=== PATIENT | male | born 1985 | race Hispanic/Latino ===

== ENCOUNTER 2021-05-23 04:50 | Emergency (ER) | payer OTHER, SELFPAY ==
--- NOTE | ~2021-05-23 | XR_ITS ---
EXAMINATION: XR chest 1V portable EXAM DATE: 05/23/2021 05:56 INDICATION: Chest pain. TECHNIQUE: Portable AP frontal chest x-ray was obtained. Comparison is made to prior examination from 02/28/2016. FINDINGS: The lungs are clear. There are no pleural effusions. Cardiac silhouette is prominent but magnified on this AP technique. There is no pneumothorax suspected. The bones and soft tissues are unremarkable. IMPRESSION: Unremarkable chest x-ray exam. Reviewed, dictated and finalized at location A.
[2021-05-23 04:53] VITALS: BP 125/91; PULSE 66; RESP 12; TEMP 36.6; O2SAT 99
--- NOTE | 2021-05-23 04:53 | ECG_ITS ---
Measurements Intervals [place] Rate: 64 P: 6 MD: 166 QRS: 70 QRSD: 109 T: 7 QT: 400 QTc: 415 Interpretive Statements SINUS RHYTHM MINIMAL Q WAVES- INFERIOR LEADS BASELINE ARTIFACT- I, III, AVR, AVL BORDERLINE ECG Electronically Signed On 05-25-2021 15:24:58 CDT by Sanchez Burdick D.O.
[2021-05-23 05:12] LABS: Glucose Point of Care 130 mg/dl (65-105)
[2021-05-23 05:15] LABS: Basophils Percent Auto 0.5 % (0.2-1.2); Eosinophils Absolute Auto 0.2 K/mm3 (0-0.3); Eosinophils Percent Auto 3.4 % (0-4.4); Hematocrit 37.7 % (42.0-52.0); Hemoglobin 13.5 g/dL (14.0-18.0); Immature Granulocyte Absolute 0.01 K/mm3 (0.00-0.031); Immature Granulocyte Percent A 0.2 % (0-0.5); Lymphocytes Absolute Auto 1.43 K/mm3 (0.9-3.2); Lymphocytes Percent Auto 25.3 % (18.3-44.2); Mean Corpuscular HGB Conc 35.8 g/dl (32-36); Mean Corpuscular Hemoglobin 30.9 pg (26-34); Mean Corpuscular Volume 86.3 fl (80-100); Mean Platelet Volume 12.1 fl (7.4-10.4); Monocytes Absolute Auto 0.5 K/mm3 (0.1-0.6); Neutrophils Absolute Auto 3.5 K/mm3 (1.3-6.7); Neutrophils Percent Auto 62.6 % (45.5-73.1); Platelet Count Result 173 k/mm3 (150-375); Red Blood Count 4.37 M/mm3 (4.6-6.20); Red Cell Distribution Width 12.2 % (11.5-14.5); White Blood Count 5.7 K/mm3 (4.5-10.0)
[2021-05-23 05:29] LABS: Prothrombin Time 12.9 Seconds (11.1-14.7)
[2021-05-23 05:30] LABS: Partial Thromboplastin Time 26.7 SECONDS (22.3-36.8)
[2021-05-23 05:47] LABS: Anion Gap 3 mmol/L (8-16); Blood Urea Nitrogen 17 mg/dL (9-20); Calcium 8.7 mg/dL (8.4-10.2); Carbon Dioxide 25 mmol/L (22-30); Chloride 109 mmol/L (98-107); Estimated CRCL calculation 157 ml/min; Estimated Glomerular Filt Rate > 60; Glucose 121 mg/dL (65-110); Potassium 3.9 mmol/L (3.4-5.0); Sodium 137 mmol/L (137-145)
[2021-05-23 05:53] LABS: Troponin I < 0.012 ng/mL (0.000-0.034)
--- NOTE | 2021-05-23 06:55 | ED.CHESTPAIN ---
HPI - Chest Pain General Chief Complaint: Chest Pain <Yoav Doev MD - Last Filed: 05/23/21 07:03> Stated Complaint: chest pain <Yoav Dove MD - Last Filed: 05/23/21 07:03> Time Seen by Provider: 05/23/21 06:51 <Yoav Dove MD - Last Filed: 05/23/21 07:03> Source: patient <Yoav Dove MD - Last Filed: 05/23/21 07:03> Mode of arrival: EMS <Yoav Dove MD - Last Filed: 05/23/21 07:03> Limitations: no limitations <Yoav Dove MD - Last Filed: 05/23/21 07:03> History of Present Illness HPI narrative: Patient is a 35-year-old male complaining of chest pain, midsternal, tightness, was 9 out of 10 earlier now at 2/10, radiating to left arm started early this morning. Patient denies any shortness of breath, abdominal pain, nausea, vomiting, diaphoresis, fever or chills. Patient was given aspirin and nitro in the ambulance prior to arrival. <Yoav Dove MD - Last Filed: 05/23/21 07:03> Related Data Allergies/Adverse Reactions: Allergies Allergy/AdvReac Type Severity Reaction Status Date / Time No Known Allergies Allergy Unverified 02/28/16 09:39 <Yoav Dove MD - Last Filed: 05/23/21 07:03> Review of Systems Review of Systems: All systems reviewed & are unremarkable except as noted in HPI and below <Yoav Dove MD - Last Filed: 05/23/21 07:03> Constitutional: Constitutional: Denies body ache(s), Denies chills, Denies excessive sweating, Denies fatigue, Denies fever(s), Denies headache(s), Denies lethargy, Denies malaise, Denies weakness and Denies weight loss <Yoav Doev MD - Last Filed: 05/23/21 07:03> Eyes: Eyes: Denies blurry vision, Denies change in vision and Denies loss of vision <Yoav Dove MD - Last Filed: 05/23/21 07:03> ENT: Denies dizziness, Denies ear discharge, Denies headache(s), Denies lip swelling, Denies epistaxis, Denies nasal congestion, Denies neck pain, Denies throat swelling and Denies tongue swelling <Yoav Dove MD - Last Filed: 05/23/21 07:03> Cardiovascular: Cardiovascular: Denies diaphoresis, Denies rapid heart rate, Denies edema, Denies irregular heart rhythm, Denies lightheadedness, Denies palpitations, Denies dyspnea and Denies dyspnea on exertion <Yoav Dove MD - Last Filed: 05/23/21 07:03> Respiratory: Respiratory: Denies chest congestion, Denies cough, Denies hemoptysis, Denies dyspnea and Denies dyspnea on exertion <Yoav Dove MD - Last Filed: 05/23/21 07:03> Gastrointestinal: Gastrointestinal: Denies abdominal pain, Denies melena, Denies hematochezia, Denies diarrhea, Denies nausea, Denies vomiting and Denies hematemesis <Yoav Dove MD - Last Filed: 05/23/21 07:03> Musculoskeletal: Musculoskeletal: Denies abnormal gait, Denies deformity, Denies joint swelling, Denies limited range of motion, Denies neck pain and Denies numbness <Yoav Dove MD - Last Filed: 05/23/21 07:03> Neurologic: Denies Abnormal speech present, Denies abnormal gait, Denies confusion, Denies dizziness, Denies headache(s), Denies focal weakness, Denies loss of vision, Denies numbness, Denies Other visual disturbances, Denies Sensory deficit (Neuro) and Denies weakness <Yoav Dove MD - Last Filed: 05/23/21 07:03> Psychiatric: Psychiatric: Denies confusion, Denies depression, Denies auditory hallucinations, Denies homicidal ideation and Denies suicidal ideation <Yoav Dove MD - Last Filed: 05/23/21 07:03> Endocrine: Endocrine: Denies cold intolerance, Denies excessive sweating, Denies fatigue, Denies heat intolerance and Denies palpitations <Yoav Dove MD - Last Filed: 05/23/21 07:03> Hematologic/Lymphatic: Hematologic/Lymphatic: Denies easy bleeding and Denies easy bruising <Yoav Dove MD - Last Filed: 05/23/21 07:03> Allergic/Immunologic: Allergic/Immunologic: Denies lip swelling, Denies throat swelling and Denies tongue s
[2021-05-23 07:35] VITALS: BP 134/90; PULSE 50; RESP 18; O2SAT 98
[2021-05-23 08:23] LABS: Troponin I < 0.012 ng/mL (0.000-0.034)
[2021-05-23] MEDS: KETOROLAC 30 MG/ML VIAL (*BKC) IV PUSH (09:40)
[2021-05-23 10:12] VITALS: BP 109/66; PULSE 44; RESP 17; O2SAT 100
== END 2021-05-23 10:14 | disposition home or self-care (01) ==
PROVIDERS: Emergency Provider Emergency Medicine; PCP Internal Medicine Gastroenterology
DX: R07.89 Other chest pain (principal); F17.200 Nicotine dependence, unspecified, uncomplicated
CPT/HCPCS: 36415; 71045; 80048; 82948; 84484; 85025; 85610; 85730; 93005; 96374; 99284; J1885

== ENCOUNTER 2022-07-15 13:49 | Emergency (ER) | payer OTHER, SELFPAY ==
--- NOTE | ~2022-07-15 | XR_ITS ---
EXAMINATION: XR chest 2V Exam Date/Time: 07/15/2022 18:55 CDT HISTORY: CP, SOB, DIZZY, TYPE 1 DIABETIC Comparison: 05/23/2021 and 02/28/2016. RESULT: Lines, tubes, and devices: None. Lungs and pleura: No pneumothorax or focal consolidation. Diffuse reticular pattern, somewhat reticu lonodular mid and lower lungs, peribronchial cuffing, indistinct vascular margins. Cardiomediastinal silhouette: Stable. Other: No acute osseous or upper abdominal finding. IMPRESSION: Findings may represent bronchiolitis or vascular congestion/mild interstitial edema. Reviewed, dictated and finalized at location K. IMPRESSION: Findings may represent bronchiolitis or vascular congestion/mild interstitial e hiral.
--- NOTE | 2022-07-15 14:04 | ECG_ITS ---
Measurements Intervals [place] Rate: 70 P: 17 RI: 140 QRS: 85 QRSD: 107 T: 34 QT: 411 QTc: 443 Interpretive Statements SINUS RHYTHM DIFFUSE J-POINT ELEVATION, MOST LIKELY EARLY REPOLARIZATION ABNORMALITY NORMAL VARIANT, CONSIDER PERICARDITIS AND OR ACUTE MYOCARDIAL INJURY BORDERLINE ECG COMPARED TO ECG 05/23/2021 04:59:07 NO SIGNIFICANT CHANGES Electronically Signed On 07-15-2022 16:02:01 CDT by Dominik Issa M.D.
[2022-07-15 14:05] VITALS: BP 134/83; PULSE 71; RESP 36; TEMP 36.5; O2SAT 100
[2022-07-15 14:14] LABS: Glucose Point of Care 271 mg/dl (65-105)
[2022-07-15 14:30] LABS: Basophils Percent Auto 0.5 % (0.2-1.2); Eosinophils Percent Auto 0.5 % (0-4.4); Hematocrit 46.1 % (42.0-52.0); Hemoglobin 16.6 g/dL (14.0-18.0); Immature Granulocyte Absolute 0.03 K/mm3 (0.00-0.031); Immature Granulocyte Percent A 0.4 % (0-0.5); Lymphocytes Absolute Auto 2.86 K/mm3 (0.9-3.2); Lymphocytes Percent Auto 36.2 % (18.3-44.2); Mean Corpuscular Hemoglobin 31.1 pg (26-34); Mean Corpuscular Volume 86.3 fl (80-100); Mean Platelet Volume 11.5 fl (7.4-10.4); Monocytes Absolute Auto 0.5 K/mm3 (0.1-0.6); Monocytes Percent Auto 6.2 % (2.6-8.5); Neutrophils Absolute Auto 4.4 K/mm3 (1.3-6.7); Neutrophils Percent Auto 56.2 % (45.5-73.1); Platelet Count Result 306 k/mm3 (150-375); Red Blood Count 5.34 M/mm3 (4.6-6.20); Red Cell Distribution Width 12.5 % (11.5-14.5); White Blood Count 7.9 K/mm3 (4.5-10.0)
[2022-07-15 14:41] LABS: Alanine Aminotransferase 52 U/L (6-50); Albumin Level 4.9 g/dL (3.5-5.1); Alkaline Phosphatase 160 U/L (38-126); Anion Gap 14 mmol/L (8-16); Aspartate Amino Transferase 32 U/L (17-59); Bilirubin,Total 1.2 mg/dL (0.2-1.3); Blood Urea Nitrogen 13 mg/dL (9-20); Calcium 10.4 mg/dL (8.4-10.2); Carbon Dioxide 18 mmol/L (22-30); Chloride 101 mmol/L (98-107); Estimated CRCL calculation 114 ml/min; Estimated Glomerular Filt Rate > 60; Glucose 273 mg/dL (65-110); Potassium 3.7 mmol/L (3.4-5.0); Sodium 133 mmol/L (137-145)
[2022-07-15 15:40] VITALS: PULSE 64
[2022-07-15 16:59] VITALS: BP 109/70; PULSE 58; RESP 18; O2SAT 100
[2022-07-15] MEDS: HYDROmorphone HCL INJ (*CRX) 1 MG/ML SYR IV PUSH (17:57)
[2022-07-15] MEDS: SODIUM CHLORIDE 0.9% IV 1,000 ML 999 ML IV CONT ×2 (17:58→18:05)
[2022-07-15 18:11] LABS: Troponin I < 0.012 ng/mL (0.000-0.034)
[2022-07-15 18:15] LABS: Troponin I < 0.012 ng/mL (0.000-0.034)
[2022-07-15 18:34] LABS: Influenza A QL RT-PCR Negative (Negative); Influenza B QL RT-PCR Negative (Negative); SARS-CoV-2 RNA PCR Negative
[2022-07-15 18:39] LABS: D Dimer 0.31 ug/mL (<0.48)
[2022-07-15] MEDS: KETOROLAC 15 MG/ML VIAL (*BKC) IV PUSH (19:22)
--- NOTE | 2022-07-15 19:24 | ED.DIZZY ---
HPI - Dizziness General Chief Complaint: Dizziness Stated Complaint: Dizzy after Inhaling Cleaning Products Time Seen by Provider: 07/15/22 16:33 History of Present Illness HPI Narrative: 36-year-old male with history of type 1 diabetes presented to the emergency department for evaluation of increased generalized fatigue nausea dizziness. Patient reports he has had some sinus congestion and cough for approximately 1 week. Patient states worsening symptoms started when he was at work. Patient states he suspect he is dehydrated. Patient's blood sugars have been running elevated. Patient is unsure if he has any ketones. Patient last had an episode of DKA approximately 6 months ago. Patient reports he is having some chest tightness, patient had a negative cath at [facility] 1 year ago. Related Data Allergies Allergy/AdvReac Type Severity Reaction Status Date / Time No Known Allergies Allergy Unverified 02/28/16 09:39 Review of Systems Review of Systems: CONSTITUTIONAL: Generalized fatigue EYES: Denies visual changes, redness, or discharge. ENT: Denies rhinorrhea, congestion, sore throat, or otalgia. CARDIOVASCULAR: Chest tightness RESPIRATORY: Denies cough or dyspnea. GASTROINTESTINAL: Nausea, see HPI GENITOURINARY: Denies dysuria or hematuria. SKIN: Denies rash or itching. MUSCULOSKELETAL: Denies back pain, joint pain, or myalgia. NEUROLOGIC: Denies headache, numbness, or weakness. [facility] Family History Family History Mother Family history of rheumatoid arthritis Other Family history of mental disorder Family history of obesity Hypertension Social History Social History Smoking status: Current every day smoker Second hand tobacco smoke exposure: Yes Alcohol intake: current Exam Narrative: APPEARANCE: Tired appearing HEAD: normocephalic, atraumatic. EYES: PERRLA/EOMI, conjunctivae clear. NOSE: Normal no drainage THROAT: Pharynx clear, no exudate. NECK: Supple. No adenopathy, no masses. RESPIRATORY: Airway patent, respirations nonlabored. Clear to auscultation bilaterally, no rales, rhonchi, wheezing. CARDIOVASCULAR: Regular rate and rhythm without murmurs rubs or gallops. ABDOMINAL: Soft, nontender, nondistended, normal bowel sounds MUSCULOSKELETAL: Moves all extremities. Strength/ROM intact, No edema, No calf tenderness. NEURO: Alert. Cranial nerves II through XII intact. Grossly intact SKIN: Warm, dry. Normal Color Course Course Emergency Course: Patient reports he does feel improved with treatment. Patient is afebrile with no leukocytosis. Patient's D-dimer was not elevated. Patient's electrolytes are within normal limits. Patient does not have an anion gap. Patient's glucose is elevated at 273. Patient is being treated with 2 L of normal saline. Patient had negative serial troponins. Patient's influenza and COVID were both negative. Chest ray showed no acute cardiopulmonary normality. Patient is being treated for an atypical pneumonia Vital Signs Vital signs: Vital Signs Temperature 97.7 F 07/15/22 14:05 Pulse Rate 71 07/15/22 14:05 Respiratory Rate 36 H 07/15/22 14:05 Blood Pressure 134/83 07/15/22 14:05 Pulse Oximetry 100 07/15/22 14:05 Oxygen Delivery Room Air 07/15/22 14:05 Temperature 97.7 F 07/15/22 14:05 Pulse Rate 62 07/15/22 20:18 Respiratory Rate 13 07/15/22 20:18 Blood Pressure 129/75 07/15/22 20:18 Pulse Oximetry 99 07/15/22 20:18 Oxygen Delivery Room Air 07/15/22 14:05 MDM - Dizziness Lab Data Attestation: I reviewed the patient's lab results. Result diagrams: 07/15/22 14:20 07/15/22 14:20 Labs: Lab Results 07/15/22 07/15/22 07/15/22 Range/Units 14:10 14:19 14:20 WBC 7.9 (4.5-10.0) K/mm3 RBC 5.34 (4.6-6.20) M/mm3 Hgb 16.6 D (14.0-18.0) g/dL Hct 46.
[2022-07-15 19:25] VITALS: PULSE 63; RESP 16; O2SAT 99
[2022-07-15 20:18] VITALS: BP 129/75; PULSE 62; RESP 13; O2SAT 99
== END 2022-07-15 21:29 | disposition home or self-care (01) ==
PROVIDERS: Emergency Provider Emergency Medicine; PCP Internal Medicine Gastroenterology
DX: E86.0 Dehydration (principal); R05.9 Cough, unspecified; J02.9 Acute pharyngitis, unspecified; Z20.822 Contact with and (suspected) exposure to COVID-19; E10.9 Type 1 diabetes mellitus without complications; F17.200 Nicotine dependence, unspecified, uncomplicated
CPT/HCPCS: 36415; 71046; 80053; 82948; 84484; 85025; 85380; 87502; 93005; 96361; 96365; 96375; 99284; C9803; J0456; J1170; J1885; J7030; U0003; U0005

== ENCOUNTER 2023-05-08 22:52 | Observation (INO) | payer OTHER, MEDICAID, SELFPAY ==
--- NOTE | ~2023-05-08 | MR_ITS ---
EXAMINATION: MR cervical spine wo con DATE: 05/09/2023 16:28 INDICATION: Paresthesias. TECHNIQUE: Magnetic resonance imaging (MRI) of the cervical spine was performed without intravenous c ontrast. COMPARISON: None FINDINGS: There is 8 degrees levocurvature of cervicothoracic spine. Vertebral body heights and inter vertebral disc heights are normal. The spinal cord signal intensity is normal. The following disc lev els are specifically discussed: C2-C3: The disc does not extend beyond the endplate margin. There is no uncovertebral joint osteoarth ritis. There is mild bilateral facet joint osteoarthritis. There is no neural foraminal stenosis. The re is no central canal stenosis. C3-C4: The disc does not extend beyond the endplate margin. There is no uncovertebral joint osteoarth ritis. There is mild left facet joint osteoarthritis. There is no neural foraminal stenosis. There is no central canal stenosis. C4-C5: The disc does not extend beyond the endplate margin. There is mild left uncovertebral joint os teoarthritis. There is no facet joint osteoarthritis. There is no neural foraminal stenosis. There is no central canal stenosis. C5-C6: The disc does not extend beyond the endplate margin. There is mild bilateral uncovertebral bambi nt osteoarthritis. There is no facet joint osteoarthritis. There is no neural foraminal stenosis. The re is no central canal stenosis. C6-C7: The disc does not extend beyond the endplate margin. There is no uncovertebral joint osteoarth ritis. There is mild bilateral facet joint osteoarthritis. There is no neural foraminal stenosis. The re is no central canal stenosis. C7-T1: The disc does not extend beyond the endplate margin. There is no uncovertebral joint osteoarth ritis. There is mild bilateral facet joint osteoarthritis. There is no neural foraminal stenosis. The re is no central canal stenosis. IMPRESSION: 1. Mild polyarticular osteoarthritis. Reviewed, dictated and finalized at location A.
--- NOTE | ~2023-05-08 | CT_ITS ---
CT ANGIOGRAM NECK AND HEAD History: Left-sided numbness. Technique: Axial noncontrast imaging of the brain was performed. Serial spiral axial images through t he head and neck were then obtained during arterial phase IV injection of 180 cc of Omnipaque 350. 3- D postprocessing and MIP images were then reconstructed on the remote workstation. Dose reduction breezy hnique was used on this scan by utilizing automated exposure control and iterative reconstruction breezy hnique. The dose-length product (DLP) was 1947.55 mGy-cm. CTA neck findings: Bilateral vertebral arteries are patent. Bilateral common carotid, internal carot id, and external carotid arteries are patent. No large vessel occlusion. No stenosis or aneurysm. The proximal right internal carotid artery demonstrates 0% stenosis relative to the normal distal artery lumen diameter. The proximal left internal carotid artery demonstrates 0% stenosis relative to the n ormal distal artery lumen diameter. CTA head findings: Distal vertebral arteries, basilar artery, and posterior cerebral arteries are pat ent. Distal internal carotid arteries, middle cerebral arteries, and anterior cerebral arteries are p atent. No large vessel occlusion. No stenosis or aneurysm. Axial noncontrast imaging of brain is unremarkable. No mass lesion, intracranial hemorrhage or acute infarct seen. Ventricles and subarachnoid spaces are unremarkable. Preston-white differentiation is main tained. Paranasal sinuses and mastoid air cells are clear. Impression: No significant abnormality seen. Reviewed, dictated and finalized at location . Impression: No significant abnormality seen.
--- NOTE | ~2023-05-08 | XR_ITS ---
Clinical Indication: Chest pain PA and lateral views of the chest: Comparison: 07/15/2022 Findings: The lungs are clear, without evidence of focal consolidation or pleural effusion. Cardiome diastinal silhouette is within normal limits. Bones and soft tissues are unremarkable. Impression: Normal chest. Reviewed, dictated and finalized at location . Impression: Normal chest.
--- NOTE | ~2023-05-08 | CT_ITS ---
Clinical Indication: Chest pain CT Scan of the Chest with Contrast: Technique: Contiguous sections were acquired throughout the chest after intravenous administration of 180 cc of Omnipaque 350. Dose reduction technique was used on this scan by utilizing automated expos ure control and iterative reconstruction technique. The dose-length product (DLP) was 1023.62 mGy-cm. Findings: There is no evidence of any significant mediastinal, hilar or axillary lymphadenopathy. There is no evidence of aortic dissection or aneurysm. There is no evidence of pleural or pericardial effusion. The lungs are clear. No pulmonary nodules or infiltrates are noted. Images through the upper abdomen reveal no abnormalities. Impression: No evidence of aortic aneurysm or dissection. Clear lungs. Reviewed, dictated and finalized at location . Impression: No evidence of aortic aneurysm or dissection. Clear lungs.
--- NOTE | ~2023-05-08 | MR_ITS ---
EXAMINATION: MR shoulder LT wo con DATE: 05/09/2023 16:38 INDICATION: Left shoulder and chest wall pain. TECHNIQUE: Magnetic resonance imaging (MRI) of the left shoulder was performed without intravenous co ntrast. Sequences included axial PD-weighted FS FSE, coronal oblique PD-weighted FS FSE, coronal obli que T2-weighted FS FSE, sagittal PD-weighted FS FSE, and sagittal T1-weighted SE. COMPARISON: CTA chest dated 05/08/2023 FINDINGS: Coracoacromial arch: The acromion undersurface is minimally curved in morphology (type I-II). The coracoacromial ligament is normal. Minimal acromioclavicular osteoarthritis. Rotator cuff: The supraspinatus, infraspinatus and teres minor tendons are normal. Mild subscapularis tendinopathy without tear. Normal rotator cuff muscle bulk and signal. Biceps tendon, glenoid labrum and glenohumeral cartilage: Long head of the biceps tendon is normal. Glenoid labrum is normal. Glenohumeral cartilage is normal. Fluid: Physiologic amount of fluid in the glenohumeral joint and biceps tendon sheath. No loose osteochondr al bodies. Small amount of fluid in the subacromial/subdeltoid bursa consistent with mild bursitis. Bones: Normal marrow signal with no edema, fracture or abnormal marrow replacing process. IMPRESSION: 1. Mild subscapularis tendinopathy without tear. 2. Mild subacromial/subdeltoid bursitis. Reviewed, dictated and finalized at location L.
--- NOTE | ~2023-05-08 | NM_ITS ---
EXAMINATION: NM lalito stress w perfusion DATE: 05/09/2023 14:49 INDICATION: Chest pain. TECHNIQUE: Rest images were obtained following intravenous administration of 10 mCi Tc99m tetrofosmin (Myoview). The patient was infused intravenously with Lexiscan (regadenoson). Then, 32.7 mCi Tc99m t etrofosmin (Myoview) was administered intravenously, and stress images were obtained. Data was recons tructed into short axis and horizontal and vertical long axis SPECT images. Gated SPECT images were a lso obtained. COMPARISON: None. FINDINGS: There is no definite reversible or fixed perfusion abnormality to suggest ischemia or infar ction. There is no segmental wall motion abnormality. Left ventricular ejection fraction measures 6 9%. IMPRESSION: 1. No definite ischemia or infarct. 2. Normal left ventricular ejection fraction measuring 69%. Reviewed, dictated and finalized at location A.
--- NOTE | 2023-05-08 22:54 | ECG_ITS ---
Measurements Intervals [place] Rate: 68 P: 58 ID: 160 QRS: 74 QRSD: 111 T: 13 QT: 376 QTc: 400 Interpretive Statements SINUS RHYTHM MODERATE INTRAVENTRICULAR CONDUCTION DELAY [110+ ms QRS DURATION] ABNORMAL ECG COMPARED TO ECG 07/15/2022 14:14:23 INTRAVENTRICULAR CONDUCTION DELAY NOW PRESENT Electronically Signed On 05-09-2023 13:05:22 CDT by Manolo Holguin M.D.
[2023-05-08 22:56] VITALS: BP 122/77; PULSE 75; RESP 12; TEMP 36.4; O2SAT 95
[2023-05-08 23:01] VITALS: PULSE 67
[2023-05-08 23:02] VITALS: O2SAT 99
--- NOTE | 2023-05-08 23:04 | PC.NURSE ---
Patient states that he is having numbness in on his right side (hand, arm, and knee).
[2023-05-08 23:07] LABS: Basophils Absolute Auto 0.1 K/mm3 (0.0-0.1); Eosinophils Absolute Auto 0.2 K/mm3 (0-0.3); Eosinophils Percent Auto 2.9 % (0-4.4); Hematocrit 41.6 % (42.0-52.0); Hemoglobin 14.8 g/dL (14.0-18.0); Immature Granulocyte Absolute 0.02 K/mm3 (0.00-0.031); Immature Granulocyte Percent A 0.3 % (0-0.5); Lymphocytes Absolute Auto 2.52 K/mm3 (0.9-3.2); Lymphocytes Percent Auto 37.1 % (18.3-44.2); Mean Corpuscular HGB Conc 35.6 g/dl (32-36); Mean Corpuscular Hemoglobin 31.2 pg (26-34); Mean Corpuscular Volume 87.8 fl (80-100); Monocytes Absolute Auto 0.5 K/mm3 (0.1-0.6); Monocytes Percent Auto 7.2 % (2.6-8.5); Neutrophils Absolute Auto 3.5 K/mm3 (1.3-6.7); Neutrophils Percent Auto 51.5 % (45.5-73.1); Platelet Count Result 251 k/mm3 (150-375); Red Blood Count 4.74 M/mm3 (4.6-6.20); White Blood Count 6.8 K/mm3 (4.5-10.0)
--- NOTE | 2023-05-08 23:15 | ED.CHESTPAIN ---
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 Reports family history of heart attack and stroke. Related Data Allergies Allergy/AdvReac Type Severity Reaction Status Date / Time No Known Allergies Allergy Unverified 02/28/16 09:39 Review of Systems Review of Systems: CONST: No fever. HEENT: Left face numbness C/V: No chest pain RESP: No cough GI: No abdominal pain : No dysuria. M/S: Left arm pain SKIN: No rash. NEURO: Numbness to left side PSYCH: [No depression] [facility] Family History Family History Mother Family history of rheumatoid arthritis Other Family history of mental disorder Family history of obesity Hypertension Social History Social History Smoking status: Current every day smoker Second hand tobacco smoke exposure: Yes Alcohol intake: current Exam Narrative: EXAMINATION OF ORGAN SYSTEMS/BODY AREAS: Constitutional: Vital signs per nursing GENERAL: Appears anxious and uncomfortable HEAD: Normal with no signs of head trauma. EYES: EOMI, conjunctiva normal, PERRL ENT: Hearing grossly intact; no obvious facial droop LUNGS: Respirations slightly shallow and fast. HEART: [Regular rate and rhythm] ABD: [Soft], [nontender to palpation] EXT: Normal range of motion; normal radial and DP pulses SKIN: [No rashes or lesions.] NEURO: [Alert and oriented x 3. No motor deficits but endorses decreased sensation to the entire left side from face down to foot.] PSYCH: Anxious affect Course Vital Signs Vital signs: Vital Signs Temperature 97.6 F 05/08/23 22:56 Pulse Rate 75 08/09/23 22:56 Respiratory Rate 12 05/08/23 22:56 Blood Pressure 122/77 05/08/23 22:56 Pulse Oximetry 95 05/08/23 22:56 Oxygen Delivery Room Air 05/08/23 22:56 Temperature 97.6 F 05/08/23 22:56 Pulse Rate 68 05/09/23 00:16 Respiratory Rate 21 H 05/09/23 00:16 Blood Pressure 112/60 05/09/23 00:16 Pulse Oximetry 98 05/09/23 00:16 Oxygen Delivery Room Air 05/08/23 23:02 MDM - Chest Pain MDM Narrative Medical decision making narrative: ED COURSE AND MEDICAL DECISION MAKIN-year-old male presenting with chest pain radiating to the left arm with paresthesias. EKG done in triage negative for acute ischemic changes. Cardiac workup is initiated. EKG: Performed in triage and interpreted by me. Normal sinus rhythm. Rate 68. Normal axis. MN normal. QRS duration 111. QTc normal. No pathologic Q waves. No ST segment elevation or depression to suggest acute ischemia. No RV strain pattern. HEART score is 4 with no acute ischemic changes on EKG and negative troponin making ACS unlikely. Wells low risk with negative PERC making PE unlikely. CXR negative for mediastinal widening. No abdominal pain or signs of sepsis that would be concerning for esophageal perforation or mediastinitis. No cardiomegaly or JVD to suggest pericardial effusion/tamponade. I have extremely low CVA in the vague symptoms and distribution and unlikeliness of any sort of stroke that would cause diminished sensation from the head down to toe, CTA of the head and neck obtained here confirms no obvious acute abnormality, I discussed this with our neurologist on-call who agrees and recommends possibly outp
[2023-05-08 23:17] LABS: Prothrombin Time 13.6 Seconds (11.1-14.7)
[2023-05-08 23:18] LABS: Partial Thromboplastin Time 27.9 SECONDS (22.3-36.8)
[2023-05-08 23:19] LABS: Alanine Aminotransferase 33 U/L (6-50); Albumin Level 4.4 g/dL (3.5-5.1); Alkaline Phosphatase 79 U/L (38-126); Anion Gap 6 mmol/L (8-16); Aspartate Amino Transferase 34 U/L (17-59); Bilirubin,Total 0.6 mg/dL (0.2-1.3); Blood Urea Nitrogen 15 mg/dL (9-20); Calcium 9.5 mg/dL (8.4-10.2); Carbon Dioxide 23 mmol/L (22-30); Chloride 104 mmol/L (98-107); Estimated CRCL calculation 113 ml/min; Estimated Glomerular Filt Rate > 60; Glucose 149 mg/dL (65-110); Lipase 29 U/L (23-300); Potassium 3.8 mmol/L (3.4-5.0); Sodium 133 mmol/L (137-145)
[2023-05-08 23:31] LABS: Troponin I < 0.012 ng/mL (0.000-0.034)
[2023-05-09] VITALS (17 sets, daily range): BP systolic 100–136; BP diastolic 44–82; PULSE 47–72; RESP 16–21; TEMP 35.9–36.4; O2SAT 96–100; BMI 36.3
--- NOTE | 2023-05-09 | ECHO_ITS ---
Patient Info Name: Pranav Fay Age: 37 years : 1985 Gender: Male Ht: 68 in Wt: 230 lbs BSA: 2.28 m2 HR: 56 bpm BP: 118 / 68 mmHg Heart Rhythm: Sinus Rhythm, Bradycardia Technical Quality: Fair Exam Date: 05/09/2023 1:15 PM Exam Location: [facility] Patient Status: Inpatient Admit Date: 05/09/2023 Staff Ordering Physician: Breezy Headley MD Escalator Service Mechanic: Daryn Cash RDCS Attending Provider: Breezy Headley MD Referring Physician: Fang HERRERA; Exam Type: CA echo doppler color flow Study Info Indications - Chest pain Complete two-dimensional, color flow and Doppler transthoracic echocardiogram is performed with contrast to opacify the left ventricle and to improve the deliniation of the left ventricle endocardial borders. Summary 1. Left ventricular chamber dimension is normal. 2. Left ventricular systolic function is normal, estimated at >70%. 3. There is mildly increased left ventricular wall thickness. 4. Right ventricular systolic function is normal. 5. No significant valvular disease. Left Ventricle Left ventricular chamber dimension is normal. Left ventricular systolic function is normal, estimated at >70%. There is mildly increased left ventricular wall thickness. The left ventricular diastolic function is normal. Right Ventricle Right ventricular chamber dimension is normal. Right ventricular systolic function is normal. Left Atria Left atrial chamber dimension is normal. Right Atria Right atrial chamber dimension is normal. Atrial Septum Intact interatrial septum visualized by color flow imaging. Aortic Valve The aortic valve is not well visualized. There is no aortic valve stenosis. There is no aortic valve regurgitation. Pulmonic Valve The pulmonic valve is not well visualized. Mitral Valve The mitral valve has thickened leaflets. There is trace mitral valve regurgitation. Tricuspid Valve There is trace tricuspid valve regurgitation. Pericardium/Pleural There is no pericardial effusion. Inferior Vena Cava Normal inferior vena cava with <50% collapse upon inspiration consistent with elevated right atrial pressure, 8 mmHg. Aorta The aortic root size at the sinus of Valsalva is normal. Left Ventricular Outflow Tract Name Value Normal LVOT 2D LVOT Diameter 2.0 cm LVOT Doppler LVOT Peak Gradient 5 mmHg LVOT Mean Gradient 3 mmHg LVOT VTI 29 cm LVOT VTI/AV VTI Ratio 1.2 LVOT Stroke Volume 88 ml LVOT CO 4.2 l/min LVOT CI 1.8 l/min/m2 Pulmonic Valve Name Value Normal RVOT Doppler RVOT Peak Gradient 2 mmHg PV Doppler PV Peak Gradient 3 mmHg Mitral Valv
[2023-05-09] MEDS: MORPHINE SULFATE (*CRX) 2 MG/ML INJ IV PUSH (00:33)
[2023-05-09] MEDS: LORazepam INJ (*CRX) 2 MG/ML VIAL 0.5 MG IV PUSH (00:33)
--- NOTE | 2023-05-09 00:43 | EST_ITS ---
Patient Info Name: Pranav Fay Age: 37 years : 1985 Gender: Male Ht: 68 in Wt: 230 lbs BSA: 2.28 m2 HR: 47 bpm BP: 107 / 71 mmHg Heart Rhythm: Sinus Rhythm Exam Date: 05/09/2023 11:35 AM Exam Location: [facility] Stress Patient Status: Inpatient Admit Date: 05/09/2023 Staff Ordering Physician: Breezy Headley MD Attending Provider: Breezy Headley MD Exercise Technologist: Maria Esther Cota CT Nurse: Charlotte Rowe APN Exam Type: CA stress lalito w NM Study Info Indications R07.89 - Other chest pain A regadenoson stress test was performed. Summary 1. Please correlate with nuclear medicine images, reported separately. 2. No abnormal ST-T wave changes with lexiscan. 3. Test was supervised and interpretation performed by Manolo Holguin MD. Protocol: Lexiscan Stress ECG Details Stage: REST Duration (min): 2 min : 25 sec HR (bpm): 47 SBP (mmHg): --- DBP (mmHg): --- Stage: REST Duration (min): 8 min : 16 sec HR (bpm): 48 SBP (mmHg): --- DBP (mmHg): --- Stage: STAGE 1 Duration (min): 1 min : 0 sec HR (bpm): 62 SBP (mmHg): --- DBP (mmHg): --- Stage: RECOVERY Duration (min): 1 min : 0 sec HR (bpm): 83 SBP (mmHg): 104 DBP (mmHg): 45 Stage: RECOVERY Duration (min): 2 min : 0 sec HR (bpm): 70 SBP (mmHg): 104 DBP (mmHg): 45 Stage: RECOVERY Duration (min): 3 min : 0 sec HR (bpm): 61 SBP (mmHg): 109 DBP (mmHg): 51 Stage: RECOVERY Duration (min): 3 min : 12 sec HR (bpm): 66 SBP (mmHg): 109 DBP (mmHg): 51 Rest HR: 48 bpm Peak HR: 83 bpm Peak Sys BP: 109 mmHg Max Pred HR: 181 bpm % Max Pred HR: 46 % Target HR: 154 bpm Max RPP: 9,047 bpm*mmHg BP Response: Normal blood pressure response Termination Reason: Completed protocol Cardiac Symptoms: Shortness of breath, Chest pain Total Time: 1 min : 0 sec Peak Cohen BP: 51 mmHg Total Dose: 0.4 mg Resting ECG Sinus bradycardia. New rule out inferior AR, right axis deviation. Stress ECG No abnormal ST/T wave changes with exercise. Arrhythmias None. Report Signatures Amended by Manolo Holguin on 05/09/2023 12:59
[2023-05-09] MEDS: ASPIRIN 81 MG CHEWABLE TABLET 324 MG PO (00:47)
--- NOTE | 2023-05-09 01:50 | ADMGEN ---
This patient, Pranav Fay, was admitted to IMU Room 210-01. Patient/family oriented to hospital policies and general routines including ID bracelet, bed and alarms, visiting hours, pain management, procedures, bathroom and other care routines, personal items, smoking policy, room service/diet, and visiting hours. Information on how to activate the Rapid Response Team has been discussed. Patient/Family are encouraged to report perceived risks to care and to ask questions if they do not understand what they are told or what they should do.
[2023-05-09 01:58] LABS: Amphetamine Screen Urine Negative (Negative); Barbiturate Screen Urine Negative (Negative); Benzodiazepines Screen Urine Negative (Negative); Cannabinoid Screen Urine Positive (Negative); Cocaine Screen Urine Negative (Negative); Methadone Screen Urine Negative (Negative); Opiate Screen Urine Positive (Negative); Phencyclidine Screen Urine Negative (Negative)
[2023-05-09 02:08] LABS: Appearance Urine Clear (Clear); Bilirubin Urine Negative (Negative); Blood Urine Negative (Negative); Color Urine Yellow (Yellow); Glucose Urine UA Negative (Negative); Ketones Urine Negative (Negative); Leukocyte Esterase Ur Negative LEU/UL (Negative); Nitrate Urine Negative (Negative); Protein Urine Trace mg/dL (Negative)
[2023-05-09 02:09] LABS: RBC Urine 0-2 /hpf (0-2); Specific Grav Ur >= 1.099 (1.001-1.035); WBC Urine 0-3 /hpf
[2023-05-09 02:10] LABS: Bacteria Urine None seen /hpf
[2023-05-09 02:12] LABS: Troponin I < 0.012 ng/mL (0.000-0.034)
[2023-05-09 02:24] LABS: Add Urine Microscopic? YES
[2023-05-09 05:12] LABS: Troponin I < 0.012 ng/mL (0.000-0.034)
--- NOTE | 2023-05-09 08:22 | PM.IMHP ---
H&P: HPI History of Present Illness Date/Time: 05/09/23 08:22 Chief Complaint: Chest pain Narrative: 37-year-old male with history of type 1 diabetes presents here stating that he is having severe pain in his left chest radiating to his arm, that started when he was working on his for cleft. Was intermittently but later became persistent. Was radiating into the left arm his left side of the neck was also sore the same time. 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 Reports family history of heart attack and stroke. He did have a cardiac workup for similar symptom in the past which includes cardiac catheterization which was negative as he was told by his channel director a year and half ago. Did this at [place] Review of Systems Review of Systems: - CONSTITUTIONAL: Denies weight loss, fever and chills. - HEENT: Denies changes in vision and hearing - RESPIRATORY: Denies SOB and cough. - CV: Denies palpitations and reports CP. - GI: Denies abdominal pain, nausea, vomiting and diarrhea. - : Denies dysuria and urinary frequency. - MSK: Denies myalgia and joint pain. - SKIN: Denies rash and pruritus. - NEUROLOGICAL: Denies headache and syncope. - PSYCHIATRIC: Denies recent changes in mood. Denies anxiety and depression. [facility] Family History Family History Mother Family history of rheumatoid arthritis Other Family history of mental disorder Family history of obesity Hypertension Social History Social History Years smoked: 20 Smoking status: Current every day smoker Tobacco type: cigars Second hand tobacco smoke exposure: Yes Alcohol intake: never Substance use: current Substance use type: marijuana Lack of Transportation: No Lack of Food: Never True Current Housing: I Have Housing Concerned About Future Housing: No Difficulty Paying Gas/Electric Bills: No Difficulty Paying for Meds: No Currently Unemployed: No Education: Decline to Answer Difficulty w/ Childcare or Family Care: No Spiritual care concerns: No Meds Home Medications and Allergies Home Medications Medication Instructions Recorded Confirmed Type ibuprofen 800 mg tablet 800 mg PO TID 05/09/23 05/09/23 History insulin glargine 100 unit/mL (3 35 unit subcut BID 05/09/23 05/09/23 History mL) subcutaneous pen (Lantus Solostar U-100 Insulin) insulin lispro 100 unit/mL 15 unit subcut TID 05/09/23 05/09/23 History subcutaneous pen (Humalog KwikPen (U-100) Insulin) loperamide 2 mg capsule 2 mg PO Q4H 05/09/23 05/09/23 History Allergies Allergy/AdvReac Type Severity Reaction Status Date / Time No Known Allergies Allergy Unverified 02/28/16 09:39 Vital Signs Vital Signs - 24 hr 05/08/23 22:56 05/08/23 23:01 05/08/23 23:02 Temperature 97.6 F Pulse Rate 75 67 Respiratory Rate 12 Blood Pressure 122/77 Pulse Oximetry 95 99 Oxygen Delivery Room Air Room Air 05/09/23 00:16 05/09/23 01:35 05/09/23 01:59 Temperature 96.7 F L Pulse Rate 68 62 72 Respiratory Rate 21 H 18 20 Blood Pressure 112/60 100/55 L 120/81 Pulse Oximetry 98 97 98 Oxygen Delivery 05/09/23 02:00 05/09/23 04:00 05/09/23 03:00 Temperature Pulse Rate 53 L 64 64 Respiratory Rate 20 Blood Pressure Pulse Oximetry 98 Oxygen Delivery Room Air 05/09/23 04:00 05/09/23 06:00 05/09/23 02:04 Temperature 97.4 F L 96.7 F L Pulse Rate 56 L 56 L 72 Respiratory Rate 16 20 Blood Pressure 118/68 120/81 Pulse Oximetry 99 98 Oxygen Delivery Exam Narrative:
[2023-05-09] MEDS: IBUPROFEN 400 MG TABLET 800 MG PO ×2 (09:19→17:06)
[2023-05-09] MEDS: ASPIRIN 81 MG ENTERIC TABLET PO (09:19)
[2023-05-09] MEDS: INSULIN GLARGINE (*BKC) 100 UNITS/ML 35 UNITS SUB-Q ×2 (10:23→17:08)
--- NOTE | 2023-05-09 10:45 | PC.NURSE ---
Pt to nuclear medicine for Lexiscan via wheelchair
--- NOTE | 2023-05-09 12:54 | PC.NURSE ---
Pt returned from nuclear medicine via wheelchair, with no issues noted
[2023-05-09 13:24] LABS: Glucose Point of Care 223 mg/dl (65-105)
--- NOTE | 2023-05-09 15:34 | PC.NURSE ---
Pt to MRI via w/c.
--- NOTE | 2023-05-09 16:42 | PC.NURSE ---
Pt returned from MRI
[2023-05-09] MEDS: INSULIN ASPART (*BKC) 100 UNITS/ML 15 UNITS SUB-Q (17:08)
[2023-05-09] MEDS: LOPERAMIDE HCL 2 MG CAPSULE PO (17:09)
[2023-05-09 18:59] LABS: Glucose Point of Care 163 mg/dl (65-105)
[2023-05-09 20:14] LABS: Glucose Point of Care 241 mg/dl (65-105)
[2023-05-09] MEDS: ACETAMINOPHEN 500 MG TABLET 1000 MG PO (22:30)
[2023-05-10] VITALS: PULSE 44
[2023-05-10 04:00] VITALS: PULSE 42
[2023-05-10 04:47] LABS: Basophils Percent Auto 0.9 % (0.2-1.2); Eosinophils Absolute Auto 0.2 K/mm3 (0-0.3); Eosinophils Percent Auto 4.3 % (0-4.4); Hematocrit 39.7 % (42.0-52.0); Hemoglobin 13.9 g/dL (14.0-18.0); Immature Granulocyte Absolute 0.01 K/mm3 (0.00-0.031); Immature Granulocyte Percent A 0.2 % (0-0.5); Lymphocytes Absolute Auto 1.85 K/mm3 (0.9-3.2); Lymphocytes Percent Auto 42.1 % (18.3-44.2); Mean Corpuscular Hemoglobin 30.9 pg (26-34); Mean Corpuscular Volume 88.2 fl (80-100); Mean Platelet Volume 11.6 fl (7.4-10.4); Monocytes Absolute Auto 0.3 K/mm3 (0.1-0.6); Monocytes Percent Auto 6.8 % (2.6-8.5); Neutrophils Percent Auto 45.7 % (45.5-73.1); Platelet Count Result 211 k/mm3 (150-375); Red Cell Distribution Width 12.9 % (11.5-14.5); White Blood Count 4.4 K/mm3 (4.5-10.0)
[2023-05-10 04:58] LABS: Alanine Aminotransferase 71 U/L (6-50); Albumin Level 3.6 g/dL (3.5-5.1); Alkaline Phosphatase 88 U/L (38-126); Anion Gap 0 mmol/L (8-16); Aspartate Amino Transferase 53 U/L (17-59); Bilirubin,Total 0.5 mg/dL (0.2-1.3); Blood Urea Nitrogen 11 mg/dL (9-20); Calcium 8.8 mg/dL (8.4-10.2); Carbon Dioxide 27 mmol/L (22-30); Chloride 107 mmol/L (98-107); Estimated CRCL calculation 125 ml/min; Estimated Glomerular Filt Rate > 60; Glucose 180 mg/dL (65-110); Magnesium 2.2 mg/dL (1.6-2.3); Potassium 4.4 mmol/L (3.4-5.0); Sodium 134 mmol/L (137-145)
[2023-05-10 08:00] VITALS: BP 115/68; PULSE 58; RESP 16; TEMP 36.3; O2SAT 99
[2023-05-10] MEDS: INSULIN ASPART (*BKC) 100 UNITS/ML 15 UNITS SUB-Q ×2 (08:04→11:35)
[2023-05-10] MEDS: INSULIN GLARGINE (*BKC) 100 UNITS/ML 35 UNITS SUB-Q (08:05)
[2023-05-10] MEDS: IBUPROFEN 400 MG TABLET 800 MG PO (08:06)
[2023-05-10] MEDS: ENOXAPARIN 40 MG/0.4 ML SYRINGE SUB-Q (08:06)
[2023-05-10] MEDS: ASPIRIN 81 MG ENTERIC TABLET PO (08:06)
[2023-05-10] MEDS: LOPERAMIDE HCL 2 MG CAPSULE PO (08:11)
[2023-05-10 08:16] VITALS: PULSE 68; O2SAT 100
[2023-05-10 08:49] LABS: Glucose Point of Care 227 mg/dl (65-105)
[2023-05-10 11:46] LABS: Glucose Point of Care 260 mg/dl (65-105)
[2023-05-10] MEDS: INSULIN ASPART (*BKC) 100 UNITS/ML SUB-Q (11:48)
[2023-05-10 12:00] VITALS: PULSE 59
[2023-05-10 12:05] VITALS: BP 114/73; PULSE 57; RESP 16; TEMP 36.9; O2SAT 99
--- NOTE | 2023-05-10 13:22 | PM.DS ---
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 Previous cardiac workup has been negative.? Stress test done which came back negative..? Ibuprofen p.r.n..? Already on aspirin 81 mg daily.? Cardiac catheterization was done a year and a half ago which was clean reported by the patient. Type 1 diabetes on insulin glargine and NovoLog.? Will resume this Left arm paresthesia this most likely related to his cervical or shoulder impingement.? MRI cervical spine with some spondylosis however shoulder MRI with subacromial bursitis likely reason for his pain. 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 Oropharynx clear. Moist mucous membranes. Conjunctivae appear well perfused. CHEST: Chest wall is tender to touch on left upper chest left cervical paraspinal area tenderness. Tender and mildly restricted range of motion on left shoulder HEART: Regular rate and rhythm without murmur, rubs, or gallops LUNGS: Clear to auscultation bilaterally. no respiratory distress ABDOMEN: Soft, positive bowel sounds, non-tender, no organomegaly. SKIN: No rash, no excessive bruising, petechiae, or purpura. NEUROLOGIC: Cranial nerves II-XII intact, alert and oriented x 3, no gross motor deficits EXTREMITIES: no edema, cyanosis or clubbing DS: Data Data Completed and Pending Completed studies during hospitalization: Exam Type: ? ? CA echo doppler color flow Study Info Indications ?? ? - Chest pain Complete two-dimensional, color flow and Doppler transthoracic echocardiogram is performed with contrast to opacify the left ventricle and to improve the deliniation of the left ventricle endocardial borders. Account #: ? ? [id number] Summary ? 1. Left ventricular chamber dimension is normal. ? 2. Left ventricular systolic function is normal, estimated at >70%. ? 3. There is mildly increased left ventricular wall thickness. ? 4. Right ventricular systolic function is normal. ? 5. No significant valvular disease. Left Ventricle ? Left ventricular chamber dimension is normal. ? Left ventricular systolic function is normal, estimated at >70%. ? There is mildly increased left ventricular wall thickness. ? The left ventricular diastolic function is normal. Right Ventricle ? Right ventricular chamber dimension is normal. ? Right ventricular systolic function is normal. Left Atria ? Left atrial chamber dimension is normal. Right Atria ? Right atrial chamber dimension is normal. Atrial Septum ? Intact interatrial septum visualized by color flow imaging. Aortic Valve ? The aortic valve is not well visualized. ? There is no aortic valve stenosis. ? There is no aortic valve regurgitation. Pulmonic Valve ? The pulmonic valve is not well visualized. Mitral Valve ? The mitral valve has thickened leaflets. ? There is trace mitral valve regurgitation. Tricuspid Valve ? There is trace tricuspid valve regurgitation. Pericardium/Pleural ? There is no pericardial effusion. Inferior Vena Cava ? Normal inferior vena cava with <50% collapse upon inspirat
== END 2023-05-10 14:18 | disposition home or self-care (01) ==
LOC: ANHED 05-09 00:57 → ANHIMU 05-09 01:50
PROVIDERS: Internal Medicine; Admitting Provider Internal Medicine; Emergency Provider Emergency Medicine; PCP Internal Medicine Gastroenterology; Visit Provider Internal Medicine
DX: R07.9 Chest pain, unspecified (principal); R11.0 Nausea; R20.0 Anesthesia of skin; Z82.49 Family history of ischemic heart disease and other diseases of the circulatory system; E10.9 Type 1 diabetes mellitus without complications; M47.812 Spondylosis without myelopathy or radiculopathy, cervical region; F12.90 Cannabis use, unspecified, uncomplicated; F17.290 Nicotine dependence, other tobacco product, uncomplicated; Z79.4 Long term (current) use of insulin
CPT/HCPCS: 36415; 70496; 70498; 71046; 71275; 72141; 73221; 78452; 80053; 80307; 81001; 82948; 83690; 83735; 84484; 85025; 85610; 85730; 93005; 93017; 93306; 96372; 96374; 96375; 99285; A9270; A9502; G0378; J1650; J1815; J2060; J2270; J2785; Q9967

== ENCOUNTER 2023-08-06 09:48 | Observation (INO) | payer MEDICAID, SELFPAY ==
[2023-08-06] VITALS (14 sets, daily range): BP systolic 109–131; BP diastolic 65–79; PULSE 59–66; RESP 11–20; TEMP 36.3–36.5; O2SAT 98–100; BMI 31.4
--- NOTE | ~2023-08-06 | XR_ITS ---
EXAMINATION: XR chest 2V Exam Date/Time: 08/06/2023 18:05 MINIATURE SET DESIGNER HISTORY: COUGH CHEST TIGHTNESS Comparison: 05/08/23. RESULT: Lines, tubes, and devices: Cholecystectomy clips. Lungs and pleura: Diffuse mild reticulonodular opacities and mild cuffing. Cardiomediastinal silhouette: Stable. Other: No acute osseous or upper abdominal finding. IMPRESSION: Pulmonary opacities may represent respiratory bronchiolitis and/or mild interstitial edema. Reviewed, dictated and finalized at location K. ATURE SET DESIGNER IMPRESSION: Pulmonary opacities may represent respiratory bronchiolitis and/or mild interst itial edema.
[2023-08-06 09:53] LABS: Glucose Point of Care 261 mg/dl (65-105)
--- NOTE | 2023-08-06 10:19 | ED.RECABL ---
HPI - Recheck/Abnormal Lab/Rx General Chief Complaint: Recheck/Abnormal Lab/Rx Stated Complaint: High blood sugar Time Seen by Provider: 08/06/23 10:05 History of Present Illness HPI narrative: Pt is Type I diabetic and his blood sugar was 350 at home. Pt has not missed doses. Pt has viral URI symptoms and concerned he may be in DKA. Pt feels very dry and lightheaded when getting up and dizzy. Pt concerned he may be in DKA. Related Data Home Medications Medication Instructions Recorded Confirmed ibuprofen 800 mg tablet 800 mg PO TID PRN Pain 05/09/23 08/06/23 insulin glargine 100 unit/mL (3 35 unit subcut BID 05/09/23 08/06/23 mL) subcutaneous pen (Lantus Solostar U-100 Insulin) insulin lispro 100 unit/mL 15 unit subcut TID 05/09/23 08/06/23 subcutaneous pen (Humalog KwikPen (U-100) Insulin) loperamide 2 mg capsule 2 mg PO Q4HWA 05/09/23 08/06/23 Allergies Allergy/AdvReac Type Severity Reaction Status Date / Time No Known Allergies Allergy Verified 08/06/23 10:27 Review of Systems Review of Systems: All systems reviewed & are unremarkable except as noted in HPI and below PMFSH Family History Family History Mother Family history of rheumatoid arthritis Other Family history of mental disorder Family history of obesity Hypertension Social History Social History Years smoked: 20 Smoking status: Current every day smoker Tobacco type: cigars Second hand tobacco smoke exposure: Yes Alcohol intake: never Substance use: current Substance use type: marijuana Other substance usage details: drinks alcohol once a month and uses marijuana ocasionally. Last use: 08/02/23 Lack of Transportation: No Lack of Food: Never True Current Housing: I Have Housing Concerned About Future Housing: No Difficulty Paying Gas/Electric Bills: No Difficulty Paying for Meds: No Currently Unemployed: No Education: High School Diploma/GED Difficulty w/ Childcare or Family Care: No Spiritual care concerns: No Exam Const: General: no acute distress Nutritional Appearance: well nourished Orientation/consciousness: patient oriented x3 Limitations: no limitations HENMT: Mouth: Yes dry mucous membranes Neck: Neck: normal visual inspection Chest: Chest palpation & inspection: normal inspection of the chest Resp: Effort & Inspection: normal respiratory effort Auscultation: clear to auscultation bilaterally Cardio: Rate: regular rate Rhythm: regular rhythm GI: GI Palp: Yes Soft to palpation Auscultation: normal bowel sounds Skin: General skin exam: normal color Rashes: no rashes Neuro: General: patient oriented x3, moves all extremities and no meningeal signs Extrem: General: normal to inspection and no clubbing, cyanosis or edema Psych: Mental Status: mental status grossly normal Affect: normal affect Attitude: cooperative Course Vital Signs Vital signs: Vital Signs Temperature 97.7 F 08/06/23 09:50 Pulse Rate 66 08/06/23 09:50 Respiratory Rate 20 08/06/23 09:50 Blood Pressure 131/75 08/06/23 09:50 Pulse Oximetry 100 08/06/23 09:50 Oxygen Delivery Room Air 08/06/23 09:50 Temperature 97.3 F L 08/06/23 16:45 Pulse Rate 59 L 08/06/23 16:45 Respiratory Rate 16 08/06/23 16:45 Blood Pressure 127/75 08/06/23 16:45 Pulse Oximetry 100 08/06/23 16:45 Oxygen Delivery Room Air 08/06/23 17:49 MDM - Recheck/Abnormal Lab/Rx MDM Narrative Medical decision making narrative: given pt long history of DM, DKA certainly possible with URI as trigger. Will give IVF and Insulin and check labs and cxr. repeat accucheck 171. called Dr Wilson and said hold drip and give another liter of fluid (3 L total) and can give his long acting insulin and should be fine. discussed with DEE greene asked for repeat bmp to check gap.
--- NOTE | 2023-08-06 10:24 | ECG_ITS ---
Measurements Intervals [place] Rate: 59 P: 52 AK: 159 QRS: 71 QRSD: 108 T: 26 QT: 432 QTc: 431 Interpretive Statements SINUS BRADYCARDIA BORDERLINE ECG COMPARED TO ECG 05/08/2023 23:00:34 SINUS BRADYCARDIA NOW PRESENT Electronically Signed On 08-06-2023 10:50:17 CAN HANDLER by Sanchez Burdick D.O.
[2023-08-06 10:42] LABS: Basophils Absolute Auto 0.1 K/mm3 (0.0-0.1); Basophils Percent Auto 0.7 % (0.2-1.2); Eosinophils Percent Auto 0.4 % (0-4.4); Hematocrit 45.8 % (42.0-52.0); Hemoglobin 15.6 g/dL (14.0-18.0); Immature Granulocyte Absolute 0.05 K/mm3 (0.00-0.031); Immature Granulocyte Percent A 0.7 % (0-0.5); Lymphocytes Absolute Auto 1.45 K/mm3 (0.9-3.2); Lymphocytes Percent Auto 19.3 % (18.3-44.2); Mean Corpuscular HGB Conc 34.1 g/dl (32-36); Mean Corpuscular Hemoglobin 31.8 pg (26-34); Mean Corpuscular Volume 93.3 fl (80-100); Mean Platelet Volume 11.9 fl (7.4-10.4); Monocytes Absolute Auto 0.3 K/mm3 (0.1-0.6); Monocytes Percent Auto 3.6 % (2.6-8.5); Neutrophils Absolute Auto 5.7 K/mm3 (1.3-6.7); Neutrophils Percent Auto 75.3 % (45.5-73.1); Platelet Count Result 224 k/mm3 (150-375); Red Blood Count 4.91 M/mm3 (4.6-6.20); Red Cell Distribution Width 12.8 % (11.5-14.5); White Blood Count 7.5 K/mm3 (4.5-10.0)
[2023-08-06 10:49] LABS: Alanine Aminotransferase 92 U/L (6-50); Albumin Level 4.6 g/dL (3.5-5.1); Alkaline Phosphatase 135 U/L (38-126); Anion Gap 21 mmol/L (8-16); Aspartate Amino Transferase 72 U/L (17-59); Bilirubin,Total 1.1 mg/dL (0.2-1.3); Blood Urea Nitrogen 11 mg/dL (9-20); Calcium 8.9 mg/dL (8.4-10.2); Carbon Dioxide 10 mmol/L (22-30); Chloride 105 mmol/L (98-107); Estimated CRCL calculation 119 ml/min; Estimated Glomerular Filt Rate > 60; Glucose 275 mg/dL (65-110); Potassium 4.5 mmol/L (3.4-5.0); Sodium 136 mmol/L (137-145)
[2023-08-06 10:59] LABS: Troponin I < 0.012 ng/mL (0.000-0.034)
[2023-08-06] MEDS: INSULIN HUMAN REGULAR (*BKC) 100 UNITS/ML 14 UNITS IV PUSH (11:14)
[2023-08-06] MEDS: ONDANSETRON INJ 4 MG/2 ML VIAL IV PUSH (11:16)
[2023-08-06] MEDS: INSULIN HUMAN REGULAR (*BKC) 100 UNITS in SODIUM CHLORIDE 0.9% IV 99 ML 9.5 UNITS IV CONT (11:17)
[2023-08-06 11:18] LABS: Influenza A QL RT-PCR Negative (Negative); Influenza B QL RT-PCR Negative (Negative); SARS-CoV-2 RNA PCR Negative (Negative)
[2023-08-06] MEDS: SODIUM CHLORIDE 0.9% IV 2,000 ML 999 ML IV CONT (11:20)
[2023-08-06 11:53] LABS: Beta-Hydroxybutyrate/Acetoacetate 7.06 mmol/L (0.02-0.27)
[2023-08-06 12:31] LABS: Glucose Point of Care 171 mg/dl (65-105)
--- NOTE | 2023-08-06 12:31 | PC.NURSE ---
Per VORB by EDP , insulin drip paused at this time
[2023-08-06 12:43] LABS: Appearance Urine Clear (Clear); Bilirubin Urine Negative (Negative); Blood Urine Negative (Negative); Color Urine Yellow (Yellow); Glucose Urine UA 3+ mg/dL (Negative); Ketones Urine 4+ mg/dL (Negative); Leukocyte Esterase Ur Negative LEU/UL (Negative); Nitrate Urine Negative (Negative); Protein Urine Negative (Negative); Specific Grav Ur 1.026 (1.001-1.035); Urobilinogen Urine 0.2 mg/dL (<2.0); pH Urine 5.5 (5.0-9.0)
[2023-08-06 12:46] LABS: Add Urine Microscopic? NO
[2023-08-06 13:08] LABS: Glucose Point of Care 154 mg/dl (65-105)
[2023-08-06] MEDS: SODIUM CHLORIDE 0.9% IV 1,000 ML 999 ML IV CONT (13:22)
[2023-08-06 14:22] LABS: Anion Gap 9 mmol/L (8-16); Blood Urea Nitrogen 10 mg/dL (9-20); Calcium 7.8 mg/dL (8.4-10.2); Carbon Dioxide 16 mmol/L (22-30); Chloride 112 mmol/L (98-107); Estimated CRCL calculation 135 ml/min; Estimated Glomerular Filt Rate > 60; Glucose 121 mg/dL (65-110); Potassium 4.1 mmol/L (3.4-5.0); Sodium 137 mmol/L (137-145)
[2023-08-06 14:31] LABS: Glucose Point of Care 114 mg/dl (65-105)
[2023-08-06] MEDS: SODIUM CHLORIDE 0.9% IV 1,000 ML 125 ML IV CONT (15:29)
--- NOTE | 2023-08-06 15:39 | PM.IMHP ---
H&P: HPI History of Present Illness Date/Time: 08/06/23 15:39 Chief Complaint: Hyperglycemia Narrative: 37 y/o M presents here with viral URI s/s, hyperglycemia, and polydipsia/polyuria with PMH of DM1, pancreatitis, and chronic diarrhea. Patient reports that he began to feel unwell on Saturday, more tired. Then on Saturday he developed chest tightness with inspiration, hyperglycemia w/polydipsia/polyuria, chills, body aches, sore throat (mild), congestion/rhinorrhea, and a dry cough. One other sick family member, youngest child, who had similar symptoms that began last /Saturday. Reports adequate p.o. intake. No current N/V, Has chronic diarrhea since he was 1st diagnosed with pancreatitis and takes Imodium daily for symptom management. No recent changes in diabetes medications or recent steroid use. DM1 is followed by endocrinology, robby CELAYA. However provider just left practice and patient is currently awaiting appointment with Dequan CELAYA who is managing medications in interim. patient does not currently have insulin pump or glucose monitoring device, states he is interested. no other complaints verbalized. Review of Systems Review of Systems: All systems reviewed & are unremarkable except as noted in HPI and below PMFSH Past Medical History Medical History (Updated 08/06/23 @ 23:53 by Corrina Diaz APRN) Chronic diarrhea Pancreatitis Type 1 diabetes mellitus on insulin therapy Surgical History Surgical History (Updated 08/06/23 @ 23:53 by Corrina Diaz APRN) History of appendectomy History of cholecystectomy History of skin graft LLE (graft to de la cruz from thigh) Family History Family History Mother Family history of rheumatoid arthritis Other Family history of mental disorder Family history of obesity Hypertension Social History Social History (Updated 08/06/23 @ 23:54 by Corrina Diaz APRN) Social History: currently lives at home with his and 5 children (step and bio). surrogate decision maker: Lizett Osuna, spouse. code status: full code. Years smoked: 20 Smoking status: Current every day smoker Tobacco type: cigars Second hand tobacco smoke exposure: Yes Alcohol intake: never Substance use: current Substance use type: marijuana Other substance usage details: drinks alcohol once a month and uses marijuana ocasionally. Last use: 08/02/23 Lack of Transportation: No Lack of Food: Never True Current Housing: I Have Housing Concerned About Future Housing: No Difficulty Paying Gas/Electric Bills: No Difficulty Paying for Meds: No Currently Unemployed: No Education: High School Diploma/GED Difficulty w/ Childcare or Family Care: No Spiritual care concerns: No Meds Home Medications and Allergies Home Medications Medication Instructions Recorded Confirmed Type ibuprofen 800 mg tablet 800 mg PO TID PRN Pain 05/09/23 08/06/23 History insulin glargine 100 unit/mL (3 35 unit subcut BID 05/09/23 08/06/23 History mL) subcutaneous pen (Lantus Solostar U-100 Insulin) insulin lispro 100 unit/mL 15 unit subcut TID 05/09/23 08/06/23 History subcutaneous pen (Humalog KwikPen (U-100) Insulin) loperamide 2 mg capsule 2 mg PO Q4HWA 05/09/23 08/06/23 History Allergies Allergy/AdvReac Type Severity Reaction Status Date / Time No Known Allergies Allergy Verified 08/06/23 10:27 Vital Signs Vital Signs - 24 hr 08/06/23 09:50 08/06/23 10:12 08/06/23 11:24 Temperature 97.7 F Pulse Rate 66 61 Respiratory Rate 20 13 17 Blood Pressure 131/75 120/75 Pulse Oximetry 100 98 Oxygen Delivery Room Air 08/06/23 11:26 08/06/23 13:22 08/06/23 14:31 Temperature Pulse Rate 60 62 66 Respiratory Rate 15 11 L 14 Blood Pressure 127/78 109/67 119/70 Pulse Oximetry 100 100 100 Oxygen Delivery 08/06/23 15:32 Temperature Pulse Rate 62 Respiratory Ra
[2023-08-06 16:17] LABS: Glucose Point of Care 87 mg/dl (65-105)
--- NOTE | 2023-08-06 16:18 | PC.NURSE ---
pt insulin drip discontinued per VORB by EDP
--- NOTE | 2023-08-06 16:45 | ADMGEN ---
This patient, Pranav Fay, was admitted to IMU Room 209-01. Patient/family oriented to hospital policies and general routines including ID bracelet, bed and alarms, visiting hours, pain management, procedures, bathroom and other care routines, personal items, smoking policy, room service/diet, and visiting hours. Information on how to activate the Rapid Response Team has been discussed. Patient/Family are encouraged to report perceived risks to care and to ask questions if they do not understand what they are told or what they should do.
[2023-08-06] MEDS: INSULIN ASPART (*BKC) 100 UNITS/ML SUB-Q (17:18)
[2023-08-06 17:19] LABS: Glucose Point of Care 95 mg/dl (65-105)
[2023-08-06 18:09] LABS: Hemoglobin A1C 9.2 % (<5.7)
[2023-08-06 20:41] LABS: Glucose Point of Care 150 mg/dl (65-105)
[2023-08-06] MEDS: LOPERAMIDE HCL 2 MG CAPSULE PO (21:08)
[2023-08-06] MEDS: ACETAMINOPHEN 325 MG TABLET 650 MG PO (21:08)
[2023-08-06] MEDS: INSULIN GLARGINE (*BKC) 100 UNITS/ML 30 UNITS SUB-Q (21:09)
[2023-08-07] VITALS (16 sets, daily range): BP systolic 116–131; BP diastolic 60–82; PULSE 53–96; RESP 14–20; TEMP 35.7–36.7; O2SAT 96–100; BMI 32.2
[2023-08-07] MEDS: SODIUM CHLORIDE 0.9% IV 1,000 ML 125 ML IV CONT ×4 (00:22→20:36)
[2023-08-07] MEDS: LOPERAMIDE HCL 2 MG CAPSULE PO ×5 (04:01→20:34)
[2023-08-07 04:45] LABS: Basophils Percent Auto 0.7 % (0.2-1.2); Eosinophils Absolute Auto 0.2 K/mm3 (0-0.3); Eosinophils Percent Auto 3.5 % (0-4.4); Hematocrit 37.8 % (42.0-52.0); Hemoglobin 13.1 g/dL (14.0-18.0); Immature Granulocyte Absolute 0.01 K/mm3 (0.00-0.031); Immature Granulocyte Percent A 0.2 % (0-0.5); Lymphocytes Absolute Auto 1.44 K/mm3 (0.9-3.2); Lymphocytes Percent Auto 26.3 % (18.3-44.2); Mean Corpuscular HGB Conc 34.7 g/dl (32-36); Mean Corpuscular Hemoglobin 31.6 pg (26-34); Mean Corpuscular Volume 91.3 fl (80-100); Mean Platelet Volume 11.8 fl (7.4-10.4); Monocytes Absolute Auto 0.5 K/mm3 (0.1-0.6); Monocytes Percent Auto 8.2 % (2.6-8.5); Neutrophils Absolute Auto 3.3 K/mm3 (1.3-6.7); Neutrophils Percent Auto 61.1 % (45.5-73.1); Platelet Count Result 167 k/mm3 (150-375); Red Blood Count 4.14 M/mm3 (4.6-6.20); Red Cell Distribution Width 12.7 % (11.5-14.5); White Blood Count 5.5 K/mm3 (4.5-10.0)
[2023-08-07 05:07] LABS: Alanine Aminotransferase 97 U/L (6-50); Albumin Level 3.2 g/dL (3.5-5.1); Alkaline Phosphatase 96 U/L (38-126); Anion Gap 7 mmol/L (8-16); Aspartate Amino Transferase 86 U/L (17-59); Bilirubin,Total 0.6 mg/dL (0.2-1.3); Blood Urea Nitrogen 7 mg/dL (9-20); Calcium 8.2 mg/dL (8.4-10.2); Carbon Dioxide 19 mmol/L (22-30); Chloride 110 mmol/L (98-107); Estimated CRCL calculation 158 ml/min; Estimated Glomerular Filt Rate > 60; Glucose 119 mg/dL (65-110); Potassium 3.7 mmol/L (3.4-5.0); Sodium 136 mmol/L (137-145)
[2023-08-07 08:20] LABS: Glucose Point of Care 146 mg/dl (65-105)
[2023-08-07] MEDS: INSULIN ASPART (*BKC) 100 UNITS/ML SUB-Q ×5 (08:28→20:37)
[2023-08-07] MEDS: INSULIN GLARGINE (*BKC) 100 UNITS/ML 35 UNITS SUB-Q ×2 (08:28→18:45)
[2023-08-07 11:50] LABS: Glucose Point of Care 219 mg/dl (65-105)
--- NOTE | 2023-08-07 14:49 | PCCCNOTE ---
On 08/07/23, the student, [Fredi Mcclendon ], provided care and completed [facility] documentation on this patient. I have reviewed the student's documentation and agree with the findings.
--- NOTE | 2023-08-07 15:28 | PM.IMPN ---
Progress Note: A&P Assessment and Plan (1) DKA (diabetic ketoacidosis): Qualifiers: Diabetes mellitus complication detail: without coma Diabetes mellitus type: type 1 Qualified Code(s): E10.10 - Type 1 diabetes mellitus with ketoacidosis without coma Code(s): E11.10 - Type 2 diabetes mellitus with ketoacidosis without coma Status: Acute Assessment and Plan: Normal WBC, initial glucose 261, mild elevation in LFTs, beta- hydroxy 7.06, UA showing glucose and ketones, gap of 21 and bicarb 10. hypoglycemia protocol Lantus 35 U BID, NovoLog 5 U t.i.d. with meals, correct regimen ordered - moderate dose TIDWM and HS Hemoglobin A1C 9.2 monitor daily labs: cbc, chemistries, LFTs (2) Viral upper respiratory infection: Code(s): J06.9 - Acute upper respiratory infection, unspecified Status: Acute Assessment and Plan: supportive measures: TYL prn, zofran prn, tessalon perles prn viral PCR negative for flu, COVID, RSV (3) Chronic diarrhea: Code(s): K52.9 - Noninfective gastroenteritis and colitis, unspecified Status: Acute Assessment and Plan: Imodium resumed Monitor I&Os Subjective Date/time seen: 08/07/23 15:28 Interval history: Patient doing well. He states that he is still having some coughing and difficulty taking deep breaths. Plan to order breathing treatments for him to do this. Would like to keep close eye on carbon dioxide. Suspect that if this is improved he will likely go home tomorrow. Exam Narrative: GENERAL: Comfortable, no acute distress HENMT: moist mucous membranes EYES: EOM intact b/l NECK: no lymphadenopathy RESPIRATORY: clear to auscultation CARDIO: RRR GI: soft, nontender, bowel sounds present SKIN: no rashes EXTREMITIES: no edema, redness or tenderness Objective Data Vital Signs Vital Signs: Vital Signs - 24 hr 08/06/23 15:32 08/06/23 16:09 08/06/23 16:45 Temperature 97.3 F L Pulse Rate 62 66 59 L Respiratory Rate 16 15 16 Blood Pressure 121/79 115/65 127/75 Pulse Oximetry 99 100 100 Oxygen Delivery 08/06/23 17:49 08/06/23 18:00 08/06/23 19:56 Temperature 97.3 F L Pulse Rate 62 64 Respiratory Rate 16 Blood Pressure 124/66 Pulse Oximetry 100 Oxygen Delivery Room Air 08/06/23 20:45 08/06/23 20:00 08/06/23 22:00 Temperature Pulse Rate 61 63 Respiratory Rate Blood Pressure Pulse Oximetry 98 Oxygen Delivery Room Air 08/07/23 00:23 08/07/23 00:00 08/07/23 03:56 Temperature 97.9 F 97.7 F Pulse Rate 56 L 66 62 Respiratory Rate 16 16 Blood Pressure 130/76 119/81 Pulse Oximetry 96 99 Oxygen Delivery 08/07/23 02:00 08/07/23 04:00 08/07/23 05:43 Temperature Pulse Rate 53 L 58 L 96 Respiratory Rate Blood Pressure Pulse Oximetry Oxygen Delivery 08/07/23 07:43 08/07/23 08:00 08/07/23 11:31 Temperature 96.2 F L 96.3 F L Pulse Rate 62 56 L Respiratory Rate 20 18 Blood Pressure 117/75 127/80 Pulse Oximetry 99 100 Oxygen Delivery Room Air 08/07/23 08:00 08/07/23 10:00 08/07/23 12:00 Temperature Pulse Rate 70 66 55 L Respiratory Rate Blood Pressure Pulse Oximetry Oxygen Delivery Intake/Output Intake/Output: Intake & Output 08/04/23 08/05/23 08/06/23 08/07/23 23:59 23:59 23:59 23:59 Intake Total 4839.3 3500 Output Total 100 800 Balance 4739.3 2700 Meds/Results Medications: Active Medications Generic Name Dose Route Start Last Admin Trade Name Jaimeq PRN Reason Stop Dose Admin Acetaminophen 650 mg 08/06/23 15:39 08/06/23 21:08 Acetaminophen 325 Mg Tablet PO 650 mg Q4H PRN Administration Mild Pain (1-3) or Fever Benzonatate 100 mg 08/07/23 00:01 Benzonatate 100 Mg Capsule PO TID PRN Cough Dextrose 12.5 gm 08/06/23 10:14 Dextrose 50% 25 Gm/50 Ml Syringe IV PUSH PRN PRN Hypoglycemia Protocol Enox
[2023-08-07 17:18] LABS: Glucose Point of Care 190 mg/dl (65-105)
--- NOTE | 2023-08-07 18:14 | PC.NURSE ---
This patient, Pranav Fay, was received from IMU on 08/07/23 at 1500. Report received from ZHANG Mcqueen. Patient/family oriented to unit policies and routines
[2023-08-07 19:52] LABS: Glucose Point of Care 228 mg/dl (65-105)
[2023-08-07] MEDS: ACETAMINOPHEN 325 MG TABLET 650 MG PO (20:34)
[2023-08-07] MEDS: ALBUTEROL SULFATE NEB 2.5 MG/3 ML INH INHALATION (21:10)
[2023-08-08 02:54] VITALS: PULSE 62; RESP 18
[2023-08-08] MEDS: ALBUTEROL SULFATE NEB 2.5 MG/3 ML INH INHALATION ×2 (02:54→08:15)
[2023-08-08 03:04] VITALS: PULSE 64; RESP 18
[2023-08-08 05:08] LABS: Basophils Percent Auto 0.8 % (0.2-1.2); Eosinophils Absolute Auto 0.1 K/mm3 (0-0.3); Eosinophils Percent Auto 1.5 % (0-4.4); Hemoglobin 12.5 g/dL (14.0-18.0); Immature Granulocyte Absolute 0.01 K/mm3 (0.00-0.031); Immature Granulocyte Percent A 0.2 % (0-0.5); Lymphocytes Absolute Auto 1.36 K/mm3 (0.9-3.2); Lymphocytes Percent Auto 25.6 % (18.3-44.2); Mean Corpuscular HGB Conc 35.7 g/dl (32-36); Mean Corpuscular Hemoglobin 31.6 pg (26-34); Mean Corpuscular Volume 88.4 fl (80-100); Mean Platelet Volume 11.8 fl (7.4-10.4); Monocytes Absolute Auto 0.6 K/mm3 (0.1-0.6); Monocytes Percent Auto 11.1 % (2.6-8.5); Neutrophils Absolute Auto 3.2 K/mm3 (1.3-6.7); Neutrophils Percent Auto 60.8 % (45.5-73.1); Platelet Count Result 155 k/mm3 (150-375); Red Blood Count 3.96 M/mm3 (4.6-6.20); Red Cell Distribution Width 12.1 % (11.5-14.5); White Blood Count 5.3 K/mm3 (4.5-10.0)
[2023-08-08 05:15] LABS: Alanine Aminotransferase 66 U/L (6-50); Albumin Level 3.2 g/dL (3.5-5.1); Alkaline Phosphatase 87 U/L (38-126); Anion Gap 6 mmol/L (8-16); Aspartate Amino Transferase 42 U/L (17-59); Bilirubin,Total 0.5 mg/dL (0.2-1.3); Blood Urea Nitrogen 3 mg/dL (9-20); Calcium 8.4 mg/dL (8.4-10.2); Carbon Dioxide 24 mmol/L (22-30); Chloride 110 mmol/L (98-107); Estimated CRCL calculation 156 ml/min; Estimated Glomerular Filt Rate > 60; Glucose 61 mg/dL (65-110); Potassium 3.1 mmol/L (3.4-5.0); Sodium 140 mmol/L (137-145)
[2023-08-08] MEDS: LOPERAMIDE HCL 2 MG CAPSULE PO ×3 (05:17→12:19)
[2023-08-08 07:03] VITALS: BP 130/81; PULSE 60; RESP 16; TEMP 36.4; O2SAT 100
[2023-08-08 08:15] VITALS: PULSE 68; RESP 18
[2023-08-08 08:17] VITALS: O2SAT 98
[2023-08-08 08:45] LABS: Glucose Point of Care 103 mg/dl (65-105)
[2023-08-08] MEDS: POTASSIUM CHLORIDE 20 MEQ ER TABLET 60 MEQ PO (09:02)
[2023-08-08] MEDS: INSULIN ASPART (*BKC) 100 UNITS/ML SUB-Q ×3 (09:03→12:32)
[2023-08-08] MEDS: INSULIN GLARGINE (*BKC) 100 UNITS/ML 35 UNITS SUB-Q (09:04)
--- NOTE | 2023-08-08 12:01 | PM.DS ---
DS: Admitting Diagnosis Discharge Date 08/08/23 Admitting Diagnosis DKA DS: Discharge Diagnosis Discharge Diagnosis (1) DKA (diabetic ketoacidosis): Qualifiers: Diabetes mellitus complication detail: without coma Diabetes mellitus type: type 1 Qualified Code(s): E10.10 - Type 1 diabetes mellitus with ketoacidosis without coma Code(s): E11.10 - Type 2 diabetes mellitus with ketoacidosis without coma Status: Acute (2) Viral upper respiratory infection: Code(s): J06.9 - Acute upper respiratory infection, unspecified Status: Acute (3) Chronic diarrhea: Code(s): K52.9 - Noninfective gastroenteritis and colitis, unspecified Status: Acute DS: Summary Hospital Course Hospital Course: This is a 37-year-old male with past medical history of type 1 diabetes, pancreatitis and chronic diarrhea the presented to the ED on 08/06/2023 due to hyperglycemia, polydipsia, polyuria, upper respiratory symptoms such as cough and congestion. Patient had been around his son that had experience similar symptoms as him. He started feeling worse and had increased fatigue and malaise. He checks his blood sugars and they were in the 500s. Patient had dose himself with insulin. Next day patient's sugars were in the 400s and he decided to come to the ED due to his sugars and overall symptom management. He is not followed by an life teacher but his PCP manages his diabetes. He was found to have an elevated anion gap of 21, beta hydroxy 7.06, UA showing glucose and ketones and a bicarb of 10. He was started on insulin drip and then transitioned to long-acting insulin gtt. IV fluids were given. Patient's hemoglobin A1c was 9.2. Flu, COVID and RSV came back negative. Treated conservatively for viral syndrome. Patient's anion gap closed with treatment and and bicarb improved. Advised to follow-up with life teacher regarding uncontrolled blood sugars. Labs and vital signs are stable and he is medically cleared discharge at this time. Time Spent with Patient Time attestation: Total time spent providing and/or coordinating discharge services: Exam Narrative: GENERAL: Comfortable, no acute distress HENMT: moist mucous membranes EYES: EOM intact b/l NECK: no lymphadenopathy RESPIRATORY: clear to auscultation CARDIO: RRR GI: soft, nontender, bowel sounds present SKIN: no rashes EXTREMITIES: no edema, redness or tenderness DS: Data Data Completed and Pending Labs on day of discharge: Labs from last 24 hours 08/08/23 08/08/23 08/07/23 08:42 04:40 19:44 WBC 5.3 RBC 3.96 L Hgb 12.5 L Hct 35.0 L MCV 88.4 MCH 31.6 MCHC 35.7 RDW 12.1 Plt Count 155 MPV 11.8 H Immature Gran % (Auto) 0.2 Neut % (Auto) 60.8 Lymph % (Auto) 25.6 Mellette % (Auto) 11.1 H Eos % (Auto) 1.5 Baso % (Auto) 0.8 Lymph # (Auto) 1.36 Mellette # (Auto) 0.6 Eos # (Auto) 0.1 Baso # (Auto) 0.0 Abs Immat Gran (auto) 0.01 Absolute Neuts (auto) 3.2 Absolute Nucleated RBC 0.0 Nucleated RBC % 0.0 Sodium 140 Potassium 3.1 L Chloride 110 H Carbon Dioxide 24 Anion Gap 6 L BUN 3 L Creatinine 0.60 L Estim Creat Clear Calc 156 Estimated GFR > 60 Glucose 61 L POC Capillary Glucose 103 228 H Calcium 8.4 Total Bilirubin 0.5 AST 42 ALT 66 H Alkaline Phosphatase 87 Total Protein 6.0 L Albumin 3.2 L 08/07/23 17:10 WBC RBC Hgb Hct MCV MCH MCHC RDW Plt Count MPV Immature Gran % (Auto) Neut % (Auto) Lymph % (Auto) Mellette % (Auto) Eos % (Auto) Baso % (Auto) Lymph # (Auto) Mellette # (Auto) Eos # (Auto) Baso # (Auto) Abs Immat Gran (auto) Absolute Neuts (auto) Absolute Nucleated RBC Nucleated RBC % Sodium Potassium Chloride Carbon Dioxide Anion Gap BUN Creatinine Estim Creat Clear Calc Estimated GFR Glucose POC Capillary Glucose 190 H Calcium
[2023-08-08 12:28] LABS: Glucose Point of Care 213 mg/dl (65-105)
--- NOTE | 2023-08-08 13:00 | PC.NURSE ---
On 08/08/23, the student, [Juan Hermosillo], provided care and completed [facility] documentation on this patient. I have reviewed the student's documentation and agree with the findings.
== END 2023-08-08 13:55 | disposition home or self-care (01) ==
LOC: ANHED 15:17 → ANHIMU 16:20 → ANH2MED 08-07 14:53
PROVIDERS: Internal Medicine Critical Care Medicine; Student in an Organized Health Care Education/Training Program; Admitting Provider Student in an Organized Health Care Education/Training Program; Emergency Provider Emergency Medicine; PCP Internal Medicine; Visit Provider Student in an Organized Health Care Education/Training Program
DX: E10.10 Type 1 diabetes mellitus with ketoacidosis without coma (principal); J06.9 Acute upper respiratory infection, unspecified; K52.9 Noninfective gastroenteritis and colitis, unspecified; Z23 Encounter for immunization; R42 Dizziness and giddiness; R00.1 Bradycardia, unspecified; K85.90 Acute pancreatitis without necrosis or infection, unspecified; Z20.822 Contact with and (suspected) exposure to COVID-19; R91.8 Other nonspecific abnormal finding of lung field; Z79.1 Long term (current) use of non-steroidal anti-inflammatories (NSAID); Z79.4 Long term (current) use of insulin; Z79.899 Other long term (current) drug therapy; F17.290 Nicotine dependence, other tobacco product, uncomplicated; F12.90 Cannabis use, unspecified, uncomplicated
CPT/HCPCS: 36415; 71046; 80048; 80053; 81003; 82010; 82948; 83036; 84484; 85025; 87636; 90471; 90686; 93005; 94640; 96360; 96361; 96365; 96366; 96375; 99285; A9270; G0008; G0378; G0379; J1650; J1815; J2405; J7030

== ENCOUNTER 2023-09-16 08:26 | Inpatient (IN) | payer MEDICAID, SELFPAY ==
[2023-09-16] VITALS (19 sets, daily range): BP systolic 100–138; BP diastolic 48–77; PULSE 88–159; RESP 15–24; TEMP 36.7–37.3; O2SAT 95–100; BMI 30.2
--- NOTE | ~2023-09-16 | XR_ITS ---
EXAMINATION: XR chest 2V DATE: 09/16/2023 10:45 INDICATION: Vomiting TECHNIQUE: Frontal and lateral views of the chest are obtained COMPARISON: 08/06/2023 FINDINGS: There are minimal airspace opacities of the lung bases. No pleural effusion or pneumothorax . The cardiomediastinal silhouette is normal. There is mild thoracic spondylosis. IMPRESSION: 1. Minimal airspace opacities of the lung bases, consistent with atelectasis versus pneumonia. Reviewed, dictated and finalized at location B. ON EXPERT IMPRESSION: 1. Minimal airspace opacities of the lung bases, consistent with atelectasis ve rsus pneumonia.
[2023-09-16 08:33] LABS: Glucose Point of Care > 500 mg/dl (65-105)
[2023-09-16] MEDS: SODIUM CHLORIDE 0.9% IV 1,000 ML 999 ML IV CONT ×2 (09:03)
[2023-09-16] MEDS: ONDANSETRON INJ 4 MG/2 ML VIAL IV PUSH (09:03)
[2023-09-16 09:19] LABS: Basophils Absolute Auto 0.1 K/mm3 (0.0-0.1); Basophils Percent Auto 0.5 % (0.2-1.2); Eosinophils Percent Auto 0.1 % (0-4.4); Hematocrit 48.9 % (42.0-52.0); Immature Granulocyte Absolute 0.18 K/mm3 (0.00-0.031); Immature Granulocyte Percent A 0.6 % (0-0.5); Lymphocytes Absolute Auto 3.26 K/mm3 (0.9-3.2); Lymphocytes Percent Auto 11.7 % (18.3-44.2); Mean Corpuscular HGB Conc 34.8 g/dl (32-36); Mean Corpuscular Hemoglobin 31.9 pg (26-34); Mean Corpuscular Volume 91.7 fl (80-100); Mean Platelet Volume 12.2 fl (7.4-10.4); Monocytes Absolute Auto 1.8 K/mm3 (0.1-0.6); Monocytes Percent Auto 6.5 % (2.6-8.5); Neutrophils Absolute Auto 22.6 K/mm3 (1.3-6.7); Neutrophils Percent Auto 80.6 % (45.5-73.1); Platelet Count Result 387 k/mm3 (150-375); Red Blood Count 5.33 M/mm3 (4.6-6.20); Red Cell Distribution Width 12.6 % (11.5-14.5)
--- NOTE | 2023-09-16 09:25 | ED.GENADULT ---
HPI - General Adult General Chief complaint: Recheck/Abnormal Lab/Rx Stated complaint: possible DKA Time Seen by Provider: 09/16/23 08:46 History of Present Illness HPI narrative: patient is a 38-year-old male who presents ER with concerns for DKA. Reports he has been vomiting the last 2 days and is feeling dry. He reports that he has been out of his Lantus and has been unable to get a refill due to issues with his work insurance and the need to work with his Medicaid. No chest pain or chest pressure. No productive cough. No diarrhea. No known sick contacts. Blood sugar reading greater than 500 upon arrival here. Related Data Home Medications Medication Instructions Recorded Confirmed ibuprofen 800 mg tablet 800 mg PO TID PRN Pain 05/09/23 09/16/23 insulin glargine 100 unit/mL (3 35 unit subcut BID 05/09/23 09/16/23 mL) subcutaneous pen (Lantus Solostar U-100 Insulin) insulin lispro 100 unit/mL 15 unit subcut TID 05/09/23 09/16/23 subcutaneous pen (Humalog KwikPen (U-100) Insulin) loperamide 2 mg capsule 2 mg PO Q4HWA 05/09/23 08/06/23 Allergies Allergy/AdvReac Type Severity Reaction Status Date / Time No Known Allergies Allergy Verified 09/16/23 08:32 Review of Systems Review of Systems: All systems reviewed & are unremarkable except as noted in HPI and below Constitutional: Constitutional: Reports chills, Reports fatigue, Denies fever(s) and Reports weakness ENT: Reports system reviewed and no additional complaints, except as documented Cardiovascular: Cardiovascular: Reports no additional cardiovascular complaints Respiratory: Respiratory: Reports no additional respiratory complaints Gastrointestinal: Gastrointestinal: Denies abdominal pain, Denies diarrhea, Reports nausea and Reports vomiting Genitourinary: Genitourinary: Reports no additional male genitourinary complaints Musculoskeletal: Musculoskeletal: Reports no additional musculoskeletal complaints PMFSH Past Medical History Medical History Chronic diarrhea Pancreatitis Type 1 diabetes mellitus on insulin therapy Surgical History Surgical History History of appendectomy History of cholecystectomy History of skin graft LLE (graft to de la cruz from thigh) Family History Family History Mother Family history of rheumatoid arthritis Other Family history of mental disorder Family history of obesity Hypertension Social History Social History (Updated 09/16/23 @ 14:47 by Corrina Diaz APRN) Social History: currently lives at home with his and 5 children (step and bio). surrogate decision maker: Lizett Osuna, spouse. code status: full code. Smoking packs per day: 0.5 Smoking cigarettes per day: 10.0 Years smoked: 10 Smoking pack-years: 5.00 Smoking status: Current every day smoker Tobacco type: cigars Second hand tobacco smoke exposure: Yes Additional smoking assessment comments: states he only smoked cigars - approx. 2-3d per week intermit. for 20 yrs Alcohol intake: current Drinks per week: 1 Substance use: current Substance use type: marijuana Other substance usage details: Uses for pain of left leg Last use: 08/02/23 Do You Feel Safe in your Home?: Yes Lack of Transportation: YES Lack of Food: Never True Current Housing: I Have Housing Concerned About Future Housing: No Difficulty Paying Gas/Electric Bills: No Difficulty Paying for Meds: No Currently Unemployed: No Education: High School Diploma/GED Difficulty w/ Childcare or Family Care: No Spiritual care concerns: No Exam Narrative: GENERAL: Chronically ill-appearing, well-nourished, and in no acute distress. HEAD: Normocephalic, atraumatic. ENT: Dry mucous membranes. NECK: Supple. CHEST: Clear to auscultation. No respiratory distre
[2023-09-16 09:28] LABS: Alanine Aminotransferase 69 U/L (6-50); Albumin Level 5.3 g/dL (3.5-5.1); Alkaline Phosphatase 179 U/L (38-126); Anion Gap 28 mmol/L (8-16); Aspartate Amino Transferase 43 U/L (17-59); Bilirubin,Total 1.1 mg/dL (0.2-1.3); Blood Urea Nitrogen 22 mg/dL (9-20); Calcium 10.2 mg/dL (8.4-10.2); Carbon Dioxide 8 mmol/L (22-30); Chloride 100 mmol/L (98-107); Estimated CRCL calculation 69 ml/min; Estimated Glomerular Filt Rate 56; Glucose 527 mg/dL (65-110); Magnesium 2.2 mg/dL (1.6-2.3); Phosphorus 7.1 mg/dL (2.5-4.5); Potassium 5.3 mmol/L (3.4-5.0); Sodium 136 mmol/L (137-145)
[2023-09-16 09:56] LABS: Appearance Urine Clear (Clear); Bilirubin Urine Negative (Negative); Blood Urine Negative (Negative); Color Urine Yellow (Yellow); Glucose Urine UA 3+ mg/dL (Negative); Ketones Urine 4+ mg/dL (Negative); Leukocyte Esterase Ur Negative LEU/UL (Negative); Nitrate Urine Negative (Negative); Protein Urine Negative (Negative); Specific Grav Ur 1.024 (1.001-1.035); Urobilinogen Urine 0.2 mg/dL (<2.0)
[2023-09-16 09:58] LABS: Add Urine Microscopic? NO
[2023-09-16 10:01] LABS: Alveolar/Arterial O2 Gradient 10.1 mmHg; Base Excess ABG -17.5 mEq/l (+/-2.0); Carboxyhemoglobin 0.7 % THb (0-2.0); Fractional Inspired Oxygen 21 %; HCO3 ABG 9.2 mEq/l (22.0-26.0); Methemoglobin ABG 0.5 %THb (0-1.5); Oxygen Content ABG 21.4 %vol (16.0-22.0); Oxygen Saturation ABG 96.8 % (95.0-100.0); Oxyhemoglobin 95.5 % THb (90.0-100.0); PCO2 ABG 25.7 mmHg (35.0-45.0); PO2 ABG 108.9 mmHg (80.0-100.0); PO2 FiO2 Ratio Arterial Blood 5.19 %; Reduced Hemoglobin 3.3 %THb (0-5.0); Total Hemoglobin 15.9 g/dL (12.0-18.0)
[2023-09-16 10:04] LABS: pH ABG 7.173 (7.350-7.450)
[2023-09-16 10:05] LABS: Device ROOM AIR; Modified Allen's Test Pass; Site Drawn LEFT RADIAL
[2023-09-16 10:07] LABS: Beta-Hydroxybutyrate/Acetoacetate 7.27 mmol/L (0.02-0.27)
[2023-09-16 10:14] LABS: Glucose Point of Care 473 mg/dl (65-105)
[2023-09-16] MEDS: INSULIN HUMAN REGULAR (*BKC) 100 UNITS in SODIUM CHLORIDE 0.9% IV 99 ML 9 UNITS IV CONT (10:46)
[2023-09-16] MEDS: SODIUM CHLORIDE 0.9% IV 1,000 ML 125 ML IV CONT (10:48)
[2023-09-16] MEDS: INSULIN HUMAN REGULAR (*BKC) 100 UNITS/ML 14 UNITS IV PUSH (10:48)
--- NOTE | 2023-09-16 11:20 | WPDCNINT ---
Assessment and Plan Assessment and plan (1) DKA (diabetic ketoacidosis): Qualifiers: Diabetes mellitus complication detail: without coma Diabetes mellitus type: type 1 Qualified Code(s): E10.10 - Type 1 diabetes mellitus with ketoacidosis without coma Code(s): E11.10 - Type 2 diabetes mellitus with ketoacidosis without coma Status: Acute Assessment and Plan: DKA secondary to noncompliance as urine of insulin. Patient is getting iVF bolus and will be given additional 1 L followed by infusion I ordered Insulin infusion and Q1H glucose monitoring Serial labs will be done Replace electrolytes as needed npo Consult dietitian and medical educator (2) SIRS (systemic inflammatory response syndrome): Code(s): R65.10 - Systemic inflammatory response syndrome (SIRS) of non-infectious origin without acute organ dysfunction Status: Acute Assessment and Plan: Patient likely has SIRS DKA with elevated WBC and dehydration Check COVID flu and RSV PCR Check procalcitonin level Hold antibiotics at this time Treat DKA (3) Chronic diarrhea: Code(s): K52.9 - Noninfective gastroenteritis and colitis, unspecified Status: Acute Assessment and Plan: Patient has chronic diarrhea and takes loperamide which will be continued (4) KATHARINE (acute kidney injury): Code(s): N17.9 - Acute kidney failure, unspecified Status: Acute Assessment and Plan: Secondary to dehydration DKA Aggressive IV fluids Check urine electrolytes and CK level Monitor urine output electrolytes and creatinine Further workup if creatinine does not improve with initial treatment (5) Dehydration: Code(s): E86.0 - Dehydration Status: Acute Assessment and Plan: See above Plan DVT prophylaxis -SCDs Nutrition - npo Code Status - Full Code Total Critical Care Time - 30 minutes Due to a high probability of clinically significant, life threatening deterioration, the patient required my highest level of preparedness to intervene emergently and I personally spent this critical care time directly and personally managing the patient. This critical care time included obtaining a history; examining the patient; pulse oximetry; ordering and review of studies; arranging urgent treatment with development of a management plan; evaluation of patient's response to treatment; frequent reassessment; and discussions with other providers. It was exclusive of separately billable procedures and treating other patients and teaching time. Please see Assessment and Plan section and the rest of the note for further information on patient assessment and treatment Hand Candy Molder Consult Note Consult date: 09/16/23 Reason for consult: DKA HPI: Pranav Fay is a 38 year old male with past medical history of diabetes, chronic diarrhea and DKA admissions presented with chief complaint of high blood sugar, nausea vomiting and polyuria to the ER today. Patient states that he takes Lantus 35 units twice a day and 10-15 units of insulin with meal. He ran out of his insulin and due to some insurance issue was not able to fill it. The since yesterday his sugars have been gradually increasing with increased polyuria and he was urinating every hour. This morning he woke up and started nausea vomiting. Vomitus was yellowish fluid with no blood in it. Review of system was also positive for chronic diarrhea for which she takes loperamide. Review of system was also positive for chronic neuropathy pain in the legs. He denies any fever chest pain shortness for breath cough. He does admit to having mild crampy abdominal pain.. All other systems were reviewed and were negative Workup in the ER showed patient had elevated WBC, elevated anion gap metabolic acidosis elevated beta hydroxybutyrate, blood sugar of 527 and elevated creatinine. Patient was diagnosed with DKA and is being admitted to ICU for further evaluation management
[2023-09-16 11:34] LABS: Lipase 28 U/L (23-300)
[2023-09-16 11:46] LABS: Glucose Point of Care 357 mg/dl (65-105)
[2023-09-16] MEDS: SODIUM CHLORIDE 0.9% IV 1,000 ML 150 ML IV CONT (11:59)
[2023-09-16] MEDS: LACTATED RINGERS 1,000 ML 999 ML IV CONT (12:02)
--- NOTE | 2023-09-16 12:39 | PM.IMHP ---
H&P: HPI History of Present Illness Date/Time: 09/16/23 12:39 Chief Complaint: Hyperglycemia, Polyuria, and N/V Narrative: 38 y/o M presents here with N/V, polyuria, and hyperglycemia with PMH of DM1 and pancreatitis. Patient saw adjunct trainer on (09/10) and had his DM medications refilled. However, patient reports they were able to fill his Humalog and the Lantus was out of stock. Patient took last Lantus dose on Saturday morning - 19 U. Currently on 35 U AM and PM. Attempted to compensate with increasing his Humalog to 19-20 U with meals. Started to feel weak on Saturday with accompanying polyuria. Contacted 2 different pharmacy to reassess if they had stock, one pharmacy had Lantus in stock but they informed the patient that they were unable to fill it due to insurance. Per patient they had a change in household and they were transitioned from [employer] to Medicaid, however was supposed to revert back to [employer] on 09/08. Unable to call due to phones being currently shut off. Initially tried to wait until they could make phone calls Saturday but patient began having N/V overnight. Patient then elected to be seen due to increasing weakness. Initial workup showed elevated WBC at 28, pH of 7.173, HCO3 of 9.2, mild hyponatremia, mild hyperkalemia, KATHARINE with a creatinine of 1.4, and beta-hydroxy 7.27, and hyperglycemia at 527. Patient reports no other recent illnesses or changes to medications. Review of Systems Review of Systems: All systems reviewed & are unremarkable except as noted in HPI and below PMFSH Past Medical History Medical History Chronic diarrhea Pancreatitis Type 1 diabetes mellitus on insulin therapy Surgical History Surgical History History of appendectomy History of cholecystectomy History of skin graft LLE (graft to de la cruz from thigh) Family History Family History Mother Family history of rheumatoid arthritis Other Family history of mental disorder Family history of obesity Hypertension Social History Social History (Updated 09/16/23 @ 14:47 by Corrina Diaz APRN) Social History: currently lives at home with his and 5 children (step and bio). surrogate decision maker: Lizett Osuna, spouse. code status: full code. Smoking packs per day: 0.5 Smoking cigarettes per day: 10.0 Years smoked: 10 Smoking pack-years: 5.00 Smoking status: Current every day smoker Tobacco type: cigars Second hand tobacco smoke exposure: Yes Additional smoking assessment comments: states he only smoked cigars - approx. 2-3d per week intermit. for 20 yrs Alcohol intake: current Drinks per week: 1 Substance use: current Substance use type: marijuana Other substance usage details: Uses for pain of left leg Last use: 08/02/23 Do You Feel Safe in your Home?: Yes Lack of Transportation: YES Lack of Food: Never True Current Housing: I Have Housing Concerned About Future Housing: No Difficulty Paying Gas/Electric Bills: No Difficulty Paying for Meds: No Currently Unemployed: No Education: High School Diploma/GED Difficulty w/ Childcare or Family Care: No Spiritual care concerns: No Meds Home Medications and Allergies Home Medications Medication Instructions Recorded Confirmed Type ibuprofen 800 mg tablet 800 mg PO TID PRN Pain 05/09/23 09/16/23 History insulin glargine 100 unit/mL (3 35 unit subcut BID 05/09/23 09/16/23 History mL) subcutaneous pen (Lantus Solostar U-100 Insulin) insulin lispro 100 unit/mL 15 unit subcut TID 05/09/23 09/16/23 History subcutaneous pen (Humalog KwikPen (U-100) Insulin) loperamide 2 mg capsule 2 mg PO Q4HWA 05/09/23 08/06/23 History Allergies Allergy/AdvReac Type Severity Reaction Status Date / Time No Known Allergies Allergy Verified 09/16/23 08:3
[2023-09-16 13:37] LABS: Glucose Point of Care 276 mg/dl (65-105)
[2023-09-16 13:46] LABS: Influenza A QL RT-PCR Negative (Negative); Influenza B QL RT-PCR Negative (Negative); RSV RNA, RT-PCR Negative (Negative); SARS-CoV-2 RNA PCR Negative (Negative)
[2023-09-16] MEDS: KCL 20 MEQ/D5/0.45% SOD CHL 1,000 ML 150 ML IV CONT (13:48)
[2023-09-16 14:11] LABS: Glucose Point of Care 243 mg/dl (65-105)
[2023-09-16 14:40] LABS: Procalcitonin 0.1 ng/mL
[2023-09-16 15:26] LABS: Anion Gap 15 mmol/L (8-16); Blood Urea Nitrogen 19 mg/dL (9-20); Calcium 9.4 mg/dL (8.4-10.2); Carbon Dioxide 11 mmol/L (22-30); Chloride 114 mmol/L (98-107); Estimated CRCL calculation 86 ml/min; Estimated Glomerular Filt Rate > 60; Glucose 199 mg/dL (65-110); Potassium 4.7 mmol/L (3.4-5.0); Sodium 140 mmol/L (137-145)
[2023-09-16 15:51] LABS: Glucose Point of Care 195 mg/dl (65-105)
[2023-09-16 15:51] LABS: Glucose Point of Care 214 mg/dl (65-105)
--- NOTE | 2023-09-16 16:18 | PCCDE ---
Addendum entered by Amy Talbot RD, LORENA, CDE 09/20/23 12:00: 09/20/23: noon: Patient returned message. He has been in touch with his PCP and has obtained insulins. Pt stating his dr told him not to return to work before 09/24/23. He is interested in outpatient DSMT/MNT since it's been years. Process started for referral. Amy Addendum entered by Amy Talbot RD, LORENA, MOOSE 09/20/23 09:43: 09/20/23: Left message on patients cell with direct call back number (Discharged 09/18) Original Note: 09/16/2023 PM Consult received today, 38 Y O M with Type 1 DM admitted today DKA. Attempted to see patient, per RN sleeping currently. Inappropriate educate at this time. Per MD note: pt with insurance concerns -> difficult obtaining his Lantus dosing -> missed long acting dose since 09/14.
[2023-09-16 16:51] LABS: Glucose Point of Care 191 mg/dl (65-105)
[2023-09-16 18:18] LABS: Anion Gap 11 mmol/L (8-16); Blood Urea Nitrogen 18 mg/dL (9-20); Calcium 9.1 mg/dL (8.4-10.2); Carbon Dioxide 13 mmol/L (22-30); Chloride 115 mmol/L (98-107); Estimated CRCL calculation 95 ml/min; Estimated Glomerular Filt Rate > 60; Glucose 246 mg/dL (65-110); Sodium 139 mmol/L (137-145)
[2023-09-16] MEDS: INSULIN GLARGINE (*BKC) 100 UNITS/ML 35 UNITS SUB-Q (19:07)
[2023-09-16 19:16] LABS: Glucose Point of Care 265 mg/dl (65-105)
[2023-09-16 19:16] LABS: Glucose Point of Care 222 mg/dl (65-105)
[2023-09-16] MEDS: INSULIN ASPART (*BKC) 100 UNITS/ML SUB-Q (21:07)
[2023-09-16] MEDS: SODIUM CHLORIDE 0.45% 1,000 ML 75 ML IV CONT (21:09)
[2023-09-16 21:17] LABS: Glucose Point of Care 302 mg/dl (65-105)
[2023-09-17] VITALS (10 sets, daily range): BP systolic 104–121; BP diastolic 53–79; PULSE 58–107; RESP 13–20; TEMP 36.2–37.1; O2SAT 97–100
[2023-09-17] MEDS: INSULIN ASPART (*BKC) 100 UNITS/ML SUB-Q ×4 (00:17→11:23)
[2023-09-17 00:21] LABS: Glucose Point of Care 253 mg/dl (65-105)
[2023-09-17 04:47] LABS: Glucose Point of Care 217 mg/dl (65-105)
[2023-09-17] MEDS: IBUPROFEN 400 MG TABLET 800 MG PO (05:02)
[2023-09-17 05:06] LABS: Hematocrit 42.3 % (42.0-52.0); Hemoglobin 14.3 g/dL (14.0-18.0); Mean Corpuscular HGB Conc 33.8 g/dl (32-36); Mean Corpuscular Hemoglobin 31.3 pg (26-34); Mean Corpuscular Volume 92.6 fl (80-100); Mean Platelet Volume 11.5 fl (7.4-10.4); Platelet Count Result 283 k/mm3 (150-375); Red Blood Count 4.57 M/mm3 (4.6-6.20); Red Cell Distribution Width 12.7 % (11.5-14.5); White Blood Count 14.2 K/mm3 (4.5-10.0)
[2023-09-17 05:15] LABS: Alanine Aminotransferase 53 U/L (6-50); Albumin Level 4.2 g/dL (3.5-5.1); Alkaline Phosphatase 116 U/L (38-126); Anion Gap 15 mmol/L (8-16); Aspartate Amino Transferase 27 U/L (17-59); Bilirubin,Total 1.2 mg/dL (0.2-1.3); Blood Urea Nitrogen 14 mg/dL (9-20); Calcium 9.4 mg/dL (8.4-10.2); Carbon Dioxide 14 mmol/L (22-30); Chloride 106 mmol/L (98-107); Estimated CRCL calculation 104 ml/min; Estimated Glomerular Filt Rate > 60; Glucose 211 mg/dL (65-110); Phosphorus 2.5 mg/dL (2.5-4.5); Potassium 4.6 mmol/L (3.4-5.0); Sodium 135 mmol/L (137-145)
[2023-09-17 07:44] LABS: Glucose Point of Care 265 mg/dl (65-105)
[2023-09-17] MEDS: INSULIN ASPART (*BKC) 100 UNITS/ML 10 UNITS SUB-Q ×2 (08:38→11:23)
[2023-09-17] MEDS: INSULIN GLARGINE (*BKC) 100 UNITS/ML 35 UNITS SUB-Q ×2 (08:39→20:28)
[2023-09-17] MEDS: ENOXAPARIN 40 MG/0.4 ML SYRINGE SUB-Q (08:40)
[2023-09-17] MEDS: SODIUM CHLORIDE 0.45% 1,000 ML 75 ML IV CONT (09:11)
[2023-09-17 11:06] LABS: Glucose Point of Care 319 mg/dl (65-105)
--- NOTE | 2023-09-17 11:21 | WPDINTPN ---
Progress Note: A&P Assessment and Plan (1) DKA (diabetic ketoacidosis): Code(s): E11.10 - Type 2 diabetes mellitus with ketoacidosis without coma Status: Acute Assessment and Plan: DKA secondary to noncompliance as urine of insulin. Patient is getting iVF bolus and was given additional 1 L fluid bolus in the ICU, followed by infusion Patient was on insulin infusion, anion gap had closed loss evening and was transition to long-acting insulin Lantus and sliding scale insulin. Will discontinue IV fluid and serial labs Diabetic diet dietitian and adaptive physical educator to evaluate the patient Hemoglobin A1c was 9.2 on 08/06/2020 (2) SIRS (systemic inflammatory response syndrome): Code(s): R65.10 - Systemic inflammatory response syndrome (SIRS) of non-infectious origin without acute organ dysfunction Status: Acute Assessment and Plan: Patient likely has SIRS DKA with elevated WBC and dehydration COVID flu and RSV PCR all negative procalcitonin level was 0.1 No antibiotics indicated Treat DKA (3) Chronic diarrhea: Code(s): K52.9 - Noninfective gastroenteritis and colitis, unspecified Status: Acute Assessment and Plan: Patient has chronic diarrhea and takes loperamide which will be continued (4) KATHARINE (acute kidney injury): Code(s): N17.9 - Acute kidney failure, unspecified Status: Acute Assessment and Plan: Secondary to dehydration DKA Aggressive IV fluids Adequate urine output, creatinine has normalized Monitor urine output electrolytes and creatinine (5) Dehydration: Code(s): E86.0 - Dehydration Status: Acute Assessment and Plan: Resolved Plan DVT prophylaxis -SCDs Nutrition -diabetic diet Code Status - Full Code Total Critical Care Time - 32 minutes Patient in transfer of the ICU today Due to a high probability of clinically significant, life threatening deterioration, the patient required my highest level of preparedness to intervene emergently and I personally spent this critical care time directly and personally managing the patient. This critical care time included obtaining a history; examining the patient; pulse oximetry; ordering and review of studies; arranging urgent treatment with development of a management plan; evaluation of patient's response to treatment; frequent reassessment; and discussions with other providers. It was exclusive of separately billable procedures and treating other patients and teaching time. Please see Assessment and Plan section and the rest of the note for further information on patient assessment and treatment Subjective Date/time seen: 09/17/23 11:21 Interval history: Reason for consult: DKA, diarrhea, acute kidney injury 09/17/2023: Patient seen and examined in the ICU, was transition to long-acting insulin and sliding scale insulin yesterday in the evening. Patient states he feels much better, white blood cell has come down significantly, creatinine has normalized to 0.9 from 1.40 on admission. Patient is hemodynamically stable, adequate urine output afebrile Review of Systems Review of Systems: All systems reviewed & are unremarkable except as noted in HPI and below (HPI) Exam Narrative: General: Pt is alert awake and in NAD Lungs/Chest: Trachea central Clear BS B/L, No crackles or wheezing. Cardiac: RRR. Normal S1 S2. No murmurs Circulation: Pedal pulses are intact and symmetrical. Abdomen: Normal bowel sounds.. Soft. NT. ND. Extremities: No clubbing, cyanosis or edema. Warm : Araujo in place Neurologic: Follows commands. Moves all 4 extremities PERRL Skin: No Rash HEENT: Moist oral mucosa Objective Data Vital Signs Vital Signs: Vital Signs - 24 hr 09/16/23 14:00 09/16/23 14:00 09/16/23 16:00 Temperature Pulse Rate 114 H 112 H 112 H Respiratory Rate 20 Blood Pressure 124/68 Pulse Oximetry 98 Oxygen Delivery 09/16/23 16:00 09/16/23 16:00
--- NOTE | 2023-09-17 12:08 | PC.NURSE ---
This patient, Pranav Fay, was transferred to [facility] on 09/17/23 at 1200. Personal belongings sent with patient. Report given to Cherry. Appropriate documentation sent with patient.
[2023-09-17 16:33] LABS: Glucose Point of Care 88 mg/dl (65-105)
--- NOTE | 2023-09-17 16:53 | PM.IMPN ---
Progress Note: A&P Assessment and Plan (1) DKA (diabetic ketoacidosis): Code(s): E11.10 - Type 2 diabetes mellitus with ketoacidosis without coma Status: Acute Assessment and Plan: Meets DKA criteria: initial glucose 527, pH 7.173, HCO3 9.2, gap of 28, 3-HB/A 7.27, and +ketonuria. Started on DKA protocol and parts designer consulted. Given 2L IVF bolus, now on infusion at 150 mL/hr. Insulin infusion initiated with Q1H glucose monitoring. NPO. consult to deputy fire marshal and nurse informatics educator. Trend labs daily, BMP Q4H - next check at 1400. holding home medication until transitioned off gtt. last A1C 9.2 on 08/06/23. Has been transition to Lantus and lispro freezer worker/nurse informatics educator consultation for arrangement for insulin (2) SIRS (systemic inflammatory response syndrome): Code(s): R65.10 - Systemic inflammatory response syndrome (SIRS) of non-infectious origin without acute organ dysfunction Status: Acute Assessment and Plan: HR 110's-150's, tachypneic, with elevated WBC at 28. not currently hypotensive or febrile. UA: 3+ glucose, 2+ ketones otherwise unremarkable. CXR: minimal airspace opacities of the lung bases, consistent with atelectasis versus pneumonia. abnormal vitals likely secondary to DKA and dehydration. Viral PCR and procalcitonin added - pending. Tx DKA, hold atb. (3) KATHARINE (acute kidney injury): Code(s): N17.9 - Acute kidney failure, unspecified Status: Acute Assessment and Plan: Sailmaker 0.6-0.9 at baseline in last year, currently 1.4. KATHARINE likely secondary to dehydration r/t polyuria/polydipsia secondary to DKA. rehydrated. monitor renal function, electrolytes, and I&Os. This is resolved (4) Chronic diarrhea: Code(s): K52.9 - Noninfective gastroenteritis and colitis, unspecified Status: Acute Assessment and Plan: chronic secondary to pancreatitis. takes Imodium to control symptoms. will continue home Imodium PRN. rehydrated. monitor. (5) Dehydration: Code(s): E86.0 - Dehydration Status: Acute Assessment and Plan: likely secondary to DKA. given 2L bolus of NS, additional 1L of LR. now on maintenance. monitor I&Os. Plan Diet: Diabetic GI Prophylaxis: not indicated. DVT Prophylaxis: SCDs, Lovenox Lines: pIV Code Status: Full Code Subjective Date/time seen: 09/17/23 16:53 Interval history: Feeling better. Has chronic abdominal pain issues with diarrhea. Was out of insulin Review of Systems Review of Systems: All systems reviewed & are unremarkable except as noted in HPI and below (HPI) Exam Narrative: General: Pt is alert awake and in NAD Lungs/Chest: Trachea central Clear BS B/L, No crackles or wheezing. Cardiac: RRR. Normal S1 S2. No murmurs Circulation: Pedal pulses are intact and symmetrical. Abdomen: Normal bowel sounds.. Soft. NT. ND. Extremities: No clubbing, cyanosis or edema. Warm : Araujo in place Neurologic: Follows commands. Moves all 4 extremities PERRL Skin: No Rash HEENT: Moist oral mucosa Objective Data Vital Signs Vital Signs: Vital Signs - 24 hr 09/16/23 18:00 09/16/23 18:00 09/16/23 21:13 Temperature 99.1 F Pulse Rate 103 H 101 H 99 Respiratory Rate 20 20 Blood Pressure 100/48 L 104/54 L Pulse Oximetry 99 98 Oxygen Delivery 09/16/23 20:00 09/16/23 20:00 09/16/23 22:00 Temperature Pulse Rate 99 88 Respiratory Rate Blood Pressure Pulse Oximetry Oxygen Delivery Room Air 09/16/23 22:00 09/17/23 00:00 09/17/23 00:00 Temperature 98.8 F Pulse Rate 88 90 95 Respiratory Rate 16 16 Blood Pressure 118/69 111/53 L Pulse Oximetry 98 99 Oxygen Delivery 09/17/23 00:00 09/17/23 02:00 09/17/23 02:00 Temperature Pulse Rate 85 85 Respiratory Rate 16 Blood Pressure 114/66 Pulse Oximetry 97 Oxygen Delivery Room Air 09/17/23 04:00 09/17/23 04:00 09/17/23 04:00 Temperature 97.8 F Pulse Rate 96 88 Resp
[2023-09-17 20:27] LABS: Glucose Point of Care 215 mg/dl (65-105)
[2023-09-18 05:25] VITALS: BP 143/91; PULSE 55; RESP 16; TEMP 36.4; O2SAT 98
[2023-09-18 05:49] LABS: Hematocrit 42.1 % (42.0-52.0); Hemoglobin 14.4 g/dL (14.0-18.0); Mean Corpuscular HGB Conc 34.2 g/dl (32-36); Mean Corpuscular Volume 90.5 fl (80-100); Mean Platelet Volume 11.5 fl (7.4-10.4); Platelet Count Result 211 k/mm3 (150-375); Red Blood Count 4.65 M/mm3 (4.6-6.20); Red Cell Distribution Width 12.3 % (11.5-14.5); White Blood Count 8.3 K/mm3 (4.5-10.0)
[2023-09-18 07:14] LABS: Alanine Aminotransferase 42 U/L (6-50); Albumin Level 3.8 g/dL (3.5-5.1); Alkaline Phosphatase 93 U/L (38-126); Anion Gap 9 mmol/L (8-16); Aspartate Amino Transferase 30 U/L (17-59); Bilirubin,Total 1.2 mg/dL (0.2-1.3); Blood Urea Nitrogen 11 mg/dL (9-20); Calcium 9.3 mg/dL (8.4-10.2); Carbon Dioxide 18 mmol/L (22-30); Chloride 110 mmol/L (98-107); Estimated CRCL calculation 132 ml/min; Estimated Glomerular Filt Rate > 60; Glucose 97 mg/dL (65-110); Magnesium 2.2 mg/dL (1.6-2.3); Phosphorus 1.9 mg/dL (2.5-4.5); Potassium 4.1 mmol/L (3.4-5.0); Sodium 137 mmol/L (137-145)
[2023-09-18 08:03] LABS: Glucose Point of Care 126 mg/dl (65-105)
[2023-09-18] MEDS: IBUPROFEN 400 MG TABLET 800 MG PO (09:05)
[2023-09-18] MEDS: ENOXAPARIN 40 MG/0.4 ML SYRINGE SUB-Q (09:05)
[2023-09-18] MEDS: INSULIN GLARGINE (*BKC) 100 UNITS/ML 35 UNITS SUB-Q (09:06)
[2023-09-18] MEDS: INSULIN ASPART (*BKC) 100 UNITS/ML 10 UNITS SUB-Q ×2 (09:12→12:15)
[2023-09-18 11:55] LABS: Glucose Point of Care 267 mg/dl (65-105)
[2023-09-18] MEDS: LOPERAMIDE HCL 2 MG CAPSULE PO (12:15)
[2023-09-18] MEDS: INSULIN ASPART (*BKC) 100 UNITS/ML SUB-Q (12:15)
[2023-09-18 14:00] VITALS: BP 147/79; PULSE 71; RESP 16; TEMP 36.9; O2SAT 100
--- NOTE | 2023-09-18 15:09 | PM.DS ---
DS: Admitting Diagnosis Discharge Date 09/18/23 Admitting Diagnosis DKA DS: Discharge Diagnosis Discharge Diagnosis (1) KATHARINE (acute kidney injury): Code(s): N17.9 - Acute kidney failure, unspecified Status: Acute (2) DKA (diabetic ketoacidosis): Code(s): E11.10 - Type 2 diabetes mellitus with ketoacidosis without coma Status: Acute (3) Dehydration: Code(s): E86.0 - Dehydration Status: Acute DS: Summary Hospital Course Hospital Course: Mr. Fay, a 38M w/ PMH IDDM and chronic pancreatitis presented with nausea and vomiting, admitted on 09/18 with DKA. Pt treated effectively with DKA protocol and transitioned back to his home dosing insulin. He is stable for discharge back to home on 09/18/23. The pt recently switched insurance and was unfortunately unable to obtain his Lantus from [employer]. Therefore the DKA was 2/2 medication underutilization. Care coordination has instructed the patient on how to obtain Lantus from [employer] for $25/vial which the patient reports he can afford multiple vials if needed. He has also straightened out his new insurance info with [employer]. He feels ready for discharge and apt to obtain Lantus on his own moving forward. His questions were otherwise answered to satisfaction. F/u with PCP within 7 days to continue diabetes mgmt. More than 30 minutes spent on discharge planning and documentation. Time Spent with Patient Time attestation: Total time spent providing and/or coordinating discharge services: Exam Const: General: cooperative and no acute distress Resp: Effort & Inspection: normal respiratory effort Auscultation: clear to auscultation bilaterally Cardio: Rate: regular rate Rhythm: regular rhythm Heart sounds: S1 normal heart sound present and S2 normal heart sound present GI: GI Palp: No abdominal tenderness Auscultation: normal bowel sounds DS: Data Data Completed and Pending Labs on day of discharge: Labs from last 24 hours 09/18/23 09/18/23 09/18/23 11:42 07:40 05:28 WBC 8.3 RBC 4.65 Hgb 14.4 Hct 42.1 MCV 90.5 MCH 31.0 MCHC 34.2 RDW 12.3 Plt Count 211 MPV 11.5 H Sodium Potassium Chloride Carbon Dioxide Anion Gap BUN Creatinine Estim Creat Clear Calc Estimated GFR Glucose POC Capillary Glucose 267 H 126 H Calcium Phosphorus Magnesium Total Bilirubin AST ALT Alkaline Phosphatase Total Protein Albumin 09/18/23 09/17/23 09/17/23 05:24 20:22 16:17 WBC RBC Hgb Hct MCV MCH MCHC RDW Plt Count MPV Sodium 137 Potassium 4.1 Chloride 110 H Carbon Dioxide 18 L Anion Gap 9 BUN 11 Creatinine 0.70 Estim Creat Clear Calc 132 Estimated GFR > 60 Glucose 97 POC Capillary Glucose 215 H 88 Calcium 9.3 Phosphorus 1.9 L Magnesium 2.2 Total Bilirubin 1.2 AST 30 ALT 42 Alkaline Phosphatase 93 Total Protein 7.0 Albumin 3.8 Discharge Plan Discharge Attending physician on discharge: Mary Zaldivar Consulting providers: Bruce Marshall Discharging Clinician: Mary Zaldivar Patient Disposition: Home, Self-Care Activity: may shower Diet: diabetic Stand Alone Forms: General Discharge Information, Work/School Release IP Follow-up/Referrals: Juan Miguel,Pat Larson MD [Primary Care Provider] - 1 Week (follow up on diabetes management) Discharge Medications: Continued ibuprofen 800 mg tablet 800 mg PO TID PRN (Reason: Pain) insulin lispro [Humalog KwikPen Insulin] 100 unit/mL insulin pen 15 unit SUBCUT TID Rx Instructions: If blood sugar over 200, pt adds an additional 5 units. If blood sugar is less than 100 only take 5-10 units insulin glargine [Lantus Solostar U-100 Insulin] 100 unit/mL (3 mL) insulin pen 35 unit SUBCUT BID loperamide 2 mg Capsule 2 mg PO Q4HWA Rx Instructi
--- NOTE | 2023-09-18 15:57 | PC.NURSE ---
d/c papers gone over, denies questions. RX for lantus being sent over to [facility] in [place]. both IV's removed. patient denies any pain, or distress. walked out independently to private car, picked him up .
== END 2023-09-18 16:00 | disposition home or self-care (01) | DRG 420 ==
LOC: ANHED 09:25 → ANHICU 11:15 → ANH3MEDSUR 09-17 12:00
PROVIDERS: Internal Medicine; Admitting Provider Hospitalist; Emergency Provider Emergency Medicine; PCP Internal Medicine; Visit Provider Hospitalist
DX: E10.10 Type 1 diabetes mellitus with ketoacidosis without coma (principal); N17.9 Acute kidney failure, unspecified; R65.10 Systemic inflammatory response syndrome (SIRS) of non-infectious origin without acute organ dysfunction; E10.40 Type 1 diabetes mellitus with diabetic neuropathy, unspecified; E87.1 Hypo-osmolality and hyponatremia; E87.5 Hyperkalemia; E86.0 Dehydration; K52.9 Noninfective gastroenteritis and colitis, unspecified; F17.210 Nicotine dependence, cigarettes, uncomplicated; Z20.822 Contact with and (suspected) exposure to COVID-19; Z79.4 Long term (current) use of insulin
CPT/HCPCS: 36415; 36600; 71046; 80048; 80053; 81003; 82010; 82375; 82805; 82948; 83050; 83690; 83735; 84100; 84145; 85025; 85027; 87637; 96361; 96374; 96375; 99285; A9270; G0378; J1650; J1815; J2405; J3480; J7030; J7120

== ENCOUNTER 2024-04-08 20:29 | Observation (INO) | payer OTHER, SELFPAY ==
--- NOTE | ~2024-04-08 | US_ITS ---
Limited Abdominal Sonogram: Real-time sonographic imaging of the right upper quadrant was performed. Clinical History: Abnormal LFTs Findings: The liver appears normal with no evidence of mass lesion or bile duct dilatation. Main por jeremie vein demonstrates normal direction of flow. The gallbladder is absent, compatible prior cholecyst ectomy. The common bile duct measures 12 mm. The visualized pancreas, aorta, and IVC are unremarkabl e. Impression: Dilated common bile duct, possibly related to prior cholecystectomy. Consider additional workup, if i ndicated. Reviewed, dictated and finalized at location M. Impression: Dilated common bile duct, possibly related to prior cholecystectomy. Consider a dditional workup, if indicated.
--- NOTE | ~2024-04-08 | CT_ITS ---
EXAMINATION: CT abdomen pelvis w con DATE: 04/08/2024 22:17 INDICATION: Left flank tenderness. Hematuria. TECHNIQUE: Computed tomography (CT) of the abdomen and pelvis was performed without intravenous contr ast. Automated exposure control and iterative reconstruction technique were employed. The dose-length product was 863.40 mGy-cm. COMPARISON: CT abdomen and pelvis 02/28/2016 FINDINGS: The visualized portions of the lung bases are clear without pneumonia or pleural effusion. The heart size is normal. No pericardial effusion. The liver and spleen are normal. There are changes of cholecystectomy. The pancreas and adrenal glands are normal. There is a 6 mm cyst in left kidney. There is mild left hydronephrosis and hydroureter. There is a 4 mm stone at left ureterovesicular ju nction. There is a 1 mm stone in left kidney. There is a large volume of stool in the colon. The appe ndix is not visualized. There are no pathologically enlarged lymph nodes. There is no free intraperit varela fluid. There is mild thoracic and lumbar spondylosis. IMPRESSION: 1. 4 mm stone at left ureterovesicular junction with mild left hydronephrosis and hydroureter. 2. 1 mm nonobstructing left kidney stone. Reviewed, dictated and finalized at location E. IMPRESSION: 1. 4 mm stone at left ureterovesicular junction with mild left hydronephrosis a nd hydroureter. 2. 1 mm nonobstructing left kidney stone.
--- NOTE | ~2024-04-08 | XR_ITS ---
XR fluoroscopy no charge Indication: Cystoscopy/left ureteroscopy TECHNIQUE: Fluoroscopy used during Cystoscopy/left ureteroscopy performed by [Karthik Christian MD] on 04/09/2024. 8 seconds of fluoroscopy with 2 fluoroscopic images captured. FINDINGS: Correlate with procedure note. IMPRESSION: Fluoroscopy used during Cystoscopy/left ureteroscopy. Reviewed, dictated and finalized at location B.
[2024-04-08 20:34] VITALS: BP 136/80; PULSE 73; RESP 16; TEMP 36.5; O2SAT 100
[2024-04-08 20:58] LABS: Appearance Urine Turbid (Clear); Bacteria Urine None Seen /hpf; Bilirubin Urine 1+ (Negative); Blood Urine 3+ (Negative); Glucose Urine UA 2+ mg/dL (Negative); Ketones Urine Negative (Negative); Leukocyte Esterase Ur 1+ LEU/UL (Negative); Nitrate Urine Negative (Negative); Protein Urine 2+ mg/dL (Negative); RBC Urine >100 /hpf (0-2); Specific Grav Ur 1.036 (1.001-1.035); Squamous Epithelial Cell Urine None Seen /hpf (Few); pH Urine 5.5 (5.0-9.0)
[2024-04-08 20:59] LABS: Color Urine Dark Red (Yellow)
[2024-04-08 21:00] LABS: Add Urine Microscopic? YES
[2024-04-08 21:05] LABS: Basophils Absolute Auto 0.1 K/mm3 (0.0-0.1); Basophils Percent Auto 0.9 % (0.2-1.2); Eosinophils Absolute Auto 0.2 K/mm3 (0-0.3); Eosinophils Percent Auto 3.8 % (0-4.4); Hematocrit 40.6 % (42.0-52.0); Hemoglobin 14.3 g/dL (14.0-18.0); Immature Granulocyte Absolute 0.01 K/mm3 (0.00-0.031); Immature Granulocyte Percent A 0.2 % (0-0.5); Lymphocytes Absolute Auto 2.03 K/mm3 (0.9-3.2); Lymphocytes Percent Auto 34.9 % (18.3-44.2); Mean Corpuscular HGB Conc 35.2 g/dl (32-36); Mean Corpuscular Hemoglobin 31.2 pg (26-34); Mean Corpuscular Volume 88.6 fl (80-100); Mean Platelet Volume 12.1 fl (7.4-10.4); Monocytes Absolute Auto 0.4 K/mm3 (0.1-0.6); Monocytes Percent Auto 7.4 % (2.6-8.5); Neutrophils Absolute Auto 3.1 K/mm3 (1.3-6.7); Neutrophils Percent Auto 52.8 % (45.5-73.1); Platelet Count Result 239 k/mm3 (150-375); Red Blood Count 4.58 M/mm3 (4.6-6.20); Red Cell Distribution Width 12.9 % (11.5-14.5); White Blood Count 5.8 K/mm3 (4.5-10.0)
[2024-04-08 21:06] LABS: Alanine Aminotransferase 149 U/L (6-50); Albumin Level 4.2 g/dL (3.5-5.1); Alkaline Phosphatase 141 U/L (38-126); Anion Gap 9 mmol/L (4-12); Aspartate Amino Transferase 95 U/L (17-59); Bilirubin,Total 0.7 mg/dL (0.2-1.3); Blood Urea Nitrogen 18 mg/dL (9-20); Calcium 9.1 mg/dL (8.4-10.2); Carbon Dioxide 27 mmol/L (22-30); Chloride 103 mmol/L (98-107); Estimated CRCL calculation 84 ml/min; Estimated Glomerular Filt Rate > 60; Glucose 198 mg/dL (65-110); Potassium 4.3 mmol/L (3.4-5.0); Sodium 139 mmol/L (137-145)
[2024-04-08 21:25] VITALS: BP 135/82; PULSE 64; RESP 14; O2SAT 99
[2024-04-08 21:27] VITALS: BP 146/99; PULSE 65; RESP 14; O2SAT 99
[2024-04-08] MEDS: HYDROmorphone HCL INJ (*CRX) 1 MG/ML SYR 0.5 MG IV PUSH (21:51)
[2024-04-08] MEDS: ONDANSETRON INJ 4 MG/2 ML VIAL IV PUSH (21:51)
[2024-04-08] MEDS: SODIUM CHLORIDE 0.9% IV 1,000 ML 999 ML IV CONT (21:52)
--- NOTE | 2024-04-08 21:55 | ED.GENADULT ---
HPI - General Adult General Chief complaint: Urogenital-Male <PURVI Flores Last Filed: 04/09/24 01:49> Stated complaint: L flank pain, hematuria <PURVI Flores Last Filed: 04/09/24 01:49> Time Seen by Provider: 04/08/24 21:27 <PURVI Flores Last Filed: 04/09/24 01:49> Source: patient <PURVI Flores Last Filed: 04/09/24 01:49> Mode of arrival: ambulatory <PURVI Flores Last Filed: 04/09/24 01:49> Limitations: no limitations <PURVI Flores Last Filed: 04/09/24 01:49> History of Present Illness HPI narrative: This is a 38-year-old male who presents to the ED with chief complaint of left flank pain beginning this afternoon after work today. Patient reports that he went to the bathroom and noticed some blood in the urine. He started to have the significant pain to his left flank. Denies any radiation of pain. Endorses 1 more episode of hematuria at home so he came to the ER. endorses nausea. He has never had symptoms like this before. Denies fevers, chills, vomiting, diarrhea, chest pain, cough, shortness of breath. <PURVI Flores Last Filed: 04/09/24 01:49> Related Data Home medications: Home Medications Medication Instructions Recorded Confirmed insulin lispro 100 unit/mL 15 unit subcut TID 05/09/23 04/09/24 subcutaneous pen (Humalog KwikPen (U-100) Insulin) loperamide 2 mg capsule 2 mg PO Q4HWA 05/09/23 04/09/24 meloxicam 15 mg tablet 15 mg PO DAILY 04/09/24 04/09/24 <PURVI Flores Last Filed: 04/09/24 01:49> Allergies/adverse reactions: Allergies Allergy/AdvReac Type Severity Reaction Status Date / Time No Known Allergies Allergy Verified 04/08/24 20:32 <PURVI Flores Last Filed: 04/09/24 01:49> Review of Systems Review of Systems: All systems as dictated in HPI <Kirk Cartwright PA-C - Last Filed: 04/09/24 01:49> [facility] Past Medical History Medical History: Medical History Chronic diarrhea Pancreatitis Type 1 diabetes mellitus on insulin therapy <Kirk Cartwright PA-C - Last Filed: 04/09/24 01:49> Surgical History Surgical History: Surgical History History of appendectomy History of cholecystectomy History of skin graft LLE (graft to de la cruz from thigh) <Kirk Cartwright PA-C - Last Filed: 04/09/24 01:49> Family History Family History: Family History Mother Family history of rheumatoid arthritis Other Family history of mental disorder Family history of obesity Hypertension <Kirk Cartwright PA-C - Last Filed: 04/09/24 01:49> Social History Social History: Social History (Updated 09/16/23 @ 14:47 by Corrina Diaz, ALECIA) Social History: currently lives at home with his and 5 children (step and bio). surrogate decision maker: Lizett Osuna, spouse. code status: full code. Smoking packs per day: 0.5 Smoking cigarettes per day: 10.0 Years smoked: 10 Smoking pack-years: 5.00 Smoking status: Current every day smoker Tobacco type: cigars Second hand tobacco smoke exposure: Yes Additional smoking assessment comments: states he only smoked cigars - approx. 2-3d per week intermit. for 20 yrs Alcohol intake: never Drinks per week: 1 Substance use: current Substance use type: marijuana Other substance usage details: Uses for pain of left leg Last use: 08/02/23 Do You Feel Safe in your Home?: Yes Lack of Transportation: No Lack of Food: Never True Current Housing: I Have Housing Concerned About Future Housing: No Difficulty Paying Gas/Electric Bills: No Difficulty Paying for Meds: No Currently Unemployed: No Education: High School Diploma/GED Difficulty w/ Childcare or Family Care: No Spiritual care concerns: No <Kirk Louise.
[2024-04-08 22:29] VITALS: BP 124/86; PULSE 58; RESP 14; O2SAT 98
[2024-04-08] MEDS: KETOROLAC 30 MG/ML VIAL (*BKC) IV PUSH (22:44)
[2024-04-09] VITALS (14 sets, daily range): BP systolic 107–157; BP diastolic 61–91; PULSE 42–60; RESP 13–18; TEMP 36.1–36.7; O2SAT 95–100; BMI 36.2
[2024-04-09] MEDS: SODIUM CHLORIDE 0.9% IV 1,000 ML 125 ML IV CONT ×2 (00:01→07:21)
--- NOTE | 2024-04-09 00:58 | ADMGEN ---
This patient, Pranav Fay, was admitted to Medical Room 247-. Patient/family oriented to hospital policies and general routines including ID bracelet, bed and alarms, visiting hours, pain management, procedures, bathroom and other care routines, personal items, smoking policy, room service/diet, and visiting hours. Information on how to activate the Rapid Response Team has been discussed. Patient/Family are encouraged to report perceived risks to care and to ask questions if they do not understand what they are told or what they should do.
--- NOTE | 2024-04-09 05:33 | PM.IMHP ---
H&P: HPI History of Present Illness Date/Time: 04/09/24 05:33 Chief Complaint: Flank pain Narrative: 2-year-old male presents to emergency room with left flank pain started after work today. Patient also noticed some blood in the urine at that time. The patient's left flank pain got worse came to the emergency room with some nausea and vomiting. Patient rated pain as 8/10. No fever chills diarrhea chest pain shortness are breath urgency frequency of urination no headaches. Patient was diagnosed with nephrolithiasis with left ureteral show stone at the UV junction admitted with urology consult for possible cysto. Review of Systems Review of Systems: All systems reviewed & are unremarkable except as noted in HPI and below PMFSH Past Medical History Medical History Chronic diarrhea Pancreatitis Type 1 diabetes mellitus on insulin therapy Surgical History Surgical History History of appendectomy History of cholecystectomy History of skin graft LLE (graft to de la cruz from thigh) Family History Family History Mother Family history of rheumatoid arthritis Other Family history of mental disorder Family history of obesity Hypertension Social History Social History (Updated 09/16/23 @ 14:47 by Corrina Diaz APRN) Social History: currently lives at home with his and 5 children (step and bio). surrogate decision maker: Lizett Osuna, spouse. code status: full code. Smoking packs per day: 0.5 Smoking cigarettes per day: 10.0 Years smoked: 10 Smoking pack-years: 5.00 Smoking status: Current every day smoker Tobacco type: cigars Second hand tobacco smoke exposure: Yes Additional smoking assessment comments: states he only smoked cigars - approx. 2-3d per week intermit. for 20 yrs Alcohol intake: never Drinks per week: 1 Substance use: current Substance use type: marijuana Other substance usage details: Uses for pain of left leg Last use: 08/02/23 Do You Feel Safe in your Home?: Yes Lack of Transportation: No Lack of Food: Never True Current Housing: I Have Housing Concerned About Future Housing: No Difficulty Paying Gas/Electric Bills: No Difficulty Paying for Meds: No Currently Unemployed: No Education: High School Diploma/GED Difficulty w/ Childcare or Family Care: No Spiritual care concerns: No Meds Home Medications and Allergies Home Medications Medication Instructions Recorded Confirmed Type insulin lispro 100 unit/mL 15 unit subcut TID 05/09/23 04/09/24 History subcutaneous pen (Humalog KwikPen (U-100) Insulin) loperamide 2 mg capsule 2 mg PO Q4HWA 05/09/23 04/09/24 History insulin glargine 100 unit/mL (3 35 unit (0.35 mL) subcut BID #15 mL 09/18/23 04/09/24 Rx mL) subcutaneous pen (Lantus Solostar U-100 Insulin) meloxicam 15 mg tablet 15 mg PO DAILY 04/09/24 04/09/24 History Allergies Allergy/AdvReac Type Severity Reaction Status Date / Time No Known Allergies Allergy Verified 04/08/24 20:32 Vital Signs Vital Signs - 24 hr 04/08/24 20:34 04/08/24 21:25 04/08/24 21:27 Temperature 36.5 C Pulse Rate 73 64 65 Respiratory Rate 16 14 14 Blood Pressure 136/80 135/82 146/99 H Pulse Oximetry 100 99 99 Oxygen Delivery Room Air 04/08/24 22:29 04/09/24 01:14 Temperature 36.5 C Pulse Rate 58 L 52 L Respiratory Rate 14 18 Blood Pressure 124/86 129/85 Pulse Oximetry 98 96 Oxygen Delivery Exam Narrative: GENERAL: Well appearing, no acute distress. HEAD: Normocephalic, atraumatic. NECK: Supple. No adenopathy, no masses. RESPIRATORY: respirations nonlabored. , no rales, wheezing. CARDIOVASCULAR: Regular rate and rhythm without murmurs, . Peripheral pulses 2+ and equal bilaterally. ABDOMINAL: Soft, nontender, nondistended, no hepatosplen
[2024-04-09 06:08] LABS: Hematocrit 37.7 % (42.0-52.0); Hemoglobin 12.8 g/dL (14.0-18.0); Mean Corpuscular Volume 91.3 fl (80-100); Platelet Count Result 177 k/mm3 (150-375); Red Blood Count 4.13 M/mm3 (4.6-6.20)
[2024-04-09 06:20] LABS: Alanine Aminotransferase 118 U/L (6-50); Albumin Level 3.4 g/dL (3.5-5.1); Alkaline Phosphatase 148 U/L (38-126); Anion Gap 5 mmol/L (4-12); Aspartate Amino Transferase 62 U/L (17-59); Bilirubin,Total 0.4 mg/dL (0.2-1.3); Blood Urea Nitrogen 17 mg/dL (9-20); Calcium 8.6 mg/dL (8.4-10.2); Carbon Dioxide 23 mmol/L (22-30); Chloride 109 mmol/L (98-107); Estimated CRCL calculation 123 ml/min; Estimated Glomerular Filt Rate > 60; Glucose 258 mg/dL (65-110); Potassium 4.6 mmol/L (3.4-5.0); Sodium 137 mmol/L (137-145)
--- NOTE | 2024-04-09 06:33 | PM.IMHP ---
H&P: HPI History of Present Illness Date/Time: 04/09/24 06:33 [facility] Past Medical History Medical History Chronic diarrhea Pancreatitis Type 1 diabetes mellitus on insulin therapy Surgical History Surgical History History of appendectomy History of cholecystectomy History of skin graft LLE (graft to de la cruz from thigh) Family History Family History Mother Family history of rheumatoid arthritis Other Family history of mental disorder Family history of obesity Hypertension Social History Social History (Updated 09/16/23 @ 14:47 by Corrina Diaz APRN) Social History: currently lives at home with his and 5 children (step and bio). surrogate decision maker: Lizett Osuna, spouse. code status: full code. Smoking packs per day: 0.5 Smoking cigarettes per day: 10.0 Years smoked: 10 Smoking pack-years: 5.00 Smoking status: Current every day smoker Tobacco type: cigars Second hand tobacco smoke exposure: Yes Additional smoking assessment comments: states he only smoked cigars - approx. 2-3d per week intermit. for 20 yrs Alcohol intake: never Drinks per week: 1 Substance use: current Substance use type: marijuana Other substance usage details: Uses for pain of left leg Last use: 08/02/23 Do You Feel Safe in your Home?: Yes Lack of Transportation: No Lack of Food: Never True Current Housing: I Have Housing Concerned About Future Housing: No Difficulty Paying Gas/Electric Bills: No Difficulty Paying for Meds: No Currently Unemployed: No Education: High School Diploma/GED Difficulty w/ Childcare or Family Care: No Spiritual care concerns: No Meds Home Medications and Allergies Home Medications Medication Instructions Recorded Confirmed Type insulin lispro 100 unit/mL 15 unit subcut TID 05/09/23 04/09/24 History subcutaneous pen (Humalog KwikPen (U-100) Insulin) loperamide 2 mg capsule 2 mg PO Q4HWA 05/09/23 04/09/24 History insulin glargine 100 unit/mL (3 35 unit (0.35 mL) subcut BID #15 mL 09/18/23 04/09/24 Rx mL) subcutaneous pen (Lantus Solostar U-100 Insulin) meloxicam 15 mg tablet 15 mg PO DAILY 04/09/24 04/09/24 History Allergies Allergy/AdvReac Type Severity Reaction Status Date / Time No Known Allergies Allergy Verified 04/08/24 20:32 Vital Signs Vital Signs - 24 hr 04/08/24 20:34 04/08/24 21:25 04/08/24 21:27 Temperature 36.5 C Pulse Rate 73 64 65 Respiratory Rate 16 14 14 Blood Pressure 136/80 135/82 146/99 H Pulse Oximetry 100 99 99 Oxygen Delivery Room Air 04/08/24 22:29 04/09/24 01:14 04/09/24 06:00 Temperature 36.5 C 36.4 C Pulse Rate 58 L 52 L 60 Respiratory Rate 14 18 18 Blood Pressure 124/86 129/85 157/80 H Pulse Oximetry 98 96 96 Oxygen Delivery H&P: Results Labs Labs: Short CBC 04/08/24 04/09/24 Range/Units 20:47 05:54 WBC 5.8 4.0 L (4.5-10.0) K/mm3 Hgb 14.3 12.8 L (14.0-18.0) g/dL Hct 40.6 L 37.7 L (42.0-52.0) % Plt Count 239 177 (150-375) k/mm3 BMP 04/08/24 04/09/24 20:47 05:54 Sodium 139 137 Potassium 4.3 4.6 Chloride 103 109 H Carbon Dioxide 27 23 BUN 18 17 Creatinine 1.20 0.80 Glucose 198 H 258 H Calcium 9.1 8.6 Liver Function 04/08/24 04/09/24 Range/Units 20:47 05:54 Total Bilirubin 0.7 0.4 (0.2-1.3) mg/dL AST 95 H 62 H (17-59) U/L ALT 149 H 118 H (6-50) U/L Alkaline Phosphatase 141 H 148 H (38-126) U/L Albumin 4.2 3.4 L (3.5-5.1) g/dL Urine 04/08/24 Range/Units 20:39 Urine Color Dark red H (Yellow) Urine Appearance Turbid H (Clear) Urine pH 5.5 (5.0-9.0) Ur Specific [place] 1.036 H (1.001-1.035) Urine Protein 2+ H (Negative) mg/dL Urine Glucose (UA) 2+ H (Negative) mg/dL Hospitalist
[2024-04-09] MEDS: HYDROmorphone HCL INJ (*CRX) 1 MG/ML SYR 0.5 MG IV PUSH (06:42)
--- NOTE | 2024-04-09 07:19 | WPDURCON ---
Assessment and Plan Assessment and plan (1) Left ureteral stone: Code(s): N20.1 - Calculus of ureter Status: Acute Assessment and Plan: Cystoscopy, left ureteroscopy with stone extraction, possible laser lithotripsy, retrograde pyelogram and stent placement Urology Consult Note HPI Date Seen: 04/09/24 Requesting Physician: Rj Hughes MD Primary Care Provider: Doug Lopes, PA Consult Narrative Narrative: Pranav Fay is a 38 year old male without partially for urological history without history of urolithiasis who presents to the emergency department with acute left ureteral colic. He had nausea without vomiting and no fevers chills. He does report irritable voiding scant gross hematuria. CT imaging reveals an obstructing 4 mm left distal ureteral stone. Pain control was challenging in the ER so we opted for admission and endoscopic intervention. Review of Systems Review of Systems: All systems reviewed & are unremarkable except as noted in HPI and below PMFSH Past Medical History Medical History Chronic diarrhea Pancreatitis Type 1 diabetes mellitus on insulin therapy Surgical History Surgical History History of appendectomy History of cholecystectomy History of skin graft LLE (graft to de la cruz from thigh) Family History Family History Mother Family history of rheumatoid arthritis Other Family history of mental disorder Family history of obesity Hypertension Social History Social History (Updated 09/16/23 @ 14:47 by Corrina Diaz APRN) Social History: currently lives at home with his and 5 children (step and bio). surrogate decision maker: Lizett Osuna, spouse. code status: full code. Smoking packs per day: 0.5 Smoking cigarettes per day: 10.0 Years smoked: 10 Smoking pack-years: 5.00 Smoking status: Current every day smoker Tobacco type: cigars Second hand tobacco smoke exposure: Yes Additional smoking assessment comments: states he only smoked cigars - approx. 2-3d per week intermit. for 20 yrs Alcohol intake: never Drinks per week: 1 Substance use: current Substance use type: marijuana Other substance usage details: Uses for pain of left leg Last use: 08/02/23 Do You Feel Safe in your Home?: Yes Lack of Transportation: No Lack of Food: Never True Current Housing: I Have Housing Concerned About Future Housing: No Difficulty Paying Gas/Electric Bills: No Difficulty Paying for Meds: No Currently Unemployed: No Education: High School Diploma/GED Difficulty w/ Childcare or Family Care: No Spiritual care concerns: No Meds Home Medications and Allergies Home Medications Medication Instructions Recorded Confirmed Type insulin lispro 100 unit/mL 15 unit subcut TID 05/09/23 04/09/24 History subcutaneous pen (Humalog KwikPen (U-100) Insulin) loperamide 2 mg capsule 2 mg PO Q4HWA 05/09/23 04/09/24 History insulin glargine 100 unit/mL (3 35 unit (0.35 mL) subcut BID #15 mL 09/18/23 04/09/24 Rx mL) subcutaneous pen (Lantus Solostar U-100 Insulin) meloxicam 15 mg tablet 15 mg PO DAILY 04/09/24 04/09/24 History Allergies Allergy/AdvReac Type Severity Reaction Status Date / Time No Known Allergies Allergy Verified 04/08/24 20:32 Vital Signs Vital Signs - 24 hr 04/08/24 20:34 04/08/24 21:25 04/08/24 21:27 Temperature 97.7 F Pulse Rate 73 64 65 Respiratory Rate 16 14 14 Blood Pressure 136/80 135/82 146/99 H Pulse Oximetry 100 99 99 Oxygen Delivery Room Air 04/08/24 22:29 04/09/24 01:14 04/09/24 06:00 Temperature 97.7 F 97.6 F Pulse Rate 58 L 52 L 60 Respiratory Rate 14 18 18 Blood Pressure 124/86 129/85 157/80 H Pulse Oximetry 98 96 96 Oxygen Delivery Exam Const: General: no acute distress
--- NOTE | 2024-04-09 07:23 | WPDHPUPDATE1 ---
History and Physical Update Update Date/Time: 04/09/24 07:23 History and Physical has been reviewed, including an updated exam of the patient. There are NO changes in the patient's condition. Risks, benefits, and alternatives have been discussed and questions answered. Patient agrees to proceed with procedure.
[2024-04-09] MEDS: HYDROcodone/acetaminophen (*CRX) 5-325 MG TABLET 1 TAB PO (08:05)
[2024-04-09] MEDS: PANTOPRAZOLE 40 MG TABLET PO (08:06)
[2024-04-09 09:01] LABS: Glucose Point of Care 230 mg/dl (65-105)
--- NOTE | 2024-04-09 10:02 | PM.IMPN ---
Progress Note: A&P Assessment and Plan (1) Left ureteral stone: Code(s): N20.1 - Calculus of ureter Status: Acute Assessment and Plan: 04/09/24: CT of the abdomen pelvis revealed a 4 mm stone at left ureterovesicular junction with mild left hydronephrosis and hydroureter, 1 mm nonobstructing left kidney stone, 6 mm cyst in the left kidney also seen. Urology consulted and plans to take patient to the OR today for stent placement he will remain NPO for now continue pain control continue nausea control continue maintenance IV fluids for now (2) Diabetes mellitus: Code(s): E11.9 - Type 2 diabetes mellitus without complications Status: Acute Assessment and Plan: 04/09/24: Blood sugars ranging 198 to 258 Hgb A1C 9.2 on 08/06/2023, will reorder hemoglobin A1c today Accu checks AC/HS high dose SSI ordered mealtime insulin on hold due to NPO status, will likely restart this tomorrow Lantus 35 units ordered for tonight hypoglycemic protocol in place currently NPO, will order Diabetic diet once back from OR (3) Hematuria: Code(s): R31.9 - Hematuria, unspecified Status: Acute Assessment and Plan: 04/09/24: likely related to obstructing kidney stone hemoglobin stable at 12.8 Time Spent With Patient Time with patient: Greater than 35 minutes Subjective Date/time seen: 04/09/24 10:02 Interval history: Interval history: This is a 38-year-old male with a significant past medical history of pancreatitis, type 1 diabetes mellitus, history of cholecystectomy, history of appendectomy, tobacco abuse, marijuana abuse who presented to the hospital with left flank pain and hematuria. Workup in the hospital included an abdomen/ pelvis CT which showed a 4 mm stone at the left your toe fascicular junction with mild left hydro nephrosis and hydroureter, 1 mm non obstructing left kidney stone. Upper quadrant ultrasound showed dilated common bile duct likely related to prior cholecystectomy, otherwise normal. Initial labs shown a normal white blood cell count of 5.8, AST 95, ALT 149, alk-phos 141, blood sugars ranging 198-258. UA was obtained which shown a urine specific gravity of 1.036, 2+ urine protein, 2+ urine glucose, 3+ urine blood, 1+ urine bili, 1+ leukocytes, greater than 100 urine RBC, 11-20 urine WBC. Blood and urine cultures were obtained and are pending. Patient was given IV fluids, pain medication, and Zofran while in the ED. Urology was consulted. 04/09/24: Patient denies any fever, chills, nausea, vomiting, diarrhea, abdominal pain, chest pain, shortness of breath. Patient endorses 10/10 in left flank. He reports urgency and frequency with urination. He also reports some burning. Labs and cultures reviewed. Review of Systems Review of Systems: All systems reviewed & are unremarkable except as noted in HPI and below Constitutional: Constitutional: Reports as per HPI and Reports no additional constitutional complaints Eyes: Eyes: Reports as per HPI and Reports no additional eye complaints ENT: Reports system reviewed and no additional complaints, except as documented and Reports as per HPI Cardiovascular: Cardiovascular: Reports as per HPI and Reports no additional cardiovascular complaints Respiratory: Respiratory: Reports as per HPI and Reports no additional respiratory complaints Gastrointestinal: Gastrointestinal: Reports as per HPI and Reports no additional gastrointestinal complaints Genitourinary: Genitourinary: Reports no additional male genitourinary complaints and Reports as per HPI Musculoskeletal: Musculoskeletal: Reports no additional musculoskeletal complaints and Reports as per HPI Integumentary/Breasts: Skin/Breast: Reports system reviewed and no additional complaints, except as docu and Reports as per HPI Neurologic: Reports system reviewed and no additional complaints, except as documented and Reports as per HPI Psychiatric:
[2024-04-09 12:06] LABS: Glucose Point of Care 240 mg/dl (65-105)
--- NOTE | 2024-04-09 12:20 | PC.NURSE ---
To OR via stretcher. Family at bedside. Voiding.
[2024-04-09] MEDS: fentaNYL CITRATE INJ (*CRX) 100 MCG/2 ML VIAL 25 MCG IV PUSH ×4 (13:06→13:18)
--- NOTE | 2024-04-09 13:14 | WPDANESEPPF ---
Anes - Initial Pre Proc Eval Procedure: Operation Date: 04/09/24 14:00 Proposed Procedures p Cystoscopy,Left Ureteroscopy,Left Stone Extraction - Karthik Christian MD Date/Time: 04/09/24 13:14 Surgeon: Lee Ann Austin APRN Pre Op Diagnosis: L Ureterolithiasis Patient Data Age: 38 Gender: M Height: 1.7 m Weight: 104.9 kg Last Vital Signs Temp 36.4 C 04/09/24 06:00 Pulse 60 04/09/24 06:00 Resp 18 04/09/24 08:05 BP 157/80 H 04/09/24 06:00 Pulse Ox 96 04/09/24 08:05 O2 Del Method Room Air 04/09/24 08:05 Allergies Allergy/AdvReac Type Severity Reaction Status Date / Time No Known Allergies Allergy Verified 04/08/24 20:32 Home Medications Medication Instructions Recorded Confirmed Type insulin lispro 100 unit/mL 15 unit subcut TID 05/09/23 04/09/24 History subcutaneous pen (Humalog KwikPen (U-100) Insulin) loperamide 2 mg capsule 2 mg PO Q4HWA 05/09/23 04/09/24 History insulin glargine 100 unit/mL (3 35 unit (0.35 mL) subcut BID #15 mL 09/18/23 04/09/24 Rx mL) subcutaneous pen (Lantus Solostar U-100 Insulin) meloxicam 15 mg tablet 15 mg PO DAILY 04/09/24 04/09/24 History Laboratory Tests 04/08/24 04/08/24 04/09/24 20:39 20:47 05:54 WBC 5.8 K/mm3 4.0 L K/mm3 (4.5-10.0) (4.5-10.0) RBC 4.58 L M/mm3 4.13 L M/mm3 (4.6-6.20) (4.6-6.20) Hgb 14.3 g/dL 12.8 L g/dL (14.0-18.0) (14.0-18.0) Hct 40.6 L % 37.7 L % (42.0-52.0) (42.0-52.0) MCV 88.6 fl 91.3 fl (80-100) (80-100) MCH 31.2 pg 31.0 pg (26-34) (26-34) MCHC 35.2 g/dl 34.0 g/dl (32-36) (32-36) RDW 12.9 % 13.0 % (11.5-14.5) (11.5-14.5) Plt Count 239 k/mm3 177 k/mm3 (150-375) (150-375) MPV 12.1 H fl 12.0 H fl (7.4-10.4) (7.4-10.4) Immature Gran % (Auto) 0.2 % (0-0.5) Neut % (Auto) 52.8 % (45.5-73.1) Lymph % (Auto) 34.9 % (18.3-44.2) [place] % (Auto) 7.4 % (2.6-8.5) Eos % (Auto) 3.8 % (0-4.4) Baso % (Auto) 0.9 % (0.2-1.2) Lymph # (Auto) 2.03 K/mm3 (0.9-3.2) [place] # (Auto) 0.4 K/mm3 (0.1-0.6) Eos # (Auto) 0.2 K/mm3 (0-0.3) Baso # (Auto) 0.1 K/mm3 (0.0-0.1) Abs Immat Gran (auto) 0.01 K/mm3 (0.00-0.031) Absolute Neuts (auto) 3.1 K/mm3 (1.3-6.7) Absolute Nucleated RBC 0.000 K/mm3 (0.0-0.012) Nucleated RBC % 0.0 % (0.0-0.2) Sodium 139 mmol/L 137 mmol/L (137-145) (137-145) Potassium 4.3 mmol/L 4.6 mmol/L (3.4-5.0) (3.4-5.0) Chloride 103 mmol/L 109 H mmol/L (98-107) (98-107) Carbon Dioxide 27 mmol/L 23 mmol/L (22-30) (22-30) Anion Gap 9 mmol/L 5 mmol/L (4-12) (4-12) BUN 18 mg/dL 17 mg/dL (9-20) (9-20) Creatinine 1.20 mg/dL 0.80 mg/dL (0.7-1.3) (0.7-1.3) Estim Creat Clear Calc 84 ml/min 123 ml/min Estimated GFR > 60 > 60 (59 - ) (59 - ) Glucose 198 H mg/dL 258 H mg/dL (65-110) (65-110) POC Capillary Glucose Calcium 9.1 mg/dL 8.6 mg/dL (8.4-10.2) (8.4-10.2) Total Bilirubin 0.7 mg/dL 0.4 mg/dL (0.2-1.3) (0.2-1.3) AST 95 H U/L 62 H U/L (17-59) (17-59) ALT 149 H U/L 118 H U/L (6-50) (6-50) Alkaline Phosphatase 141 H U/L 148 H U/L (38-126) (38-126) Total Protein 7.0 g/dL 6.0 L g/dL (6.3-8.2) (6.3-8.2) Albumin 4.2 g/dL 3.4 L g/dL (3.5-5.1) (3.5-5.1) Urine Color Dark red H (Yellow) Urine Appearance Turbid H (Clear) Urine pH 5.5 (5.0-9.0) Ur Specific [place] 1.036 H (1.001-1.035) Urine Protein 2+ H mg/dL (Negative) Urine Glucose (UA) 2+ H mg/dL (Negative) Urine Ketones Negative mg/dL (Negative) Ur Blood (Man) 3+ H (Negative) Urine Nitrate Negative
[2024-04-09] MEDS: ceFAZolin 2 GM/D5W 50 ML 2 GM/50 ML BAG IVPB (13:24)
[2024-04-09] MEDS: LIDOCAINE HCL 2% GEL UROJET 10 ML PKG MUCOUS MEM (13:45)
[2024-04-09] MEDS: KETOROLAC 30 MG/ML VIAL (*BKC) IV PUSH (13:50)
--- NOTE | 2024-04-09 14:01 | W.PM.PROC2 ---
Procedure Note - Detailed Date of Procedure 04/09/24 Pre-op Diagnosis L Ureterolithiasis Post-op Diagnosis Same Procedure Performed Cystoscopy, left ureteroscopy with stone extraction Surgeon Karthik Christian MD Anesthesia General Description of Procedure The patient was brought to the operative suite where he is prepped and draped in a routine sterile fashion while in the dorsal lithotomy position after the uneventful induction of a general LMA anesthetic. A 19F rigid cystoscope was placed in the bladder. There are no urethral strictures. His prostatic urethra measures, approximately, 1.5cm with no median lobe enlargement. The bladder mucosa was endoscopically normal without hyperemia or neoplasm. There was a single, orthotopic ureteral orifice bilaterally. A 0.035 glidewire was advanced into the left renal pelvis under fluoroscopy. The distal ureter was dilated with an 8F/10F ureteral dilator. Ureteroscopy was undertaken with a short, tapered, semi-rigid ureteroscope and the stone was extracted with ease using a 1.9F Escape disposable stone basket. Due to the ease of this manipulation I opted not to place a ureteral stent. The patient's bladder was emptied and was taken to the recovery room having tolerated this procedure well. Urine Output 150 Packing No Pathology Yes Complications No immediate complications Condition Stable
[2024-04-09] MEDS: LACTATED RINGERS 1,000 ML 30 ML IV CONT (14:02)
[2024-04-09 14:43] LABS: Glucose Point of Care 231 mg/dl (65-105)
--- NOTE | 2024-04-09 15:30 | PC.NURSE ---
Returned from OR via stretcher. Family at bedside. Denies pain at this time.
--- NOTE | 2024-04-09 15:32 | PM.DS ---
DS: Admitting Diagnosis Discharge Date 04/09/24: Admitting Diagnosis Ureterolithiasis Acute kidney injury Dehydration Diabetes mellitus DS: Summary Hospital Course Reason for hospitalization: Ureterolithiasis Acute kidney injury Dehydration Diabetes mellitus Hospital Course: This is a 38-year-old male with a significant past medical history of pancreatitis, type 1 diabetes mellitus, history of cholecystectomy, history of appendectomy, tobacco abuse, marijuana abuse who presented to the hospital with left flank pain and hematuria. Workup in the hospital included an abdomen/ pelvis CT which showed a 4 mm stone at the left your toe fascicular junction with mild left hydro nephrosis and hydroureter, 1 mm non obstructing left kidney stone. Upper quadrant ultrasound showed dilated common bile duct likely related to prior cholecystectomy, otherwise normal. Initial labs shown a normal white blood cell count of 5.8, AST 95, ALT 149, alk-phos 141, blood sugars ranging 198-258. UA was obtained which shown a urine specific gravity of 1.036, 2+ urine protein, 2+ urine glucose, 3+ urine blood, 1+ urine bili, 1+ leukocytes, greater than 100 urine RBC, 11-20 urine WBC. Blood and urine cultures were obtained and are pending. Patient was given IV fluids, pain medication, and Zofran while in the ED. Urology was consulted and took patient to OR for stent. He is stable for discharge at this time. He will need to follow up with Urology in a week. Patient does not have an acute kidney injury and received IV fluids for dehydration. Final diagnosis: Ureterolithiasis Status at Discharge Cognitive/behavioral status at discharge: Alert oriented x3 Functional status at discharge: independent ambulation Overall status at discharge: patient is progressing back to baseline Time Spent with Patient Time attestation: Total time spent providing and/or coordinating discharge services: Time spent: Greater than 30 minutes Exam Narrative: General: In no acute distress, well nourished Head: atraumatic, no encephalopathy Eyes: EOMI, PERRLA, sclera clear ENT: moist mucous membranes, nasal passages clear Neck: supple, no JVD, no adenopathy, trachea midline Cardiac: Normal S1 and S2. RRR, No murmur, gallops or friction rubs, peripheral pulses intact. Respiratory: Lungs clear to auscultation, no adventitious lung sounds, currently on room air Gastrointestinal: soft, non-distended, non-tender, normoactive bowel sounds. : voiding without difficulty. left flank pain Extremities: moves all extremities well, no edema, good ROM, strength 5/5 Skin: clean, dry, intact. No wounds or lesions. Neuro: Alert and oriented x4, cranial nerves intact, no neuro deficits. Psych: normal mood, normal affect, interactive DS: Data Data Completed and Pending Completed studies during hospitalization: Upper quadrant ultrasound Abdomen/pelvis CT Pending studies at discharge: Pending at discharge 04/09/24 13:49 Surgical [PTH] Routine Labs on day of discharge: Labs from last 24 hours 04/09/24 04/09/24 04/09/24 14:09 11:56 08:58 WBC RBC Hgb Hct MCV MCH MCHC RDW Plt Count MPV Immature Gran % (Auto) Neut % (Auto) Lymph % (Auto) [place] % (Auto) Eos % (Auto) Baso % (Auto) Lymph # (Auto) [place] # (Auto) Eos # (Auto) Baso # (Auto) Abs Immat Gran (auto) Absolute Neuts (auto) Absolute Nucleated RBC Nucleated RBC % Sodium Potassium Chloride Carbon Dioxide Anion Gap BUN Creatinine Estim Creat Clear Calc Estimated GFR Glucose POC Capillary Glucose 231 H 240 H 230 H Calcium Total Bilirubin AST ALT Alkaline Phosphatase Total Protein Albumin Urine Color Urine Appearance Urine pH Ur Specific [place] Urine Protein Urine Glucose (UA) Urine Ketones Ur Blood (Man) Urine Nitrate Urine Bilirubin Urine Urob
[2024-04-09 17:09] LABS: Glucose Point of Care 225 mg/dl (65-105)
[2024-04-09] MEDS: INSULIN ASPART (*BKC) 100 UNITS/ML SUB-Q (17:15)
== END 2024-04-09 19:05 | disposition home or self-care (01) ==
LOC: ANHED 21:37 → ANH2MED 04-09 00:44
PROVIDERS: Emergency Medicine; Urology; Admitting Provider Internal Medicine; Emergency Provider Physician Assistant; PCP Physician Assistant Medical; Visit Provider Nurse Practitioner Acute Care
PROC: (CPT 52352; principal; 2024-04-09 14:00)
DX: N20.1 Calculus of ureter (principal); N17.9 Acute kidney failure, unspecified; E11.9 Type 2 diabetes mellitus without complications; E86.0 Dehydration; F17.290 Nicotine dependence, other tobacco product, uncomplicated
CPT/HCPCS: 52352; 36415; 74177; 76705; 80053; 81001; 82365; 82948; 85025; 85027; 87040; 87086; 88300; 96361; 96374; 96375; 99199; 99285; A9270; C1769; G0378; J0690; J1170; J1815; J1885; J2250; J2405; J2704; J3010; J7030; J7120; Q9967

== ENCOUNTER 2024-04-11 09:10 | Emergency (ER) | payer OTHER, SELFPAY ==
--- NOTE | ~2024-04-11 | CT_ITS ---
EXAMINATION: CT abdomen pelvis wo con DATE: 04/11/2024 10:07 INDICATION: Abdominal pain TECHNIQUE: Computed tomography (CT) of the abdomen and pelvis was performed without intravenous contr ast. Automated exposure control and iterative reconstruction technique were employed. The dose-length product was 1046.61 mGy-cm. COMPARISON: 04/08/2024 and 02/28/2016 FINDINGS: Mild left basilar atelectasis. Heart size is normal. No pericardial or pleural effusion. Unchanged ch ronic mild intra and extrahepatic biliary ductal dilation likely related to prior cholecystectomy wit h surgical clips the gallbladder fossa. Spleen, pancreas, bilateral adrenal glands are normal. Bilate ral nephrolithiasis with a 1 mm stone in an upper pole calyx of the right kidney and 1 mm [address] ones at the upper and lower pole calyces respectively the right kidney. There is mild left hydrourete ronephrosis extending into the bladder but without evident obstructing stone or mass. There are coupl e tiny foci of gas in the nondependent bladder consistent with reported recent cystoscopy and uretero scopy for left stone removal. No residual ureteral stones or right-sided hydroureteronephrosis. No aneudy wel obstruction. No free intraperitoneal gas or fluid. No pathologically enlarged abdominal or pelvic lymphadenopathy. Mild lumbar and lower thoracic spondylosis. IMPRESSION: 1. Bilateral nonobstructing nephrolithiasis with mild left hydroureteronephrosis and mild distal left periureteral stranding which is likely related to reported recent noted left ureteroscopy and stone removal. Reviewed, dictated and finalized at location A. IMPRESSION: 1. Bilateral nonobstructing nephrolithiasis with mild left hydroureteronephrosi s and mild distal left periureteral stranding which is likely related to report ed recent noted left ureteroscopy and stone removal.
[2024-04-11 09:32] VITALS: BP 153/84; PULSE 45; RESP 10; O2SAT 100
[2024-04-11 09:46] LABS: Basophils Percent Auto 0.4 % (0.2-1.2); Eosinophils Absolute Auto 0.1 K/mm3 (0-0.3); Eosinophils Percent Auto 1.6 % (0-4.4); Hematocrit 38.5 % (42.0-52.0); Hemoglobin 13.5 g/dL (14.0-18.0); Immature Granulocyte Absolute 0.02 K/mm3 (0.00-0.031); Immature Granulocyte Percent A 0.3 % (0-0.5); Lymphocytes Absolute Auto 1.19 K/mm3 (0.9-3.2); Lymphocytes Percent Auto 15.6 % (18.3-44.2); Mean Corpuscular HGB Conc 35.1 g/dl (32-36); Mean Corpuscular Volume 88.5 fl (80-100); Mean Platelet Volume 12.1 fl (7.4-10.4); Monocytes Absolute Auto 0.4 K/mm3 (0.1-0.6); Monocytes Percent Auto 5.5 % (2.6-8.5); Neutrophils Absolute Auto 5.8 K/mm3 (1.3-6.7); Neutrophils Percent Auto 76.6 % (45.5-73.1); Platelet Count Result 193 k/mm3 (150-375); Red Blood Count 4.35 M/mm3 (4.6-6.20); Red Cell Distribution Width 12.5 % (11.5-14.5); White Blood Count 7.6 K/mm3 (4.5-10.0)
[2024-04-11 09:56] LABS: Alanine Aminotransferase 70 U/L (6-50); Albumin Level 3.8 g/dL (3.5-5.1); Alkaline Phosphatase 125 U/L (38-126); Anion Gap 7 mmol/L (4-12); Aspartate Amino Transferase 31 U/L (17-59); Bilirubin,Total 0.7 mg/dL (0.2-1.3); Blood Urea Nitrogen 12 mg/dL (9-20); Calcium 9.1 mg/dL (8.4-10.2); Carbon Dioxide 25 mmol/L (22-30); Chloride 105 mmol/L (98-107); Estimated CRCL calculation 121 ml/min; Estimated Glomerular Filt Rate > 60; Glucose 242 mg/dL (65-110); Lipase 23 U/L (23-300); Potassium 4.4 mmol/L (3.4-5.0); Sodium 137 mmol/L (137-145)
[2024-04-11 10:38] VITALS: BP 142/80; PULSE 48; RESP 16; TEMP 36.7; O2SAT 100
[2024-04-11] MEDS: SODIUM CHLORIDE 0.9% IV 1,000 ML 999 ML IV CONT (10:43)
[2024-04-11] MEDS: MORPHINE SULFATE (*CRX) 4 MG/ML INJ IV PUSH (10:44)
[2024-04-11] MEDS: ONDANSETRON INJ 4 MG/2 ML VIAL IV PUSH (10:44)
[2024-04-11 10:52] LABS: Appearance Urine Clear (Clear); Bacteria Urine None Seen /hpf; Bilirubin Urine Negative (Negative); Blood Urine 2+ (Negative); Color Urine Yellow (Yellow); Glucose Urine UA 3+ mg/dL (Negative); Ketones Urine 1+ mg/dL (Negative); Leukocyte Esterase Ur Negative LEU/UL (Negative); Nitrate Urine Negative (Negative); Non Pathogenic Casts 0-2; Protein Urine Negative (Negative); RBC Urine 21-50 /hpf (0-2); Specific Grav Ur 1.021 (1.001-1.035); Squamous Epithelial Cell Urine None Seen /hpf (Few); Urobilinogen Urine 0.2 mg/dL (<2.0); WBC Urine 0-5 /hpf (0-3); pH Urine 5.5 (5.0-9.0)
[2024-04-11 10:53] LABS: Add Urine Microscopic? YES
--- NOTE | 2024-04-11 11:20 | ED.GENADULT ---
HPI - General Adult General Chief complaint: Abdominal Pain Stated complaint: left sided abd pain Time Seen by Provider: 04/11/24 09:19 History of Present Illness HPI narrative: patient is a 38-year-old gentleman who presents emergency department with chief complaint of left flank pain patient reports that he has cystoscopy on the for kidney stones patient reported that he had a little blood in his urine earlier today and started having pain in the left flank and side area. The patient states that the pain is not improved by anything Related Data Home Medications Medication Instructions Recorded Confirmed insulin lispro 100 unit/mL 15 unit subcut TID 05/09/23 04/09/24 subcutaneous pen (Humalog KwikPen (U-100) Insulin) loperamide 2 mg capsule 2 mg PO Q4HWA 05/09/23 04/09/24 meloxicam 15 mg tablet 15 mg PO DAILY 04/09/24 04/09/24 Allergies Allergy/AdvReac Type Severity Reaction Status Date / Time No Known Allergies Allergy Verified 04/11/24 09:35 Review of Systems Review of Systems: A 10 system review of systems was completed on the patient and is negative except for what is stated in the HPI. Nursing and ancillary documentation was reviewed. [facility] Past Medical History Medical History Chronic diarrhea Pancreatitis Type 1 diabetes mellitus on insulin therapy Surgical History Surgical History History of appendectomy History of cholecystectomy History of skin graft LLE (graft to de la cruz from thigh) Family History Family History Mother Family history of rheumatoid arthritis Other Family history of mental disorder Family history of obesity Hypertension Social History Social History Social History: currently lives at home with his and 5 children (step and bio). surrogate decision maker: Lizett Osuna, spouse. code status: full code. Smoking packs per day: 0.5 Smoking cigarettes per day: 10.0 Years smoked: 10 Smoking pack-years: 5.00 Smoking status: Current every day smoker Tobacco type: cigars Second hand tobacco smoke exposure: Yes Additional smoking assessment comments: states he only smoked cigars - approx. 2-3d per week intermit. for 20 yrs Alcohol intake: never Drinks per week: 1 Substance use: current Substance use type: marijuana Other substance usage details: Uses for pain of left leg Last use: 08/02/23 Do You Feel Safe in your Home?: Yes Lack of Transportation: No Lack of Food: Never True Current Housing: I Have Housing Concerned About Future Housing: No Difficulty Paying Gas/Electric Bills: No Difficulty Paying for Meds: No Currently Unemployed: No Education: High School Diploma/GED Difficulty w/ Childcare or Family Care: No Spiritual care concerns: No Exam Narrative: GENERAL: Well-appearing, well-nourished, and in no acute distress. HEAD: Normocephalic, atraumatic. EYES: PERRLA and EOMI. ENT: Nares clear, no rhinorrhea or epistaxis. Mucous membranes moist. NECK: Supple. CHEST: Clear to auscultation. No respiratory distress. HEART: Regular rate and rhythm. No murmur heard. Normal peripheral pulses. ABDOMEN: Soft, nontender, nondistended, normal active bowel sounds. EXTREMITIES: Normal range of motion. No edema. SKIN: Warm, dry, no rash. NEURO: No focal deficits. Alert and oriented x3. PSYCH: Normal mood and affect. Course Vital Signs Vital signs: Vital Signs Pulse Rate 45 L 04/11/24 09:32 Respiratory Rate 10 L 04/11/24 09:32 Blood Pressure 153/84 H 04/11/24 09:32 Pulse Oximetry 100 04/11/24 09:32 Oxygen Delivery Room Air 04/11/24 09:32 Temperature 36.7 C 04/11/24 10:38 Pulse Rate 48 L 04/11/24 10:38 Respiratory Rate
[2024-04-11] MEDS: TAMSULOSIN HCL 0.4 MG CAPSULE PO (12:03)
[2024-04-11] MEDS: KETOROLAC 15 MG/ML VIAL (*BKC) IV PUSH (12:03)
[2024-04-11 12:52] VITALS: BP 139/80; PULSE 49; RESP 12; O2SAT 98
== END 2024-04-11 13:03 | disposition home or self-care (01) ==
PROVIDERS: Emergency Provider Emergency Medicine; PCP Physician Assistant Medical
DX: R10.9 Unspecified abdominal pain (principal); E10.9 Type 1 diabetes mellitus without complications; F17.210 Nicotine dependence, cigarettes, uncomplicated; Z79.4 Long term (current) use of insulin; Z79.1 Long term (current) use of non-steroidal anti-inflammatories (NSAID)
CPT/HCPCS: 36415; 74176; 80053; 81001; 83690; 85025; 96361; 96374; 96375; 99284; A9270; J1885; J2270; J2405; J7030

== ENCOUNTER 2024-05-09 07:41 | Emergency (ER) | payer OTHER, SELFPAY ==
--- NOTE | ~2024-05-09 | CT_ITS ---
EXAMINATION: CT cervical spine wo con DATE: 05/09/2024 08:59 INDICATION: Midline neck tenderness to palpation. Left hand paresthesias. TECHNIQUE: Computed tomography (CT) of the cervical spine was performed without intravenous contrast. Automated exposure control and iterative reconstruction technique were employed. The dose-length pro duct was 423.79 mGy-cm. COMPARISON: None FINDINGS: There is 7 degrees dextrocurvature of cervical spine. Vertebral body heights and interverte bral disc heights are normal. There is cerumen in the external auditory canals. The following disc le vels are specifically discussed: C2-C3: There is no uncovertebral joint osteoarthritis. There is mild bilateral facet joint osteoarthr itis. There is no neural foraminal stenosis. There is no central canal stenosis. C3-C4: There is no uncovertebral joint osteoarthritis. There is no facet joint osteoarthritis. There is no neural foraminal stenosis. There is no central canal stenosis. C4-C5: There is no uncovertebral joint osteoarthritis. There is no facet joint osteoarthritis. There is no neural foraminal stenosis. There is no central canal stenosis. C5-C6: There is no uncovertebral joint osteoarthritis. There is no facet joint osteoarthritis. There is no neural foraminal stenosis. There is no central canal stenosis. C6-C7: There is no uncovertebral joint osteoarthritis. There is no facet joint osteoarthritis. There is no neural foraminal stenosis. There is no central canal stenosis. C7-T1: There is no uncovertebral joint osteoarthritis. There is mild bilateral facet joint osteoarthr itis. There is no neural foraminal stenosis. There is no central canal stenosis. IMPRESSION: 1. Mild cervical facet joint osteoarthritis. Reviewed, dictated and finalized at location A.
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
--- NOTE | ~2024-05-09 | US_ITS ---
EXAMINATION: US venous doppler UE LT DATE: 05/09/2024 08:56 INDICATION: Left upper limb edema. TECHNIQUE: Grayscale ultrasound images without and with compression and Doppler ultrasound images of the left upper extremity veins were obtained. COMPARISON: None. FINDINGS: The visualized portions of the left internal jugular vein, subclavian vein, axillary vein, brachial v eins, basilic vein, cephalic vein, radial vein, and ulnar vein are patent. IMPRESSION: 1. No deep venous thrombosis. Reviewed, dictated and finalized at location A.
[2024-05-09 07:47] VITALS: BP 131/100; PULSE 55; RESP 16; TEMP 36.4; O2SAT 97
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
[2024-05-09] MEDS: HYDROcodone/acetaminophen (*CRX) 5-325 MG TABLET 1 TAB PO (08:12)
[2024-05-09] MEDS: KETOROLAC 30 MG/ML VIAL (*BKC) 15 MG IM (09:21)
[2024-05-09 09:30] LABS: Basophils Percent Auto 0.7 % (0.2-1.2); Eosinophils Absolute Auto 0.1 K/mm3 (0-0.3); Eosinophils Percent Auto 2.5 % (0-4.4); Hematocrit 39.3 % (42.0-52.0); Hemoglobin 13.9 g/dL (14.0-18.0); Immature Granulocyte Absolute 0.02 K/mm3 (0.00-0.031); Immature Granulocyte Percent A 0.4 % (0-0.5); Lymphocytes Absolute Auto 1.47 K/mm3 (0.9-3.2); Lymphocytes Percent Auto 26.2 % (18.3-44.2); Mean Corpuscular HGB Conc 35.4 g/dl (32-36); Mean Corpuscular Hemoglobin 31.4 pg (26-34); Mean Corpuscular Volume 88.7 fl (80-100); Mean Platelet Volume 12.3 fl (7.4-10.4); Monocytes Absolute Auto 0.3 K/mm3 (0.1-0.6); Monocytes Percent Auto 5.5 % (2.6-8.5); Neutrophils Absolute Auto 3.6 K/mm3 (1.3-6.7); Neutrophils Percent Auto 64.7 % (45.5-73.1); Platelet Count Result 205 k/mm3 (150-375); Red Blood Count 4.43 M/mm3 (4.6-6.20); Red Cell Distribution Width 12.8 % (11.5-14.5); White Blood Count 5.6 K/mm3 (4.5-10.0)
[2024-05-09 09:59] LABS: Anion Gap 7 mmol/L (4-12); Blood Urea Nitrogen 15 mg/dL (9-20); CRP < 0.5 mg/dL (<1.0); Carbon Dioxide 25 mmol/L (22-30); Chloride 102 mmol/L (98-107); Creatine Kinase 125 U/L (55-170); Estimated CRCL calculation 140 ml/min; Estimated Glomerular Filt Rate > 60; Glucose 195 mg/dL (65-110); Potassium 5.1 mmol/L (3.4-5.0); Sodium 134 mmol/L (137-145)
[2024-05-09 10:38] LABS: Erythrocyte Sedimentation Rate 13 mm/hr (0-20)
[2024-05-09 11:16] VITALS: BP 132/78; PULSE 87; RESP 20; O2SAT 100
== END 2024-05-09 11:17 | disposition home or self-care (01) ==
PROVIDERS: Emergency Provider Student in an Organized Health Care Education/Training Program; PCP Physician Assistant Medical
DX: G56.02 Carpal tunnel syndrome, left upper limb (principal); M47.812 Spondylosis without myelopathy or radiculopathy, cervical region; M79.632 Pain in left forearm; M79.89 Other specified soft tissue disorders; E10.9 Type 1 diabetes mellitus without complications; F17.210 Nicotine dependence, cigarettes, uncomplicated
CPT/HCPCS: 36415; 72125; 73090; 73110; 80048; 82550; 85025; 85652; 86140; 93971; 96372; 99284; A9270; J1885

== ENCOUNTER 2024-09-11 17:40 | Inpatient (IN) | payer OTHER, SELFPAY ==
--- NOTE | ~2024-09-11 | XR_ITS ---
EXAMINATION: XR chest 1V portable DATE: 09/11/2024 20:27 INDICATION: Cough. ST-elevation myocardial infarction. TECHNIQUE: A single frontal view of the chest was obtained. COMPARISON: Chest 2 views 09/16/2023 FINDINGS: There are airspace opacities in right perihilar region and left mid and lower lung zones. N o pleural effusion or pneumothorax. The heart size is normal. Surgical clips in the right upper quadr ant are likely from cholecystectomy. IMPRESSION: 1. Airspace opacities in right perihilar region and left mid and lower lung zones, consistent with pn eumonia. Reviewed, dictated and finalized at location A. OTIC/PROSTHETIC CLINICIAN IMPRESSION: 1. Airspace opacities in right perihilar region and left mid and lower lung zon es, consistent with pneumonia.
[2024-09-11 17:47] VITALS: BP 141/76; PULSE 87; RESP 20; TEMP 37.2; O2SAT 95
[2024-09-11 17:51] LABS: Glucose Point of Care 229 mg/dl (65-105)
[2024-09-11 18:26] LABS: Fractional Inspired Oxygen 21 %; HCO3 VBG 23.5 mEq/l (24.0-30.0); PCO2 VBG 42.1 mmHg (42.0-48.0); pH VBG 7.365 (7.300-7.400)
[2024-09-11 18:27] LABS: PO2 VBG < 27.0 mmHg (35.0-45.0)
[2024-09-11 18:28] LABS: Device ROOM AIR
[2024-09-11 18:37] LABS: Basophils Percent Auto 0.5 % (0.2-1.2); Eosinophils Percent Auto 0.4 % (0-4.4); Hemoglobin 15.2 g/dL (14.0-18.0); Immature Granulocyte Absolute 0.02 K/mm3 (0.00-0.031); Immature Granulocyte Percent A 0.2 % (0-0.5); Lymphocytes Absolute Auto 1.25 K/mm3 (0.9-3.2); Lymphocytes Percent Auto 15.4 % (18.3-44.2); Mean Corpuscular HGB Conc 36.2 g/dl (32-36); Mean Corpuscular Volume 85.5 fl (80-100); Mean Platelet Volume 11.2 fl (7.4-10.4); Monocytes Absolute Auto 0.6 K/mm3 (0.1-0.6); Monocytes Percent Auto 7.7 % (2.6-8.5); Neutrophils Absolute Auto 6.2 K/mm3 (1.3-6.7); Neutrophils Percent Auto 75.8 % (45.5-73.1); Platelet Count Result 178 k/mm3 (150-375); Red Blood Count 4.91 M/mm3 (4.6-6.20); Red Cell Distribution Width 12.3 % (11.5-14.5); White Blood Count 8.1 K/mm3 (4.5-10.0)
[2024-09-11 18:48] LABS: Add Urine Microscopic? YES; Appearance Urine Clear (Clear); Bacteria Urine None Seen /hpf; Bilirubin Urine Negative (Negative); Blood Urine Negative (Negative); Color Urine Yellow (Yellow); Glucose Urine UA 3+ mg/dL (Negative); Ketones Urine 4+ mg/dL (Negative); Leukocyte Esterase Ur Negative LEU/UL (Negative); Nitrate Urine Negative (Negative); Non Pathogenic Casts 0-2; Protein Urine 1+ mg/dL (Negative); RBC Urine 0-2 /hpf (0-2); Specific Grav Ur 1.042 (1.001-1.035); Squamous Epithelial Cell Urine None Seen /hpf (Few); WBC Urine 0-5 /hpf (0-3)
[2024-09-11 18:49] LABS: Alanine Aminotransferase 20 U/L (6-50); Albumin Level 4.5 g/dL (3.5-5.1); Alkaline Phosphatase 87 U/L (38-126); Anion Gap 10 mmol/L (4-12); Aspartate Amino Transferase 27 U/L (17-59); Blood Urea Nitrogen 14 mg/dL (9-20); Calcium 9.4 mg/dL (8.4-10.2); Carbon Dioxide 24 mmol/L (22-30); Chloride 98 mmol/L (98-107); Estimated CRCL calculation 118 ml/min; Estimated Glomerular Filt Rate > 60; Glucose 185 mg/dL (65-110); Magnesium 1.8 mg/dL (1.6-2.3); Phosphorus 1.6 mg/dL (2.5-4.5); Sodium 132 mmol/L (137-145)
[2024-09-11 18:53] LABS: Beta-Hydroxybutyrate/Acetoacetate 1.99 mmol/L (0.02-0.27)
[2024-09-11 19:50] LABS: Glucose Point of Care 151 mg/dl (65-105)
--- NOTE | 2024-09-11 20:04 | ECG_ITS ---
Test Date: 2024-09-11 20:20:04 Measurements Intervals [place] Rate: 76 P: 38 IA: 161 QRS: 84 QRSD: 109 T: 11 QT: 368 QTc: 414 Interpretive Statements SINUS RHYTHM NONSPECIFIC T-WAVE ABNORMALITY No previous ECG available for comparison Electronically Signed On 09-12-2024 08:55:07 [employer] by Leeroy Du M.D.
[2024-09-11 20:06] VITALS: RESP 17; O2SAT 95
[2024-09-11 20:13] VITALS: BP 129/78; PULSE 74; RESP 17; O2SAT 95
--- NOTE | 2024-09-11 20:22 | PC.NURSE ---
This RN attempted IV twice and vein blew. ZHANG Mchugh attempted as well and had no luck. real time operator notified and called house supervisior to come and try.
[2024-09-11 20:35] LABS: Troponin I < 0.012 ng/mL (0.000-0.034)
[2024-09-11] MEDS: POTASSIUM/PHOSPHORUS/SODIUM 1.5 GM PACKET 1 PACKET PO (20:50)
--- NOTE | 2024-09-11 20:56 | ED.RECABL ---
HPI - Recheck/Abnormal Lab/Rx General Chief Complaint: Recheck/Abnormal Lab/Rx Stated Complaint: r/o dka Time Seen by Provider: 09/11/24 19:35 History of Present Illness HPI narrative: 39-year-old male with a past medical history significant for insulin-dependent diabetes presenting to the emergency room with chief complaint of feeling like he potentially is in DKA. He states that his family members have been sick around him lately and including his 5 children been having flu-like symptoms. He states that he checked his sugars this morning and they were high and he was ketotic based on a home urine test strips. He states that he is feeling dehydrated, weak, lethargic and having some chest pressure difficulty in breathing. He takes 35 units of insulin b.i.d. and then 10-20 units of sliding scale of t.i.d. a.c.. Last dose of insulin 1 hour prior to arrival. Denies any headache, vision change, abdominal pain, back pain, recent illnesses or injuries otherwise. Related Data Home Medications ?Medication ?Instructions ?Recorded ?Confirmed ?Last Taken ?Type insulin lispro 100 unit/mL 15 unit subcut TID 05/09/23 04/09/24 09/14/23 07:00 History subcutaneous pen (Humalog KwikPen (U-100) Insulin) loperamide 2 mg capsule 2 mg PO Q4HWA 05/09/23 04/09/24 08/05/23 21:00 History meloxicam 15 mg tablet 15 mg PO DAILY 04/09/24 04/09/24 Unknown History Allergies Allergy/AdvReac Type Severity Reaction Status Date / Time No Known Allergies Allergy Verified 09/11/24 17:47 Review of Systems Review of Systems: As reviewed above in the HPI [facility] Past Medical History Medical History Right hand dominant Pancreatitis Type 1 diabetes mellitus on insulin therapy Chronic diarrhea Surgical History Surgical History History of skin graft LLE (graft to de la cruz from thigh) History of appendectomy History of cholecystectomy Family History Family History Mother Family history of rheumatoid arthritis Other Family history of mental disorder Family history of obesity Hypertension Social History Social History Social History: currently lives at home with his and 5 children (step and bio). surrogate decision maker: Lizett Osuna, spouse. code status: full code. Smoking packs per day: 0.5 Smoking cigarettes per day: 10.0 Years smoked: 10 Smoking pack-years: 5.00 Smoking status: Current every day smoker Tobacco type: cigars Second hand tobacco smoke exposure: Yes Additional smoking assessment comments: states he only smoked cigars - approx. 2-3d per week intermit. for 20 yrs Alcohol intake: never Drinks per week: 1 Substance use: current Substance use type: marijuana Other substance usage details: Uses for pain of left leg Last use: 08/02/23 Do You Feel Safe in your Home?: Yes Lack of Transportation: No Lack of Food: Never True Current Housing: I Have Housing Concerned About Future Housing: No Difficulty Paying Gas/Electric Bills: No Difficulty Paying for Meds: No Currently Unemployed: No Education: High School Diploma/GED Difficulty w/ Childcare or Family Care: No Spiritual care concerns: No Exam Narrative: GENERAL: Unwell appearing, not in any acute distress, able to answer questions and awake alert oriented HEAD: [Normocephalic, atraumatic.] EYES: [PERRLA and EOMI.] ENT: Nares clear, no rhinorrhea or epistaxis. Mucous membranes dry NECK: Supple. CHEST: Coarse breath sounds bilaterally, no respiratory distress or tachypnea HEART: [Regular rate and rhythm]. No murmur heard. [Normal peripheral pulses.] ABDOMEN: [Soft, nondistended], [nontender], [No rigidity or guarding] EXTREMITIES: Normal range of motion. [No edema.] SKIN: Warm, dry, no rash. NEURO: [No focal deficits]. Alert and oriented [x3.] PSYCH: [Normal mood and affect.] Course Vital Signs Vital signs: Vital Signs Temperature 37.2 C 09/11/24 17:47 Pulse Rate 87 09/11/24 17:47 Respiratory Rate 20 09/11/24 17:47 Blood Pressure 141/76 H 09/11/24 17:47 Pulse Oximetry 95 09/11/24 17:47 Oxygen Delivery Room Air 12/13/24 17:47 Temperature 37.2 C 09/11/24 17:47 Pulse Rate 78 09/11/24 21:24 Respiratory Rate 20 09/11/24 21:24 Blood Pressure 122/68 09/11/24 21:24 Pulse Oximetry 97 09/11/24 21:24 Oxygen Delivery Room Air 09/11/24 17:47 Procedures EJ/Peripheral Line Arm L: EJ/Peripheral Line Date: 09/11/24 EJ/Peripheral Line Time: 20:56 Time Out Performed: Yes Skin Cleansed in Sterile Fashion: Yes Ultrasound Guided: Yes Size (gauge): 20 IV Secured and Dressing Applied: Yes Patient Tolerated Procedure: well and no complications MDM - Recheck/Abnormal Lab/Rx MDM Narrative Medical decision making narrative: This is a 39-year-old male with a past medical history including insulin-dependent diabetes and previous DKA. He presents to the emergency department as he is concerned that he is dehydrated, in DKA, potentially having pneumonia. He has had sick contacts at home including 5 shoulder with similar illnesses including flu-like symptoms. He is having chest pain difficulty breathing, no nausea vomiting but he is very dehydrated appearing and does appear unwell, not any acute distress or tachypnea. Vital signs are very reassuring without any tachycardia, hypoxia, tachypnea or fever. Overall given his clinical history and past medical history of broad workup was ordered including DKA labs including beta hydroxybutyrate, CBC, CMP, troponin, EKG, chest x-ray, COVID fluid RSV swabs. He was given 2 L of fluid bolus empirically. I had to obtain an ultrasound-guided lying to his left forearm. Patient's chest x-ray was independent reviewed by myself and DC patchy airspace opacities in confirmed by radiology with multifocal pneumonia. He was started on Rocephin and doxycycline for community-acquired pneumonia coverage with his low drip score. Remaining workup pending but patient will likely require admission to the hospital for further evaluation and treatment inpatient. Workup shows no leukocytosis or anemia. Slight ketosis without any acidosis, VBG with normal pH, normal bicarb, normal pCO2. Glucose control is 151. Urinalysis without any signs of infection. At this time patient is stable and appropriate for admission to the hospital. I discussed the case with the hospitalist over the phone we went over patient's imaging studies, laboratory assessment, ketosis without signs of diabetic ketoacidosis, pneumonia. Will be brought up to the intermediate care unit given his comorbidities including previous DKA admissions. Admit orders placed. Medical Records Attestation: I reviewed the patient's medical records. Lab Data Attestation: I reviewed the patient's lab results. 09/11/24 18:24 09/11/24 18:24 Labs: Lab Results 09/11/24 09/11/24 09/11/24 Range/Units 17:46 18:15 18:23 WBC (4.5-10.0) K/mm3 RBC (4.6-6.20) M/mm3 Hgb (14.0-18.0) g/dL Hct (42.0-52.0) % MCV (80-100) fl MCH (26-34) pg MCHC (32-36) g/dl RDW (11.5-14.5) % Plt Count (150-375) k/mm3 MPV (7.4-10.4) fl Immature Gran % (Auto) (0-0.5) % Neut % (Auto) (45.5-73.1) % Lymph % (Auto) (18.3-44.2) % [place] % (Auto) (2.6-8.5) % Eos % (Auto) (0-4.4) % Baso % (Auto) (0.2-1.2) % Lymph # (Auto) (0.9-3.2) K/mm3 [place] # (Auto) (0.1-0.6) K/mm3 Eos # (Auto) (0-0.3) K/mm3 Baso # (Auto) (0.0-0.1) K/mm3 Abs Immat Gran (auto) (0.00-0.031) K/mm3 Absolute Neuts (auto) (1.3-6.7) K/mm3 Absolute Nucleated RBC (0.0-0.012) K/mm3 Nucleated RBC % (0.0-0.2) % Sodium (137-145) mmol/L Potassium (3.4-5.0) mmol/L Chloride (98-107) mmol/L Carbon Dioxide (22-30) mmol/L Anion Gap (4-12) mmol/L BUN (9-20) mg/dL Creatinine (0.7-1.3) mg/dL Estim Creat Clear Calc ml/min Estimated GFR (59 - ) Glucose (65-110) mg/dL POC Capillary Glucose 229 H (65-105) mg/dl Calcium (8.4-10.2) mg/dL Phosphorus (2.5-4.5) mg/dL Magnesium (1.6-2.3) mg/dL Total Bilirubin (0.2-1.3) mg/dL AST (17-59) U/L ALT (6-50) U/L Alkaline Phosphatase (38-126) U/L Troponin I < 0.012 (0.000-0.034) ng/mL Total Protein (6.3-8.2) g/dL Albumin (3.5-5.1) g/dL Beta-Hydroxybutyrate/Acetoacetate (0.02-0.27) mmol/L Urine Color Yellow (Yellow) Urine Appearance Clear (Clear) Urine pH 6.0 (5.0-9.0) Ur Specific [place] 1.042 H (1.001-1.035) Urine Protein 1+ H (Negative) mg/dL Urine Glucose (UA) 3+ H (Negative) mg/dL Urine Ketones 4+ H (Negative) mg/dL Ur Blood (Man) Negative (Negative) Urine Nitrate Negative (Negative) Urine Bilirubin Negative (Negative) Urine Urobilinogen 1.0 (<2.0) mg/dL Leukocyte Esterase Rfl Negative (Negative) DIRK/UL Urine RBC 0-2 (0-2) /hpf Urine WBC 0-5 (0-3) /hpf Ur Squamous Epith Cells None seen (Few) /hpf Urine Bacteria None seen /hpf Urine Casts 0-2 09/11/24 09/11/24 Range/Units 18:24 19:48 WBC 8.1 (4.5-10.0) K/mm3 RBC 4.91 (4.6-6.20) M/mm3 Hgb 15.2 (14.0-18.0) g/dL Hct 42.0 (42.0-52.0) % MCV 85.5 (80-100) fl MCH 31.0 (26-34) pg MCHC 36.2 H (32-36) g/dl RDW 12.3 (11.5-14.5) % Plt Count 178 (150-375) k/mm3 MPV 11.2 H (7.4-10.4) fl Immature Gran % (Auto) 0.2 (0-0.5) % Neut % (Auto) 75.8 H (45.5-73.1) % Lymph % (Auto) 15.4 L (18.3-44.2) % Alpine % (Auto) 7.7 (2.6-8.5) % Eos % (Auto) 0.4 (0-4.4) % Baso % (Auto) 0.5 (0.2-1.2) % Lymph # (Auto) 1.25 (0.9-3.2) K/mm3 [place]pine # (Auto) 0.6 (0.1-0.6) K/mm3 Eos # (Auto) 0.0 (0-0.3) K/mm3 Baso # (Auto) 0.0 (0.0-0.1) K/mm3 Abs Immat Gran (auto) 0.02 (0.00-0.031) K/mm3 Absolute Neuts (auto) 6.2 (1.3-6.7) K/mm3 Absolute Nucleated RBC 0.000 (0.0-0.012) K/mm3 Nucleated RBC % 0.0 (0.0-0.2) % Sodium 132 L (137-145) mmol/L Potassium 4.0 (3.4-5.0) mmol/L Chloride 98 (98-107) mmol/L Carbon Dioxide 24 (22-30) mmol/L Anion Gap 10 (4-12) mmol/L BUN 14 (9-20) mg/dL Creatinine 0.80 (0.7-1.3) mg/dL Estim Creat Clear Calc 118 ml/min Estimated GFR > 60 (59 - ) Glucose 185 H (65-110) mg/dL POC Capillary Glucose 151 H (65-105) mg/dl Calcium 9.4 (8.4-10.2) mg/dL Phosphorus 1.6 L (2.5-4.5) mg/dL Magnesium 1.8 (1.6-2.3) mg/dL Total Bilirubin 1.0 (0.2-1.3) mg/dL AST 27 (17-59) U/L ALT 20 (6-50) U/L Alkaline Phosphatase 87 (38-126) U/L Troponin I (0.000-0.034) ng/mL Total Protein 8.0 (6.3-8.2) g/dL Albumin 4.5 (3.5-5.1) g/dL Beta-Hydroxybutyrate/Acetoacetate 1.99 H (0.02-0.27) mmol/L Urine Color (Yellow) Urine Appearance (Clear) Urine pH (5.0-9.0) Ur Specific [place] (1.001-1.035) Urine Protein (Negative) mg/dL Urine Glucose (UA) (Negative) mg/dL Urine Ketones (Negative) mg/dL Ur Blood (Man) (Negative) Urine Nitrate (Negative) Urine Bilirubin (Negative) Urine Urobilinogen (<2.0) mg/dL Leukocyte Esterase Rfl (Negative) DIRK/UL Urine RBC (0-2) /hpf Urine WBC (0-3) /hpf Ur Squamous Epith Cells (Few) /hpf Urine Bacteria /hpf Urine Casts ABG Data ABG results: 09/11/24 18:24 VBG pH 7.365 VBG pCO2 42.1 VBG pO2 < 27.0 L VBG HCO3 23.5 L O2 Delivery Device Room air O2 Liters/Min Not Reportable FiO2 21 Imaging Data Attestation: I personally reviewed and interpreted this imaging study as follows: My impression: Impressions Chest X-Ray 09/11/24 20:37 IMPRESSION: 1. Airspace opacities in right perihilar region and left mid and lower lung zones, consistent with pneumonia. Critical Care Time Critical Care Time Critical Care Time: Yes Total Critical Care Time: 35 Discharge Plan Discharge Clinical Impression: Community acquired pneumonia, Diabetic ketosis without coma Patient Disposition: Still a Patient Condition: Guarded Prognosis Patient Language: French Prescriptions: No Action meloxicam 15 mg tablet 15 mg PO DAILY hydrocodone-acetaminophen 5-325 mg tablet 1 - 2 tablet PO Q6H PRN (Reason: pain) Qty: 20 0RF insulin lispro [Humalog KwikPen Insulin] 100 unit/mL insulin pen 15 unit SUBCUT TID Rx Instructions: If blood sugar over 200, pt adds an additional 5 units. If blood sugar is less than 100 only take 5-10 units loperamide 2 mg Capsule 2 mg PO Q4HWA Rx Instructions: administer after each loose stool until symptoms controlled; do not exceed 8 mg per 24 hrs insulin glargine [Lantus Solostar U-100 Insulin] 100 unit/mL (3 mL) insulin pen 35 unit SUBCUT BID Qty: 15 10RF ketorolac 10 mg tablet 10 mg PO Q8H PRN (Reason: pain) 5 Days Qty: 15 0RF tamsulosin [Flomax] 0.4 mg capsule 0.4 mg PO DAILY Qty: 10 0RF ibuprofen 600 mg tablet 600 mg PO TID PRN (Reason: pain) Qty: 20 0RF Follow-up/Referrals: Moses,RE Sharp [Primary Care Provider] - Time of Disposition: 22:36
[2024-09-11] MEDS: ONDANSETRON INJ 4 MG/2 ML VIAL IV PUSH (20:57)
[2024-09-11] MEDS: LACTATED RINGERS 1,000 ML 999 ML IV CONT ×2 (20:58→21:23)
--- NOTE | 2024-09-11 21:05 | PC.NURSE ---
ED MD Lin verbally states blood cultures do not need to be drawn before administering antibiotics and that all medications can run together.
[2024-09-11] MEDS: DOXYCYCLINE 100 MG/NS 100 ML 100 MG/100 ML BAG IVPB (21:23)
[2024-09-11 21:24] VITALS: BP 122/68; PULSE 78; RESP 20; O2SAT 97
[2024-09-11 21:28] LABS: Influenza A QL RT-PCR Negative (Negative); Influenza B QL RT-PCR Negative (Negative); RSV RNA, RT-PCR Negative (Negative); SARS-CoV-2 RNA PCR Negative (Negative)
--- NOTE | 2024-09-11 22:22 | P.HP_ITS ---
H&P: HPI History of Present Illness Date/Time: 09/11/24 22:22 Chief Complaint: cough Narrative: This is a 39-year-old male with past medical history significant for type 1 diabetes mellitus, patient presents to the emergency room due to cough chest congestion generalized malaise, poor appetite, poor per orally intake, this has been ongoing for the last 2 days, chills, productive cough. patient went to the pharmacy and got an [id number] a strip testing for DKA which was positive. Preliminary workup was significant for chest x-ray with bilateral lung infiltrates, beta hydroxybutyrate was 1.9, patient tested negative for influenza type A influenza type B COVID and RSV EXAMINATION: XR chest 1V portable DATE: 09/11/2024 20:27 INDICATION: Cough. ST-elevation myocardial infarction. TECHNIQUE: A single frontal view of the chest was obtained. COMPARISON: Chest 2 views 09/16/2023 FINDINGS: There are airspace opacities in right perihilar region and left mid and lower lung zones. No pleural effusion or pneumothorax. The heart size is normal. Surgical clips in the right upper quadrant are likely from cholecystectomy. IMPRESSION: 1. Airspace opacities in right perihilar region and left mid and lower lung zones, consistent with pneumonia. Review of Systems Review of Systems: Chest congestion, productive cough, generalized malaise, body aches pains, chills, poor per orally intake. [facility], [facility] Past Medical History Medical History (Updated 09/12/24 @ 01:55 by Breezy Headley MD) Right hand dominant Pancreatitis Type 1 diabetes mellitus on insulin therapy Chronic diarrhea Surgical History Surgical History History of skin graft LLE (graft to de la cruz from thigh) History of appendectomy History of cholecystectomy Family History Family History Mother Family history of rheumatoid arthritis Other Family history of mental disorder Family history of obesity Hypertension Social History Social History Social History: currently lives at home with his and 5 children (step and bio). surrogate decision maker: Lizett Osuna, spouse. code status: full code. Smoking packs per day: 0.5 Smoking cigarettes per day: 10.0 Years smoked: 10 Smoking pack-years: 5.00 Smoking status: Current every day smoker Tobacco type: cigars Second hand tobacco smoke exposure: Yes Additional smoking assessment comments: states he only smoked cigars - approx. 2-3d per week intermit. for 20 yrs Alcohol intake: current Drinks per week: 1 Substance use: current Substance use type: marijuana Other substance usage details: Drinks alcohol 1-2 times every six months Last use: 08/02/23 Do You Feel Safe in your Home?: Yes Lack of Transportation: No Lack of Food: Never True Current Housing: I Have Housing Concerned About Future Housing: No Difficulty Paying Gas/Electric Bills: No Difficulty Paying for Meds: No Currently Unemployed: No Education: High School Diploma/GED Difficulty w/ Childcare or Family Care: No Spiritual care concerns: No Meds Home Medications and Allergies Home Medications ?Medication ?Instructions ?Recorded ?Confirmed ?Type insulin lispro 100 unit/mL 15 unit subcut TID 05/09/23 09/12/24 History subcutaneous pen (Humalog KwikPen (U-100) Insulin) loperamide 2 mg capsule 2 mg PO Q4HWA 05/09/23 09/12/24 History insulin glargine 100 unit/mL (3 35 unit (0.35 mL) subcut BID #15 mL 09/18/23 09/12/24 Rx mL) subcutaneous pen (Lantus Solostar U-100 Insulin) meloxicam 15 mg tablet 15 mg PO DAILY PRN pain 04/09/24 09/12/24 History Allergies Allergy/AdvReac Type Severity Reaction Status Date / Time No Known Allergies Allergy Verified 09/11/24 17:47 Vital Signs Vital Signs - 24 hr 09/11/24 17:47 09/11/24 20:06 09/11/24 20:13 Temperature 99.0 F Pulse Rate 87 74 Respiratory Rate 20 17 17 Blood Pressure 141/76 H 129/78 Pulse Oximetry 95 95 95 Oxygen Delivery Room Air 09/11/24 21:24 Temperature Pulse Rate 78 Respiratory Rate 20 Blood Pressure 122/68 Pulse Oximetry 97 Oxygen Delivery Exam Narrative: lying in stretcher Const: General: comfortable, no acute distress, well developed, ill appearing acutely, lethargic, patient obtunded, tired appearing and average body habitus Nutritional Appearance: average body habitus Orientation/consciousness: patient oriented x3 HENMT: Head: normal to inspection, normocephalic and atraumatic Ears: hearing grossly normal bilaterally Face/Nose/Sinus: normal facial exam Face and sinus: normal facial exam Eyes: General: appearance normal, both eyes and all related structures Pupils: Equal, round and reactive pupils present EOM: EOMs intact bilaterally Neck: Neck: full ROM, no lymphadenopathy and no JVD Thyroid: thyroid normal Lymphatic: no lymphadenopathy noted Resp: Effort & Inspection: normal respiratory effort and able to speak in complete sentences Auscultation: clear to auscultation bilaterally Cardio: Jugular venous distension: no JVD Rate: regular rate Rhythm: regular rhythm Heart sounds: S1 normal heart sound present and S2 normal heart sound present GI: GI Palp: Yes Soft to palpation and Yes No hepatosplenomegaly present : General: Yes deferred Skin: Rashes: no rashes Wounds: no wounds Neuro: General: patient oriented x3 and CN's II-XI intact bilaterally Cran ial nerves: Yes CN's II-XII intact bilaterally and Yes Equal, round and reactive pupils present Cognition (Neuro): normal cognition Speech: normal speech Gait exam (Neuro): Normal gait present Motor exam (neuro): 5/5 motor strength present throughout Extrem: General: normal to inspection, full ROM, no joint enlargement and no pedal edema H&P: Results Labs Labs: Short CBC 09/11/24 Range/Units 18:24 WBC 8.1 (4.5-10.0) K/mm3 Hgb 15.2 (14.0-18.0) g/dL Hct 42.0 (42.0-52.0) % Plt Count 178 (150-375) k/mm3 [facility] 09/11/24 18:24 Sodium 132 L Potassium 4.0 Chloride 98 Carbon Dioxide 24 BUN 14 Creatinine 0.80 Glucose 185 H Calcium 9.4 Cardiac Enzymes 09/11/24 Range/Units 18:23 Troponin I < 0.012 (0.000-0.034) ng/mL Liver Function 09/11/24 Range/Units 18:24 Total Bilirubin 1.0 (0.2-1.3) mg/dL AST 27 (17-59) U/L ALT 20 (6-50) U/L Alkaline Phosphatase 87 (38-126) U/L Albumin 4.5 (3.5-5.1) g/dL Urine 09/11/24 Range/Units 18:15 Urine Color Yellow (Yellow) Urine Appearance Clear (Clear) Urine pH 6.0 (5.0-9.0) Ur Specific [place] 1.042 H (1.001-1.035) Urine Protein 1+ H (Negative) mg/dL Urine Glucose (UA) 3+ H (Negative) mg/dL Assessment and Plan Assessment and plan (1) Multifocal pneumonia: Code(s): J18.9 - Pneumonia, unspecified organism Status: Acute Assessment and Plan: admit to IMU patient started on doxycycline and Rocephin await cultures (2) Dehydration: Code(s): E86.0 - Dehydration Status: Acute Assessment and Plan: receiving fluids continue to monitor intake and output (3) [facility] (current) use of insulin: 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(s): 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 Status: Acute Assessment and Plan: resume insulin (4) Type 1 diabetes mellitus on insulin therapy: Code(s): E10.9 - Type 1 diabetes mellitus without complications Status: Acute Assessment and Plan: insulin-dependent Hospitalist MIPS Advance Care Plan I have confirmed that the patient's Advanced Care Plan is present, code status is documented, or surrogate decision maker is listed in patient medical record.: Yes Medication Reconciliation I have utilized all available resources to obtain, update and review the patients current medications (includes all prescriptions, OTC, herbals, cannabis, and nutritional supplements).: Yes
[2024-09-11] MEDS: LACTATED RINGERS 1,000 ML 125 ML IV CONT (23:21)
[2024-09-11 23:49] VITALS: BP 119/72; PULSE 76; RESP 18; O2SAT 95
[2024-09-12] VITALS (11 sets, daily range): BP systolic 108–143; BP diastolic 65–84; PULSE 61–94; RESP 14–20; TEMP 36.8–37.4; O2SAT 94–99; BMI 32.4
[2024-09-12 04:34] LABS: Basophils Percent Auto 0.4 % (0.2-1.2); Eosinophils Absolute Auto 0.1 K/mm3 (0-0.3); Eosinophils Percent Auto 1.8 % (0-4.4); Hematocrit 35.3 % (42.0-52.0); Hemoglobin 12.6 g/dL (14.0-18.0); Immature Granulocyte Absolute 0.01 K/mm3 (0.00-0.031); Immature Granulocyte Percent A 0.1 % (0-0.5); Lymphocytes Absolute Auto 1.28 K/mm3 (0.9-3.2); Lymphocytes Percent Auto 17.9 % (18.3-44.2); Mean Corpuscular HGB Conc 35.7 g/dl (32-36); Mean Corpuscular Hemoglobin 30.8 pg (26-34); Mean Corpuscular Volume 86.3 fl (80-100); Monocytes Percent Auto 13.6 % (2.6-8.5); Neutrophils Absolute Auto 4.7 K/mm3 (1.3-6.7); Neutrophils Percent Auto 66.2 % (45.5-73.1); Platelet Count Result 160 k/mm3 (150-375); Red Blood Count 4.09 M/mm3 (4.6-6.20); Red Cell Distribution Width 12.1 % (11.5-14.5); White Blood Count 7.1 K/mm3 (4.5-10.0)
[2024-09-12 04:46] LABS: Lactic Acid Reflex 0.7 mmol/L (0.7-2.0)
[2024-09-12 04:47] LABS: Anion Gap 3 mmol/L (4-12); Blood Urea Nitrogen 11 mg/dL (9-20); Calcium 8.3 mg/dL (8.4-10.2); Carbon Dioxide 25 mmol/L (22-30); Chloride 103 mmol/L (98-107); Estimated CRCL calculation 135 ml/min; Estimated Glomerular Filt Rate > 60; Glucose 135 mg/dL (65-110); Magnesium 1.7 mg/dL (1.6-2.3); Potassium 3.9 mmol/L (3.4-5.0); Sodium 131 mmol/L (137-145)
[2024-09-12 04:50] LABS: Beta-Hydroxybutyrate/Acetoacetate 2.44 mmol/L (0.02-0.27)
[2024-09-12] MEDS: INSULIN ASPART (*BKC) 100 UNITS/ML 15 UNITS SUB-Q ×2 (08:13→12:19)
[2024-09-12] MEDS: INSULIN GLARGINE (*BKC) 100 UNITS/ML 15 UNITS SUB-Q (08:14)
[2024-09-12] MEDS: DOXYCYCLINE 100 MG/NS 100 ML 100 MG/100 ML BAG IVPB (08:15)
[2024-09-12 08:18] LABS: Glucose Point of Care 151 mg/dl (65-105)
[2024-09-12] MEDS: DEXTROSE 5%/0.45% SOD CHL 1,000 ML 100 ML IV CONT (09:55)
[2024-09-12 11:41] LABS: Glucose Point of Care 194 mg/dl (65-105)
--- NOTE | 2024-09-12 15:00 | P.DS_ITS ---
DS: Admitting Diagnosis Discharge Date 09/12/24 Admitting Diagnosis cough DS: Discharge Diagnosis Discharge Diagnosis (1) Community acquired pneumonia: Code(s): J18.9 - Pneumonia, unspecified organism Status: Acute DS: Summary Hospital Course Hospital Course: This is a 39-year-old male with past medical history significant for type 1 diabetes mellitus, patient presents to the emergency room due to cough chest congestion generalized malaise, poor appetite, poor per orally intake, this has been ongoing for the last 2 days, chills, productive cough. patient went to the pharmacy and got an [id number] a strip testing for DKA which was positive. Preliminary workup was significant for chest x-ray with bilateral lung infiltrates, beta hydroxybutyrate was 1.9, patient tested negative for influenza type A influenza type B COVID and RSV Patient is on room air and CXR reviewed showed bilateral lung infiltrates. Patient received Rocpephin and Doxycycline and discharged on 7 days of Levaquin. Blood sugar remained stable and within normal limits. continue home meds F/u with PCP in 3-5 days Time Spent with Patient Time attestation: Total time spent providing and/or coordinating discharge services: DS: Data Data Completed and Pending Labs on day of discharge: Labs from last 24 hours 09/12/24 09/12/24 09/12/24 11:38 07:33 04:27 WBC 7.1 RBC 4.09 L Hgb 12.6 L Hct 35.3 L MCV 86.3 MCH 30.8 MCHC 35.7 RDW 12.1 Plt Count 160 MPV 11.0 H Immature Gran % (Auto) 0.1 Neut % (Auto) 66.2 Lymph % (Auto) 17.9 L [place] % (Auto) 13.6 H Eos % (Auto) 1.8 Baso % (Auto) 0.4 Lymph # (Auto) 1.28 [place] # (Auto) 1.0 H Eos # (Auto) 0.1 Baso # (Auto) 0.0 Abs Immat Gran (auto) 0.01 Absolute Neuts (auto) 4.7 Absolute Nucleated RBC 0.000 Nucleated RBC % 0.0 VBG pH VBG pCO2 VBG pO2 VBG HCO3 O2 Delivery Device O2 Liters/Min FiO2 Sodium 131 L Potassium 3.9 Chloride 103 Carbon Dioxide 25 Anion Gap 3 L BUN 11 Creatinine 0.70 Estim Creat Clear Calc 135 Estimated GFR > 60 Glucose 135 H POC Capillary Glucose 194 H 151 H Lactic Acid 0.7 Calcium 8.3 L Phosphorus 2.0 L Magnesium 1.7 Total Bilirubin AST ALT Alkaline Phosphatase Troponin I Total Protein Albumin Beta-Hydroxybutyrate/Acetoacetate 2.44 H Urine Color Urine Appearance Urine pH Ur Specific [place] Urine Protein Urine Glucose (UA) Urine Ketones Ur Blood (Man) Urine Nitrate Urine Bilirubin Urine Urobilinogen Leukocyte Esterase Rfl Urine RBC Urine WBC Ur Squamous Epith Cells Urine Bacteria Urine Casts Influenza A (RT-PCR) Influenza B (RT-PCR) RSV (RT-PCR) SARS-CoV-2 RNA (RT-PCR) 09/11/24 09/11/24 09/11/24 20:36 19:48 18:24 WBC 8.1 RBC 4.91 Hgb 15.2 Hct 42.0 MCV 85.5 MCH 31.0 MCHC 36.2 H RDW 12.3 Plt Count 178 MPV 11.2 H Immature Gran % (Auto) 0.2 Neut % (Auto) 75.8 H Lymph % (Auto) 15.4 L [place] % (Auto) 7.7 Eos % (Auto) 0.4 Baso % (Auto) 0.5 Lymph # (Auto) 1.25 [place] # (Auto) 0.6 Eos # (Auto) 0.0 Baso # (Auto) 0.0 Abs Immat Gran (auto) 0.02 Absolute Neuts (auto) 6.2 Absolute Nucleated RBC 0.000 Nucleated RBC % 0.0 VBG pH 7.365 VBG pCO2 42.1 VBG pO2 < 27.0 L VBG HCO3 23.5 L O2 Delivery Device Room air O2 Liters/Min Not Reportable FiO2 21 Sodium 132 L Potassium 4.0 Chloride 98 Carbon Dioxide 24 Anion Gap 10 BUN 14 Creatinine 0.80 Estim Creat Clear Calc 118 Estimated GFR > 60 Glucose 185 H POC Capillary Glucose 151 H Lactic Acid Calcium 9.4 Phosphorus 1.6 L Magnesium 1.8 Total Bilirubin 1.0 AST 27 ALT 20 Alkaline Phosphatase 87 Troponin I Total Protein 8.0 Albumin 4.5 Beta-Hydroxybutyrate/Acetoacetate 1.99 H Urine Color Urine Appearance Urine pH Ur Specific [place] Urine Protein Urine Glucose (UA) Urine Ketones Ur Blood (Man) Urine Nitrate Urine Bilirubin Urine Urobilinogen Leukocyte Esterase Rfl Urine RBC Urine WBC Ur Squamous Epith Cells Urine Bacteria Urine Casts Influenza A (RT-PCR) Negative Influenza B (RT-PCR) Negative RSV (RT-PCR) Negative SARS-CoV-2 RNA (RT-PCR) Negative 09/11/24 09/11/24 09/11/24 18:23 18:15 17:46 WBC RBC Hgb Hct MCV MCH MCHC RDW Plt Count MPV Immature Gran % (Auto) Neut % (Auto) Lymph % (Auto) [place] % (Auto) Eos % (Auto) Baso % (Auto) Lymph # (Auto) [place] # (Auto) Eos # (Auto) Baso # (Auto) Abs Immat Gran (auto) Absolute Neuts (auto) Absolute Nucleated RBC Nucleated RBC % VBG pH VBG pCO2 VBG pO2 VBG HCO3 O2 Delivery Device O2 Liters/Min FiO2 Sodium Potassium Chloride Carbon Dioxide Anion Gap BUN Creatinine Estim Creat Clear Calc Estimated GFR Glucose POC Capillary Glucose 229 H Lactic Acid Calcium Phosphorus Magnesium Total Bilirubin AST ALT Alkaline Phosphatase Troponin I < 0.012 Total Protein Albumin Beta-Hydroxybutyrate/Acetoacetate Urine Color Yellow Urine Appearance Clear Urine pH 6.0 Ur Specific [place] 1.042 H Urine Protein 1+ H Urine Glucose (UA) 3+ H Urine Ketones 4+ H Ur Blood (Man) Negative Urine Nitrate Negative Urine Bilirubin Negative Urine Urobilinogen 1.0 Leukocyte Esterase Rfl Negative Urine RBC 0-2 Urine WBC 0-5 Ur Squamous Epith Cells None seen Urine Bacteria None seen Urine Casts 0-2 Influenza A (RT-PCR) Influenza B (RT-PCR) RSV (RT-PCR) SARS-CoV-2 RNA (RT-PCR) Discharge Plan Discharge Attending physician on discharge: Ananth Garcia Discharging Clinician: Ananth Garcia Anticipated Discharge Date/Time: 09/12/24 14:58 Patient Disposition: Home, Self-Care Activity: as tolerated Diet: as tolerated Discharge Instructions: F/u with PCP in 3-5 days Patient Instructions: Antibiotic Form Patient Language: Micronesian Stand Alone Forms: General Discharge Information Follow-up/Referrals: Moses,RE Sharp [Primary Care Provider] - (F/u with PCP in 3-5 days ) Discharge Medications: New levofloxacin 750 mg tablet 750 mg PO DAILY 7 Days Qty: 7 0RF Continued meloxicam 15 mg tablet 15 mg PO DAILY PRN (Reason: pain) insulin lispro [Humalog KwikPen Insulin] 100 unit/mL insulin pen 15 unit SUBCUT TID Rx Instructions: If blood sugar over 200, pt adds an additional 5 units. If blood sugar is less than 100 only take 5-10 units loperamide 2 mg Capsule 2 mg PO Q4HWA Rx Instructions: administer after each loose stool until symptoms controlled; do not exceed 8 mg per 24 hrs insulin glargine [Lantus Solostar U-100 Insulin] 100 unit/mL (3 mL) insulin pen 35 unit SUBCUT BID Qty: 15 10RF Date of admission: 09/11/24 22:25 Primary Care Provider: Ashiwn,Doug Rodrigez Admitting Provider: Breezy Headley V. Attending physician on admission: Breezy Headley V. Condition: Improved
--- OUTSIDE RECORDS SUMMARY | 2024-09-15 10:47 | XMS_ITS | Data Portability ---
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 The pain became extremely bad on 05/10/2023 and he presented to the emergency room. He was worked up for both chest and shoulder pain to rule out a cardiovascular event, all tests returned negative. Today states he experiences pain with almost every shoulder movement, it keeps him awake most nights. The pain sometimes causes his whole arm to go numb and tingle. The pain sometimes shoots up to his neck. For treatmetn he has tried ibuprofen. He denies any injury but states he worked a job for many years that required very heavy lifting. He is a type 1 diabetic. He is a smoker. Review of systems per patient questionnaire Imaging: X-rays and MRI of the left shoulder that were obtained in the emergency room were reviewed. X-rays show no acute bony abnormality, no fracture. Preserved joint space throughout. MRI showed mild tendinopathy and bursitis. Possible labral tear. Physical exam: No tenderness to palpation around the shoulder. Range of motion without 130/20/lower lumbar. He has 5/5 strength with rotator cuff testing. He did have soreness with resisted elevation. Positive Jennifer sign. Positive Neer, Lal. Negative Speed, Yergason's. Neurovascular intact throughout. Postive spurlings. We discussed the risks and benefits of a cortisone injection to help calm down the inflammation in his shoulder, including the risk of change in blood sugar. He elected to proceed with the injection today. We will also order physical therapy to help him stretch and strengthen the shoulder, as well as meloxicam for anti-inflammatory therapy. We will see him back in 4-6 weeks to check his progress. [email or web address] Not available 05/30/2023 21:31:49 Plan of Treatment Reminders Order Date Submit Date Provider Last Modified By Organization Details Last Modified Time Details Appointments None recorded. Lab None recorded. Referral physical therapist referral - call pt to schedule, Eval and treat 2022 023 [email or web address] [facility], [address], [place], [address], 14:26:57 Procedures injection/a spiration joint/bursa (PROC) - in office procedure, administere d by provider 2022 023 [email or web address] 3 In-Office Order, Internal Use Only DO Not Attach Compendium DO Not Attach Compendium, Do Not Delete/merge, [id number] 11:30:40 Surgeries None recorded. Imaging None recorded. Medication Orders Mobic 15 mg tablet 2022 023 [facility] #[id number], [address] [place], [place], [id number], 14:26:57 Kenalog 10 mg/mL suspension for injection 2022 023 [id number] [place], [place], [id number], 14:26:57 ropivacaine (PF) 5 mg/mL (0.5 %) injection solution 2022 023 [facility] [employer] [facility] #[id number] [place], [place], [phone], 14:26:57 Patient TargetsNo targets recorded. Patient InstructionsNo instructions recorded. Reason for Referral Physical Therapist Referral for Pain of left shoulder joint call pt to schedule, Eval and treat Referring Physician: Eli Zamudio, Orthopedic Surgery, Encounter Date: 05/29/2023 Results Created Date Observation Date Name Description Value Unit Range Abnormal Flag Note LastModifiedBy Organization Detail LastModifiedTime 12/01/19 21 11/30/2020 glyco hemog lobin , total , blood HA1C 9.0 % 4.0-6. 0 high Diabe raymond Scree morro Crite angi: <5.7% Consi stent with absen ce of diabe raymond 5.7-6 .4% Consi stent with incre ased risk for diabe raymond (pred iabet es) >OR=6 .5% Consi stent with diabe raymond REFER ENCE: Diabe raymond Care 2016, 37([place]ton ppl.1 ):s13 -s22 Not Available [facility] (Lab) [address] [place], [address], 11/30/2020 11:52:30 12/01/19 21 11/30/2020 CMP, serum or plasm a sodium 138 mmol/ L 137-14 5 Not Available [facility] (Lab) [address] [place], [address], 11/30/2020 11:45:56 12/01/19 21 11/30/2020 CMP, serum or plasm a potassium 4.2 mmol/ L 3.5-5. 1 Not Available [facility] (Lab) [address] [place], [address], 11/30/2020 11:45:56 12/01/19 21 11/30/2020 CMP, serum or plasm a chloride 103 mmol/ L 98-107 Not Available [facility] (Lab) [address] [place], [address], 11/30/2020 11:45:56 12/01/19 21 11/30/2020 CMP, serum or plasm a carbon dioxide 29 mmol/ L 22-30 Not Available [facility] (Lab) [address] [place], [address], 11/30/2020 11:45:56 12/01/19 21 11/30/2020 CMP, serum or plasm a agap 10.2 mmol/ L 14-22 low Not Available [facility] (Lab) [address] [place], [address], 11/30/2020 11:45:56 12/01/19 21 11/30/2020 CMP, serum or plasm a glucose 88 mg/dL 70-99 Not Available [facility] (Lab) [address] [place], [address], 11/30/2020 11:45:56 12/01/19 21 11/30/2020 CMP, serum or plasm a BUN 16 mg/dL 8-19 Not Available [facility] (Lab) [address] [place], [address], 11/30/2020 11:45:56 12/01/19 21 11/30/2020 CMP, serum or plasm a creatinine 0.70 mg/dL 0.66-1 .25 Not Available [facility] (Lab) [address] [place], [address], 11/30/2020 11:45:56 12/01/19 21 11/30/2020 CMP, serum or plasm a GFR >60 GFR is calcu lated based on [place] [facility] (Afri can Ameri can or Non-A f[place] n Ameri can) Age and Sex from the [facility] [place] trati on Infor matio n. REFER ENCE RANGE S: [place] GFR for Healt hy Adult s: >60 mL/mi n/1.7 3 m Chron ic Kidne y Disea se: 15 - 60 mL/mi n/1.7 3 m Kidne y Failu re: <15 mL/mi n/1.7 3 m REFER ENCE RANGE S ARE NOT AVAIL ABLE FOR [facility] NTS <18 OR >70 YEARS OF AND WILL BE RESUL BRYAN WITH TNP (TEST NOT PERFO RMED) Not Available [facility] (Lab) [address] [place], [address], 11/30/2020 11:45:56 12/01/19 21 11/30/2020 CMP, serum or plasm a alkaline phosphatase 73 U/L 38-126 Not Available [facility] (Lab) [address] [place], [address], 11/30/2020 11:45:56 12/01/19 21 11/30/2020 CMP, serum or plasm a alanine aminotransfe rase 43 U/L 0-50 Not Available [facility] (Lab) [address] [place], [address], 11/30/2020 11:45:56 12/01/19 21 11/30/2020 CMP, serum or plasm a aspartate aminotransfe rase 39 U/L 15-46 Not Available [facility] (Lab) [address] [place], [address], 11/30/2020 11:45:56 12/01/19 21 11/30/2020 CMP, serum or plasm a bilirubin, total 1.00 mg/dL 0.20-1 .30 Not Available [facility] (Lab) [address] [place], [address], 11/30/2020 11:45:56 12/01/19 21 11/30/2020 CMP, serum or plasm a calcium 9.9 mg/dL 8.4-10 .2 Not Available [facility] (Lab) [address] [place], [address], 11/30/2020 11:45:56 12/01/19 21 11/30/2020 CMP, serum or plasm a total protein 6.5 g/dL 6.3-8. 2 Not Available [facility] (Lab) [address] [place], [address], 11/30/2020 11:45:56 12/01/19 21 11/30/2020 CMP, serum or plasm a albumin 4.1 g/dL 3.4-5. 0 Not Available [facility] (Lab) [address] [place], [address], 11/30/2020 11:45:56 12/01/19 21 11/30/2020 CMP, serum or plasm a globulin 2.4 g/dL 2.6-4. 2 low Not Available [facility] (Lab) [address] [place], [address], 11/30/2020 11:45:56 12/01/19 21 11/30/2020 CMP, serum or plasm a A/G ratio 1.7 ratio 1.0-2. 0 Not Available [facility] (Lab) [address] [place], [address], 11/30/2020 11:45:56 12/01/19 21 11/30/2020 micro album in/cr eatin ine, ratio , urine ur creat 263.01 mg/dL REFER ENCE RANGE NOT ESTAB LISHE D FOR RANDO M URINE CREAT ININE Not Available [facility] (Lab) [address] [place], [address], 11/30/2020 11:30:36 12/01/19 21 11/30/2020 micro album in/cr eatin ine, ratio , urine microalb 19.6 mg/L 0.0-16 .6 high Not Available [facility] (Lab) [address] [place], [address], 11/30/2020 11:30:36 12/01/19 21 11/30/2020 micro album in/cr eatin ine, ratio , urine ratio 7 mcg/m g 0-29 THE AMERI CAN DIABE [facility] IATIO N DEFIN ES ABNOR MALIT IES IN ALBUM IN EXCRE TION FOLLO WS: CATEG ORY RESUL T (MCG/ MG CREAT ININE ) MICHELA L <30 MICRO ALBUM INURI A 30-29 9 CLINI MOLLY ALBUM INURI A > OR = 300 THE ADA RECOM MENDS THAT 2 OF 2 SPECI MENS COLLE CTED WITHI N A 3- TO 6-MON TH PERIO D BE ABNOR MAL BEFOR E CONSI KEVIN G A PATIE NT TO HAVE CROSS ED ONE OF THESE DIAGN OSTIC THRES HOLDS . REFER ENCE: DIABE [facility] CARE, VOL. 26: S94-S , 2002 Not Available [facility] (Lab) [address] [place], [address], 11/30/2020 11:30:36 04/09/20 22 04/11/2022 C-PEP TIDE, SERUM C-peptide <0.1 NG/mL 1.1-4. 4 low C-Pep tide refer ence inter avi is for fasti ng patie nts. Perfo rmed at: [place] [facility] [address] [place], [place] [id number] [facility] Lab Direc tor: Thaddeus lemons PhD, Phone : [phone] Not Available [facility] (Lab) [address] [place], [address], 04/11/2022 12:10:14 04/09/20 22 04/09/2022 HEMOG LOBIN A1C HA1C 7.2 % 4.0-6. 0 high Diabe raymond Scree morro Crite angi: <5.7% Consi stent with absen ce of diabe raymond 5.7-6 .4% Consi stent with incre ased risk for diabe raymond (pred iabet es) >OR=6 .5% Consi stent with diabe raymond REFER ENCE: Diabe raymond Care 2016, 39([place] ppl.1 ):s13 -s22 Not Available [facility] (Lab) [address] [place], [address], 04/09/2022 20:44:54 04/09/20 22 04/09/2022 TSH thyroid-stim ulating hormone 4.610 uIU/m L 0.465- 4.680 Not Available [facility] (Lab) [address] [place], [address], 04/09/2022 17:54:56 04/09/20 22 04/09/2022 T4 FREE free T4 1.18 NG/dL 0.78-2 .19 Not Available [facility] (Lab) [address] [place], [address], 04/09/2022 17:37:20 04/09/20 22 04/09/2022 COMPR EHENS DAVID METAB OLIC PANEL carbon dioxide 24 mmol/ L 22-30 Not Available [facility] (Lab) [address] [place], [address], 04/09/2022 17:29:12 04/09/20 22 04/09/2022 COMPR EHENS DAVID METAB OLIC PANEL sodium 138 mmol/ L 137-14 5 Not Available [facility] (Lab) [address] [place], [address], 04/09/2022 17:29:12 04/09/20 22 04/09/2022 COMPR EHENS DAVID METAB OLIC PANEL potassium 3.7 mmol/ L 3.5-5. 1 Not Available [facility] (Lab) [address] [place], [address], 04/09/2022 17:29:12 04/09/20 22 04/09/2022 COMPR EHENS DAVID METAB OLIC PANEL chloride 107 mmol/ L 98-107 Not Available [facility] (Lab) [address] [place], [address], 04/09/2022 17:29:12 04/09/20 22 04/09/2022 COMPR EHENS DAVID METAB OLIC PANEL anion gap 10.7 mmol/ L 14-22 low Not Available [facility] (Lab) [address] [place], [address], 04/09/2022 17:29:12 04/09/20 22 04/09/2022 COMPR EHENS DAVID METAB OLIC PANEL glucose 92 mg/dL 70-99 Not Available [facility] (Lab) [address] [place], [address], 04/09/2022 17:29:12 04/09/20 22 04/09/2022 COMPR EHENS DAVID METAB OLIC PANEL BUN 14 mg/dL 8-19 Not Available [facility] (Lab) [address] [place], [address], 04/09/2022 17:29:12 04/09/20 22 04/09/2022 COMPR EHENS DAVID METAB OLIC PANEL creatinine 0.81 mg/dL 0.66-1 .25 Not Available [facility] (Lab) [address] [place], [address], 04/09/2022 17:29:12 04/09/20 22 04/09/2022 COMPR EHENS DAVID METAB OLIC PANEL GFR >60 Refer ence Range : [place] [facility] GFR Healt hy Adult : >60 mL/mi n/1.7 3 m2 Chron ic Kidne y Disea se: 15-60 mL/mi n/1.7 3 m2 Kidne y Failu re: <15/m L/min /1.73 m2 www.n iddk. nih.g ov The MDRD study equat ion has not been valid ated in child george <18 years of age; pregn ant women ; the elder ly >85 years of age; or in some racia l or ethni c subgr oups, such as Hispa nics. Outsi de the valid ated diana eters , estim ated GFR is less accur ate, requi ring clini molly judgm ent on a case- by-ca se basis . Clini molly inter preta tion for other races and ages must be made by the clini chon. The MDRD study equat ion has not been valid ated for the evalu ation of serum creat inine relat ed to nutri christa l statu s or medic ation usage . For perso ns <18 years of age, a pedia tric GFR calcu cecille is avail able on the [facility] websi te: https ://elba smith.tennille painter.o joshua/pr ofess ional s/kdo qi/gf r_cal culat or Not Available [facility] (Lab) [address] [place], [address], 04/09/2022 17:29:12 04/09/20 22 04/09/2022 COMPR EHENS DAVID METAB OLIC PANEL alkaline phosphatase 102 U/L 38-126 Not Available [facility] (Lab) [address] [place], [address], 04/09/2022 17:29:12 04/09/20 22 04/09/2022 COMPR EHENS DAVID METAB OLIC PANEL alanine aminotransfe rase 76 U/L 0-50 high Not Available [facility] (Lab) [address] [place], [address], 04/09/2022 17:29:12 04/09/20 22 04/09/2022 COMPR EHENS DAVID METAB OLIC PANEL aspartate aminotransfe rase 43 U/L 15-46 Not Available [facility] (Lab) [address] [place], [address], 04/09/2022 17:29:12 04/09/20 22 04/09/2022 COMPR EHENS DAVID METAB OLIC PANEL bilirubin, total 1.00 mg/dL 0.20-1 .30 Not Available [facility] (Lab) [address] [place], [address], 04/09/2022 17:29:12 04/09/20 22 04/09/2022 COMPR EHENS DAVID METAB OLIC PANEL calcium 9.1 mg/dL 8.4-10 .2 Not Available [facility] (Lab) [address] [place], [address], 04/09/2022 17:29:12 04/09/20 22 04/09/2022 COMPR EHENS DAVID METAB OLIC PANEL total protein 6.6 g/dL 6.3-8. 2 Not Available [facility] (Lab) [address] [place], [address], 04/09/2022 17:29:12 04/09/20 22 04/09/2022 COMPR EHENS DAVID METAB OLIC PANEL albumin 4.0 g/dL 3.4-5. 0 Not Available [facility] (Lab) [address] [place], [address], 04/09/2022 17:29:12 04/09/20 22 04/09/2022 COMPR EHENS DAVID METAB OLIC PANEL globulin 2.6 g/dL 2.6-4. 2 Not Available [facility] (Lab) [address] [place], [address], 04/09/2022 17:29:12 04/09/20 22 04/09/2022 COMPR EHENS DAVID METAB OLIC PANEL A/G ratio 1.5 ratio 1.0-2. 0 Not Available [facility] (Lab) [address] [place], [address], 04/09/2022 17:29:12 04/09/20 22 04/09/2022 LIPID PANEL HDL cholesterol 46 mg/dL 40- Not Available [facility] (Lab) [address] [place], [address], 04/09/2022 17:29:05 04/09/20 22 04/09/2022 LIPID PANEL cholesterol 112 mg/dL 140-19 9 low NIH COLE NSUS RECOM MENDA TION FOR MADELINE STERO L: ADULT CHILD LOW RISK: <200 <170 BORDE RLINE : <200- 239 ----- HIGH RISK: >240 >200 Not Available [facility] (Lab) [address] [place], [address], 04/09/2022 17:29:05 04/09/20 22 04/09/2022 LIPID PANEL triglyceride s 143 mg/dL 0-150 NIH COLE NSUS REPOR T RECOM MENDA TION FOR TRIGL YCERI YOKASTA: ADULT CHILD LOW RISK: <150 ----- BODER LINE: 150-1 99 ----- HIGH RISK: >200 ----- Not Available [facility] (Lab) [address] [place], [address], 04/09/2022 17:29:05 04/09/20 22 04/09/2022 LIPID PANEL LDL cholesterol, calculated 37 mg/dL 0-130 NIH COLE NSUS REPOR T RECOM MENDA TIONS FOR LDL: ADULT CHILD LOW RISK <130 <110 (OPTI MAL LDL) <100 ----- LIZETHDE RLINE : 130-1 59 ----- HIGH RISK: >160 >130 A TRIGL YCERI DE RESUL T >400 INVAL IDATE S THE CALCU LATIO N FOR LDL FRACT IONAT ION - THE LDL RESUL T WILL NOT BE REPOR BRYAN. Not Available [facility] (Lab) [address] [place], [address], 04/09/2022 17:29:05 04/09/20 22 04/09/2022 MICRO ALBUM N RNDM W/CRE AT RATIO ur creat 229.26 mg/dL REFER ENCE RANGE NOT ESTAB LISHE D FOR RANDO M URINE CREAT ININE Not Available [facility] (Lab) [address] [place], [address], 04/09/2022 17:16:57 04/09/20 22 04/09/2022 MICRO ALBUM N RNDM W/CRE AT RATIO microalbumin , urine 16.7 mg/L 0.0-16 .6 high Not Available [facility] (Lab) [address] [place], [address], 04/09/2022 17:16:57 04/09/20 22 04/09/2022 MICRO ALBUM N RNDM W/CRE AT RATIO microalbumin /creatinine ratio 7 mcg/m g 0-29 THE AMERI CAN DIABE [facility] ASS[facility] IATIO N DEFIN ES ABNOR MALIT IES IN ALBUM IN EXCRE TION FOLLO WS: CATEG ORY RESUL T (MCG/ MG CREAT ININE ) MICHELA L <30 MICRO ALBUM INURI A 30-29 9 CLINI MOLLY ALBUM INURI A > OR = 300 THE ADA RECOM MENDS THAT 2 OF 2 SPECI MENS COLLE CTED WITHI N A 3- TO 6-MON TH PERIO D BE ABNOR MAL BEFOR E CONSI KEVIN G A PATIE NT TO HAVE CROSS ED ONE OF THESE DIAGN OSTIC THRES HOLDS . REFER ENCE: DIABE [facility] CARE, VOL. 26: S94-S , 2002 Not Available [facility] ([facility]) [address] [place], [address], 04/09/2022 17:16:57 Result Notes None recorded. Problems Name Problem SNOMED Code Status Onset Date Resolution Date Notes Provider Name and Address Organization Details Recorded Time Diabetic peripheral neuropathy 495356584 Active 2021 Not Available [facility] 3 01:10:09 Uncontroll ed type 1 diabetes mellitus 790253562 Active 2021 Not Available [facility] 3 01:10:09 Pain of left shoulder joint [id number] 9109 Active 2022 [facility], ATC L null, [facility] 3 10:47:05 Problem Notes None recorded. Procedures Surgical History Date Name Laterality Status Provider Name and Address Organization Details Recorded Time 05/29/20 23 Ortho - Cortisone Injection completed Eli Zamudio NP [address] [facility], [place], [address], [facility] 05/30/2023 21:31:30 Skin Graft completed Not Available [facility] 11/28/2022 00:55:17 Appendectomy completed Not Available [facility] 11/28/2022 00:55:17 Gallstones completed Not Available [facility] 11/28/2022 00:55:17 Unlisted procedure stomach completed Not Available [facility] 11/28/2022 00:55:17 Imaging Results None recorded. Procedure Notes None recorded. Medical Equipment None Reported. Medications Name Sig Start Date Stop Date Status Note LastModified by Organization Details LastModified Time alcohol prep pads 70 % pads 05/29 completed Not Available Not Available Not Available cyclobenzap rine 10 mg tablet TAKE 1 TABLET BY MOUTH EVERY 8 HOURS NEEDED 04/23 completed Not Available Not Available Not Available doxycycline hyclate 100 mg capsule TK 1 C PO BID active Not Available Not Available No t Available clindamycin HCl 300 mg capsule TAKE 1 CAPSULE BY MOUTH EVERY 6 HOURS AFTER MEALS FOR 10 DAYS active Not Available Not Available No t Available ibuprofen 800 mg tablet TAKE 1 TABLET BY MOUTH THREE TIMES DAILY WITH FOOD active Not Available Not Available No t Available meloxicam 15 mg tablet TAKE 1 TABLET BY MOUTH EVERY DAY active Not Available Not Available No t Available isosorbide mononitrate ER 30 mg tablet,exte nded release 24 hr TAKE 1 TABLET BY MOUTH EVERY DAY 04/23 completed Not Available Not Available Not Available Lantus U-100 Insulin 100 unit/mL subcutaneou s solution ADMINISTE R 35 UNITS UNDER THE SKIN TWICE DAILY DIRECTED active Not Available Not Available No t Available aspirin 81 mg tablet,dejon yed release TAKE 1 TABLET BY MOUTH EVERY DAY 05/29 completed Not Available Not Available Not Available acetaminoph en 500 mg tablet TAKE 2 TABLETS BY MOUTH THREE TIMES DAILY NEEDED 05/29 completed Not Available Not Available Not Available carvedilol 3.125 mg tablet TAKE 1 TABLET BY MOUTH TWICE DAILY active Not Available Not Available No t Available ketorolac 0.5 % eye drops INSTILL 1 DROP INTO LEFT EYE THREE TIMES DAILY FOR 5 DAYS 05/29 completed Not Available Not Available Not Available potassium chloride ER 20 mEq tablet,exte nded release(par t/cryst) TAKE 1 TABLET BY MOUTH EVERY DAY 04/23 completed Not Available Not Available Not Available OneTouch Ultra Test strips USE 1 STRIP TO TEST BLOOD SUGARS FOUR TIMES DAILY active Not Available Not Available No t Available Kenalog 10 mg/mL suspension for injection IN OFFICE [address] [facility]: 0003- [phone]- 20 Not Available Not Available Not Available benzonatate 100 mg capsule TK 1 C PO TID PRN active Not Available Not Available No t Available pantoprazol e 40 mg tablet,dejon yed release TK 1 T PO BID active Not Available Not Available No t Available furosemide 20 mg tablet TAKE 1/2 TABLET BY MOUTH EVERY DAY 04/23 completed Not Available Not Available Not Available gabapentin 100 mg capsule TAKE 1 CAPSULE BY MOUTH THREE TIMES DAILY active Not Available Not Available No t Available lisinopril 10 mg-hydrochl orothiazide 12.5 mg tablet TAKE 1 TABLET BY MOUTH EVERY DAY DIRECTED active Not Available Not Available No t Available ibuprofen 600 mg tablet TAKE 1 TABLET BY MOUTH THREE TIMES DAILY NEEDED 04/23 completed Not Available Not Available Not Available albuterol sulfate HFA 90 mcg/actuati on aerosol inhaler INHALE 2 PUFFS BY MOUTH EVERY 4 HOURS NEEDED active Not Available Not Available No t Available fluticasone propionate 50 mcg/actuati on nasal spray,suspe nsion SHAKE LIQUID AND USE 2 SPRAYS IN EACH NOSTRIL DAILY 05/29 completed Not Available Not Available Not Available amoxicillin 875 mg-potassiu m clavulanate 125 mg tablet TAKE 1 TABLET BY MOUTH EVERY 12 HOURS WITH MEALS FOR 7 DAYS 05/29 completed Not Available Not Available Not Available bupropion HCl XL 150 mg 24 hr tablet, extended release TAKE 1 TABLET BY MOUTH EVERY DAY IN THE MORNING active Not Available Not Available No t Available pregabalin 50 mg capsule active Not Available Not Available Not Available insulin lispro 12/01 completed Not Available Not Available Not Available lidocaine (PF) 10 mg/mL (1 %) injection solution In office injection administe red by the provider 04/[address] [facility]: [phone]- [phone] Not Available Not Available Not Available Lantus Solostar U-100 Insulin 100 unit/mL (3 mL) subcutaneou s pen ADMINISTE R 35 UNITS UNDER THE SKIN TWICE DAILY AROUND THE CLOCK active Not Available Not Available No t Available Humalog KwikPen (U-100) Insulin 100 unit/mL subcutaneou s INJECT 30 UNITS UNDER THE SKIN THREE TIMES DAILY WITH MEALS active Not Available Not Available No t Available ropivacaine (PF) 5 mg/mL (0.5 %) injection solution IN OFFICE [address] [facility] [phone] Not Available Not Available Not Available Easy Touch Alcohol Prep Pads APPLY ONE PAD FOUR TIMES DAILY active Not Available Not Available No t Available TRUEplus Insulin 0.5 mL 31 gauge x 5/16 syringe USE TWICE DAILY WITH LANTUS active Not Available Not Available No t Available TRUEplus Insulin 1 mL 31 gauge x 5/16 syringe USE TO INJECT INSULIN ONCE A DAY 07/09 completed Not Available Not Available Not Available TRUEplus Pen Needle 31 gauge x 5/16 USE THREE TIMES DAILY active Not Available Not Available No t Available TRUEplus Pen Needle 31 gauge x 3/16 USE DIRECTED FOUR TIMES DAILY active Not Available Not Available No t Available OneTouch Ultra Blue Test Strip USE TO TEST THREE TIMES DAILY active Not Available Not Available No t Available Dexcom G6 Sensor device USE DIRECTED AND CHANGE EVERY 10 DAYS 05/29 completed Not Available Not Available Not Available Dexcom G6 Zipper Ironer USE DIRECTED 05/29 completed Not Available Not Available Not Available Dexcom G6 Transmitter device USE DIRECTED active Not Available Not Available No t Available FreeStyle Catherine 14 Day [place] USE TO TEST BLOOD SUGAR active Not Available Not Available No t Available OneTouch Ultra2 Meter USE TO TEST BLOOD SUGAR LEVELS active Not Available Not Available No t Available Gvoke HypoPen 2-Pack 1 mg/0.2 mL subcutaneou s auto-inject or INJECT 1MG UNDER THE SKIN DIRECTED active Not Available Not Available No t Available COVID-19 test specimen collection TEST DIRECTED 05/29 completed Not Available Not Available Not Available FreeStyle Catherine 2 Sensor kit USE TO TEST BLOOD SUGAR AND CHANGE EVERY 14 DAYS 07/09 completed Not Available Not Available Not Available Fluzone Quad (PF) 60 mcg (15 mcg x 4)/0.5 mL IM syringe ADM 0.5ML IM UTD 05/29 completed Not Available Not Available Not Available Vitals Date Recorded Body mass index (BMI) Body height Oxygen saturation Oxygen saturation in Arterial blood by Pulse oximetry Heart rate Body temperature Body weight Systolic blood pressure Diastolic blood pressure Provider Name and Address Organization Details Last Updated DateTime 1 32 kg/m2 170.18 cm 98 % 98 % 64 /min 98.3 [degF] 91148.8 4 g 116 mm[Hg] 76 mm[Hg] Not Available [facility] 3 00:57:23 Date Recorded Body mass index (BMI) Body height Oxygen saturation Oxygen saturation in Arterial blood by Pulse oximetry Heart rate Body temperature Body weight Systolic blood pressure Diastolic blood pressure Provider Name and Address Organization Details Last Updated DateTime 1 32.6 kg/m2 170.18 cm 98 % 98 % 74 /min 97.9 [degF] 30686.2 1 g 124 mm[Hg] 90 mm[Hg] Not Available [facility] 3 00:57:24 Date Recorded Body mass index (BMI) Body height Oxygen saturation Oxygen saturation in Arterial blood by Pulse oximetry Heart rate Body temperature Body weight Systolic blood pressure Diastolic blood pressure Provider Name and Address Organization Details Last Updated DateTime 2 35.8 kg/m2 170.18 cm 98 % 98 % 66 /min 97.9 [degF] 058258. 22 g 120 mm[Hg] 80 mm[Hg] Not Available [facility] 3 00:57:24 Date Recorded Body height Body mass index (BMI) Body weight Provider Name and Address Organization Details Last Updated DateTime 05/29/2023 170.18 cm 35.2 kg/m2 334137.28 g [facility] [place] [facility] 05/29/2023 10:46:39 Social History Question Answer Notes LastModified by Organizat ion Details LastModified Time Tobacco Smoking Status Current Every Day Smoker Black N mild Not Available [facility] 11/28/2022 00:50:44 What Is Your Level Of Alcohol Consumption? Occasional [id number] Information not available 11/28/2022 What Is Your Level Of Caffeine Consumption? Moderate [id number] Information not available 11/28/2022 In The 14 Days Before Symptom Onset, Have You Had Close Contact With A Laboratory-confir med COVID-19 While That Case Was Ill? No [id number] Information not available 11/28/2022 In The 14 Days Before Symptom Onset, Have You Had Close Contact With A Person Who Is Under Investigation For COVID-19 While That Person Was Ill? No [id number] Information not available 11/28/2022 What Type Of Diet Are You Following? DIABETIC [id number] Information not available 11/28/2022 Which Illicit Or Recreational Drugs Have You Used? Marijuania MIGRATION.[id number] Information not available 11/28/2022 Do You Or Have You Ever Used E-cigarettes Or Vape? 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 12 [email or web address] Information not available 05/29/2023 Do You Have Any Dietary Restrictions? No [id number].[id number] Information not available 11/28/2022 Sex: Male Functional Status None recorded. Mental Status None recorded. Family History Relationship Description Onset Age of this Age Resolved Age Notes LastModified by Organization Details LastModified Time Maternal Aunt Diabetes mellitus [id number] Not available 11/28/2022 00:55:20 Sister Diabetes mellitus [id number] Not available 11/28/2022 00:55:20 Maternal Grandfather Diabetes mellitus [id number] [id number] Not available 11/28/2022 00:55:20 Maternal Grandfather Hypertensive disorder [id number] Not available 11/28/2022 00:55:20 Maternal Uncle Hypertensive disorder [id number] Not available 11/28/2022 00:55:20 Maternal Uncle Malignant tumor of pharynx [id number].331 [id number] Not available 11/28/2022 00:55:20 Mother Hypertensive disorder [id number].066 [id number] Not available 11/28/2022 00:55:20 Maternal Grandmother Malignant tumor of lung [id number].451 [id number] Not available 11/28/2022 00:55:20 Medical History Condition Response EYE PROBLEMS Y HEADACHES/MIGRAINES Y SURGERY Y ASTHMA Y DIABETES, TYPE Y HAVE YOU BEEN HOSPITALIZED OR SEEN IN [facility] ER IN THE PAST YEAR ? Y HYPERTENSION Y Past Encounters Encounter ID Performer Location Encounter Start Date Encounter Closed Date Diagnosis/Indication Diagnosis SNOMED-CT Code Diagnosis ICD10 Code [id number] _ATHENA_M IGRATION_ DEFAULT_1 _1 , 12/01/2020 00:00:00 12/01/2020 17:05:42 [id number] [facility] [address] [place] [address] 03/27/2021 00:00:00 03/30/2021 14:17:48 [id number] [facility] [address] [place] [address] 04/23/2022 00:00:00 04/23/2022 13:58:51 [id number] Eli Zamudio, HOUSING LIAISON [facility] [address] [place] [address] 05/29/2023 10:33:48 05/29/2023 11:34:42 Pain of left shoulder joint [id number] M25.512 Health Concerns Section Related Observation LastModified by Organization Detai ls LastModified Time None Recorded Concern Status LastModified by Organization Details LastModified Time None Recorded Advance Directives Directive None Recorded Payers Encounter Date Sequence Insurance Name Policy Number Policy Price Covered Member ID Price Member ID Guarantor Name 05/29/2023 1 R [id number] Pranav Fay [id number] Pranav Fay
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
--- OUTSIDE RECORDS SUMMARY | 2024-09-15 10:47 | XMS_ITS | Encounter Summary ---
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 Pre-op Now Given 05/21/2019 9:39 AM CDT 300 mg HYDROmorphone (DILAUDID) 2 mg/mL injection 0.3 mg 0.3 mg, IV, POST-PROCEDURE Q 5 MINUTES PRN, 5 doses, Starting on Felisha 05/21/19 at 0922, Until Felisha 05/21/19 at 221, Pain, Routine, PACU lactated ringers infusion IV, at 125 mL/hr, CONTINUOUS, Starting on Felisha 05/21/19 at 0830, Until [facility] 05/21/19 at 2218, Routine New Bag 05/21/2019 8:39 AM CDT 125 mL /hr lactated ringers infusion IV, at 125 mL/hr, POST-PROCEDURE CONTINUOUS, Starting on Felisha 05/21/19 at 0930, Until Felisha 05/21/19 at 2219, Routine, PACU New Bag 05/21/2019 1:28 PM CDT 125 mL/hr lidocaine 1 % (XYLOCAINE) 300 mg, EPINEPHrine (ADRENALINE) 1 mg in lactated ringers irrigation 1,000 mL irrigation Irrigation, INTRA-PROCEDURE PRN, Starting on Felisha 05/21/19 at 1038, Until Felisha 05/21/19 at 2219, Intra-op ondansetron (ZOFRAN ODT) tablet 4 mg 4 mg, Oral, PRE-PROCEDURE ONCE, 1 dose, Starting on Felisha 05/21/19 at 0922, Until Felisha 05/21/19 at 0938, Routine, Pre-op Now Given 05/21/2019 9:38 AM CDT 4 mg ondansetron (ZOFRAN) 4 mg/2 mL injection 4 mg 4 mg, IV, POST-PROCEDURE ONCE PRN, 1 dose, Starting on Felisha 05/21/19 at 0922, Until Felisha 05/21/19 at 2219, Nausea/Emesis, Routine, PACU oxyCODONE-acetaminophen (PERCOCET) 5-325 mg per tablet 1 Tablet 1 Tablet, Oral, EVERY 4 HOURS PRN, Starting on Felisha 05/21/19 at 1210, Until Felisha 05/21/19 at 2219, Pain, Routine Given 05/21/2019 2:47 PM CDT 1 Tablet documented in this encounter Active and Recently Administered Medications Times are shown in CDT. Scheduled Medication Order 05/19/2019 05/20/2019 05/21/2019 acetaminophen (TYLENOL) tablet 1,000 mg (COMPLETED) 1,000 mg, Oral, PRE-PROCEDURE ONCE, 1 dose, Starting on Felisha 05/21/19 at 0922, Until Felisha 05/21/19 at 0939, Routine, Pre-op Now 0939 (Given - Provid er: Martina Sánchez RN) ceFAZolin in sterile water (ANCEF) 2 gram/20 mL IV Syringe (PREMIX) 2,000 mg (COMPLETED) 2,000 mg, IV, ONE TIME ONLY, 1 dose, On Felisha 05/21/19 at 0830, Routine, Antibiotic Indication: Surgical prophylaxis 1100 (Given - Provid er: Deng Garcia CRNA)1105 (Stopped - Provider: Deng Garcia CRNA) gabapentin (NEURONTIN) capsule 300 mg (COMPLETED) 300 mg, Oral, PRE-PROCEDURE ONCE, 1 dose, Starting on Felisha 05/21/19 at 0922, Until Felisha 05/21/19 at 0939, Routine, Pre-op Now 0939 (Given - Provid er: Martina Sánchez RN) ondansetron (ZOFRAN ODT) tablet 4 mg (COMPLETED) 4 mg, Oral, PRE-PROCEDURE ONCE, 1 dose, Starting on Felisha 05/21/19 at 0922, Until Felisha 05/21/19 at 0938, Routine, Pre-op Now 0938 (Given - Provid er: Martina Sánchez RN) Continuous Medication Order 05/19/2019 05/20/2019 05/21/2019 lactated ringers infusion IV, at 125 mL/hr, CONTINUOUS, Starting on Felisha 05/21/19 at 0830, Until Felisha 05/21/19 at 2219, Routine 0839 (New Bag - Prov ider: Yeimy Lazo, ZHANG) lactated ringers infusion IV, at 125 mL/hr, POST-PROCEDURE CONTINUOUS, Starting on Felisha 05/21/19 at 0930, Until Felisha 05/21/19 at 2219, Routine, PACU 0930 (Due)1328 (New Bag - Provider: Jas Rascon, RN)1451 (Stopped - Provider: Kristina Benítez RN) PRN Medication Order 05/19/2019 05/20/2019 05/21/2019 diphenhydrAMINE (BENADRYL) injection 12.5 mg 12.5 mg, IV, POST-PROCEDURE ONCE PRN, 1 dose, Starting on Felisha 05/21/19 at 0922, Until Felisha 05/21/19 at 2219, Nausea/Emesis, Routine, PACU fentaNYL PF (SUBLIMAZE) 50 mcg/mL injection 25 mcg 25 mcg, IV, POST-PROCEDURE Q 3 MINUTES PRN, 5 doses, Starting on Felisha 05/21/19 at 0922, Until Felisha 05/21/19 at 2219, Pain, Routine, PACU 1249 (Given - Provid er: Jas Rascon RN) HYDROmorphone (DILAUDID) 2 mg/mL injection 0.3 mg 0.3 mg, IV, POST-PROCEDURE Q 5 MINUTES PRN, 5 doses, Starting on Felisha 05/21/19 at 0922, Until Felisha 05/21/19 at 2219, Pain, Routine, PACU lidocaine 1 % (XYLOCAINE) 300 mg, EPINEPHrine (ADRENALINE) 1 mg in lactated ringers irrigation 1,000 mL irrigation Irrigation, INTRA-PROCEDURE PRN, Starting on Felisha 05/21/19 at 1038, Until Felisha 05/21/19 at 2219, Intra-op ondansetron (ZOFRAN) 4 mg/2 mL injection 4 mg 4 mg, IV, POST-PROCEDURE ONCE PRN, 1 dose, Starting on Felisha 05/21/19 at 0922, Until Felisha 05/21/19 at 2219, Nausea/Emesis, Routine, PACU oxyCODONE-acetaminophen (PERCOCET) 5-325 mg per tablet 1 Tablet 1 Tablet, Oral, EVERY 4 HOURS PRN, Starting on Felisha 05/21/19 at 1210, Until Felisha 05/21/19 at 2219, Pain, Routine 1447 (Given - Provid er: Kristina Benítez RN) sodium chloride 0.9 % irrigation solution (CANCELED) INTRA-PROCEDURE PRN, Starting on Felisha 05/21/19 at 1136, Until Felisha 05/21/19 at 1207, Routine, Intra-op 1136 (Given - Provid er: You Johnson MD - Comment: PRN irrigation) documented in this encounter
--- OUTSIDE RECORDS SUMMARY | 2024-09-15 10:47 | XMS_ITS | Encounter Summary ---
Author Organization [facility] Address [address] [place] [id number] Care Team Providers Care Butcher Supervisor Name Role Phone Provider, Unknown Primary Care Provider Unavaila ble Encounter Details Date Type Department Care Team (Late st Contact Info) Description 07/21/2020 3:00 PM CDT Rapid Evaluation [facility] [place] [address] Social History Tobacco Use Types Packs/Day Years Used Date Smoking Tobacco: Never Assessed Sex and Gender Information Value Date Recorded Sex Assigned at Not on file Legal Sex Male 3:13 PM CDT Gender Identity Not on file Sexual Orientation Not on file documented as of this encounter Plan of Treatment Not on file documented as of this encounter Visit Diagnoses Not on filedocumented in this encounter Care Teams Butcher Supervisor Relationship Specialty Start Date End Date Provider, Unknown UNKNOWN PCP - General 10/29/18 documented as of this encounter
--- OUTSIDE RECORDS SUMMARY | 2024-09-15 10:47 | XMS_ITS | Referral Summary ---
Author Organization [facility] Address [address] [place] [address] Care Team Providers Care Banquet Waiter/Waitress Name Role Phone Unavailable Primary Care Provider Unavailabl e Source Comments [facility],non-owned Affiliates and Associated Physician Practices is amultiple site organization consisting of ambulatory clinics and hospital sitesin [place], [place], [place] and [place]. This disclosure is being madepursuant to the Care Everywhere program and may not contain all information available regarding this patient. Last updated 18.[facility] [employer] Social History Tobacco Use Types Packs/Day Years Used Date Smoking Tobacco: Never Assessed Sex and Gender Information Value Date Recorded Sex Assigned at Not on file Gender Identity Not on file Sexual Orientation Not on file Plan of Treatment Not on file SONYA FAY Personal/Family [address] [place] [address] SONYA FAY Personal/Family [address] [place], [place] [address] [address] Sonya Fay Personal/Family Self 1985
--- OUTSIDE RECORDS SUMMARY | 2024-09-15 10:47 | XMS_ITS | Patient Health Summary ---
Author Organization [facility] Address [address] [place] [address] Care Team Providers Care Patient Attendant Name Role Phone Unavailable Primary Care Provider Unavailabl e Note from [facility],non-owned Affiliates and Associated Physician Practices is amultiple site organization consisting of ambulatory clinics and hospital sitesin [place], [place], [place] and [place]. This disclosure is being madepursuant to the Care Everywhere program and may not contain all information available regarding this patient. Last updated 18.[facility] Social History Tobacco Use Types Packs/Day Years Used Date Smoking Tobacco: Never Assessed Sex and Gender Information Value Date Recorded Sex Assigned at Not on file Gender Identity Not on file Sexual Orientation Not on file
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
--- OUTSIDE RECORDS SUMMARY | 2024-09-15 10:47 | XMS_ITS | Encounter Summary ---
Author Organization [facility] Address [address] [place] [address] Care Team Providers Care Priest Name Role Phone Unavailable Primary Care Provider Unavailabl e Encounter Details Date Type Department Care Team (Latest Contact Info) Description 04/28/2024 Travel Social History Tobacco Use Types Packs/Day Years [...]
--- OUTSIDE RECORDS SUMMARY | 2024-09-15 10:47 | XMS_ITS | Encounter Summary ---
Author Organization [facility] Address [address] [place] [id number] Care Team Providers Care Solar Sales Rep Name Role Phone Provider, Unknown Primary Care Provider Unavaila ble Encounter Details Date Type Department Care Team (Late st Contact Info) Description 07/21/2020 Lab Requisition [facility] [address] [address] [place] [address] [address] [place] [address] Social History Tobacco Use Types Packs/Day Years [...] Procedure Name Priority Date/Time Associated Diagnosis Comments SARS-COV-2 PCR [facility] ONLY Routine 07/21/2020 2:32 PM CDT documented in this encounter Visit Diagnoses Not on filedocumented in this encounter Care Teams Solar Sales Rep Relationship Specialty Start Date End Date Provider, Unknown UNKNOWN PCP - General 10/29/18 documented as of this encounter
--- OUTSIDE RECORDS SUMMARY | 2024-09-15 10:47 | XMS_ITS | Clinical Summary ---
Author Organization [facility] Address [address] [place] [address] Care Team Providers Care Pay Agent Name Role Phone Unavailable Primary Care Provider Unavailabl e Source Comments [facility],non-owned Affiliates and Associated Physician Practices is amultiple site organization consisting of ambulatory clinics and hospital sitesin [place], [place], [place] and [place]. This disclosure is being madepursuant to the Care Everywhere program and may not contain all information available regarding this patient. Last updated 18.[facility] [employer] Social History Tobacco Use Types Packs/Day Years Used Date Smoking Tobacco: Never Assessed Sex and Gender Information Value Date Recorded Sex Assigned at Not on file Gender Identity Not on file Sexual Orientation Not on file Plan of Treatment Health Maintenance Due Date Last Done Comments LIPID TESTING 1985 HIV SCREENING 1998 HEPATITIS C SCREENING 08/03/2001 DTAP/TDAP/TD VACCINES (1 - Tdap) 2002 HEPATITIS B VACCINE (1 of 3 - 19+ 3-dose series) 2002 DEPRESSION SCREENING 09/30/2023 COVID-19 VACCINE ( - 2023-2 5 season) 2024 INFLUENZA VACCINE (#1) 2024 ZOSTER VACCINE (1 of 2) 2033 HIB VACCINE Aged Out No longer eligi ble based on patient's age to complete this topic HPV VACCINE Aged Out No longer eligi ble based on patient's age to complete this topic MENINGOCOCCAL VACCINE Aged Out No mikey kathleen eligible based on patient's age to complete this topic PNEUMOCOCCAL VACCINE Aged Out No long er eligible based on patient's age to complete this topic SONYA FAY Personal/[place] [place] [address] SONYA FAY Personal/[place] [address] Sonya Fay Personal/Family Self 1985
--- OUTSIDE RECORDS SUMMARY | 2024-09-15 10:47 | XMS_ITS | CONTINUITY OF CARE DOCUMENT ---
Author Name jun barahona Address Unknown Organization [facility] Address [address] [place] [address] Phone [phone] Care Team Providers Care Oil Seal Assembler Name Role Phone Sushant Floyd MD Unavailable [phone] ED MAILN MD Unavailable ED MALIN MD Unavailable [phone] PROBLEMS Condition Status Date Provider Notes Chest pain - NO CAD per cath active Sushant sánchez MD Abnormal nuclear stress test active Sushant sánchez MD Arm pain, left active Sushant Floyd MD Shortness of breath active Sushant Floyd MD Heart disease active Sushant Floyd MD Diabetes mellitus, type 1 active Sushant henley MD Hyperlipidemia active Sushant Floyd MD Anemia active Sushant Floyd MD ENCOUNTERS Date Type Provider Location Encounter Diag nosis 4 - 3 In-person encounter Office Visit Sushant Floyd MD [place] [facility] Chest pain - NO CAD per cath 4 - 5 In-person encounter Office Visit Sushant Floyd MD [place] [facility] Abnormal nuclear stress test 7 - 7 In-person encounter Office Visit Sushant Floyd MD [place] [facility] Chest pain - NO CAD per cathAnemiaHyperlipidemiaDiabetes mellitus, type 1Heart diseaseShortness of breathArm pain, left VITAL SIGNS Date Observation Value Provider Body Mass Index (Ratio) 32.54 kg/m2 Marbella Floyd MD blood pressure, cuff size regular Lisa Benítez blood pressure, diastolic 72 mm[Hg] Lisa Benítez blood pressure, systolic 112 mm[Hg] Parth Benítez oxygen saturation, oximetry 98 % Clint Benítez respiratory rate E&M 16 /min Annie Benítez pulse rate 66 /min Clint zuñiga weight E&M 214 [lb_av] Clint zuñiga height E&M 68 [in_i] Becki Harris Body Mass Index (Ratio) 33.14 kg/m2 Marbella Floyd MD blood pressure, diastolic 80 mm[Hg] Ch astity Vesna blood pressure, systolic 137 mm[Hg] Saar stity Vesna oxygen saturation, oximetry 98 % Chastity Vensa pulse rate 61 /min Chastity Vesna weight E&M 218 [lb_av] Chastity Vesna respiratory rate E&M 18 /min Chastit y Vesna height E&M 68 [in_i] Chastity Vesna blood pressure, diastolic 80 mm[Hg] Li [facility] blood pressure, systolic 120 mm[Hg] Adrienne [facility] Body Mass Index (Ratio) 33.17 kg/m2 Marbella Floyd MD blood pressure, diastolic 80 mm[Hg] Tyree Alfredo blood pressure, systolic 120 mm[Hg] Gaviota Alfredo oxygen saturation, oximetry 97 % Afua Alfredo respiratory rate E&M 16 /min Juliana Alfredo pulse rate 61 /min Afua keith weight E&M 218.2 [lb_av] Afua mahmood height E&M 68 [in_i] Afua keith ALLERGIES No Known Drug Allergies RESULTS Date Observation Value Provider Reference Range Interpretation Location prothrombin time (patient) 10.5 s [facility] 9.1-12.0 international normalized ratio (INR) 1.0 [facility] 0.9-1.2 lipoprotein, beta, serum, point, quantitative, calculated 42 mg/dL [facility] 0-99 6 HDL cholesterol, serum 57 mg/dL [facility] >39 6 triglyceride, serum, random 75 mg/dL [facility] 0-149 cholesterol, serum 114 mg/dL [facility] 425-396 1838/10/1 6 calcium, serum 9.1 mg/dL [facility] 8.7-10.2 6 carbon dioxide, venous blood 24 mmol/L [facility] 20-29 6 chloride, serum 104 mmol/L [facility] 96-106 6 potassium, serum 4.2 mmol/L [facility] 3.5-5.2 6 sodium, serum 140 mmol/L [facility] [phone]/10/1 6 urea nitrogen/creatinin e ratio, serum 18 [facility] 9-20 6 eGFR if 126 mL/min/{1. 73_m2} [facility] >59 6 eGFR if not 109 mL/min/{1. 73_m2} [facility] >59 6 creatinine, serum 0.89 mg/dL [facility] 0.76-1.27 6 urea nitrogen, blood 16 mg/dL [facility] 6-20 6 blood glucose, random 106 mg/dL [facility] 65-99 High 6 basophil count, absolute 0.0 x10E3/uL [facility] 0.0-0.2 6 Eosinophil Absolute Count 0.2 X10E3/UL [facility] 0.0-0.4 6 monocyte count, blood, automated 0.4 X10E3/UL [facility] 0.1-0.9 6 lymphocyte count, blood, automated 1.9 X10E3/UL [facility] 0.7-3.1 6 Absolute Neutrophils 2.9 X10E3/UL [facility] 1.4-7.0 6 basophils as percent of blood leukocytes 1 % [facility] Not Estab. 6 eosinophils as percent of blood leukocytes 4 % [facility] Not Estab. 6 monocytes as percent of blood leukocytes 7 % [facility] Not Estab. 6 lymphocytes as percent of blood leukocytes 35 % [facility] Not Estab. 6 neutrophils as percent of blood leukocytes 53 % [facility] Not Estab. 6 platelet count 200 X10E3/UL [facility] 162-302 9112/10/1 6 red blood cell distribution width 12.8 % [facility] 11.6-15.4 6 mean corpuscular hemoglobin concentration, RBC 33.8 G/DL [facility] 31.5-35.7 6 mean corpuscular hemoglobin, RBC 30.3 pg [facility] 26.6-33.0 6 mean corpuscular volume, RBC 90 fL [facility] 79-97 6 hematocrit, blood 40.8 % [facility] 37.5-51.0 6 hemoglobin, blood 13.8 g/dL [facility] 13.0-17.7 6 erythrocyte (RBC) count 4.56 X10E6/UL [facility] 4.14-5.80 6 leukocyte count, blood 5.4 X10E3/UL [facility] 3.4-10.8 HISTORY OF MEDICATION USE Medication Status Instructions Dates Provider Indications Com ro isosorbide mononitrate 30 mg tablet extended release 24 hr active Afua Alfredo acetaminophen 500 mg tablet active Afua Alfredo Lantus U-100 Insulin 100 unit/mL solution active Afua Alfredo SOCIAL HISTORY Date Observation Value Provider social history reviewed E&M revi ewed - no changes required Sushant Floyd MD smoking status Current every day smoker Arden Malagon social history E&M S moking History: P atient currently smokes every day. Sushant Floyd MD social history reviewed E&M revi ewed - no changes required Sushant Floyd MD smoking status Current every day smoker M Marta Alfredo FAMILY HISTORY Family Member Condition Full Sister Family History of Di abetes: Mother Family History of Co ronary Artery Disease: INSURANCE PROVIDERS Payer name Policy type / Coverage type [employer] party ID [employer] Commercial insurance [facility] [id number] [place] MEDICA[place] Medicaid [id number] ADVANCE DIRECTIVES Name Date DISCUSSED - NO DECISION MADE TREATMENT PLAN Date Name Performer [id number],S, o n insulin Sushant Floyd MD [id number],SSushant MD [id number],C,H ad cath done, no CAD found. No CP today. H is updated medication list for this problem includes: Isosorbide Mononitrate 30 Mg Tablet Extended Release 24 Hr (Isosorbide mononitrate) Sushant Floyd MD [id number],SSushant MD [id number],W, M ild inferior ischemia with fixed anterior defect. We will set him up for a cath. He is still having upper left arm pain and some chest pain. The risks and benefits of the procedure, including but not limited the risk of heart attack, , stroke, bleeding, kidney failure, and loss of limb as well as the alternative of continued medical therapy, stress testing or bypass surgery were discussed with the patient and any present family members and the patient wishes to proceed with cardiac cath and stenting. The patient and family had opportunity to discuss this with us. Written material including informed consent was given out. Sushant Floyd MD [id number],S, Sushant Floyd MD [id number],S, Sushant Floyd MD [id number],C,h ad left sided chest pain, with left arm pain and numbness. will do stress test and echo. Sushant Floyd MD [id number],C,on insulin Us epi Floyd MD Cardiology: o n insulin Sushant Floyd MD Cardiology Sushant Floyd MD Cardiology:Had cath done, no CAD found. No CP today. H is updated medication list for this problem includes: Isosorbide Mononitrate 30 Mg Tablet Extended Release 24 Hr (Isosorbide mononitrate) Sushant Floyd MD Cardiology Sushant Floyd MD Cardiology: M ild inferior ischemia with fixed anterior defect. We will set him up for a cath. He is still having upper left arm pain and some chest pain. The risks and benefits of the procedure, including but not limited the risk of heart attack, , stroke, bleeding, kidney failure, and loss of limb as well as the alternative of continued medical therapy, stress testing or bypass surgery were discussed with the patient and any present family members and the patient wishes to proceed with cardiac cath and stenting. The patient and family had opportunity to discuss this with us. Written material including informed consent was given out. Sushant Floyd MD Cardiology Sushant Floyd MD Cardiology Sushant Floyd MD Cardiology:had left sided chest pain, with left arm pain and numbness. will do stress test and echo. Sushant Floyd MD Cardiology:on insulin Sushant henley MD Date Name PROTHROMBIN TIME WIT H INR LIPID PANEL CBC (INCLUDES DIFF/P LT) BASIC METABOLIC PANE L W/EGFR Cardiac Cath - Left - GC TSH, free T4, total T3 HEMOGLOBIN A1c COMPREHENSIVE METABO LIC PANEL, W/EGFR LIPID PANEL Complete Echo Stress Exercise Card iolite HISTORY OF PROCEDURES Procedure Date Procedure Name Provider Procedure Notes S tatus EKG Sushant Floyd MD completed
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
--- OUTSIDE RECORDS SUMMARY | 2024-09-15 10:47 | XMS_ITS | Clinical Summary ---
Author Organization [facility] Address [address] [place] [address] Phone Care Team Providers Care Painter Drum Name Role Phone Provider, Unknown Primary Care Provider Unavaila ble Social History Tobacco Use Types Packs/Day Years Used Date Smoking Tobacco: Never Assessed Sex and Gender Information Value Date Recorded Sex Assigned at Not on file Legal Sex Male 3:13 PM CDT Gender Identity Not on file Sexual Orientation Not on file Plan of Treatment Health Maintenance Due Date Last Done Comments Hepatitis C Virus (HCV) Screening 1983 TdaP Immunization 1983 Hepatitis B Immunization (1 of 3 - 19+ 3-dose series) 2002 SARS-COV-2 Immunization ( season) 2023 09/13/2021, 12/05/2020 Influenza Immunization (#1) 05/31/202406/30, 06/28/2016, 06/22/2014, Additional history exists DTaP/Tdap/Td Immunization Discontinued 1990, 06/21/1990, 05/27/1989, Additional history exists Meningococcal Immunization (ACWY) Aged Out No longer eligible based on patient's age to complete this topic Pneumococcal Immunization Combined Aged Out No longer eligible based on patient's age to complete this topic Rotavirus Immunization Aged Out No lo nger eligible based on patient's age to complete this topic Insurance [place]ICAID [place] Care Teams Painter Drum Relationship Specialty Start Date End Date Provider, Unknown UNKNOWN PCP - General 10/29/18
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
--- OUTSIDE RECORDS SUMMARY | 2024-09-15 10:47 | XMS_ITS | Encounter Summary ---
Author Organization [facility] Address [address] [place] [address] Care Team Providers Care Sonar Watchstander Name Role Phone Unavailable Primary Care Provider Unavailabl e Reason for Visit * Reason Comments Medical Records Encounter Details Date Type Department Care Team (Late st Contact Info) Description 08/18/2019 Chart Note [facility] PLASTIC SURGERY [address] [address] Ildefonso Pang, RN Medical Records Social History Tobacco Use Types Packs/Day Years Used Date Smoking Tobacco: Every Day Cigarettes Cigars Smokeless Tobacco: Never Alcohol Use Standard Drinks/Week Comments No 0 (1 standard drink = 0.6 oz pur e alcohol) Sex and Gender Information Value Date Recorded Sex Assigned at Not on file Gender Identity Not on file Sexual Orientation Not on file documented as of this encounter Progress Notes * Ildefonso Pang RN - 08/18/2019 8:49 AM CST Faxed request for medical records from [facility] to [employer] at [phone]. 

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
--- OUTSIDE RECORDS SUMMARY | 2024-09-15 10:48 | XMS_ITS | Continuity of Care Document ---
Author Organization [facility] Address [address] [place] [address] [place] [address] Phone Care Team Providers Care Shopfitter Name Role Phone Leatha Chavo Unavailable Unavailable Procedures Procedure Date Eye Exam Established Pt Advance Directives Directive Yes / No Effective Date File Name No Information Encounters Encounter Description Practice Location Reason(s) For Visit Diagnoses Date Provider Providers Copied on Encounter [facility], [id number] [place] [address] [address], [place], [place], [id number], [place] tel:[phone] [facility] [place] No Information [phone] Leatha Chavo. [address] [facility] [address], [place], [address], [place]. tel:[phone] Family History Family Member Type Diagnosis Age At Onset No Information Payers Payer name Insurance type Covered green party ID Authoriza tion(s) Srinivasette Pattern [id number] Social History Type Description Quantity Date Captured [...]
--- OUTSIDE RECORDS SUMMARY | 2024-09-15 10:48 | XMS_ITS | Encounter Summary ---
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 utilize non-pharmacologic pain control and comfort measures Expected Outcome: Patient demonstrates and reports adequate pain control Outcome Met: denies any pain documented in this encounter Plan of Treatment Not on file documented as of this encounter Procedures Procedure Name Priority Date/Time Associated Diagnosis Comments POC GLUCOSE Routine 12/17/2017 7:31 AM CDT POC GLUCOSE Routine 12/17/2017 1:57 AM CDT POC GLUCOSE Routine 12/16/2017 11:31 PM CDT POC GLUCOSE Routine 12/16/2017 10:54 PM CDT POC GLUCOSE Routine 12/16/2017 9:41 PM CDT POC GLUCOSE Routine 12/16/2017 8:13 PM CDT POC GLUCOSE Routine 12/16/2017 4:43 PM CDT POC GLUCOSE Routine 12/16/2017 12:21 PM CDT POC GLUCOSE Routine 12/16/2017 7:29 AM CDT POC GLUCOSE Routine 12/15/2017 10:45 PM CDT POC GLUCOSE Routine 12/15/2017 6:26 PM CDT POC GLUCOSE Routine 12/15/2017 2:13 PM CDT POC GLUCOSE Routine 12/15/2017 9:09 AM CDT POC GLUCOSE Routine 12/14/2017 8:36 PM CDT POC GLUCOSE Routine 12/14/2017 4:48 PM CDT POC GLUCOSE Routine 12/14/2017 12:29 PM CDT POC GLUCOSE Routine 12/14/2017 9:13 AM CDT POC GLUCOSE Routine 12/13/2017 9:07 PM CDT POC GLUCOSE Routine 12/13/2017 5:50 PM CDT POC GLUCOSE Routine 12/13/2017 1:39 PM CDT TELEMETRY REPORT 12/13/2017 12:3 2 PM CDT POC GLUCOSE Routine 12/13/2017 9:59 AM CDT CBC WITH DIFFERENTIAL Routine 12/13/2017 2:42 AM CDT PREALBUMIN Routine 12/13/2017 2:42 AM CDT PHOSPHORUS Routine 12/13/2017 2:42 AM CDT MAGNESIUM LEVEL Routine 12/13/2017 2:42 AM CDT BASIC METABOLIC PANEL Routine 12/13/2017 2:42 AM CDT POC GLUCOSE Routine 12/12/2017 10:59 PM CDT POC GLUCOSE Routine 12/12/2017 6:41 PM CDT MRSA ACTIVE SURVEILLANCE CULTURE Timed Study 12/12/2017 4:34 PM CDT MRSA ACTIVE SURVEILLANCE CULTURE Timed Study 12/12/2017 4:34 PM CDT ACINETOBACTER SURVEILLANCE SCREEN Timed Study 12/12/2017 4:34 PM CDT ACINETOBACTER SURVEILLANCE SCREEN Timed Study 12/12/2017 4:34 PM CDT POC GLUCOSE Routine 12/12/2017 1:50 PM CDT SKIN GRAFT SPLIT THICKNESS 12/12/2017 12:11 PM CDT 3RD DEGREE ZAPIEN LT. LOWER EXTREMITY Case Notes WORK COMP, AUTHORIZED PER SHAILA, CPT 77525, 79302, 93680, 72053 POC GLUCOSE Routine 12/12/2017 9:48 AM CDT BASIC METABOLIC PANEL Stat 12/12/2017 9:26 AM CDT documented in this encounter Results * (ABNORMAL) POC GLUCOSE (12/17/2017 7:31 AM CDT) GLUCOSE POC 190(H) 74 - 99 mg/dL 12/17/2017 7:35 AM CDT [facility] LAB[facility]AT[facility] PLANNER NAME POC SERA IBARRA 12/17/2017 7:35 AM CDT [facility]ORATORY SERVICES [facility] Whole blood specimen (specimen) 12/17/2017 7:31 AM CDT 12/17/2017 7:35 AM CDT You Johnson MD POINT OF CARE TESTIN G Performing Organization Address [facility]/State/ZIP Co de Phone Number [facility] CLIA# [id number] [address] [place] [address] * (ABNORMAL) POC GLUCOSE (12/17/2017 1:57 AM CDT) GLUCOSE POC 155(H) 74 - 99 mg/dL 12/17/2017 2:01 AM CDT [facility] PLANNER NAME MELANIA MACIAS 12/17/2017 2:01 AM CDT [facility] SERVICES [facility] Whole blood specimen (specimen) 12/17/2017 1:57 AM CDT 12/17/2017 2:01 AM CDT You Johnson MD POINT OF CARE TESTIN G [facility] CLIA# [id number] [address] [place] [address] * (ABNORMAL) POC GLUCOSE (12/16/2017 11:31 PM CDT) GLUCOSE POC 136(H) 74 - 99 mg/dL 12/16/2017 11:35 PM CDT [facility] PLANNER NAME MELANIA MACIAS 12/16/2017 11:35 PM CDT [facility]ORATORY SERVICES [facility] Whole blood specimen (specimen) 12/16/2017 11:31 PM CDT 12/16/2017 11:35 PM CDT You Johnson MD POINT OF CARE TESTIN Elizabeth [facility] CLIA# [id number] [address] [place] [address] * (ABNORMAL) POC GLUCOSE (12/16/2017 10:54 PM CDT) GLUCOSE POC 126(H) 74 - 99 mg/dL 12/16/2017 11:00 PM CDT [facility] PLANNER NAME MELANIA MACIAS 12/16/2017 11:00 PM CDT [facility]ORY SERVICES [facility] Whole blood specimen (specimen) 12/16/2017 10:54 PM CDT 12/16/2017 11:00 PM CDT You Johnson MD POINT OF CARE TESTKALIN Johnson Performing Organization Address [facility]/ZIP Co de Phone Number [facility] [address] [facility] CLIA# [id number] [address] [place] [address] * (ABNORMAL) POC GLUCOSE (12/16/2017 9:41 PM CDT) GLUCOSE POC 202(H) 74 - 99 mg/dL 12/16/2017 9:45 PM CDT [facility] PLANNER NAME MELANIA MACIAS 12/16/2017 9:45 PM CDT [facility]ORY SERVICES [facility] Whole blood specimen (specimen) 12/16/2017 9:41 PM CDT 12/16/2017 9:45 PM CDT You Johnson MD POINT OF CARE TESTKALIN Johnson [facility] CLIA# [id number] [address] [place] [address] * (ABNORMAL) POC GLUCOSE (12/16/2017 8:13 PM CDT) GLUCOSE POC 243(H) 74 - 99 mg/dL 12/16/2017 8:15 PM CDT [facility]ORATORY SERVICES - [facility] PLANNER NAME MELANIA MACIAS 12/16/2017 8:15 PM CDT [facility]ORY SERVICES [facility] Whole blood specimen (specimen) 12/16/2017 8:13 PM CDT 12/16/2017 8:15 PM CDT You Johnson MD POINT OF CARE TESTIN G [facility] CLIA# [id number] [address] [place] [address] * (ABNORMAL) POC GLUCOSE (12/16/2017 4:43 PM CDT) GLUCOSE POC 244(H) 74 - 99 mg/dL 12/16/2017 4:50 PM CDT [facility]ATORY SERVICES [facility] PLANNER NAME KAMRAN MORRIS 12/16/2017 4:50 PM CDT [facility]ORATORY SERVICES [facility] Whole blood specimen (specimen) 12/16/2017 4:43 PM CDT 12/16/2017 4:50 PM CDT You Johnson MD POINT OF CARE TESTIN G [facility] CLIA# [id number] [address] [place] [address] * (ABNORMAL) POC GLUCOSE (12/16/2017 12:21 PM CDT) GLUCOSE POC 256(H) 74 - 99 mg/dL 12/16/2017 12:25 PM CDT [facility]ATORY SERVICES [facility] PLANNER NAME KAMRAN MORRIS 12/16/2017 12:25 PM CDT [facility]ATORY SERVICES [facility] Whole blood specimen (specimen) 12/16/2017 12:21 PM CDT 12/16/2017 12:25 PM CDT You Johnson MD POINT OF CARE TESTIN Elizabeth [facility] CLIA# [id number] [address] [place] [address] * (ABNORMAL) POC GLUCOSE (12/16/2017 7:29 AM CDT) GLUCOSE POC 319(H) 74 - 99 mg/dL 12/16/2017 7:35 AM CDT [facility] PLANNER NAME POC KAMRAN ENCISO 12/16/2017 7:35 AM CDT [facility] Whole blood specimen (specimen) 12/16/2017 7:29 AM CDT 12/16/2017 7:35 AM CDT You Johnson MD POINT OF CARE TESTIN G Performing Organization Address [facility]/ZIP Co de Phone Number [facility] [address] [facility] CLIA# [id number] [address] [place] [address] * (ABNORMAL) POC GLUCOSE (12/15/2017 10:45 PM CDT) GLUCOSE POC 245(H) 74 - 99 mg/dL 12/15/2017 10:50 PM CDT [facility]ATORY [facility] PLANNER NAME POC BETTY ARIAS 12/15/2017 10:50 PM CDT [facility]ORATORY SERVICES [facility] Whole blood specimen (specimen) 12/15/2017 10:45 PM CDT 12/15/2017 10:50 PM CDT You Johnson MD POINT OF CARE TESTIN G [facility]ORY [facility] CLIA# [id number] [address] [place] [address] * (ABNORMAL) POC GLUCOSE (12/15/2017 6:26 PM CDT) GLUCOSE POC 259(H) 74 - 99 mg/dL 12/15/2017 6:35 PM CDT [facility] LABORATORY [facility] PLANNER NAME ELENO COYNE 12/15/2017 6:35 PM CDT [facility] LABORATORY SERVICES [facility] Whole blood specimen (specimen) 12/15/2017 6:26 PM CDT 12/15/2017 6:35 PM CDT You Johnson MD POINT OF CARE TESTIN G Performing Organization Address City/[facility]/ZIP Co de Phone Number [facility] [address] [facility]# [id number] [address] [place] [address] * (ABNORMAL) POC GLUCOSE (12/15/2017 2:13 PM CDT) GLUCOSE POC 316(H) 74 - 99 mg/dL 12/15/2017 2:20 PM CDT [facility]ORY [facility] PLANNER NAME ELENO COYNE 12/15/2017 2:20 PM CDT [facility] LABORATORY SERVICES [facility] Whole blood specimen (specimen) 12/15/2017 2:13 PM CDT 12/15/2017 2:20 PM CDT You Johnson MD POINT OF CARE TESTIN G [facility] [address] [facility]# [id number] [address] [place] [address] * (ABNORMAL) POC GLUCOSE (12/15/2017 9:09 AM CDT) GLUCOSE POC 279(H) 74 - 99 mg/dL 12/15/2017 9:15 AM CDT [facility]ATORY [facility] PLANNER NAME ELENO COYNE 12/15/2017 9:15 AM CDT [facility] Whole blood specimen (specimen) 12/15/2017 9:09 AM CDT 12/15/2017 9:15 AM CDT You Johnson MD POINT OF CARE TESTIN G [facility]ORATORY [facility] CLIA# [id number] [address] [place] [address] * (ABNORMAL) POC GLUCOSE (12/14/2017 8:36 PM CDT) GLUCOSE POC 259(H) 74 - 99 mg/dL 12/14/2017 8:40 PM CDT [facility] LABORATORY SERVICES [facility] PLANNER NAME POC CHEN LORI 12/14/2017 8:40 PM CDT [facility] LABORATORY SERVICES [facility] Whole blood specimen (specimen) 12/14/2017 8:36 PM CDT 12/14/2017 8:40 PM CDT You Johnson MD POINT OF CARE TESTIN G Performing Organization Address City/[facility]/ZIP Co de Phone Number [facility]ATORY [facility] CLIA# [id number] [address] [place] [address] * (ABNORMAL) POC GLUCOSE (12/14/2017 4:48 PM CDT) GLUCOSE POC 272(H) 74 - 99 mg/dL 12/14/2017 4:50 PM CDT [facility] LABORATORY SERVICES [facility] PLANNER NAME POC GIUSEPPE SALGADO 12/14/2017 4:50 PM CDT [facility] LABORATORY SERVICES [facility] Whole blood specimen (specimen) 12/14/2017 4:48 PM CDT 12/14/2017 4:50 PM CDT You Johnson MD POINT OF CARE TESTIN G [facility] LABORATORY [facility] CLIA# [id number] [address] [place] [address] * (ABNORMAL) POC GLUCOSE (12/14/2017 12:29 PM CDT) GLUCOSE POC 268(H) 74 - 99 mg/dL 12/14/2017 12:35 PM CDT [facility]ORATORY [facility] PLANNER NAME ELENO COYNE 12/14/2017 12:35 PM CDT [facility] LABORATORY SERVICES [facility] Whole blood specimen (specimen) 12/14/2017 12:29 PM CDT 12/14/2017 12:35 PM CDT You Johnson MD POINT OF CARE TESTIN G Performing Organization Address [facility] Co de Phone Number [facility] [address] [facility]# [id number] [address] [place] [address] * (ABNORMAL) POC GLUCOSE (12/14/2017 9:13 AM CDT) GLUCOSE POC 233(H) 74 - 99 mg/dL 12/14/2017 9:21 AM CDT [facility] LABORATORY [facility] PLANNER NAME ELENO COYNE 12/14/2017 9:21 AM CDT [facility] LABORATORY SERVICES [facility] Whole blood specimen (specimen) 12/14/2017 9:13 AM CDT 12/14/2017 9:20 AM CDT You Johnson MD POINT OF CARE TESTIN G Performing Organization Address City/[facility]/ZIP Co de Phone Number [facility] [address] [facility] CLIA# [id number] [address] [place] [address] * (ABNORMAL) POC GLUCOSE (12/13/2017 9:07 PM CDT) GLUCOSE POC 251(H) 74 - 99 mg/dL 12/13/2017 9:11 PM CDT [facility] LABORATORY SERVICES [facility] PLANNER NAME DENYS MARTINESTH 12/13/2017 9:11 PM CDT [facility] Whole blood specimen (specimen) 12/13/2017 9:07 PM CDT 12/13/2017 9:11 PM CDT You Johnson MD POINT OF CARE TESTIN G [facility] LABORATORY [facility] CLIA# [id number] [address] [place] [address] * (ABNORMAL) POC GLUCOSE (12/13/2017 5:50 PM CDT) GLUCOSE POC 213(H) 74 - 99 mg/dL 12/13/2017 5:55 PM CDT [facility] LABORATORY [facility] PLANNER NAME POC OCTAVIO ALDRICH 12/13/2017 5:55 PM CDT [facility] LABORATORY SERVICES [facility] Whole blood specimen (specimen) 12/13/2017 5:50 PM CDT 12/13/2017 5:55 PM CDT You Johnson MD POINT OF CARE TESTIN Elizabeth Performing Organization Address City/[facility]/ZIP Co de Phone Number [facility] [address] [facility] CLIA# [id number] [address] [address] * (ABNORMAL) POC GLUCOSE (12/13/2017 1:39 PM CDT) GLUCOSE POC 183(H) 74 - 99 mg/dL 12/13/2017 1:40 PM CDT [facility] LABORATORY [facility] PLANNER NAME POC OCTAVIO ALDRICH 12/13/2017 1:40 PM CDT [facility] LABORATORY SERVICES [facility] Whole blood specimen (specimen) 12/13/2017 1:39 PM CDT 12/13/2017 1:40 PM CDT You Johnson MD POINT OF CARE TESTIN Elizabeth [facility] LABORATORY [facility] CLIA# [id number] [address] [place] [address] * TELEMETRY REPORT (12/13/2017 12:32 PM CDT) Provider Scanning ECG ORDERABLES * (ABNORMAL) POC GLUCOSE (12/13/2017 9:59 AM CDT) GLUCOSE POC 182(H) 74 - 99 mg/dL 12/13/2017 10:05 AM CDT [facility] LABORATORY SERVICES [facility] PLANNER NAME POC OCTAVIO ALDRICH 12/13/2017 10:05 AM CDT [facility] Whole blood specimen (specimen) 12/13/2017 9:59 AM CDT 12/13/2017 10:05 AM CDT You Johnson MD POINT OF CARE TESTIN G [facility] [address] SERVICES [facility]# [id number] [address] [place] [address] * (ABNORMAL) BASIC METABOLIC PANEL (12/13/2017 2:42 AM CDT) Pathologist [facility] SODIUM 134(L) 136 - 145 mmol/L 12/13/2017 3:38 AM CDT [facility] LABORATORY SERVICES [facility] POTASSIUM 4.4 3.5 - 5.0 mmol/L 12/13/2017 3:38 AM T [facility] LABORATORY SERVICES - [facility] CHLORIDE 100 98 - 107 mmol/L 12/13/2017 3:38 AM CDT [facility] SERVICES - [facility] CO2 26 22 - 29 mmol/L 12/13/2017 3:38 AM CDT [facility] LABORATORY SERVICES - [facility] CALCIUM 8.9 8.6 - 10.2 mg/dL 12/13/2017 3:38 AM CDT [facility] LABORATORY SERVICES - . [facility] BUN 11 6 - 20 mg/dL 12/13/2017 3:38 AM CDT [facility] LABORATORY SERVICES - . [facility] CREATININE 0.67 0.67 - 1.17 mg/dL 12/13/2017 3:38 AM T [facility] LABORATORY SERVICES - [facility] GLUCOSE 169(H) 74 - 99 mg/dL 12/13/2017 3:38 AM T [facility] LABORATORY [facility] GFR >60 >=60 mL/min/1.7 3 sq meter 12/13/2017 3:38 AM T [facility] LABORATORY [facility] Comment: eGFR has not been validated for use in the elderly (> 70 years of age), women, patients with serious co-morbid conditions, or persons with extremes of body size or muscle mass and should also be interpreted with caution in patients with acute kidney failure, dialysis dependent patients, patients reporting exceptional dietary intake (e.g. vegetarian diet, high protein diets, creatine supplementation), and patients with severe liver disease. Based on National Kidney Disease Education Program If patient is , please refer to the GFR result. GFR, >60 >=60 mL/min/1.7 3 sq meter 12/13/2017 3:38 AM T [facility] [address] [facility] ANION GAP 8 8 - 16 mmol/L 12/13/2017 3:38 AM [facility] LAB[facility]ATORY [facility] Blood Venipuncture / Unknown 12/13/2017 2:42 AM CDT 12/13/2017 2:55 AM CDT You Johnson MD CHEMISTRY ORDERABLES [facility]# [id number] [address] [place] [address] [place] [address] * (ABNORMAL) CBC WITH DIFFERENTIAL (12/13/2017 2:42 AM CDT) [facility] WBC 7.2 4.0 - 9.8 K/uL 12/13/2017 3:06 AM T [facility] LABORATORY [facility] RBC 4.04(L) 4.50 - 5.40 M/uL 12/13/2017 3:06 AM [facility] LABORATORY [facility] HEMOGLOBIN 12.6(L) 13.6 - 16.5 g/dL 12/13/2017 3:06 AM T [facility] LABORATORY [facility] HEMATOCRIT 35.5(L) 40.0 - 48.0 % 12/13/2017 3:06 AM CDT [employer] LABORATORY SERVICES - [facility] MCV 87.9 82.0 - 99.0 fL 12/13/2017 3:06 AM CDT [employer] LABORATORY SERVICES - [facility] MCH 31.2 27.2 - 32.6 pg 12/13/2017 3:06 AM CDT [facility] LABORATORY SERVICES - [facility] MCHC 35.5 31.5 - 35.5 g/dL 12/13/2017 3:06 AM CDT [facility] LABORATORY SERVICES - [facility] RDW 11.9 11.5 - 14.5 % 12/13/2017 3:06 AM CDT [facility] LABORATORY SERVICES - [facility] RDW-STDEV 38.9 37.1 - 48.7 fL 12/13/2017 3:06 AM CDT [facility] LABORATORY SERVICES - [facility] PLATELETS 332 140 - 350 K/uL 12/13/2017 3:06 AM CDT [facility] LABORATORY SERVICES - [facility] MPV 10.3 9.3 - 12.4 fL 12/13/2017 3:06 AM CDT [facility] LABORATORY SERVICES - . [place] NEUTROPHILS 55 % 12/13/2017 3:06 AM CDT [facility] LAB[facility]ATORY SERVICES - . [place] LYMPHOCYTES 30 % 12/13/2017 3:06 AM CDT [facility] SERVICES - . [place] MONOCYTES 6 % 12/13/2017 3:06 AM CDT [facility]AT[facility] SERVICES - . [place] EOSINOPHILS 7 % 12/13/2017 3:06 AM CDT [facility]AT[facility] SERVICES - . [place] BASOPHILS 1 % 12/13/2017 3:06 AM CDT [facility]ATORY SERVICES - . [place] IMMATURE GRANULOCYTES 0 % 12/13/2017 3:06 AM CDT [facility] LABORATORY SERVICES - . [facility] NEUTROPHIL ABSOLUTE 3.93 1.90 - 7.00 K/uL 12/13/2017 3:06 AM CDT [facility] LABORATORY SERVICES - . [facility] LYMPHOCYTE ABSOLUTE 2.18 0.70 - 4.50 K/uL 12/13/2017 3:06 AM CDT [facility] LABORATORY SERVICES - . [facility] MONOCYTE ABSOLUTE 0.43 0.10 - 1.30 K/uL 12/13/2017 3:06 AM CDT [facility] LABORATORY SERVICES - . [place] EOSINOPHIL ABSOLUTE 0.53 0.00 - 0.70 K/uL 12/13/2017 3:06 AM CDT [facility] LABORATORY SERVICES - [facility] BASOPHILS ABSOLUTE 0.07 0.00 - 0.20 K/uL 12/13/2017 3:06 AM CDT [facility] LABORATORY SERVICES - [facility] IMMATURE GRANULOCYTES ABSOLUTE 0.03 0.00 - 0.03 K/uL 12/13/2017 3:06 AM CDT [facility] LABORATORY [facility] Blood Venipuncture / Unknown 12/13/2017 2:42 AM CDT 12/13/2017 2:55 AM CDT You Johnson MD HEMATOLOGY ORDERABLE S [facility] CLIA# [id number] [address] [place] [address] * PHOSPHORUS (12/13/2017 2:42 AM CDT) PHOSPHORUS 3.0 2.5 - 4.5 mg/dL 12/13/2017 3:38 AM CDT [facility] LABORATORY [facility] Blood Venipuncture / Unknown 12/13/2017 2:42 AM CDT 12/13/2017 2:55 AM CDT You Johnson MD CHEMISTRY ORDERABLES Performing Organization Address City/[facility]/ZIP Co de Phone Number [facility] CLIA# [id number] [address] [place] [address] * MAGNESIUM LEVEL (12/13/2017 2:42 AM CDT) MAGNESIUM 1.7 1.6 - 2.6 mg/dL 12/13/2017 3:38 AM CDT [facility] LABORATORY [facility] Blood Venipuncture / Unknown 12/13/2017 2:42 AM CDT 12/13/2017 2:55 AM CDT You Johnson MD CHEMISTRY ORDERABLES [facility]# [id number] [address] [place] [address] * (ABNORMAL) PREALBUMIN (12/13/2017 2:42 AM CDT) PREALBUMIN 13(L) 20 - 40 mg/dL 12/13/2017 3:41 AM CDT [facility] Blood Venipuncture / Unknown 12/13/2017 2:42 AM CDT 12/13/2017 2:55 AM CDT You Johnson MD CHEMISTRY ORDERABLES [facility]# [id number] [address] [place] [address] * (ABNORMAL) POC GLUCOSE (12/12/2017 10:59 PM CDT) [facility] Signature GLUCOSE POC 161(H) 74 - 99 mg/dL 12/12/2017 11:05 PM CDT [facility] PLANNER NAME POC KALYANI PALOMARES 12/12/2017 11:05 PM CDT [facility] [address] [facility] Whole blood specimen (specimen) 12/12/2017 10:59 PM CDT 12/12/2017 11:05 PM CDT You Johnson MD POINT OF CARE TESTIN G [facility]# [id number] [address] [place] [address] * (ABNORMAL) POC GLUCOSE (12/12/2017 6:41 PM CDT) GLUCOSE POC 125(H) 74 - 99 mg/dL 12/12/2017 6:46 PM CDT [facility] LABORATORY [facility] SR[facility] PLANNER NAME POC ELENO SAEZ 12/12/2017 6:46 PM CDT [facility] LABORATORY [facility] Whole blood specimen (specimen) 12/12/2017 6:41 PM CDT 12/12/2017 6:46 PM CDT You Johnson MD POINT OF CARE TESTIN G Performing Organization Address [facility] Co de Phone Number [facility] CLIA# [id number] [address], [place] [address] * ACINETOBACTER SURVEILLANCE SCREEN (12/12/2017 4:34 PM CDT) CULTURE No Acinetobacter Isolated. 12/14/2017 8:56 AM CDT [facility] Lab findings surveillance (regime/therapy) (Perineum) Collection / Unknown 12/12/2017 4:34 PM CDT 12/12/2017 4:53 PM CDT You Johnson MD MICROBIOLOGY - GENER AL ORDERABLES Performing Organization Address [facility] Co de Phone Number [facility] CLIA# [id number] [address], [place] [address] * ACINETOBACTER SURVEILLANCE SCREEN (12/12/2017 4:34 PM CDT) CULTURE No Acinetobacter Isolated. 12/14/2017 8:55 AM CDT [facility] Lab findings surveillance (regime/therapy) ANTERIOR NARES SWAB / Unknown Collection / Unknown 12/12/2017 4:34 PM CDT 12/12/2017 4:53 PM CDT You Johnson MD MICROBIOLOGY - GENER AL ORDERABLES Performing Organization Address [facility] Co de Phone Number [facility] CLIA# [id number] [address] [place] [address] * MRSA ACTIVE SURVEILLANCE CULTURE (12/12/2017 4:34 PM CDT) CULTURE No methicillin resistant Staph aureus isolated. 12/14/2017 7:04 AM CDT [facility] Lab findings surveillance (regime/therapy) (Perineum) Collection / Unknown 12/12/2017 4:34 PM CDT 12/12/2017 4:53 PM CDT You Johnson MD MICROBIOLOGY - GENER AL ORDERABLES [facility] CLIA# [id number] [address] [place] [address] * MRSA ACTIVE SURVEILLANCE CULTURE (12/12/2017 4:34 PM CDT) CULTURE No methicillin resistant Staph aureus isolated. 12/14/2017 7:04 AM CDT [facility] Lab findings surveillance (regime/therapy) ANTERIOR NARES SWAB / Unknown Collection / Unknown 12/12/2017 4:34 PM CDT 12/12/2017 4:53 PM CDT You Johnson MD MICROBIOLOGY - GENER AL ORDERABLES Performing Organization Address City/[facility]/ZIP Co de Phone Number [facility]# [id number] [address] [place] [address] * (ABNORMAL) POC GLUCOSE (12/12/2017 1:50 PM CDT) GLUCOSE POC 146(H) 74 - 99 mg/dL 12/12/2017 1:56 PM CDT [facility] SR[facility] PLANNER NAME POC FELYSHAZIA 12/12/2017 1:56 PM CDT [facility] Whole blood specimen (specimen) 12/12/2017 1:50 PM CDT 12/12/2017 1:56 PM CDT You Johnson MD POINT OF CARE TESTIN G Performing Organization Address City/[facility]/ZIP Co de Phone Number [facility] CLIA# [id number] [address] [place] [address] * (ABNORMAL) POC GLUCOSE (12/12/2017 9:48 AM CDT) [facility] GLUCOSE POC 222(H) 74 - 99 mg/dL 12/12/2017 9:55 AM CDT [employer] [facility] COMMENT, GLU POC Notified RN/MD 12/12/2017 9:55 AM CDT [facility] SR. MERCHANDISE PLANNER NAME POC MONIQUE MARKS 12/12/2017 9:55 AM CDT [facility] Whole blood specimen (specimen) 12/12/2017 9:48 AM CDT 12/12/2017 9:55 AM CDT You Johnson MD POINT OF CARE TESTIN G [facility] [employer] [facility] CLIA# [id number] [address] [place] [address] * (ABNORMAL) BASIC METABOLIC PANEL (12/12/2017 9:26 AM CDT) [facility] SODIUM 137 136 - 145 mmol/L 12/12/2017 10:48 AM T [facility] POTASSIUM 4.9 3.5 - 5.0 mmol/L 12/12/2017 10:48 AM T [facility] Comment: Slightly hemolyzed. Result may be falsely elevated. CHLORIDE 102 98 - 107 mmol/L 12/12/2017 10:48 AM CDT [facility] CO2 25 22 - 29 mmol/L 12/12/2017 10:48 AM CDT [facility] CALCIUM 9.3 8.6 - 10.2 mg/dL 12/12/2017 10:48 AM T [facility] BUN 17 6 - 20 mg/dL 12/12/2017 10:48 AM T [facility] CREATININE 0.68 0.67 - 1.17 mg/dL 12/12/2017 10:48 AM T [facility] GLUCOSE 231(H) 74 - 99 mg/dL 12/12/2017 10:48 AM T [facility] GFR >60 >=60 mL/min/1.7 3 sq meter 12/12/2017 10:[address] [facility] Comment: eGFR has not been validated for use in the elderly (> 70 years of age), women, patients with serious co-morbid conditions, or persons with extremes of body size or muscle mass and should also be interpreted with caution in patients with acute kidney failure, dialysis dependent patients, patients reporting exceptional dietary intake (e.g. vegetarian diet, high protein diets, creatine supplementation), and patients with severe liver disease. Based on National Kidney Disease Education Program If patient is , please refer to the GFR result. GFR, >60 >=60 mL/min/1.7 3 sq meter 12/12/2017 10:48 AM [facility] ANION GAP 10 8 - 16 mmol/L 12/12/2017 10:48 AM [facility] Blood Venipuncture / Unknown 12/12/2017 9:26 AM CDT 12/12/2017 9:52 AM CDT Jai Leavitt MD CHEMISTRY ORDERABLES Performing Organization Address City/State/[facility] Co de Phone Number [facility]# [id number] [address] [place] [address] [place] [address] documented in this encounter Visit Diagnoses Not on filedocumented in this encounter Administered Medications Inactive Administered Medications - up to 3 most recent administrations Medication Order MAR Action Action Date Dose Rate Site acetaminophen (TYLENOL) tablet 650 mg 650 mg, Oral, EVERY 4 HOURS PRN, Starting on 12/14/17 at 2351, Until 12/17/17 at 1506, Pain, Mild, Pain, Moderate, Routine Given 12/17/2017 8:19 AM CDT 650 mg Given 12/16/2017 6:29 AM CDT 650 mg Given 12/15/2017 12:05 AM CDT 650 mg bacitracin zinc 500 unit/gram topical ointment 1 Packet Topical, SEE ADMIN INSTRUCTIONS, 2 doses, Starting on Felisha 12/12/17 at 1130, Until Sat12/17/17 at 1506, Routine, Three total doses to be used in OR, Intra-op bacitracin zinc 500 unit/gram topical ointment INTRA-PROCEDURE PRN, Starting on Felisha 12/12/17 at 1341, Until Felisha 12/12/17 at 1342, Routine, Intra-op Given 12/12/2017 1:41 PM CDT 2 Packets Opera tive Site dextrose 5 % in water 250 mL flush bag 25 mL 25 mL, IV, SEE ADMIN INSTRUCTIONS, Starting on Fleisha 12/12/17 at 1638, Until Sat12/17/17 at 1506, Routine dextrose 50% (D50) syringe 12.5 Gram 12.5 Gram, IV, SEE ADMIN INSTRUCTIONS, Starting on Felisha 12/12/17 at 1718, Until Sat12/17/17 at 1506, Routine dextrose 50% (D50) syringe 25 Gram 25 Gram, IV, SEE ADMIN INSTRUCTIONS, Starting on Felisha 12/12/17 at 1718, Until Sat12/17/17 at 1506, Routine diphenhydrAMINE (BENADRYL) tablet 25 mg 25 mg, Oral, EVERY 4 HOURS PRN, Starting on Felisha 12/12/17 at 1338, Until Sat12/17/17 at 1506, Itching, Routine Given 12/12/2017 8:53 PM CDT 25 mg docusate sodium (COLACE) capsule 100 mg 100 mg, Oral, TWO TIMES DAILY, First dose on Felisha 12/12/17 at 2100, Until Discontinued, Routine Given 12/17/2017 8:18 AM CDT 100 mg Given 12/16/2017 8:09 PM CDT 100 mg Given 12/16/2017 8:12 AM CDT 100 mg enoxaparin (LOVENOX) injection 30 mg 30 mg, subCUT, EVERY 12 HOURS, First dose (after last modification) on [facility] 12/14/17 at 0900, Until Discontinued, Routine Given 12/17/2017 8:19 AM CDT 30 mg Abdom inal Tissue Given 12/16/2017 8:10 PM CDT 30 mg Ab dominal Tissue Given 12/16/2017 8:12 AM CDT 30 mg Ab domen, Left Lower Quadrant EPINEPHrine (ADRENALINE) 10 mg in sodium chloride 0.9 % irrigation 1,000 mL irrigation Irrigation, INTRA-PROCEDURE PRN, 2 doses, Starting on Sat12/12/17 at 1110, Until Sat12/12/17 at 1601, Intra-op Given 12/12/2017 1:42 PM CDT 10 mL Ope rative Site famotidine (PEPCID) tablet 20 mg 20 mg, Oral, EVERY 12 HOURS (BlD), First dose on Sat12/12/17 at 2100, Until Discontinued, Routine Given 12/17/2017 8:18 AM CDT 20 mg Given 12/16/2017 8:09 PM CDT 20 mg Given 12/16/2017 9:12 AM CDT 20 mg glucagon HCl 1 mg injection 1 mg 1 mg, IM, SEE ADMIN INSTRUCTIONS, Starting on Sat12/12/17 at 1718, Until Sat12/17/17 at 1506, Routine insulin glargine (LANTUS) 100 unit/mL injection 80 Units 80 Units, subCUT, DAILY AT BEDTIME, First dose (after last modification) on Sat12/16/17 at 2100, Until Discontinued, Routine Given 12/16/2017 9:42 PM CDT 80 Units Abdominal Tissue insulin lispro (HumaLOG) 100 unit/mL injection 15 Units 15 Units, subCUT, THREE TIMES DAILY WITH MEALS, First dose (after last modification) on Sat12/16/17 at 1700, Until Discontinued, Routine Given 12/17/2017 7:37 AM CDT 15 Units Arm, Left Given 12/16/2017 4:45 PM CDT 15 Units Ar m, Left Upper insulin lispro (HumaLOG) 100 units/mL variable dose injection subCUT, THREE TIMES DAILY WITH MEALS, First dose on Sat12/16/17 at 1200, Until Discontinued, Routine Given 12/17/2017 7:38 AM CDT 5 Units Arm, Left Given 12/16/2017 4:46 PM CDT 8 Units Ar m, Left Upper Given 12/16/2017 12:23 PM CDT 8 Units A rm, Left Upper insulin lispro (HumaLOG) 100 units/mL variable dose injection subCUT, DAILY AT BEDTIME, First dose on Sat12/16/17 at 2100, Until Discontinued, Routine Given 12/16/2017 8:19 PM CDT 8 Units Abdominal Tissue insulin lispro (HumaLOG) 100 units/mL variable dose injection subCUT, DAILY 0200, First dose (after last modification) on Sat12/17/17 at 0200, Until Discontinued, Routine loperamide (IMODIUM) capsule 2 mg 2 mg, Oral, FOUR TIMES DAILY PRN, Starting on Sat12/12/17 at 1627, Until Sat12/17/17 at 1506, Diarrhea/Loose Stools, Routine melatonin disintegrating tablet 10 mg 10 mg, Oral, DAILY AT BEDTIME, First dose on Sat12/16/17 at 2100, Until Discontinued, Routine Given 12/16/2017 9:45 PM CDT 10 mg mineral oil (SARDO) topical oil INTRA-PROCEDURE PRN, Starting on Sat12/12/17 at 1342, Until Sat12/12/17 at 1342, Routine, Intra-op Given 12/12/2017 1:42 PM CDT 1 Gram Operative Site multivitamin,bh-tzuh-hg-min (THERA-M) tablet 1 Tablet 1 Tablet, Oral, DAILY, First dose on Sat12/13/17 at 0900, Until Discontinued, Routine Given 12/17/2017 8:18 AM CDT 1 Tablet Given 12/16/2017 8:11 AM CDT 1 Tablet Given 12/15/2017 8:15 AM CDT 1 Tablet oxyCODONE (ROXICODONE) tablet 15 mg 15 mg, Oral, EVERY 4 HOURS PRN, Starting on Sat12/16/17 at 1054, Until Sat12/17/17 at 1506, Pain (See admin instructions), Routine Given 12/17/2017 12:1 3 PM CDT 15 mg Given 12/17/2017 8:18 AM CDT 15 mg Given 12/17/2017 2:03 AM CDT 15 mg oxyCODONE-acetaminophen (PERCOCET) 5-325 mg per tablet 1 Tablet 1 Tablet, Oral, EVERY 4 HOURS PRN, Starting on Sat12/16/17 at 1055, Until Sat12/17/17 at 1506, Pain, Break-Through, Routine Given 12/17/2017 9:35 AM CDT 1 Tabl et Given 12/16/2017 8:09 PM CDT 1 Tablet Given 12/16/2017 2:04 PM CDT 1 Tablet sodium chloride 0.9 % 250 mL flush bag 25 mL 25 mL, IV, SEE ADMIN INSTRUCTIONS, Starting on Felisha 12/12/17 at 1638, Until 12/17/17 at 1506, Routine sodium chloride flush injection 5 mL 5 mL, IV, EVERY 12 HOURS (BlD), First dose on Felisha 12/12/17 at 2100, Until Discontinued, Routine Given 12/16/2017 8:10 PM CDT 5 mL Given 12/16/2017 10:52 AM CDT 5 mL Given 12/15/2017 8:09 PM CDT 5 mL sodium chloride flush injection 5 mL 5 mL, IV, SEE ADMIN INSTRUCTIONS, Starting on Felisha 12/12/17 at 1638, Until 12/17/17 at 1506, Routine documented in this encounter Active and Recently Administered Medications Times are shown in CDT. Scheduled Medication Order 12/15/2017 12/16/2017 12/17/2017 bacitracin zinc 500 unit/gram topical ointment 1 Packet Topical, SEE ADMIN INSTRUCTIONS, 2 doses, Starting on Felisha 12/12/17 at 1130, Until 12/17/17 at 1506, Routine, Three total doses to be used in OR, Intra-op dextrose 5 % in water 250 mL flush bag 25 mL 25 mL, IV, SEE ADMIN INSTRUCTIONS, Starting on Felisha 12/12/17 at 1638, Until 12/17/17 at 1506, Routine dextrose 50% (D50) syringe 12.5 Gram 12.5 Gram, IV, SEE ADMIN INSTRUCTIONS, Starting on Felisha 12/12/17 at 1718, Until 12/17/17 at 1506, Routine dextrose 50% (D50) syringe 25 Gram 25 Gram, IV, SEE ADMIN INSTRUCTIONS, Starting on Felisha 12/12/17 at 1718, Until 12/17/17 at 1506, Routine docusate sodium (COLACE) capsule 100 mg 100 mg, Oral, TWO TIMES DAILY, First dose on Felisha 12/12/17 at 2100, Until Discontinued, Routine 0815 (Given - Provider: Eleno Saez RN)2007 (Given - Provider: Betty Arias RN) 08 (Given - Provider: Kamran Enciso RN)2008 (Given - Provider: Melania Steele RN) 0818 (Given - Provider: Sera Ibarra RN) enoxaparin (LOVENOX) injection 30 mg 30 mg, subCUT, EVERY 12 HOURS, First dose (after last modification) on 12/14/17 at 0900, Until Discontinued, Routine 0815 (Given - Provider: Eleno Saez, ZHANG)2007 (Given - Provider: Betty Arias RN) 811 (Given - Provider: Kamran Enciso, ZHANG)2009 (Given - Provider: Melania Steele, ZHANG) 818 (Given - Provider: Sera Ibarra, ZHANG) famotidine (PEPCID) tablet 20 mg 20 mg, Oral, EVERY 12 HOURS (BlD), First dose on Felisha 12/12/17 at 2100, Until Discontinued, Routine 0815 (Given - Provider: Eleno Saez RN)2007 (Given - Provider: Betty Arias RN) 911 (Given - Provider: Kamran Enciso RN)2008 (Given - Provider: Melania Steele RN) 817 (Given - Provider: Sera Ibarra RN) fentaNYL PF (SUBLIMAZE) 50 mcg/mL injection 100 mcg (COMPLETED) 100 mcg, IV, ONE TIME ONLY, 1 dose, On Sat12/16/17 at 0945, Routine, Give 50mcg initially then repeat 50mcg after 10 minutes 1050 (Given - Provider: Kamran Enciso RN) glucagon HCl 1 mg injection 1 mg 1 mg, IM, SEE ADMIN INSTRUCTIONS, Starting on Felisha 12/12/17 at 1718, Until Sat12/17/17 at 1506, Routine insulin glargine (LANTUS) 100 unit/mL injection 72 Units (CANCELED) 72 Units, subCUT, DAILY AT BEDTIME, First dose (after last modification) on Sat12/15/17 at 2100, Until Discontinued, Routine 2245 (Given - Provider: Betty Arias RN - Comment: bg [phone]) insulin glargine (LANTUS) 100 unit/mL injection 80 Units 80 Units, subCUT, DAILY AT BEDTIME, First dose (after last modification) on Sat12/16/17 at 2100, Until Discontinued, Routine 2141 (Given - Provider: Melania N Steele, RN - Comment: BS 202) insulin lispro (HumaLOG) 100 unit/mL injection 10 Units (CANCELED) 10 Units, subCUT, THREE TIMES DAILY WITH MEALS, First dose on Felisha 12/12/17 at 1800, Until Discontinued, Routine 0700 (Given - Provider: Eleno Saez RN - Comment: not letting me scan because the order was changed, but meds still needs admin) insulin lispro (HumaLOG) 100 unit/mL injection 12 Units (CANCELED) 12 Units, subCUT, THREE TIMES DAILY WITH MEALS, First dose (after last modification) on Sat12/15/17 at 1200, Until Discontinued, Routine 1414 (Given - Provider: Eleno Saez RN)1828 (Given - Provider: Eleno Saez RN) 0732 (Given - Provider: Kamran Enciso RN - Comment: [phone] (Given - Provider: Kamran Enciso, RN - Comment: 256) insulin lispro (HumaLOG) 100 unit/mL injection 15 Units 15 Units, subCUT, THREE TIMES DAILY WITH MEALS, First dose (after last modification) on Sat12/16/17 at 1700, Until Discontinued, Routine 1645 (Given - Provider: Kamran Enciso RN - Comment: [phone]) 0737 (Given - Provider: Sera Ibarra RN)1200 (Due) insulin lispro (HumaLOG) 100 units/mL variable dose injection (CANCELED) subCUT, THREE TIMES DAILY WITH MEALS, First dose on Felisha 12/12/17 at 1800, Until Discontinued, Routine 0910 (Given - Provider: Eleno Saez RN - Comment: bs 279 tray at bedside)1415 (Given - Provider: Eleno Saez RN - Comment: bs [phone] (Given - Provider: Eleno Saez RN - Comment: bs 259) 0732 (Given - Provider: Kamran Enciso, RN - Comment: 319) insulin lispro (HumaLOG) 100 units/mL variable dose injection subCUT, THREE TIMES DAILY WITH MEALS, First dose on Sat12/16/17 at 1200, Until Discontinued, Routine 1223 (Given - Provider: Kamran Enciso RN - Comment: [phone] (Given - Provider: Kamran Enciso, ZHANG - Comment: 244) 0738 (Given - Provider: Sera Ibarra, ZHANG - Comment: 190, breakfast tray in room. total of 20 units given)1200 (Due) insulin lispro (HumaLOG) 100 units/mL variable dose injection subCUT, DAILY AT BEDTIME, First dose on Sat12/16/17 at 2100, Until Discontinued, Routine 2019 (Given - Provider: Melania Steele RN - Comment: BS 243) insulin lispro (HumaLOG) 100 units/mL variable dose injection subCUT, DAILY 0200, First dose (after last modification) on Sat12/17/17 at 0200, Until Discontinued, Routine 0200 (Not Given - Provider: Melania Steele RN - Reason: Lab results - Comment: BS 155) melatonin disintegrating tablet 10 mg 10 mg, Oral, DAILY AT BEDTIME, First dose on Sat12/16/17 at 2100, Until Discontinued, Routine 214 (Given - Provider: Melania Steele RN) multivitamin,ao-noum-yo-m in (THERA-M) tablet 1 Tablet 1 Tablet, Oral, DAILY, First dose on Sat12/13/17 at 0900, Until Discontinued, Routine 0815 (Given - Provider: Eleno Saez RN) 0811 (Given - Provider: Kamran Enciso, ZHANG) 0818 (Given - Provider: Sera Ibarra, ZHANG) naloxone (NARCAN) 0.4 mg/mL injection 0.1 mg 0.1 mg, IV, SEE ADMIN INSTRUCTIONS, Starting on Sat12/12/17 at 1334, Until Sat12/17/17 at 1506, Routine sodium chloride 0.9 % 250 mL flush bag 25 mL 25 mL, IV, SEE ADMIN INSTRUCTIONS, Starting on Sat12/12/17 at 1638, Until Sat12/17/17 at 1506, Routine sodium chloride flush injection 5 mL 5 mL, IV, EVERY 12 HOURS (BlD), First dose on Sat12/12/17 at 2100, Until Discontinued, Routine 0816 (Given - Provider: Eleno Saez RN)2008 (Given - Provider: Betty Arias RN) 105 (Given - Provider: Kamran Enciso RN)2009 (Given - Provider: Melania Steele RN) 0900 (Canceled Entry - Provider: Sera Ibarra, ZHANG) sodium chloride flush injection 5 mL 5 mL, IV, SEE ADMIN INSTRUCTIONS, Starting on Felisha 12/12/17 at 1638, Until Tu12/17/17 at 1506, Routine PRN Medication Order 12/15/2017 12/16/2017 12/17/2017 acetaminophen (TYLENOL) tablet 650 mg 650 mg, Oral, EVERY 4 HOURS PRN, Starting on 12/14/17 at 2351, Until 12/17/17 at 1506, Pain, Mild, Pain, Moderate, Routine 0005 (Given - Provider: Lori Torres, ZHANG) 0629 (Given - Provider: Betty Arias RN) 0819 (Given - Provider: Sera Ibarra RN) aluminum hydroxide - magnesium carbonate (GAVISCON) 95-358 mg/15 mL oral suspension 30 mL 30 mL, Oral, EVERY 4 HOURS PRN, Starting on Felisha 12/12/17 at 1336, Until Tu12/17/17 at 1506, Dyspepsia, Routine diphenhydrAMINE (BENADRYL) tablet 25 mg 25 mg, Oral, EVERY 4 HOURS PRN, Starting on Felisha 12/12/17 at 1338, Until Tu12/17/17 at 1506, Itching, Routine loperamide (IMODIUM) capsule 2 mg 2 mg, Oral, FOUR TIMES DAILY PRN, Starting on Felisha 12/12/17 at 1627, Until 12/17/17 at 1506, Diarrhea/Loose Stools, Routine midazolam (PF) (VERSED) injection 2 mg (CANCELED) 2 mg, IV, TWO TIMES DAILY PRN, Starting on 12/15/17 at 1035, Until 12/16/17 at 1727, Dressing change, Routine 1058 (Given - Provider: Kamran Enciso RN - Comment: dressing change) morphine 4 mg/mL injection 4 mg (CANCELED) 4 mg, IV, EVERY 2 HOURS PRN, Starting on Felisha 12/12/17 at 1336, Until 12/16/17 at 1055, Pain (See admin instructions), Routine 0816 (Given - Provider: Eleno Saez RN)0937 (Given - Provider: Eleno Saez RN)2256 (Given - Provider: Betty Arias RN) 0629 (Given - Provider: Betty Arias RN)1053 (Given - Provider: Kamran Enciso RN) ondansetron (ZOFRAN) 4 mg/2 mL injection 4 mg 4 mg, IV, EVERY 6 HOURS PRN, Starting on Felisha 12/12/17 at 1338, Until Sat12/17/17 at 1506, Nausea/Emesis, Routine oxyCODONE (ROXICODONE) tablet 10 mg (CANCELED) 10 mg, Oral, EVERY 4 HOURS PRN, Starting on Felisha 12/12/17 at 1645, Until 12/16/17 at 1055, Pain (See admin instructions), Routine 0005 (Given - Provider: Lori Torres RN)0404 (Given - Provider: Lori Torres RN)0815 (Given - Provider: Eleno Saez RN)1340 (Given - Provider: Cordell Vaughn RN)2007 (Given - Provider: Betty Arias RN) 0151 (Given - Provider: Betty Arias RN)0912 (Given - Provider: Kamran Enciso RN) oxyCODONE (ROXICODONE) tablet 15 mg 15 mg, Oral, EVERY 4 HOURS PRN, Starting on 12/16/17 at 1054, Until Sat12/17/17 at 1506, Pain (See admin instructions), Routine 1219 (Given - Provider: Kamran Enciso RN)1646 (Given - Provider: Kamran Enciso RN) 0203 (Given - Provider: Melania Steele RN)0818 (Given - Provider: Sera Ibarra RN - Comment: dressing chagne)1213 (Given - Provider: Sera Ibarra RN) oxyCODONE-acetaminophe n (PERCOCET) 5-325 mg per tablet 1 Tablet 1 Tablet, Oral, EVERY 4 HOURS PRN, Starting on 12/16/17 at 1055, Until Sat12/17/17 at 1506, Pain, Break-Through, Routine 1404 (Given - Provider: Kamran Enciso, ZHANG)2009 (Given - Provider: Melania Steele, ZHANG) 0935 (Given - Provider: Sera Ibarra, ZHANG) No Frequency Medication Order 12/15/2017 12/16/2017 12/17/2017 BACITRACIN 500 UNIT/GRAM TOPICAL OINTMENT (CABINET OVERRIDE) (COMPLETED) 1 dose, Starting on Sat12/16/17 at 1105, Until Sat12/16/17 at 1106, Rosalia OMNICELL: cabinet override 1106 (Given - Provider: Kamran Enciso, ZHANG) BACITRACIN 500 UNIT/GRAM TOPICAL OINTMENT (CABINET OVERRIDE) (COMPLETED) 1 dose, Starting on Sat12/17/17 at 1055, Until Sat12/17/17 at 1100, Merioles OMNICELL: cabinet override 1100 (Patient/Family Admin - Provider: Sera Ibarra RN) MIDAZOLAM (PF) 1 MG/ML INJECTION SOLUTION (CABINET OVERRIDE) (COMPLETED) 1 dose, Starting on 12/15/17 at 0827, Until 12/15/17 at 0921, Seamon OMNICELL: cabinet override 0921 (Given - Provider: Eleno Saez RN) WHITE PETROLATUM-MINERAL OIL TOPICAL CREAM (CABINET OVERRIDE) (COMPLETED) 1 dose, Starting on Tu12/17/17 at 0924, Until Tu12/17/17 at 0937, White OMNICELL: cabinet override 0937 (Given - Provider: Sera Ibarra RN - Comment: left leg) documented in this encounter
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
--- OUTSIDE RECORDS SUMMARY | 2024-09-15 10:48 | XMS_ITS | Encounter Summary ---
Author Organization [facility] Address 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 His last surgery was cancelled due to work comp not paying for it. He states that now his work comp will pay for surgery so he is wanting to schedule surgery. I spoke with Dr Johnson and he stated that the patient does not need to come in for another appointment and he will work on orders for this surgery. documented in this encounter Plan of Treatment Not on file documented as of this encounter Visit Diagnoses Not on filedocumented in this encounter
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
--- OUTSIDE RECORDS SUMMARY | 2024-09-15 10:48 | XMS_ITS | Encounter Summary ---
Author Organization [facility] Address [address] [place] [address] Care Team Providers Care Nurse Anesthetist Name Role Phone Unavailable Primary Care Provider Unavailabl e Reason for Visit * Reason Comments Burn Encounter Details Date Type Department Care Team (Late st Contact Info) Description 11/12/2018 9:00 AM RIVETER AUTOMOBILE BRAKES Office Visit [facility] [address] [address] You Johnson MD [address] [facility] [address] [place] [address] Burn involving less than 10% [...] Sign Reading Time Taken Comments Blood Pressure 130/70 11/12/2018 8:48 AM RIVETER AUTOMOBILE BRAKES Pulse - - Temperature - - Respiratory Rate - - Oxygen Saturation - - Inhaled Oxygen Concentration - - Weight 82.6 kg (182 lb) 11/12/2018 8:48 AM RIVETER AUTOMOBILE BRAKES Height 170.2 cm (5' 7 ) 11/12/2018 8:48 AM RIVETER AUTOMOBILE BRAKES Body Mass Index 28.51 11/12/2018 8:48 AM RIVETER AUTOMOBILE BRAKES documented in this encounter Progress Notes * You Johnson MD - 11/12/2018 8:47 AM CST [facility] Plastic Surgery Post Operative/ Office Procedure Visit You Johnson MD 11/12/2018 Pranav Fay returns for evaluation following this [...] above listed procedure and has been feeling okay. He still complains of increased pain down the de la cruz of his LLE in cold weather. He states the pain is worse at 30 degree below and tolerable at 40 degrees. The pain is so severe that he has to take off work. His company will not allow him any more days off. The area is very tender to touch. He has been taking gabapentin. OBJECTIVE: Physical Exam: BP 130/70 Ht 5' 7 (1.702 m) Wt 82.6 [...] operative course at this time. PLAN: ?? Continue taking gabapentin. ?? Work note provided. ?? He was sent to another physician for a second opinion by his worker's comp liaison. The physician disagreed with my current treatment plan of fat grafting. He is in private practice and no charting notes are available. The patient was given an article on fat grafting for nerve damage, while a newer technique, the option exists that this may improve his symptoms. He will relay this information to his project product manager. ?? At this point I am unsure if patient will be able to work in temperatures less than 40 degrees farenheit. ?? Pranav will follow up for PRN for any problems or questions. All of the patients questions were encouraged and answered. TER AUTOMOBILE BRAKES documented in this encounter Plan of Treatment [...]
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
--- OUTSIDE RECORDS SUMMARY | 2024-09-15 14:30 | XMS_ITS | Encounter Summary ---
Author Organization [facility] Address [address] [place] [address] Care Team Providers Care Clipper Machine Name Role Phone Unavailable Primary Care Provider Unavailabl e Reason for Visit * Reason Comments Medical Records Encounter Details Date Type Department Care Team (Late st Contact Info) Description 08/18/2019 Chart Note [facility] PLASTIC SURGERY [address] [facility] [address] [address] Ildefonso Pang, RN Medical Records [...] CST Faxed request for medical records from [email or web address] to [facility] at [phone]. ER FEEDER documented in this encounter Plan of Treatment Not on file documented as of this encounter Visit Diagnoses Not on filedocumented in this encounter
--- OUTSIDE RECORDS SUMMARY | 2024-09-15 14:30 | XMS_ITS | Clinical Summary ---
Author Organization [facility] Address [address] [place] [address] Phone Care Team Providers Care Machine Or Machinery Mechanic Name Role Phone Unavailable Primary Care Provider [...] Advance Directives For more information, please contact: [phone] * Full Code (Latest Code Status on File) Date Activated Date Inactivated Comments 12/12/2017 1:40 PM 12/17/2017 3:11 PM * Full Code Date Activated Date Inactivated Comments 12/12/2017 10:18 AM 12/12/2017 1:40 PM * Full Code Date Activated Date Inactivated Comments 12/12/2017 9:26 AM 12/12/2017 10:18 AM
--- OUTSIDE RECORDS SUMMARY | 2024-09-15 14:30 | XMS_ITS | Encounter Summary ---
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 10:48 AM [facility] [employer] - . [facility] GLUCOSE 231(H) 74 - 99 mg/dL 12/12/2017 10:48 AM [facility] [employer] [facility] GFR >60 >=60 mL/min/1.7 3 sq meter 12/12/2017 10:48 AM [facility] [employer] [facility] Comment: eGFR has not been validated for [...] 3 sq meter 12/12/2017 10:48 AM CDT [facility] SERVICES - [facility] ANION GAP 10 8 - 16 mmol/L 12/12/2017 10:48 AM CDT [facility] Blood Venipuncture / Unknown 12/12/2017 9:26 AM CDT 12/12/2017 9:52 AM CDT Jai Leavitt MD CHEMISTRY ORDERABLES Performing Organization Address City/State/[facility] Co de Phone Number [facility] [id number] [address] [place] [address] documented in this encounter Visit Diagnoses Diagnosis [...] MEALS, First dose (after last modification) on [place] 12/15/17 at 1200, Until Discontinued, Routine Given [...] DAILY WITH MEALS, First dose on [facility] 12/12/17 at 1800, Until Discontinued, Routine Given [...] Given 12/12/2017 2:06 PM CDT 2 mg multivitamin,tt-huue-xb-min (THERA-M) tablet 1 Tablet 1 Tablet, Oral, [...] Discontinued, Routine 2246 (Given - Provider: Betty Arisa RN - Comment: bg 245) insulin glargine [...] bs 259) 0732 (Given - Provider: Kamran Enciso RN - Comment: 319) insulin lispro (HumaLOG) [...] 2145 (Given - Provider: Melania Steele, ZHANG) multivitamin,bb-kbvu-lb-m in (THERA-M) tablet 1 Tablet 1 Tablet, [...] Sat12/16/17 at 1105, Until Sat12/16/17 at 1106, [place] OMNICELL: cabinet override 1106 (Given - Provider: [...]
--- OUTSIDE RECORDS SUMMARY | 2024-09-15 14:30 | XMS_ITS | Encounter Summary ---
Author Organization [facility] Address [address] [place] [address] Care Team Providers Care Pricing Consultant Name Role Phone Unavailable Primary Care Provider Unavailabl e Reason for Visit * Reason Onset Date Comments Surgery 05/05/2019 Encounter Details Date Type Department Care Team (Late st Contact Info) Description 05/05/2019 Telephone [facility] PLASTIC SURGERY [address] [facility] [address] [place] [address] Cherry Lehman, seasonal retail merchandiser Social History Tobacco Use Types Packs/Day Years [...]
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
--- OUTSIDE RECORDS SUMMARY | 2024-09-15 14:31 | XMS_ITS | Encounter Summary ---
Author Organization [facility] Address [address] [place] [address] Care Team Providers Care Rug Cleaner Hand Name Role Phone Provider, Unknown Primary Care Provider Unavaila ble Encounter Details Date Type Department Care Team (Late st Contact Info) Description 07/21/2020 3:00 PM CDT Rapid Evaluation [facility] [place] [address] Social History Tobacco Use Types Packs/Day Years [...] on filedocumented in this encounter Care Teams Rug Cleaner Hand Relationship Specialty Start Date End Date Provider, Unknown UNKNOWN PCP - General 10/29/18 documented as of this encounter
--- OUTSIDE RECORDS SUMMARY | 2024-09-15 14:31 | XMS_ITS | Clinical Summary ---
Author Organization [facility] Address [address] [place] [address] Care Team Providers Care Folding Machine Feeder Name Role Phone Unavailable Primary Care Provider Unavailabl e Source Comments [facility],non-owned Affiliates and Associated Physician Practices is amultiple site organization consisting of ambulatory clinics and hospital sitesin [place], [place], [place] and [place]. This disclosure is being madepursuant to the Care Everywhere program and may not contain all information available regarding this patient. Last updated 18.[facility] [employer] Social History Tobacco Use Types Packs/Day Years [...] this topic SONYA FAY Personal/[place] [address] SONYA FAY Personal/[place] [address] Sonya Fay Personal/Family Self 1985
--- OUTSIDE RECORDS SUMMARY | 2024-09-15 14:31 | XMS_ITS | Encounter Summary ---
Author Organization [facility] Address 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 LOWER EXTREMITY Procedures SKIN GRAFT SPLIT THICKNESS, & T.E. LT. LOWER EXTREMITY [facility] [place] [address] Referral ID Status Reason Start Date Expiration Date Visits Re quested Visits Authorized [id number] 1 1 Encounter Details Date Type Department Care Team (Late st Contact Info) Description 12/12/2017 10:45 AM CDT - 12/12/2017 12:15 PM CDT Surgery [facility] Operating Room [address] [place] [address] You Johnson MD [address] [address] SKIN GRAFT SPLIT THICKNESS, & [...] Notes WORK COMP, AUTHORIZED PER SHAILA, CPT 27041, 40768, 47743, 40168 documented in this encounter Social History Tobacco [...] 32 y.o. / male : 1985 CSN: [id number] Attending Physician: You Johnson MD Admit date: [...] Hospital Course: Pranav Fay was admitted to [facility] and underwent the above listed [...] clinic follow up. Instructed to f/u chis open die inspector to obtain better glucose control. Consults: none. [...] if worse anytime. ?? Follow-up with your open die inspector this week to discuss optimizing blood sugar controml ?? Follow up with Burn Clinic in 7-10 days. Call [phone] to schedule appointment. 35 min in d/c [...] if worse anytime. ?? Follow-up with your open die inspector this week to discuss optimizing blood sugar controml ?? Follow up with Burn Clinic in 7-10 days. Call [phone] to schedule appointment. Follow up appointment in [...] concerns addressed. Will continue to monitor. * oYu Johnson MD - 12/16/2017 11:47 AM CDT [...] EXTREMITY performed by You Johnson MD at [facility] OR [facility] No Known Allergies Objective: Blood pressure [...] EXTREMITY performed by You Johnson MD at [facility] OR [facility] No Known Allergies Objective: Blood pressure [...] CDT Patient was pleasant during encounter with recovery unit operator. He appreciated support from recovery unit operator and clarified his membership in the [employer]oro[employer]. Mosque preference was updated. No particular need was expressed by thankful patient. [place] [id number] * You Johnson MD - 12/13/2017 10:08 [...] Assess performed by: ZHANG Hernandez and ZHANG Bagleysettlement clerk or upon transfer to: Burn ICU ~~~~~~~~~~~~~~~~~~~~~~~~~~~~ [...] Disposition of belongings/valuables: watch, wallet, cigarellos, and clean room operator sent with mother; shoes, shirt x2, tank top, socks, shorts, underwear, sweatshirt, hat in cabinet in room; phone at bedside documented in this encounter H&P Notes * You Johnson MD - 12/12/2017 11:45 AM CDT Images from the original note were not included. [facility] Plastic Surgery ?? Chief Complaint Patient [...] from the left thigh using air power Deep Domain dermatome set at 12/1000th of aninch. AFter [...] RN - 12/09/2017 3:16 PM CDT [facility] NOTE Name: Pranav Fay Date: 12/09/2017 Date [...] PM CDT Pre Anesthesia Diabetes Instructions Protocol [facility] ORDERS ARE ENTERED ???PER PROTOCOL?? Enter the protocol in the patient???s electronic health record using [employer]:.preanesthesiadiabetesprotocol Nursing Orders: o Instruct patient to 1. [...] insulin at all times. ??? 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 Blood sugar before [...] in [facility] Plan of Care developed, as indicated [...] plan of care for updates on goals. [id number] * Care Plan - Kamran Enciso RN [...] plan of care for updates on goals. [id number] * Care Plan - Merry Hernández, Occupational [...] Patient agrees to therapy. Patient seen from [phone] initially however patient then pushed call light [...] light in reach, tray table in reach [phone]: pt seen for w/c transfer. Pt ambulates [...] plan of care for updates on goals. [id number] * Care Plan - Lori Torres RN [...] monitor. * Care Plan - Giuseppe Reardon, Pool Cleaner - 12/14/2017 11:18 AM CDT Problem: Physical [...] patient is discharged from the facility. ?? [id number] * Care Plan - Lori Torres RN [...] PCP lists and states will look into [facility] group where his specialists are. Patient's insurance verified as Payor: WORKERS COMP / Plan: GENERIC WORKERS COMP / Product Type: Workers Compensation / ALMAZ maldonado emailed [facility] [address], [place] - [address]. Discussed discharge goals and possible discharge needs including options open pendning paitent progress. Care Management contact information provided. Care Management will continue to follow and assist asneeded. Charlotte Quinones RN/[facility] [phone] * Care Plan - Octavio Ledbetter RN [...] would benefit from skilled PT in the [facility] to increase independence with activities [...] would benefit from skilled OT in the [facility] to increase independence with activities [...] Care Plan section of the medical chart. [id number] * Care Plan - Kalyani Palomares RN [...] 4:38 PM CDT ADULT IV Flush Protocol [facility] ORDERS ARE ENTERED ???PER PROTOCOL?? NURSING ORDERS [...] Clinical Practice Guideline CLINICAL DIETITIAN PROGRESS NOTE [facility] Nutrition Burn to LLE [...] 09:26 AM No results found for: HGBA1C, [id number] Pert Meds: lantus, pepcid, MVI Past Medical [...] pain/comfort utilizing verbal/nonverbal pain scales; assess culturalor orthodoxy indicators attached to pain; administer pain medications [...] pain/comfort utilizing verbal/nonverbal pain scales; assess culturalor orthodoxy indicators attached to pain; administer pain medications [...] Notes WORK COMP, AUTHORIZED PER SHAILA, CPT 77518, 35877, 45960, 23744 POC GLUCOSE Routine 12/12/2017 9:48 AM CDT BASIC METABOLIC PANEL Stat 12/12/2017 9:26 AM CDT documented in this encounter Results * (ABNORMAL) POC GLUCOSE (12/17/2017 7:31 AM CDT) GLUCOSE POC 190(H) 74 - 99 mg/dL 12/17/2017 7:35 AM CDT [facility] LABORATORY [facility] CLOTH PICKER NAME POC SERA IBARRA 12/17/2017 7:35 AM CDT [facility] LABORATORY SERVICES [facility] Whole blood specimen (specimen) 12/17/2017 7:31 AM CDT 12/17/2017 7:35 AM CDT You Johnson MD POINT OF CARE TESTIN G Performing Organization Address [facility]/State/ZIP Co de Phone Number [facility] CLIA# [id number] [address] [place] [address] * (ABNORMAL) POC GLUCOSE (12/17/2017 1:57 AM CDT) GLUCOSE POC 155(H) 74 - 99 mg/dL 12/17/2017 2:01 AM CDT [facility] CLOTH PICKER NAME MELANIA MACIAS 12/17/2017 2:01 AM CDT [facility] SERVICES [facility] Whole blood specimen (specimen) 12/17/2017 1:57 AM CDT 12/17/2017 2:01 AM CDT You Johnson MD POINT OF CARE TESTIN G [facility]ATORY [facility] CLIA# [id number] [address] [place] [address] * (ABNORMAL) POC GLUCOSE (12/16/2017 11:31 PM CDT) GLUCOSE POC 136(H) 74 - 99 mg/dL 12/16/2017 11:35 PM CDT [facility] LAB[facility] CLOTH PICKER NAME MELANIA MACIAS 12/16/2017 11:35 PM CDT [facility]ORY SERVICES [facility] Whole blood specimen (specimen) 12/16/2017 11:31 PM CDT 12/16/2017 11:35 PM CDT You Johnsno MD POINT OF CARE TESTIN Elizabeth [facility] LABORATORY [facility] CLIA# [id number] [address] [place] [address] * (ABNORMAL) POC GLUCOSE (12/16/2017 10:54 PM CDT) GLUCOSE POC 126(H) 74 - 99 mg/dL 12/16/2017 11:00 PM CDT [facility] CLOTH PICKER NAME MELANIA MACIAS 12/16/2017 11:00 PM CDT [facility] SERVICES [facility] Whole blood specimen (specimen) 12/16/2017 10:54 PM CDT 12/16/2017 11:00 PM CDT You Johnson MD POINT OF CARE TESTKALIN Johnson Performing Organization Address [facility]/ZIP Co de Phone Number [facility] [employer] [facility] CLIA# [id number] [address] [place] [address] * (ABNORMAL) POC GLUCOSE (12/16/2017 9:41 PM CDT) GLUCOSE POC 202(H) 74 - 99 mg/dL 12/16/2017 9:45 PM CDT [facility] LAB[facility] CLOTH PICKER NAME MELANIA MACIAS 12/16/2017 9:45 PM CDT [facility] SERVICES [facility] Whole blood specimen (specimen) 12/16/2017 9:41 PM CDT 12/16/2017 9:45 PM CDT You Johnson MD POINT OF CARE TESTKALIN Johnson [facility]ATORY [facility] CLIA# [id number] [address] [place] [address] * (ABNORMAL) POC GLUCOSE (12/16/2017 8:13 PM CDT) GLUCOSE POC 243(H) 74 - 99 mg/dL 12/16/2017 8:15 PM CDT [facility] LABORATORY SERVICES - [facility] CLOTH PICKER NAME MELANIA MACIAS 12/16/2017 8:15 PM CDT [facility] LABORATORY SERVICES [facility] Whole blood specimen (specimen) 12/16/2017 8:13 PM CDT 12/16/2017 8:15 PM CDT You Johnson MD POINT OF CARE TESTIN G [facility] LAB[facility]ATORY [facility] CLIA# [id number] [address] [place] [address] * (ABNORMAL) POC GLUCOSE (12/16/2017 4:43 PM CDT) GLUCOSE POC 244(H) 74 - 99 mg/dL 12/16/2017 4:50 PM CDT [facility] LABORATORY SERVICES [facility] CLOTH PICKER NAME KAMRAN MORRIS 12/16/2017 4:50 PM CDT [facility] LABORATORY SERVICES [facility] Whole blood specimen (specimen) 12/16/2017 4:43 PM CDT 12/16/2017 4:50 PM CDT You Johnson MD POINT OF CARE TESTIN G [facility] LABORATORY [facility] CLIA# [id number] [address] [place] [address] * (ABNORMAL) POC GLUCOSE (12/16/2017 12:21 PM CDT) GLUCOSE POC 256(H) 74 - 99 mg/dL 12/16/2017 12:25 PM CDT [facility] LABORATORY SERVICES [facility] CLOTH PICKER NAME KAMRAN MORRIS 12/16/2017 12:25 PM CDT [facility] LABORATORY SERVICES [facility] Whole blood specimen (specimen) 12/16/2017 12:21 PM CDT 12/16/2017 12:25 PM CDT You Johnson MD POINT OF CARE TESTIN Elizabeth [facility] LABORATORY [facility] CLIA# [id number] [address] [place] [address] * (ABNORMAL) POC GLUCOSE (12/16/2017 7:29 AM CDT) GLUCOSE POC 319(H) 74 - 99 mg/dL 12/16/2017 7:35 AM CDT [facility] LABORATORY [facility] CLOTH PICKER NAME POC KAMRAN ENCISO 12/16/2017 7:35 AM CDT [facility] Whole blood specimen (specimen) 12/16/2017 7:29 AM CDT 12/16/2017 7:35 AM CDT You Johnson MD POINT OF CARE TESTIN G Performing Organization Address [facility]/ZIP Co de Phone Number [facility] [employer] [facility] CLIA# [id number] [address] [place] [address] * (ABNORMAL) POC GLUCOSE (12/15/2017 10:45 PM CDT) GLUCOSE POC 245(H) 74 - 99 mg/dL 12/15/2017 10:50 PM CDT [facility] LABORATORY [facility] CLOTH PICKER NAME POC BETTY ARIAS 12/15/2017 10:50 PM CDT [facility] LABORATORY SERVICES [facility] Whole blood specimen (specimen) 12/15/2017 10:45 PM CDT 12/15/2017 10:50 PM CDT You Johnson MD POINT OF CARE TESTIN G [facility] LABORATORY [facility] CLIA# [id number] [address] [place] [address] * (ABNORMAL) POC GLUCOSE (12/15/2017 6:26 PM CDT) GLUCOSE POC 259(H) 74 - 99 mg/dL 12/15/2017 6:35 PM CDT [facility] LABORATORY [facility] CLOTH PICKER NAME ELENO COYNE 12/15/2017 6:35 PM CDT [facility] LABORATORY SERVICES [facility] Whole blood specimen (specimen) 12/15/2017 6:26 PM CDT 12/15/2017 6:35 PM CDT You Johnson MD POINT OF CARE TESTIN G Performing Organization Address City/[facility]/ZIP Co de Phone Number [facility]# [id number] [address] [place] [address] * (ABNORMAL) POC GLUCOSE (12/15/2017 2:13 PM CDT) GLUCOSE POC 316(H) 74 - 99 mg/dL 12/15/2017 2:20 PM CDT [facility] LABORATORY [facility] CLOTH PICKER NAME ELENO COYNE 12/15/2017 2:20 PM CDT [facility] LABORATORY SERVICES [facility] Whole blood specimen (specimen) 12/15/2017 2:13 PM CDT 12/15/2017 2:20 PM CDT You Johnson MD POINT OF CARE TESTIN G [facility]# [id number] [address] [place] [address] * (ABNORMAL) POC GLUCOSE (12/15/2017 9:09 AM CDT) GLUCOSE POC 279(H) 74 - 99 mg/dL 12/15/2017 9:15 AM CDT [facility] LABORATORY [facility] CLOTH PICKER NAME ELENO COYNE 12/15/2017 9:15 AM CDT [facility] Whole blood specimen (specimen) 12/15/2017 9:09 AM CDT 12/15/2017 9:15 AM CDT You Johnson MD POINT OF CARE TESTIN G [facility] LABORATORY [facility] CLIA# [id number] [address] [place] [address] * (ABNORMAL) POC GLUCOSE (12/14/2017 8:36 PM CDT) GLUCOSE POC 259(H) 74 - 99 mg/dL 12/14/2017 8:40 PM CDT [facility] LABORATORY SERVICES [facility] CLOTH PICKER NAME POC CHEN LORI 12/14/2017 8:40 PM CDT [facility] LABORATORY SERVICES [facility] Whole blood specimen (specimen) 12/14/2017 8:36 PM CDT 12/14/2017 8:40 PM CDT You Johnson MD POINT OF CARE TESTIN G Performing Organization Address City/[facility]/ZIP Co de Phone Number [facility] LABORATORY [facility] CLIA# [id number] [address] [place] [address] * (ABNORMAL) POC GLUCOSE (12/14/2017 4:48 PM CDT) GLUCOSE POC 272(H) 74 - 99 mg/dL 12/14/2017 4:50 PM CDT [facility] LABORATORY SERVICES [facility] CLOTH PICKER NAME POC GIUSEPPE SALGADO 12/14/2017 4:50 PM CDT [facility] LABORATORY SERVICES [facility] Whole blood specimen (specimen) 12/14/2017 4:48 PM CDT 12/14/2017 4:50 PM CDT You Johnson MD POINT OF CARE TESTIN G [facility] LABORATORY [facility] CLIA# [id number] [address] [place] [address] * (ABNORMAL) POC GLUCOSE (12/14/2017 12:29 PM CDT) GLUCOSE POC 268(H) 74 - 99 mg/dL 12/14/2017 12:35 PM CDT [facility] LABORATORY [facility] CLOTH PICKER NAME ELENO COYNE 12/14/2017 12:35 PM CDT [facility] LABORATORY SERVICES [facility] Whole blood specimen (specimen) 12/14/2017 12:29 PM CDT 12/14/2017 12:35 PM CDT You Johnson MD POINT OF CARE TESTIN G Performing Organization Address [facility] Co de Phone Number [facility] [id number] [address] [place] [address] * (ABNORMAL) POC GLUCOSE (12/14/2017 9:13 AM CDT) GLUCOSE POC 233(H) 74 - 99 mg/dL 12/14/2017 9:21 AM CDT [facility] LABORATORY [facility] CLOTH PICKER NAME ELENO COYNE 12/14/2017 9:21 AM CDT [facility] LABORATORY SERVICES [facility] Whole blood specimen (specimen) 12/14/2017 9:13 AM CDT 12/14/2017 9:20 AM CDT You Johnson MD POINT OF CARE TESTIN G Performing Organization Address City/[facility]/ZIP Co de Phone Number [facility] [employer] CLIA# [id number] [address] [place] [address] * (ABNORMAL) POC GLUCOSE (12/13/2017 9:07 PM CDT) GLUCOSE POC 251(H) 74 - 99 mg/dL 12/13/2017 9:11 PM CDT [facility] LABORATORY SERVICES [facility] CLOTH PICKER NAME DENYS MARTINESTH 12/13/2017 9:11 PM CDT [facility] Whole blood specimen (specimen) 12/13/2017 9:07 PM CDT 12/13/2017 9:11 PM CDT You Johnson MD POINT OF CARE TESTIN G [facility] LABORATORY [facility] CLIA# [id number] [address] [place] [address] * (ABNORMAL) POC GLUCOSE (12/13/2017 5:50 PM CDT) GLUCOSE POC 213(H) 74 - 99 mg/dL 12/13/2017 5:55 PM CDT [facility] LABORATORY [facility] CLOTH PICKER NAME POC OCTAVIO ALDRICH 12/13/2017 5:55 PM CDT [facility] LABORATORY SERVICES [facility] Whole blood specimen (specimen) 12/13/2017 5:50 PM CDT 12/13/2017 5:55 PM CDT You Johnson MD POINT OF CARE TESTIN Elizabeth Performing Organization Address City/[facility]/ZIP Co de Phone Number [facility] [employer] [facility] CLIA# [id number] [address] [address] * (ABNORMAL) POC GLUCOSE (12/13/2017 1:39 PM CDT) GLUCOSE POC 183(H) 74 - 99 mg/dL 12/13/2017 1:40 PM CDT [facility] LABORATORY [facility] CLOTH PICKER NAME POC OCTAVIO ALDRICH 12/13/2017 1:40 PM CDT [facility] LABORATORY SERVICES [facility] Whole blood specimen (specimen) 12/13/2017 1:39 PM CDT 12/13/2017 1:40 PM CDT You Johnson MD POINT OF CARE TESTIN Elizabeth [facility] LABORATORY [facility] CLIA# [id number] [address] [place] [address] * TELEMETRY REPORT (12/13/2017 12:32 PM CDT) Provider Scanning ECG ORDERABLES * (ABNORMAL) POC GLUCOSE (12/13/2017 9:59 AM CDT) GLUCOSE POC 182(H) 74 - 99 mg/dL 12/13/2017 10:05 AM CDT [employer] LABORATORY SERVICES [facility] CLOTH PICKER NAME POC OCTAVIO ALDRICH 12/13/2017 10:05 AM CDT [employer] SERVICES [facility] Whole blood specimen (specimen) 12/13/2017 9:59 AM CDT 12/13/2017 10:05 AM CDT You Johnson MD POINT OF CARE TESTIN G [facility] SERVICES [facility]# [id number] [address] [place] [address] * (ABNORMAL) BASIC METABOLIC PANEL (12/13/2017 2:42 AM CDT) Pathologist [facility] SODIUM 134(L) 136 - 145 mmol/L 12/13/2017 3:38 AM CDT [employer] LABORATORY SERVICES [facility] POTASSIUM 4.4 3.5 - 5.0 mmol/L 12/13/2017 3:38 AM T [employer] LABORATORY SERVICES - [facility] CHLORIDE 100 98 - 107 mmol/L 12/13/2017 3:38 AM CDT [employer] SERVICES - [facility] CO2 26 22 - 29 mmol/L 12/13/2017 3:38 AM CDT [employer] LABORATORY SERVICES - [facility] CALCIUM 8.9 8.6 - 10.2 mg/dL 12/13/2017 3:38 AM CDT [employer] LABORATORY SERVICES - . [facility] BUN 11 6 - 20 mg/dL 12/13/2017 3:38 AM CDT [employer] LABORATORY SERVICES - . [facility] CREATININE 0.67 0.67 - 1.17 mg/dL 12/13/2017 3:38 AM T [employer] LABORATORY SERVICES - [facility] GLUCOSE 169(H) 74 - 99 mg/dL 12/13/2017 3:38 AM T [facility] LABORATORY [facility] GFR >60 >=60 mL/min/1.7 3 sq meter 12/13/2017 3:38 AM T [facility] LABORATORY [facility] Comment: eGFR has not been validated [...] 3 sq meter 12/13/2017 3:38 AM T [facility] [employer] [facility] ANION GAP 8 8 - 16 mmol/L 12/13/2017 3:38 AM [facility] LABORATORY [facility] Blood Venipuncture / Unknown 12/13/2017 2:42 AM CDT 12/13/2017 2:55 AM CDT You Johnson MD CHEMISTRY ORDERABLES [facility]# [id number] [address] [place] [address] [place] [address] * (ABNORMAL) CBC WITH DIFFERENTIAL (12/13/2017 2:42 AM CDT) [facility] WBC 7.2 4.0 - 9.8 K/uL 12/13/2017 3:06 AM T [facility] LABORATORY [facility] RBC 4.04(L) 4.50 - 5.40 M/uL 12/13/2017 3:06 AM [facility] LABORATORY [facility] HEMOGLOBIN 12.6(L) 13.6 - 16.5 g/dL 12/13/2017 3:06 AM T [facility] LABORATORY [facility] HEMATOCRIT 35.5(L) 40.0 - 48.0 % 12/13/2017 3:06 AM CDT [employer] LABORATORY SERVICES - [facility] MCV 87.9 82.0 - 99.0 fL 12/13/2017 3:06 AM CDT [employer] LABORATORY SERVICES - [facility] MCH 31.2 27.2 - 32.6 pg 12/13/2017 3:06 AM CDT [employer] LABORATORY SERVICES - [facility] MCHC 35.5 31.5 - 35.5 g/dL 12/13/2017 3:06 AM CDT [employer] LABORATORY SERVICES - [facility] RDW 11.9 11.5 - 14.5 % 12/13/2017 3:06 AM CDT [employer] LABORATORY SERVICES - [facility] RDW-STDEV 38.9 37.1 - 48.7 fL 12/13/2017 3:06 AM CDT [employer] LABORATORY SERVICES - [facility] PLATELETS 332 140 - 350 K/uL 12/13/2017 3:06 AM CDT [employer] LABORATORY SERVICES - [facility] MPV 10.3 9.3 - 12.4 fL 12/13/2017 3:06 AM CDT [employer] LABORATORY SERVICES - . [place] NEUTROPHILS 55 % 12/13/2017 3:06 AM CDT [employer] LABORATORY SERVICES - . [place] LYMPHOCYTES 30 % 12/13/2017 3:06 AM CDT [employer] LABORATORY SERVICES - . [place] MONOCYTES 6 % 12/13/2017 3:06 AM CDT [employer] LABORATORY SERVICES - . [place] EOSINOPHILS 7 % 12/13/2017 3:06 AM CDT [employer] LABORATORY SERVICES - . [place] BASOPHILS 1 % 12/13/2017 3:06 AM CDT [employer] LABORATORY SERVICES - . [place] IMMATURE GRANULOCYTES 0 % 12/13/2017 3:06 AM CDT [employer] LABORATORY SERVICES - . [facility] NEUTROPHIL ABSOLUTE 3.93 1.90 - 7.00 K/uL 12/13/2017 3:06 AM CDT [employer] LABORATORY SERVICES - . [facility] LYMPHOCYTE ABSOLUTE 2.18 0.70 - 4.50 K/uL 12/13/2017 3:06 AM CDT [employer] LABORATORY SERVICES - . [facility] MONOCYTE ABSOLUTE 0.43 0.10 - 1.30 K/uL 12/13/2017 3:06 AM CDT [employer] LABORATORY SERVICES - . [place] EOSINOPHIL ABSOLUTE 0.53 0.00 - 0.70 K/uL 12/13/2017 3:06 AM CDT [facility] LABORATORY SERVICES - [facility] BASOPHILS ABSOLUTE 0.07 0.00 - 0.20 K/uL 12/13/2017 3:06 AM CDT [facility] LABORATORY SERVICES - [facility] IMMATURE GRANULOCYTES ABSOLUTE 0.03 0.00 - 0.03 K/uL 12/13/2017 3:06 AM CDT [facility] - [facility] Blood Venipuncture / Unknown 12/13/2017 2:42 AM CDT 12/13/2017 2:55 AM CDT You Johnson MD HEMATOLOGY ORDERABLE S [facility] CLIA# [id number] [address] [place] [address] * PHOSPHORUS (12/13/2017 2:42 AM CDT) PHOSPHORUS 3.0 2.5 - 4.5 mg/dL 12/13/2017 3:38 AM CDT [facility] Blood Venipuncture / Unknown 12/13/2017 2:42 AM CDT 12/13/2017 2:55 AM CDT You Johnson MD CHEMISTRY ORDERABLES Performing Organization Address City/[facility]/ZIP Co de Phone Number [facility] CLIA# [id number] [address] [place] [address] * [place] LEVEL (12/13/2017 2:42 AM CDT) MAGNESIUM 1.7 1.6 - 2.6 mg/dL 12/13/2017 3:38 AM CDT [facility] Blood Venipuncture / Unknown 12/13/2017 2:42 AM CDT 12/13/2017 2:55 AM CDT You Johnson MD CHEMISTRY ORDERABLES [facility]# [id number] [address] [place] [address] * (ABNORMAL) PREALBUMIN (12/13/2017 2:42 AM CDT) PREALBUMIN 13(L) 20 - 40 mg/dL 12/13/2017 3:41 AM CDT [facility] Blood Venipuncture / Unknown 12/13/2017 2:42 AM CDT 12/13/2017 2:55 AM CDT You Johnson MD CHEMISTRY ORDERABLES [facility]# [id number] [address] [place] [address] * (ABNORMAL) POC GLUCOSE (12/12/2017 10:59 PM CDT) [facility] Signature GLUCOSE POC 161(H) 74 - 99 mg/dL 12/12/2017 11:05 PM CDT [facility] CLOTH PICKER NAME POC KALYANI PALOMARES 12/12/2017 11:05 PM CDT [facility] R[facility]ing [facility] Whole blood specimen (specimen) 12/12/2017 10:59 PM CDT 12/12/2017 11:05 PM CDT You Johnson MD POINT OF CARE TESTIN G [facility]# [id number] [address] [place] [address] * (ABNORMAL) POC GLUCOSE (12/12/2017 6:41 PM CDT) GLUCOSE POC 125(H) 74 - 99 mg/dL 12/12/2017 6:46 PM CDT [facility] CLOTH PICKER NAME POC ELENO SAEZ 12/12/2017 6:46 PM CDT [facility] Whole blood specimen (specimen) 12/12/2017 6:41 PM CDT 12/12/2017 6:46 PM CDT You Johnson MD POINT OF CARE TESTIN G Performing Organization Address [facility] Co de Phone Number [facility] CLIA# [id number] [address], [place] [address] * ACINETOBACTER SURVEILLANCE SCREEN (12/12/2017 4:34 PM CDT) CULTURE No Acinetobacter Isolated. 12/14/2017 8:56 AM CDT [facility] Lab findings surveillance (regime/therapy) (Perineum) Collection / Unknown 12/12/2017 4:34 PM CDT 12/12/2017 4:53 PM CDT You Johnson MD MICROBIOLOGY - GENER AL ORDERABLES Performing Organization Address [facility] Co de Phone Number [facility] CLIA# [id number] [address], [place] [address] * ACINETOBACTER SURVEILLANCE SCREEN (12/12/2017 4:34 PM CDT) CULTURE No Acinetobacter Isolated. 12/14/2017 8:55 AM CDT [facility] Lab findings surveillance (regime/therapy) ANTERIOR NARES SWAB / Unknown Collection / Unknown 12/12/2017 4:34 PM CDT 12/12/2017 4:53 PM CDT You Johnson MD MICROBIOLOGY - GENER AL ORDERABLES Performing Organization Address [facility] Co de Phone Number [facility] CLIA# [id number] [address] [place] [address] * MRSA ACTIVE SURVEILLANCE CULTURE (12/12/2017 4:34 PM CDT) CULTURE No methicillin resistant Staph aureus isolated. 12/14/2017 7:04 AM CDT [facility] Lab findings surveillance (regime/therapy) (Perineum) Collection / Unknown 12/12/2017 4:34 PM CDT 12/12/2017 4:53 PM CDT You Johnson MD MICROBIOLOGY - GENER AL ORDERABLES [facility] CLIA# [id number] [address] [place] [address] * MRSA ACTIVE SURVEILLANCE CULTURE (12/12/2017 4:34 PM CDT) CULTURE No methicillin resistant Staph aureus isolated. 12/14/2017 7:04 AM CDT [facility] Lab findings surveillance (regime/therapy) ANTERIOR NARES SWAB / Unknown Collection / Unknown 12/12/2017 4:34 PM CDT 12/12/2017 4:53 PM CDT You Johnson MD MICROBIOLOGY - GENER AL ORDERABLES Performing Organization Address City/[facility]/ZIP Co de Phone Number [facility]# [id number] [address] [place] [address] * (ABNORMAL) POC GLUCOSE (12/12/2017 1:50 PM CDT) GLUCOSE POC 146(H) 74 - 99 mg/dL 12/12/2017 1:56 PM CDT [facility] CLOTH PICKER NAME POC FELYSHAZIA 12/12/2017 1:56 PM CDT [facility] Whole blood specimen (specimen) 12/12/2017 1:50 PM CDT 12/12/2017 1:56 PM CDT You Johnson MD POINT OF CARE TESTIN G Performing Organization Address City/[facility]/ZIP Co de Phone Number [facility] CLIA# [id number] [address] [place] [address] * (ABNORMAL) POC GLUCOSE (12/12/2017 9:48 AM CDT) [facility] GLUCOSE POC 222(H) 74 - 99 mg/dL 12/12/2017 9:55 AM CDT [employer] Raiing SERVICES [facility] COMMENT, GLU POC Notified RN/MD 12/12/2017 9:55 AM CDT [employer] LABORATORY SERVICES - [facility] CLOTH PICKER NAME POC MONIQUE MARKS 12/12/2017 9:55 AM CDT [employer] LABORATORY SERVICES [facility] Whole blood specimen (specimen) 12/12/2017 9:48 AM CDT 12/12/2017 9:55 AM CDT You Johnson MD POINT OF CARE TESTIN G [facility] R[employer]ing [facility] CLIA# [id number] [address] [place] [address] * (ABNORMAL) BASIC METABOLIC PANEL (12/12/2017 9:26 AM CDT) [facility] SODIUM 137 136 - 145 mmol/L 12/12/2017 10:48 AM T [employer] LABORATORY SERVICES [facility] POTASSIUM 4.9 3.5 - 5.0 mmol/L 12/12/2017 10:48 AM T [employer] LABORATORY SERVICES [facility] Comment: Slightly hemolyzed. Result may be falsely elevated. CHLORIDE 102 98 - 107 mmol/L 12/12/2017 10:48 AM CDT [employer] LABORATORY SERVICES [facility] CO2 25 22 - 29 mmol/L 12/12/2017 10:48 AM CDT [employer] LABORATORY SERVICES [facility] CALCIUM 9.3 8.6 - 10.2 mg/dL 12/12/2017 10:48 AM T [employer] LABORATORY SERVICES [facility] BUN 17 6 - 20 mg/dL 12/12/2017 10:48 AM T [employer] LABORATORY SERVICES [facility] CREATININE 0.68 0.67 - 1.17 mg/dL 12/12/2017 10:48 AM T [employer] LABORATORY [facility] GLUCOSE 231(H) 74 - 99 mg/dL 12/12/2017 10:48 AM T [facility] GFR >60 >=60 mL/min/1.7 3 sq meter 12/12/2017 10:48 AM [facility] Comment: eGFR has not been [...] mL/min/1.7 3 sq meter 12/12/2017 10:48 AM [facility] LABORATORY [facility] ANION GAP 10 8 - 16 mmol/L 12/12/2017 10:48 AM [facility] LAB[facility]ATORY [facility] Blood Venipuncture / Unknown 12/12/2017 9:26 AM CDT 12/12/2017 9:52 AM CDT Jai Leavitt MD CHEMISTRY ORDERABLES Performing Organization Address City/State/[facility] Co de Phone Number [facility]# [id number] [address] [place] [address] [place] [address] documented in this encounter Visit Diagnoses Not [...] HOURS, First dose (after last modification) on [facility] 12/14/17 at 0900, Until Discontinued, Routine Given [...] 1:42 PM CDT 1 Gram Operative Site multivitamin,rl-uosn-ht-min (THERA-M) tablet 1 Tablet 1 Tablet, Oral, [...] 214 (Given - Provider: Melania Steele RN) multivitamin,ei-lnrk-wu-m in (THERA-M) tablet 1 Tablet 1 Tablet, [...] Sat12/16/17 at 1105, Until Sat12/16/17 at 1106, Arrey OMNICELL: cabinet override 1106 (Given - Provider: [...]
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
--- OUTSIDE RECORDS SUMMARY | 2024-09-15 14:31 | XMS_ITS | Referral Summary ---
Author Organization [facility] Address [address] [place] [address] Care Team Providers Care Edge Inker Name Role Phone Unavailable Primary Care Provider Unavailabl e Source Comments [facility],non-owned Affiliates and Associated Physician Practices is amultiple site organization consisting of ambulatory clinics and hospital sitesin [place], [place], [place] and [place]. This disclosure is being madepursuant to the Care Everywhere program and may not contain all information available regarding this patient. Last updated 18.[facility] [employer] Social History Tobacco Use Types Packs/Day Years Used Date Smoking Tobacco: Never Assessed Sex and Gender Information Value Date Recorded Sex Assigned at Not on file Gender Identity Not on file Sexual Orientation Not on file Plan of Treatment Not on file SONYA FAY Personal/Family [address] [place] [address] SONYA FAY Personal/Family [address] [place], [place] [address] [address] Sonya Fay Personal/Family Self 1985
--- OUTSIDE RECORDS SUMMARY | 2024-09-15 14:31 | XMS_ITS | Encounter Summary ---
Author Organization [facility] Health Address [address] [place] [address] Care Team Providers Care Inside Sales Manager Name Role Phone Unavailable Primary Care [...]
--- OUTSIDE RECORDS SUMMARY | 2024-09-15 14:31 | XMS_ITS | Encounter Summary ---
Author Organization [facility] Address [address] [place] [id number] Care Team Providers Care Wash Operator Name Role Phone Provider, Unknown Primary Care Provider Unavaila ble Encounter Details Date Type Department Care Team (Late st Contact Info) Description 07/21/2020 Lab Requisition [facility] Mobile Testing [address] [address] [place] [address] [place] [address] Social History Tobacco Use Types Packs/Day Years [...] on filedocumented in this encounter Care Teams Wash Operator Relationship Specialty Start Date End Date Provider, Unknown UNKNOWN PCP - General 10/29/18 documented as of this encounter
--- OUTSIDE RECORDS SUMMARY | 2024-09-15 14:31 | XMS_ITS | CONTINUITY OF CARE DOCUMENT ---
Author Name jun barahona Address Unknown Organization [facility] Address [address] [place] [address] Phone [phone] Care Team Providers Care Equipment Operator/Laborer/Supervisor Name Role Phone Sushant Floyd MD Unavailable ED MALIN MD Unavailable ED MALIN MD Unavailable PROBLEMS Condition Status Date Provider Notes Chest pain - NO CAD per cath active Sushant sánchez MD Anemia active Sushant Floyd MD Hyperlipidemia active Sushant Floyd MD Diabetes mellitus, type 1 active Sushant henley MD Heart disease active Sushant Floyd MD Shortness of breath active Sushant Floyd MD Arm pain, left active Sushant Floyd MD Abnormal nuclear stress test active Sushant sánchez MD ENCOUNTERS Date Type Provider Location Encounter Diag nosis 4 - 3 In-person encounter Office Visit Sushant Floyd MD [facility] Chest pain - NO CAD per cath 4 - 5 In-person encounter Office Visit Sushant Floyd MD [facility] Abnormal nuclear stress test 7 - 7 In-person encounter Office Visit Sushant Floyd MD [facility] Chest pain - NO CAD per [...] astity Vesna blood pressure, systolic 137 mm[Hg] Sara stity Vesna oxygen saturation, oximetry 98 % Chastity Vesna pulse rate 61 /min Chastity Evsna weight E&M 218 [lb_av] Chastity Vesna respiratory [...] [employer] 0-149 cholesterol, serum 114 mg/dL [employer] [phone]/10/1 6 calcium, serum 9.1 mg/dL [employer] 8.7-10.2 6 carbon dioxide, venous blood 24 mmol/L [employer] 20-29 6 chloride, serum 104 mmol/L [employer] 96-106 6 potassium, serum 4.2 mmol/L [employer] 3.5-5.2 6 sodium, serum 140 mmol/L [employer] 521-853 9220/10/1 6 urea nitrogen/creatinin e ratio, serum 18 [...] Estab. 6 platelet count 200 X10E3/UL [employer] [phone]/10/1 6 red blood cell distribution width 12.8 [...] Medication Status Instructions Dates Provider Indications Com or isosorbide mononitrate 30 mg tablet extended release [...] Payer name Policy type / Coverage type [place] [employer] party ID [place] [employer] Commercial insurance co [facility] [id number] [place] MED[place] Medicaid [id number] ADVANCE DIRECTIVES Name Date DISCUSSED - NO DECISION MADE TREATMENT PLAN Date Name Performer [id number],S, o n insulin Sushant Floyd MD [id number],SSushant MD [id number],C,H ad cath done, no CAD found. No CP today. H is updated medication list for this problem includes: Isosorbide Mononitrate 30 Mg Tablet Extended Release 24 Hr (Isosorbide mononitrate) Sushant Floyd MD [id number],SSushant MD [id number],W, M ild inferior ischemia with fixed anterior [...] consent was given out. Sushant Floyd MD [id number],S, Sushant Floyd MD [id number],S, Sushant Floyd MD [id number],C,h ad left sided chest pain, with left arm pain and numbness. will do stress test and echo. Sushant Floyd MD [id number],C,on insulin Us epi Floyd MD Cardiology: o [...] echo. Sushant Floyd MD Cardiology:on insulin Sushant ehnley MD Date Name PROTHROMBIN TIME WIT H [...]
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
--- OUTSIDE RECORDS SUMMARY | 2024-09-15 14:31 | XMS_ITS | Patient Health Summary ---
Author Organization [facility] Address [address] [place] [address] Care Team Providers Care Inside Steward/Stewardess Name Role Phone Unavailable Primary Care Provider Unavailabl e Note from [facility],non-owned Affiliates and Associated Physician Practices is amultiple site organization consisting of ambulatory clinics and hospital sitesin [place] and [place]. This disclosure is being madepursuant to the Care Everywhere program and may not contain all information available regarding this patient. Last updated 18.[facility] Social History Tobacco Use Types Packs/Day Years Used Date Smoking Tobacco: Never Assessed Sex and Gender Information Value Date Recorded Sex Assigned at Not on file Gender Identity Not on file Sexual Orientation Not on file
--- OUTSIDE RECORDS SUMMARY | 2024-09-15 14:31 | XMS_ITS | Clinical Summary ---
Author Organization [facility] Address [address] [place] [address] Phone Care Team Providers Care Bullet Swaging Machine Operator Name Role Phone Provider, Unknown Primary [...] this topic Insurance MEDICAID [place] Care Teams Bullet Swaging Machine Operator Relationship Specialty Start Date End Date Provider, Unknown UNKNOWN PCP - General 10/29/18
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
== END 2024-09-12 16:30 | disposition home or self-care (01) | DRG 139 ==
LOC: ANHED 22:36 → ANHIMU 23:10
PROVIDERS: Emergency Medicine; Admitting Provider Internal Medicine; Emergency Provider Student in an Organized Health Care Education/Training Program; PCP Physician Assistant Medical; Visit Provider Internal Medicine
DX: J18.9 Pneumonia, unspecified organism (principal); E10.9 Type 1 diabetes mellitus without complications; E86.0 Dehydration; Z90.49 Acquired absence of other specified parts of digestive tract; Z79.4 Long term (current) use of insulin
CPT/HCPCS: 36415; 71045; 80048; 80053; 81001; 82010; 82803; 82948; 83605; 83735; 84100; 84484; 85025; 87637; 93005; 96361; 96365; 96367; 96375; 96376; 99285; A9270; J0696; J1815; J2405; J7120

== ENCOUNTER 2025-05-22 10:08 | Emergency (ER) | payer OTHER, SELFPAY ==
--- OUTSIDE RECORDS SUMMARY | 2008-02-17 04:27 | XMS_ITS | Continuity of Care Document ---
Author Organization [facility] Address [address] [place] [address] [place] [address] Phone Care Team Providers Care Rail Operations Controller Name Role Phone Piyushzev Chavo Unavailable Unavailable Procedures Procedure Date Eye Exam Established Pt Advance Directives Directive Yes / No Effective Date File Name No Information Encounters Encounter Description Practice Location Reason(s) For Visit Diagnoses Date Provider Providers Copied on Encounter [facility], [id number] [place] [address] [address], [place], [place], [id number], [place] tel:[phone] [facility] [place] No Information 0-200 8 Leatha Chavo. [address] [facility] [address], [place], [address], [place]. tel:[phone] Family History Family Member Type Diagnosis Age At Onset No Information Payers Payer name Insurance type Covered democrat ID Authoriza tion(s) Srinivasette Pattern [id number] Social History Type Description Quantity Date Captured [...]
[2025-05-22] VITALS (18 sets, daily range): BP systolic 120–153; BP diastolic 73–100; PULSE 47–61; RESP 12–21; TEMP 36.4; O2SAT 96–100
--- NOTE | ~2025-05-22 | XR_ITS ---
EXAMINATION: XR chest 2V 05/22/2025 11:27 INDICATION: Chest pain PROCEDURE: 2 view chest COMPARISON: Comparison to multiple prior studies sequentially, with oldest reviewed study dated 05/08/2023. FINDINGS: The lungs are clear. The cardiomediastinal silhouette is within normal limits. There are no pleural effusions. There is no pneumothorax suspected. IMPRESSION: 1: NO ACUTE CARDIOPULMONARY DISEASE. Reviewed, dictated and finalized at location O.
--- NOTE | 2025-05-22 10:13 | ECG_ITS ---
Test Date: 2025-05-22 10:22:27 Measurements Intervals Benjamin Rate: 49 P: 47 AK: 171 QRS: 63 QRSD: 106 T: 25 QT: 441 QTc: 399 Interpretive Statements SINUS BRADYCARDIA BASELINE WANDER- I, II ABNORMAL ECG Compared to ECG 09/11/2024 20:20:04 HEART RATE HAS DECREASED Electronically Signed On 05-22-2025 10:35:52 CDT by Sanchez Burdick D.O.
[2025-05-22 10:31] LABS: Hematocrit 42.1 % (42.0-52.0); Hemoglobin 14.7 g/dL (14.0-18.0); Immature Granulocyte Percent A 0.3 % (0-0.5); Lymphocytes Absolute Auto 1.48 K/mm3 (0.9-3.2); Mean Corpuscular HGB Conc 34.9 g/dl (32-36); Mean Corpuscular Hemoglobin 30.9 pg (26-34); Mean Corpuscular Volume 88.4 fl (80-100); Nucleated Red Blood Cells Absolute Auto 0.000 K/mm3 (0.0-0.012); Nucleated Red Blood Cells Perc 0.0 % (0.0-0.2); Platelet Count Result 244 k/mm3 (150-375); Red Blood Count 4.76 M/mm3 (4.6-6.20); White Blood Count 6.5 K/mm3 (4.5-10.0)
[2025-05-22 10:44] LABS: INR 1.0; Prothrombin Time 13.2 Seconds (11.1-14.7)
[2025-05-22 10:45] LABS: Partial Thromboplastin Time 30.0 Seconds (22.3-36.8)
[2025-05-22 10:47] LABS: Alanine Aminotransferase 109 U/L (6-50); Albumin Level 4.1 g/dL (3.5-5.1); Alkaline Phosphatase 123 U/L (38-126); Anion Gap 5 mmol/L (4-12); Aspartate Amino Transferase 50 U/L (17-59); Bilirubin,Total 0.8 mg/dL (0.2-1.3); Blood Urea Nitrogen 15 mg/dL (9-20); Calcium 9.3 mg/dL (8.4-10.2); Carbon Dioxide 26 mmol/L (22-30); Chloride 105 mmol/L (98-107); Estimated CRCL calculation 119 ml/min; Estimated Glomerular Filt Rate > 60; Glucose 227 mg/dL (65-110); Lipase 17 U/L (23-300); Potassium 5.0 mmol/L (3.4-5.0); Sodium 136 mmol/L (137-145); Total Protein 7.0 g/dL (6.3-8.2)
--- OUTSIDE RECORDS SUMMARY | 2025-05-22 10:48 | XMS_ITS | Clinical Summary ---
Author Organization [facility] Address [address] [place] [address] Care Team Providers Care Senior Materials Planner Name Role Phone Unavailable Primary Care Provider Unavailabl e Source Comments [facility],non-owned Affiliates and Associated Physician Practices is amultiple site organization consisting of ambulatory clinics and hospital sitesin [place], [place], [place] and [place]. This disclosure is being madepursuant to the Care Everywhere program and may not contain all information available regarding this patient. Last updated 18.[facility] [employer] Social History Tobacco Use Types Packs/Day Years Used Date Smoking Tobacco: Never Assessed Sex and Gender Information Value Date Recorded Sex Assigned at Not on file Legal Sex Male 12:11 PM CDT Gender Identity Not on file Sexual Orientation Not on file Plan of Treatment Health Maintenance Due Date Last Done Comments LIPID TESTING 1985 HIV SCREENING 1998 HEPATITIS C SCREENING 08/03/2001 DTAP/TDAP/TD VACCINES (1 - Tdap) 2002 HEPATITIS B VACCINE (1 of 3 - 19+ 3-dose series) 2002 HPV VACCINE (1 - 3-dose SCDM series) 2010 COVID-19 VACCINE (1 - 2023-2 5 season) 2024 DEPRESSION SCREENING 09/30/2024 INFLUENZA VACCINE (#1) 2025 ZOSTER VACCINE (1 of 2) 2033 HIB VACCINE Aged Out No longer eligi ble based on patient's age to complete this topic MENINGOCOCCAL (Group B) VACC INE SHARED DECISION-MAKING Aged Out No longer eligibl e based on patient's age to complete this topic MENINGOCOCCAL GROUPS A/C/Y/W VACCINE Aged Out No longer eligible b ased on patient's age to complete this topic PNEUMOCOCCAL VACCINE Aged Out No long er eligible based on patient's age to complete this topic Insurance SELF PAY NO INSURANCE Member Subscriber Plan / Payer (Ef fective for All Dates) Name:Sonya Fay Member ID:Not on file Relation to Subscriber:Not on file Name:SONYA FAY Subscriber ID:Not on file Address: [address] [place] [address] Payer ID:Not on file Group ID:Not on file Type:Self Pay Address: [place], [place] * Guarantor: SONYA FAY Account Type Relation to Patient Date of Phone Billing Address Personal/Family [address] [place] [address] [facility] SELF PAY NO INSURANCE Member Subscriber Plan / Payer (Ef fective for All Dates) Name:Sonya Fay Member ID:Not on file Relation to Subscriber:Not on file Name:SONYA FAY Subscriber ID:Not on file Address: [place] [address] Payer ID:Not on file Group ID:Not on file Type:Self Pay Address: [place], [place] * Guarantor: SONYA FAY Account Type Relation to Patient Date of Phone Billing Address Personal/Family [address] [place] [address] [facility] SELF PAY NO INSURANCE Member Subscriber Plan / Payer (Ef fective for All Dates) Name:Sonya Fay Member ID:Not on file Relation to Subscriber:Not on file Name:SONYA FAY Subscriber ID:Not on file Address: [facility] [place] [address] Payer ID:Not on file Group ID:Not on file Type:Self Pay Address: [place], [place]
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
--- OUTSIDE RECORDS SUMMARY | 2025-05-22 10:48 | XMS_ITS | Clinical Summary ---
Author Organization [facility] Address [address] [place] [address] Phone Care Team Providers Care Liquor Runner Name Role Phone Provider, Unknown Primary Care [...] of 3 - 19+ 3-dose series) 2002 Human Papillomavirus (HPV) Immunization (1 - 3-dose SCDM series) 2010 SARS-COV-2 Immunization ( season) 2024 09/13/2021, 12/05/2020 Influenza Immunization (#1) 05/31/202506/30, 07/15/2017, 06/28/2016, Additional history exists Respiratory Syncytial Virus (RSV) Immunization (Adult) (1 - 1-dose 75+ series) 2058 DTaP/Tdap/Td Immunization Discontinued 1990, 06/21/1990, 05/27/1989, Additional history exists Meningococcal Immunization (ACWY) Aged Out No longer eligible based on patient's age to complete this topic Pneumococcal Immunization Combined Aged Out No longer eligible based on patient's age to complete this topic Rotavirus Immunization Aged Out No lo nger eligible based on patient's age to complete this topic Insurance MEDICAID [place] Care Teams Liquor Runner Relationship Specialty Start Date End Date Provider, Unknown UNKNOWN PCP - General 10/29/18
[2025-05-22 10:55] LABS: Troponin I < 0.012 ng/mL (0.000-0.034)
[2025-05-22] MEDS: ASPIRIN 81 MG CHEWABLE TABLET 324 MG PO (10:58)
[2025-05-22] MEDS: MORPHINE SULFATE (*CRX) 4 MG/ML INJ IV PUSH (11:35)
--- NOTE | 2025-05-22 12:09 | ED_ITS ---
HPI - General Adult General Chief complaint: Chest Pain Stated complaint: CP since Saturday Time Seen by Provider: 05/22/25 10:25 History of Present Illness HPI narrative: Patient is a 39-year-old male who presents ER with chest pain. Ongoing for 4 days. He was lifting heavy concrete blocks and after he got done went home he started having achiness the left chest wall. Worse with direct palpation physical movement of his arm. No dyspnea. No fevers or chills. No cough. No history of PA. Related Data Home Medications ?Medication ?Instructions ?Recorded ?Confirmed ?Last Taken ?Type insulin lispro 100 unit/mL 15 unit subcut TID 05/09/23 09/12/24 09/12/24 History subcutaneous pen (Humalog KwikPen (U-100) Insulin) loperamide 2 mg capsule 2 mg PO Q4HWA 05/09/2309/1209/12/24 History meloxicam 15 mg tablet 15 mg PO DAILY PRN pain 03/3009/12/24 Unknown History Allergies Allergy/AdvReac Type Severity Reaction Status Date / Time No Known Allergies Allergy Verified 05/22/25 10:31 Review of Systems 2 Review of Systems: All systems reviewed & are unremarkable except as noted in HPI and below Constitutional: Constitutional: Reports no additional constitutional complaints ENT: Reports system reviewed and no additional complaints, except as documented Cardiovascular: Cardiovascular: Reports no additional cardiovascular complaints Respiratory: Respiratory: Reports no additional respiratory complaints Gastrointestinal: Gastrointestinal: Reports no additional gastrointestinal complaints [facility] Past Medical History Medical History (Updated 05/22/25 @ 12:10 by Moe Mo MD) Right hand dominant Pancreatitis Type 1 diabetes mellitus on insulin therapy Chronic diarrhea Surgical History Surgical History History of skin graft LLE (graft to de la cruz from thigh) History of appendectomy History of cholecystectomy Family History Family History Mother Family history of rheumatoid arthritis Other Family history of mental disorder Family history of obesity Hypertension Social History Social History Social History: currently lives at home with his and 5 children (step and bio). surrogate decision maker: Lizett Osuna, spouse. code status: full code. Smoking packs per day: 0.5 Smoking cigarettes per day: 10.0 Years smoked: 10 Smoking pack-years: 5.00 Smoking status: Current every day smoker Tobacco type: cigars Second hand tobacco smoke exposure: Yes Additional smoking assessment comments: states he only smoked cigars - approx. 2-3d per week intermit. for 20 yrs Alcohol intake: current Drinks per week: 1 Substance use: current Substance use type: marijuana Other substance usage details: Drinks alcohol 1-2 times every six months Last use: 08/02/23 Do You Feel Safe in your Home?: Yes Lack of Transportation: No Lack of Food: Never True Current Housing: I Have Housing Concerned About Future Housing: No Difficulty Paying Gas/Electric Bills: No Difficulty Paying for Meds: No Currently Unemployed: No Education: High School Diploma/GED Difficulty w/ Childcare or Family Care: No Spiritual care concerns: No Exam 2 Narrative: GENERAL: Well-appearing, well-nourished, and in no acute distress. HEAD: Normocephalic, atraumatic. ENT: Mucous membranes moist. NECK: Supple. CHEST: Clear to auscultation. No respiratory distress. Tender palpation left chest wall and pectoralis without bruising or swelling. HEART: Regular rate and rhythm. Normal peripheral pulses. ABDOMEN: Soft, nontender, nondistended. EXTREMITIES: Normal range of motion. No edema. SKIN: Warm, dry, no rash. NEURO: Alert and oriented x3. PSYCH: Normal mood and affect. Course Course Emergency Course: Troponin negative. [place] to be musculoskeletal in nature. Discharge with anti- inflammatories muscle relaxers. Vital Signs Vital signs: Vital Signs Temperature 97.6 F 05/22/25 10:09 Pulse Rate 52 L 05/22/25 10:09 Respiratory Rate 16 05/22/25 10:09 Blood Pressure 136/80 05/22/25 10:09 Pulse Oximetry 100 05/22/25 10:09 Oxygen Delivery Room Air 05/22/25 10:09 Temperature 97.6 F 05/22/25 10:09 Pulse Rate 48 L 05/22/25 10:31 Respiratory Rate 20 05/22/25 10:31 Blood Pressure 150/92 H 05/22/25 10:31 Pulse Oximetry 99 05/22/25 10:31 Oxygen Delivery Room Air 05/22/25 10:29 Medical Decision Making Vital Signs Vital Signs: Vital Signs Temperature 97.6 F 05/22/25 10:09 Pulse Rate 52 L 05/22/25 10:09 Respiratory Rate 16 05/22/25 10:09 Blood Pressure 136/80 05/22/25 10:09 Pulse Oximetry 100 05/22/25 10:09 Oxygen Delivery Room Air 05/22/25 10:09 Temperature 97.6 F 05/22/25 10:09 Pulse Rate 48 L 05/22/25 10:31 Respiratory Rate 20 05/22/25 10:31 Blood Pressure 150/92 H 05/22/25 10:31 Pulse Oximetry 99 05/22/25 10:31 Oxygen Delivery Room Air 05/22/25 10:29 Lab Data 05/22/25 10:26 05/22/25 10:26 Labs: Lab Results 05/22/25 Range/Units 10:26 WBC 6.5 (4.5-10.0) K/mm3 RBC 4.76 (4.6-6.20) M/mm3 Hgb 14.7 (14.0-18.0) g/dL Hct 42.1 (42.0-52.0) % MCV 88.4 (80-100) fl MCH 30.9 (26-34) pg MCHC 34.9 (32-36) g/dl RDW 12.9 (11.5-14.5) % Plt Count 244 D (150-375) k/mm3 MPV 11.3 H (7.4-10.4) fl Immature Gran % (Auto) 0.3 (0-0.5) % Neut % (Auto) 68.3 (45.5-73.1) % Lymph % (Auto) 22.7 (18.3-44.2) % [place] % (Auto) 5.4 (2.6-8.5) % Eos % (Auto) 2.5 (0-4.4) % Baso % (Auto) 0.8 (0.2-1.2) % Lymph # (Auto) 1.48 (0.9-3.2) K/mm3 [place] # (Auto) 0.4 (0.1-0.6) K/mm3 Eos # (Auto) 0.2 (0-0.3) K/mm3 Baso # (Auto) 0.1 (0.0-0.1) K/mm3 Abs Immat Gran (auto) 0.02 (0.00-0.031) K/mm3 Absolute Neuts (auto) 4.5 (1.3-6.7) K/mm3 Absolute Nucleated RBC 0.000 (0.0-0.012) K/mm3 Nucleated RBC % 0.0 (0.0-0.2) % PT 13.2 (11.1-14.7) Seconds INR 1.0 APTT 30.0 (22.3-36.8) Seconds Sodium 136 L (137-145) mmol/L Potassium 5.0 (3.4-5.0) mmol/L Chloride 105 (98-107) mmol/L Carbon Dioxide 26 (22-30) mmol/L Anion Gap 5 (4-12) mmol/L BUN 15 (9-20) mg/dL Creatinine 0.86 (0.7-1.3) mg/dL Estim Creat Clear Calc 119 ml/min Estimated GFR > 60 (59 - ) Glucose 227 H (65-110) mg/dL Calcium 9.3 (8.4-10.2) mg/dL Total Bilirubin 0.8 (0.2-1.3) mg/dL AST 50 (17-59) U/L ALT 109 H (6-50) U/L Alkaline Phosphatase 123 (38-126) U/L Troponin I < 0.012 (0.000-0.034) ng/mL Total Protein 7.0 (6.3-8.2) g/dL Albumin 4.1 (3.5-5.1) g/dL Lipase 17 L (23-300) U/L Imaging Data Radiologist's impression: ITS Impressions Chest X-Ray 05/22/25 11:28 IMPRESSION: 1: NO ACUTE CARDIOPULMONARY DISEASE. ECG Data EKG #1: ECG completion date: 05/22/25 ECG completion time: 10:22 EKG Interpretation: bradycardia (49), sinus rhythm, non-specific ST changes, normal QT and NL axis Discharge Plan Discharge Clinical Impression: Chest wall pain Patient Disposition: Home Condition: Stable Instructions: Chest Wall Pain (ED) Additional Instructions: Please return to the emergency department if you develop severe and persistent chest pain, difficulty breathing, dizziness, leg swelling or if you are coughing up blood as these can be signs of a medical emergency. Please call your doctor for a follow up appointment to determine the need for further testing. Patient Language: Barbadian Prescriptions: New cyclobenzaprine 10 mg tablet 10 mg PO TID PRN (Reason: muscle spasm) Qty: 20 0RF naproxen 375 mg tablet 375 mg PO BID Qty: 14 0RF No Action meloxicam 15 mg tablet 15 mg PO DAILY PRN (Reason: pain) insulin lispro [Humalog KwikPen Insulin] 100 unit/mL insulin pen 15 unit SUBCUT TID Rx Instructions: If blood sugar over 200, pt adds an additional 5 units. If blood sugar is less than 100 only take 5-10 units loperamide 2 mg Capsule 2 mg PO Q4HWA Rx Instructions: administer after each loose stool until symptoms controlled; do not exceed 8 mg per 24 hrs insulin glargine [Lantus Solostar U-100 Insulin] 100 unit/mL (3 mL) insulin pen 35 unit SUBCUT BID Qty: 15 10RF levofloxacin 750 mg tablet 750 mg PO DAILY 7 Days Qty: 7 0RF Follow-up/Referrals: Moses,RE Sharp [Primary Care Provider, Unknown] - 1 Week Quality HEART score for chest pain patients History: slightly suspicious ECG: non specific repolarization disturbance/LBTB/PM Age: < or = to 45 years Risk factors: 1 or 2 risk factors Troponin: < or = to 1x normal limit Heart score: 2
== END 2025-05-22 12:32 | disposition home or self-care (01) ==
PROVIDERS: Emergency Provider Emergency Medicine; PCP Physician Assistant Medical
DX: R07.89 Other chest pain (principal); E10.9 Type 1 diabetes mellitus without complications; F17.290 Nicotine dependence, other tobacco product, uncomplicated; Z90.49 Acquired absence of other specified parts of digestive tract; Z79.4 Long term (current) use of insulin; R00.1 Bradycardia, unspecified
CPT/HCPCS: 36415; 71046; 80053; 83690; 84484; 85025; 85610; 85730; 93005; 96374; 99284; A9270; J2270

== ENCOUNTER 2025-06-21 12:29 | Emergency (ER) | payer OTHER, SELFPAY ==
--- OUTSIDE RECORDS SUMMARY | 2008-02-17 04:27 | XMS_ITS | Continuity of Care Document ---
Author Organization [facility] Address [address] [place] [address] [place] [address] Phone Care Team Providers Care Folder Operator Name Role Phone Leatha Chavo Unavailable Unavailable Procedures Procedure Date Eye Exam Established Pt Advance Directives Directive Yes / No Effective Date File Name No Information Encounters Encounter Description Practice Location Reason(s) For Visit Diagnoses Date Provider Providers Copied on Encounter [facility], [id number] [place] [address] [address], [place], [place], [id number], [place] tel:[phone] [facility] [place] No Information 0-200 8 Leatha Chavo. [address] [facility] [address], [place], [address], [place]. tel:[phone] Family History Family Member Type Diagnosis Age At Onset No Information Payers Payer name Insurance type Covered constitution party ID Authoriza tion(s) Srinivasette Pattern [id number] Social History Type Description Quantity Date Captured Comments Sex Male Smoking Status No Information Chief Complaint And Reason For Visit No Information Reason For Referral Reason For Referral No Information History Of Present Illness Encounter Date Complaint History Of Prese nt Illness No Information Functional Status Date Functional Assessmen t No Information Instructions Date Instruction Additional Infor mation No Information Assessments Type Assessment Date No Information Patient Care Teams Name Effective Dates (start - stop) Status Members No Information
--- NOTE | ~2025-06-21 | CT_ITS ---
EXAMINATION: CT abdomen pelvis wo con DATE: 06/21/2025 14:44 INDICATION: Left flank pain TECHNIQUE: Computed tomography (CT) of the abdomen and pelvis was performed without intravenous contrast. The dose-length product was 538.71 mGy-cm. Automated exposure control and iterative reconstruction technique were employed. COMPARISON: CT dated 04/11/2024 FINDINGS: Lung bases are unremarkable heart size normal. No significant pleural or pericardial effusion. The liver, spleen, pancreas, adrenal glands are unremarkable. There is a 3 mm proximal right ureteral stone without significant hydronephrosis. There is nonobstructing left renal stone measuring 3 mm. Status post cholecystectomy with expected prominence of the bile duct. Nonobstructive bowel gas pattern. No significant vascular abnormality. No lymphadenopathy. No free air or free fluid. Bladder is decompressed. Prostate gland mildly prominent. Mild lower thoracic and lumbar spondylosis. IMPRESSION: 1. Proximal right ureteral stone measuring 3 mm. 2: Nonobstructing left nephrolithiasis. Reviewed, dictated and finalized at location O.
[2025-06-21 12:40] VITALS: BP 139/91; PULSE 64; RESP 18; TEMP 36.6; O2SAT 98
--- OUTSIDE RECORDS SUMMARY | 2025-06-21 12:59 | XMS_ITS | Clinical Summary ---
Author Organization [facility] Address [address] [place] [address] Phone Care Team Providers Care Granular Operator Name Role Phone Provider, Unknown Primary [...] age to complete this topic Insurance MEDICAID [place] Care Teams Granular Operator Relationship Specialty Start Date End Date Provider, Unknown UNKNOWN PCP - General 10/29/18
--- OUTSIDE RECORDS SUMMARY | 2025-06-21 12:59 | XMS_ITS | Clinical Summary ---
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 Gender Identity Not on file Sexual Orientation [...] 3 - 19+ 3-dose series) 2002 HPV VACCINES (1 - 3-dose SCDM series) 2010 DIABETES HBA1C Q 6 MONTHS 09/12/2019 03/13/2019 INFLUENZA VACCINE (#1) 2025 07/11/2017, 2013 Insurance RX [employer] [facility] Commercial [facility] [employer] Commercial Advance Directives For more information, please contact: [phone] * Full Code (Latest Code Status on File) Date Activated Date Inactivated Comments 12/12/2017 1:40 PM 12/17/2017 3:11 PM * Full Code Date Activated Date Inactivated Comments 12/12/2017 10:18 AM 12/12/2017 1:40 PM * Full Code Date Activated Date Inactivated Comments 12/12/2017 9:26 AM 12/12/2017 10:18 AM
--- OUTSIDE RECORDS SUMMARY | 2025-06-21 12:59 | XMS_ITS | Clinical Summary ---
Author Organization [facility] Address [address] [place] [address] Care Team Providers Care Supervisor Drying And Winding Name Role Phone Unavailable Primary Care Provider Unavailabl e Source Comments [facility],non-owned Affiliates and Associated Physician Practices is amultiple site organization consisting of ambulatory clinics and hospital sitesin [place], [place], [place] and [place]. This disclosure is being madepursuant to the Care Everywhere program and may not contain all information available regarding this patient. Last updated 18.[facility] [place] Social History Tobacco Use Types Packs/Day Years [...] VACCINE (1 - 3-dose SCDM series) 2010 DEPRESSION SCREENING 09/30/2024 COVID-19 VACCINE (1 - 2023-2 5 season) 2025 INFLUENZA VACCINE (#1) 2025 ZOSTER VACCINE (1 [...] ID:Not on file Address: [address] [place] [address] Payer ID:Not on file Group ID:Not on file Type:Self Pay Address: [place], [place] * Guarantor: SONYA FAY Account Type Relation to Patient Date of Phone Billing Address Personal/Family [address] [place] [address] [facility] SELF PAY NO INSURANCE Member Subscriber Plan / Payer (Ef fective for All Dates) Name:Sonya Fay Member ID:Not on file Relation to Subscriber:Not on file Name:SONYA FAY Subscriber ID:Not on file Address: [place] [address] Payer ID:Not on file Group ID:Not on file Type:Self Pay Address: [place], [place] * Guarantor: SONYA FAY Account Type Relation to Patient Date of Phone Billing Address Personal/Family [address] [place] [address] [facility] SELF PAY NO INSURANCE Member Subscriber Plan / Payer (Ef fective for All Dates) Name:Sonya Fay Member ID:Not on file Relation to Subscriber:Not on file Name:SONYA FAY Subscriber ID:Not on file Address: [employer] [facility] [place] [address] Payer ID:Not on file Group ID:Not on file Type:Self Pay Address: [place], [place]
--- NOTE | 2025-06-21 14:31 | ED_ITS ---
HPI - Male Genitourinary General Chief complaint: Urogenital-Male <Domi Gutiérrez PA-C - Last Filed: 06/21/25 14:37> Stated complaint: Blood in urine-Flank pain <Domi Gutiérrez PA-C - Last Filed: 06/21/25 14:37> Time Seen by Provider: 06/21/25 14:31 <PURVI Theodore Last Filed: 06/21/25 14:37> Focused HPI: Patient is a 39 y/o male who presents to the ED with c/o flank pain and hematuria. Patient reports he has had intermittent mild pain throughout his R flank region for the past 1 week. Began having more pain in L flank region today. Pain radiates into vijay groin regions. States he developed hematuria yesterday. Reports hx of previous kidney stones. Also reports urinary urgency. Denies N/V, fevers. Has not taken anything for pain today. GENERAL: Uncomfortable-appearing, obese with BMI of 36.9, and in no acute distress. HEAD: Normocephalic, atraumatic. CHEST: Clear to auscultation. ?No respiratory distress. HEART: Regular rate and rhythm.? ABD: Mild diffuse tenderness in vijay lower quadrants. +CVA tenderness vijay NEURO: ?Alert and oriented x3. Patient screened in triage and initial orders placed.? ?Additional care and disposition to be based upon?diagnostic testing and treatment. <Domi Gutiérrez PA-C - Last Filed: 06/21/25 14:37> Source: patient <PURVI Theodore Last Filed: 06/21/25 14:37> Mode of arrival: ambulatory <PURVI Theodore Last Filed: 06/21/25 14:37> Limitations: no limitations <PURVI Theodore Last Filed: 06/21/25 14:37> History of Present Illness HPI Narrative: Patient 39-year-old gentleman presents emergency department with chief complaint flank pain. The patient reports he has had some blood in his urine reports that he has had prior history of a kidney stone and required a intervention by Urology for the previous stone. Patient reports he type 1 diabetic and his blood sugars have been okay patient denies fever. <Be Jimenez MD - Last Filed: 06/21/25 19:08> Related Data Home medications: Home Medications ?Medication ?Instructions ?Recorded ?Confirmed ?Last Taken ?Type insulin lispro 100 unit/mL 15 unit subcut TID 05/09/23 09/12/24 09/12/24 History subcutaneous pen (Humalog KwikPen (U-100) Insulin) loperamide 2 mg capsule 2 mg PO Q4HWA 05/09/2309/1209/12/24 History meloxicam 15 mg tablet 15 mg PO DAILY PRN pain 03/3009/12/24 Unknown History <Domi Gutiérrez PA-C - Last Filed: 06/21/25 14:37> Allergies/Adverse reactions: Allergies Allergy/AdvReac Type Severity Reaction Status Date / Time No Known Allergies Allergy Verified 06/21/25 12:30 <Domi Gutiérrez PA-C - Last Filed: 06/21/25 14:37> Review of Systems 2 Review of Systems: A 10 system review of systems was completed on the patient and is negative except for what is stated in the HPI. Nursing and ancillary documentation was reviewed. <Be Jimenez MD - Last Filed: 06/21/25 19:08> [facility] Past Medical History Medical History: Medical History Right hand dominant Pancreatitis Type 1 diabetes mellitus on insulin therapy Chronic diarrhea <Domi Gutiérrez PA-C - Last Filed: 06/21/25 14:37> Surgical History Surgical History: Surgical History History of skin graft LLE (graft to de la cruz from thigh) History of appendectomy History of cholecystectomy <Domi Gutiérrez PA-C - Last Filed: 06/21/25 14:37> Family History Family History: Family History Mother Family history of rheumatoid arthritis Other Family history of mental disorder Family history of obesity Hypertension <Domi Gutiérrez PA-C - Last Filed: 06/21/25 14:37> Social History Social History: Social History Social History: currently lives at home with his and 5 children (step and bio). surrogate decision maker: Lizett Osuna, spouse. code status: full code. Smoking packs per day: 0.5 Smoking cigarettes per day: 10.0 Years smoked: 10 Smoking pack-years: 5.00 Smoking status: Current every day smoker Tobacco type: cigars Second hand tobacco smoke exposure: Yes Additional smoking assessment comments: states he only smoked cigars - approx. 2-3d per week intermit. for 20 yrs Alcohol intake: current Drinks per week: 1 Substance use: current Substance use type: marijuana Other substance usage details: Drinks alcohol 1-2 times every six months Last use: 08/02/23 Do You Feel Safe in your Home?: Yes Lack of Transportation: No Lack of Food: Never True Current Housing: I Have Housing Concerned About Future Housing: No Difficulty Paying Gas/Electric Bills: No Difficulty Paying for Meds: No Currently Unemployed: No Education: High School Diploma/GED Difficulty w/ Childcare or Family Care: No Spiritual care concerns: No <Domi Gutiérrez PA-C - Last Filed: 06/21/25 14:37> Exam 2 Narrative: GENERAL: Well-appearing, well-nourished, and in moderate acute pain distress. HEAD: Normocephalic, atraumatic. EYES: PERRLA and EOMI. ENT: Nares clear, no rhinorrhea or epistaxis. Mucous membranes moist. NECK: Supple. CHEST: Clear to auscultation. No respiratory distress. HEART: Regular rate and rhythm. No murmur heard. Normal peripheral pulses. ABDOMEN: Soft, nontender, nondistended, normal active bowel sounds. EXTREMITIES: Normal range of motion. No edema. SKIN: Warm, dry, no rash. NEURO: No focal deficits. Alert and oriented x3. PSYCH: Normal mood and affect. <Be Jimenez MD - Last Filed: 06/21/25 19:08> Course Vital Signs Vital signs: Vital Signs Temperature 36.6 C 06/21/25 12:40 Pulse Rate 64 06/21/25 12:40 Respiratory Rate 18 06/21/25 12:40 Blood Pressure 139/91 H 06/21/25 12:40 Pulse Oximetry 98 06/21/25 12:40 Oxygen Delivery Room Air 06/21/25 12:40 Temperature 36.6 C 06/21/25 12:40 Pulse Rate 57 L 06/21/25 18:06 Respiratory Rate 19 06/21/25 18:06 Blood Pressure 151/97 H 06/21/25 18:06 Pulse Oximetry 98 06/21/25 18:06 Oxygen Delivery Room Air 06/21/25 17:14 <Domi Gutiérrez PA-C - Last Filed: 06/21/25 14:37> Vital Signs Temperature 36.6 C 06/21/25 12:40 Pulse Rate 64 06/21/25 12:40 Respiratory Rate 18 06/21/25 12:40 Blood Pressure 139/91 H 06/21/25 12:40 Pulse Oximetry 98 06/21/25 12:40 Oxygen Delivery Room Air 06/21/25 12:40 Temperature 36.6 C 06/21/25 12:40 Pulse Rate 57 L 06/21/25 18:06 Respiratory Rate 19 06/21/25 18:06 Blood Pressure 151/97 H 06/21/25 18:06 Pulse Oximetry 98 06/21/25 18:06 Oxygen Delivery Room Air 06/21/25 17:14 <Be Jimenez MD - Last Filed: 06/21/25 19:08> MDM - Male Genitourinary MDM Narrative Medical decision making narrative: MSE bY FAMILIA in triage. <Domi Gutiérrez PA-C - Last Filed: 06/21/25 14:37> MSE bY FAMILIA in triage. Differential diagnosis includes ureterolithiasis, sepsis, UTI, pyelonephritis Laboratory studies were obtained showed a white count of 6.0 urinalysis showed 3+ blood greater than 100 red blood cells 1+ leukocyte esterase 6-10 white blood cells a urine culture has been sent. CT scan showed evidence of a 3 mm stone. Patient's pain was improved with Toradol and Dilaudid <Be Jimenez MD - Last Filed: 06/21/25 19:08> Lab Data Result diagrams: 06/21/25 15:29 06/21/25 15:29 <Domi Gutiérrez PA-C - Last Filed: 06/21/25 14:37> Labs: Lab Results 06/21/25 Range/Units 15:29 WBC 6.0 (4.5-10.0) K/mm3 RBC 4.93 (4.6-6.20) M/mm3 Hgb 14.9 (14.0-18.0) g/dL Hct 42.4 (42.0-52.0) % MCV 86.0 (80-100) fl MCH 30.2 (26-34) pg MCHC 35.1 (32-36) g/dl RDW 12.8 (11.5-14.5) % Plt Count 242 (150-375) k/mm3 MPV 11.3 H (7.4-10.4) fl Immature Gran % (Auto) 0.2 (0-0.5) % Neut % (Auto) 51.2 (45.5-73.1) % Lymph % (Auto) 37.0 (18.3-44.2) % [place] % (Auto) 5.8 (2.6-8.5) % Eos % (Auto) 5.0 H (0-4.4) % Baso % (Auto) 0.8 (0.2-1.2) % Lymph # (Auto) 2.23 (0.9-3.2) K/mm3 [place] # (Auto) 0.4 (0.1-0.6) K/mm3 Eos # (Auto) 0.3 (0-0.3) K/mm3 Baso # (Auto) 0.1 (0.0-0.1) K/mm3 Abs Immat Gran (auto) 0.01 (0.00-0.031) K/mm3 Absolute Neuts (auto) 3.1 (1.3-6.7) K/mm3 Absolute Nucleated RBC 0.000 (0.0-0.012) K/mm3 Nucleated RBC % 0.0 (0.0-0.2) % Sodium 137 (137-145) mmol/L Potassium 3.9 (3.4-5.0) mmol/L Chloride 106 (98-107) mmol/L Carbon Dioxide 23 (22-30) mmol/L Anion Gap 8 (4-12) mmol/L BUN 15 (9-20) mg/dL Creatinine 0.76 (0.7-1.3) mg/dL Estim Creat Clear Calc 133 ml/min Estimated GFR > 60 (59 - ) Glucose 151 H (65-110) mg/dL Calcium 9.3 (8.4-10.2) mg/dL Total Bilirubin 1.0 (0.2-1.3) mg/dL AST 40 (17-59) U/L ALT 44 (6-50) U/L Alkaline Phosphatase 102 (38-126) U/L Total Protein 7.3 (6.3-8.2) g/dL Albumin 4.3 (3.5-5.1) g/dL Urine Color [place] H (Yellow) Urine Appearance Turbid H (Clear) Urine pH 5.5 (5.0-9.0) Ur Specific [place] 1.031 (1.001-1.035) Urine Protein 2+ H (Negative) mg/dL Urine Glucose (UA) 3+ H (Negative) mg/dL Urine Ketones Negative (Negative) mg/dL Ur Blood (Man) 3+ H (Negative) Urine Nitrate Negative (Negative) Urine Bilirubin Negative (Negative) Urine Urobilinogen 1.0 (<2.0) mg/dL Add Ur Microanalysis Need manual Leukocyte Esterase Rfl 1+ H (Negative) DIRK/UL Urine RBC >100 H (0-2) /hpf Urine WBC 6-10 H (0-3) /hpf Ur Squamous Epith Cells None seen (Few) /hpf Urine Bacteria None seen /hpf Urine Casts 0-2 Urine Yeast (Budding) Present H (None) /hpf <Domi Gutiérrez PA-C - Last Filed: 06/21/25 14:37> Lab Results 06/21/25 Range/Units 15:29 WBC 6.0 (4.5-10.0) K/mm3 RBC 4.93 (4.6-6.20) M/mm3 Hgb 14.9 (14.0-18.0) g/dL Hct 42.4 (42.0-52.0) % MCV 86.0 (80-100) fl MCH 30.2 (26-34) pg MCHC 35.1 (32-36) g/dl RDW 12.8 (11.5-14.5) % Plt Count 242 (150-375) k/mm3 MPV 11.3 H (7.4-10.4) fl Immature Gran % (Auto) 0.2 (0-0.5) % Neut % (Auto) 51.2 (45.5-73.1) % Lymph % (Auto) 37.0 (18.3-44.2) % [place] % (Auto) 5.8 (2.6-8.5) % Eos % (Auto) 5.0 H (0-4.4) % Baso % (Auto) 0.8 (0.2-1.2) % Lymph # (Auto) 2.23 (0.9-3.2) K/mm3 [place] # (Auto) 0.4 (0.1-0.6) K/mm3 Eos # (Auto) 0.3 (0-0.3) K/mm3 Baso # (Auto) 0.1 (0.0-0.1) K/mm3 Abs Immat Gran (auto) 0.01 (0.00-0.031) K/mm3 Absolute Neuts (auto) 3.1 (1.3-6.7) K/mm3 Absolute Nucleated RBC 0.000 (0.0-0.012) K/mm3 Nucleated RBC % 0.0 (0.0-0.2) % Sodium 137 (137-145) mmol/L Potassium 3.9 (3.4-5.0) mmol/L Chloride 106 (98-107) mmol/L Carbon Dioxide 23 (22-30) mmol/L Anion Gap 8 (4-12) mmol/L BUN 15 (9-20) mg/dL Creatinine 0.76 (0.7-1.3) mg/dL Estim Creat Clear Calc 133 ml/min Estimated GFR > 60 (59 - ) Glucose 151 H (65-110) mg/dL Calcium 9.3 (8.4-10.2) mg/dL Total Bilirubin 1.0 (0.2-1.3) mg/dL AST 40 (17-59) U/L ALT 44 (6-50) U/L Alkaline Phosphatase 102 (38-126) U/L Total Protein 7.3 (6.3-8.2) g/dL Albumin 4.3 (3.5-5.1) g/dL Urine Color [place] H (Yellow) Urine Appearance Turbid H (Clear) Urine pH 5.5 (5.0-9.0) Ur Specific [place] 1.031 (1.001-1.035) Urine Protein 2+ H (Negative) mg/dL Urine Glucose (UA) 3+ H (Negative) mg/dL Urine Ketones Negative (Negative) mg/dL Ur Blood (Man) 3+ H (Negative) Urine Nitrate Negative (Negative) Urine Bilirubin Negative (Negative) Urine Urobilinogen 1.0 (<2.0) mg/dL Add Ur Microanalysis Need manual Leukocyte Esterase Rfl 1+ H (Negative) DIRK/UL Urine RBC >100 H (0-2) /hpf Urine WBC 6-10 H (0-3) /hpf Ur Squamous Epith Cells None seen (Few) /hpf Urine Bacteria None seen /hpf Urine Casts 0-2 Urine Yeast (Budding) Present H (None) /hpf <Be Jimenez MD - Last Filed: 06/21/25 19:08> Discharge Plan Discharge Clinical Impression: Ureterolithiasis <Domi Gutiérrez PA-C - Last Filed: 06/21/25 14:37> Patient Disposition: Home <Domi Gutiérrez PA-C - Last Filed: 06/21/25 14:37> Condition: Stable <Domi uGtiérrez PA-C - Last Filed: 06/21/25 14:37> Instructions: Antibiotic Form, Kidney Stones (ED), How to Strain Your Urine (ED), Flank Pain (ED) <Domi Gutiérrez PA-C - Last Filed: 06/21/25 14:37> Patient Language: Trinidadian <PURVI Theodore Last Filed: 06/21/25 14:37> Prescriptions: New ondansetron 4 mg tablet,disintegrating 4 mg PO Q8H PRN (Reason: nausea and vomiting) Qty: 10 0RF hydrocodone-acetaminophen 5-325 mg tablet 1 tablet PO Q6H PRN (Reason: pain) 3 Days Qty: 12 0RF tamsulosin [Flomax] 0.4 mg capsule 0.4 mg PO DAILY Qty: 10 0RF No Action meloxicam 15 mg tablet 15 mg PO DAILY PRN (Reason: pain) cyclobenzaprine 10 mg tablet 10 mg PO TID PRN (Reason: muscle spasm) Qty: 20 0RF naproxen 375 mg tablet 375 mg PO BID Qty: 14 0RF insulin lispro [Humalog KwikPen Insulin] 100 unit/mL insulin pen 15 unit SUBCUT TID Rx Instructions: If blood sugar over 200, pt adds an additional 5 units. If blood sugar is less than 100 only take 5-10 units loperamide 2 mg Capsule 2 mg PO Q4HWA Rx Instructions: administer after each loose stool until symptoms controlled; do not exceed 8 mg per 24 hrs insulin glargine [Lantus Solostar U-100 Insulin] 100 unit/mL (3 mL) insulin pen 35 unit SUBCUT BID Qty: 15 10RF levofloxacin 750 mg tablet 750 mg PO DAILY 7 Days Qty: 7 0RF <Domi Gutiérrez PA-C - Last Filed: 06/21/25 14:37> Follow-up/Referrals: Karthik Christian MD [Physician, Urology] Moses,RE Sharp [Primary Care Provider, Unknown] <Domi Gutiérrez PA-C - Last Filed: 06/21/25 14:37> Time of Disposition: 18:10 <Domi Gutiérrez PA-C - Last Filed: 06/21/25 14:37> 18:10 <Be Jimenez MD - Last Filed: 06/21/25 19:08>
[2025-06-21] MEDS: HYDROcodone/acetaminophen (*CRX) 5-325 MG TABLET 1 TAB PO (15:20)
[2025-06-21 15:42] LABS: Hematocrit 42.4 % (42.0-52.0); Hemoglobin 14.9 g/dL (14.0-18.0); Immature Granulocyte Percent A 0.2 % (0-0.5); Lymphocytes Absolute Auto 2.23 K/mm3 (0.9-3.2); Mean Corpuscular HGB Conc 35.1 g/dl (32-36); Mean Corpuscular Hemoglobin 30.2 pg (26-34); Mean Corpuscular Volume 86.0 fl (80-100); Nucleated Red Blood Cells Absolute Auto 0.000 K/mm3 (0.0-0.012); Nucleated Red Blood Cells Perc 0.0 % (0.0-0.2); Platelet Count Result 242 k/mm3 (150-375); Red Blood Count 4.93 M/mm3 (4.6-6.20); White Blood Count 6.0 K/mm3 (4.5-10.0)
[2025-06-21 15:46] LABS: Need Manual Microscopic Need Manual; Non Pathogenic Casts 0-2
[2025-06-21 15:47] LABS: Add Urine Microscopic? YES; Appearance Urine Turbid (Clear); Glucose Urine UA 3+ mg/dL (Negative); Leukocyte Esterase Ur 1+ LEU/UL (Negative); Nitrate Urine Negative (Negative); Specific Grav Ur 1.031 (1.001-1.035)
[2025-06-21 15:53] LABS: Alanine Aminotransferase 44 U/L (6-50); Albumin Level 4.3 g/dL (3.5-5.1); Alkaline Phosphatase 102 U/L (38-126); Anion Gap 8 mmol/L (4-12); Aspartate Amino Transferase 40 U/L (17-59); Bilirubin,Total 1.0 mg/dL (0.2-1.3); Blood Urea Nitrogen 15 mg/dL (9-20); Calcium 9.3 mg/dL (8.4-10.2); Carbon Dioxide 23 mmol/L (22-30); Chloride 106 mmol/L (98-107); Estimated CRCL calculation 133 ml/min; Estimated Glomerular Filt Rate > 60; Glucose 151 mg/dL (65-110); Potassium 3.9 mmol/L (3.4-5.0); Sodium 137 mmol/L (137-145); Total Protein 7.3 g/dL (6.3-8.2)
[2025-06-21 15:58] LABS: Budding Yeast Urine Present /hpf
[2025-06-21] MEDS: SODIUM CHLORIDE 0.9% IV 1,000 ML 999 ML IV CONT (17:08)
[2025-06-21] MEDS: HYDROmorphone HCL INJ (*CRX) 1 MG/ML SYR IV PUSH (17:09)
[2025-06-21] MEDS: ONDANSETRON INJ 4 MG/2 ML VIAL IV PUSH (17:09)
[2025-06-21 17:14] VITALS: BP 124/86; PULSE 50; RESP 20; O2SAT 99
[2025-06-21 18:06] VITALS: BP 151/97; PULSE 57; RESP 19; O2SAT 98
[2025-06-21] MEDS: KETOROLAC 15 MG/ML VIAL (*BKC) IV PUSH (18:10)
[2025-06-21] MEDS: TAMSULOSIN HCL 0.4 MG CAPSULE PO (18:10)
[2025-06-21 19:15] VITALS: BP 142/76; PULSE 84; RESP 16; TEMP 37.1
== END 2025-06-21 19:17 | disposition home or self-care (01) ==
PROVIDERS: Physician Assistant; Emergency Provider Emergency Medicine; PCP Physician Assistant Medical
DX: N20.1 Calculus of ureter (principal); Z72.0 Tobacco use; E10.9 Type 1 diabetes mellitus without complications; Z79.4 Long term (current) use of insulin
CPT/HCPCS: 36415; 74176; 80053; 81001; 85025; 87086; 96361; 96374; 96375; 99284; A9270; J1171; J1885; J2405; J7030